=== PATIENT | female | born 1930 | race Caucasian/White ===

== ENCOUNTER → 2018-04-26 | Outpatient (CLI) | payer MEDICARE, BC ==
[2017-11-01 15:00] VITALS: BP 138/62
[~2018-04-26] MED LIST: ASPI325T8 PO; CALC-52 PO; CRESTOR5 MG PO; DOXE50CA PO; DOXE75CA PO; FURO20TA3 PO; HYDR-2765 PO; METO50TA6 PO; MULT1TAB6 PO
[2018-04-26 07:33] LABS: BASO # 0.1 x10^3/uL (0.0-0.2); BASO % 1 % (0-3); EOS # 0.3 x10^3/uL (0.0-0.7); EOS % 4 % (0-3); HEMATOCRIT 34.8 % (36.0-47.0); LYMPH # 1.3 x10^3/uL (1.0-4.8); LYMPH % 17 % (24-48); MEAN CORPUSCULAR HEMOGLOBIN 32 pg (25-35); MEAN CORPUSCULAR HGB CONC 34 g/dL (31-37); MEAN CORPUSCULAR VOLUME 93 fL (79-100); MONO % 13 % (0-9); NEUT # 4.9 x10^3uL (1.8-7.7); NEUT % 64 % (31-73); PLATELET COUNT 278 x10^3/uL (140-400); RED BLOOD COUNT 3.76 x10^6/uL (3.50-5.40); RED CELL DISTRIBUTION WIDTH 14.7 % (11.5-14.5); WHITE BLOOD COUNT 7.7 x10^3/uL (4.0-11.0)
[2018-04-26 07:53] LABS: CALCIUM 8.5 mg/dL (8.5-10.1); CREATININE 1.2 mg/dL (0.6-1.0); GFR 42.4; POTASSIUM 4.7 mmol/L (3.5-5.1)
[2018-04-26 12:15] LABS: INFLUENZA A PATIENT NEGATIVE (NEGATIVE); INFLUENZA B PATIENT NEGATIVE (NEGATIVE)
== END | disposition home or self-care (01) ==
LOC: SPEC 07:16
PROVIDERS: ATTEND Internal Medicine
DX: Z01.818 Encounter for other preprocedural examination (principal)
CPT/HCPCS: 36415; 80048; 85025; 87804

== ENCOUNTER → 2018-07-28 | Outpatient (CLI) | payer MEDICARE ==
[2017-11-01 15:00] VITALS: BP 138/62
[2018-07-28 08:23] LABS: BASO # 0.1 x10^3/uL (0.0-0.2); BASO % 2 % (0-3); EOS # 0.6 x10^3/uL (0.0-0.7); EOS % 7 % (0-3); HEMOGLOBIN 10.9 g/dL (12.0-15.5); LYMPH # 1.9 x10^3/uL (1.0-4.8); LYMPH % 23 % (24-48); MEAN CORPUSCULAR HEMOGLOBIN 31 pg (25-35); MEAN CORPUSCULAR HGB CONC 33 g/dL (31-37); MEAN CORPUSCULAR VOLUME 94 fL (79-100); MONO # 0.8 x10^3/uL (0.0-1.1); MONO % 9 % (0-9); NEUT # 4.8 x10^3uL (1.8-7.7); NEUT % 59 % (31-73); PLATELET COUNT 301 x10^3/uL (140-400); RED BLOOD COUNT 3.53 x10^6/uL (3.50-5.40); RED CELL DISTRIBUTION WIDTH 15.1 % (11.5-14.5); WHITE BLOOD COUNT 8.2 x10^3/uL (4.0-11.0)
[2018-07-28 08:29] LABS: CALCIUM 8.5 mg/dL (8.5-10.1); CREATININE 1.2 mg/dL (0.6-1.0); GFR 42.4; POTASSIUM 4.2 mmol/L (3.5-5.1)
== END | disposition home or self-care (01) ==
LOC: SPEC 07:39
PROVIDERS: ATTEND Internal Medicine
DX: R53.1 Weakness (principal)
CPT/HCPCS: 36415; 80048; 83880; 85025

== ENCOUNTER 2018-11-06 22:17 | Inpatient (IN) | payer MEDICARE, BC ==
[~2018-11-06] VITALS: Ht 160 cm; Wt 79.4 kg
[2018-11-06 22:55] LABS: BASO # 0.1 x10^3/uL (0.0-0.2); BASO % 1 % (0-3); EOS # 0.7 x10^3/uL (0.0-0.7); EOS % 7 % (0-3); HEMATOCRIT 35.2 % (36.0-47.0); HEMOGLOBIN 11.9 g/dL (12.0-15.5); LYMPH # 1.6 x10^3/uL (1.0-4.8); LYMPH % 14 % (24-48); MEAN CORPUSCULAR HEMOGLOBIN 32 pg (25-35); MEAN CORPUSCULAR HGB CONC 34 g/dL (31-37); MEAN CORPUSCULAR VOLUME 95 fL (79-100); MONO % 9 % (0-9); NEUT # 7.6 x10^3/uL (1.8-7.7); NEUT % 69 % (31-73); PLATELET COUNT 270 x10^3/uL (140-400); RED BLOOD COUNT 3.71 x10^6/uL (3.50-5.40)
[2018-11-06 23:03] LABS: CALCIUM 9.1 mg/dL (8.5-10.1); CREATININE 1.5 mg/dL (0.6-1.0); GFR 32.8
[2018-11-06 23:04] LABS: PROTHROMBIN TIME PATIENT 13.8 SEC (11.7-14.0)
--- NOTE | 2018-11-06 23:05 | PHYS DOC ---
Past Medical History Past Medical History: CAD, Cancer, Stroke, UTI Additional Past Medical Histor: cataracts, skin cancer Past Surgical History: Coronary Bypass Surgery, Hip Replacement, Knee Replacement, Other Additional Past Surgical Histo: cataracts surgery Alcohol Use: None Drug Use: None Adult General Chief Complaint Chief Complaint: SHORTNESS OF BREATH HPI HPI Patient is a 88 year old [female] who presents with [shortness of breath]. Pt states "she doesn't know why she's here." She was brought via EMS from [facility] and the nurse at [facility] said the patient was in respiratory distress and had concerning LE pedal edema b/l. SAT 90 ON RA AT [facility] WAS MORE SHORT OF BREATH THAN USUAL, REFFERED HERE BY [facility]. HAS LASIX ON MED LIST BUT HAS NOT YET STARTED IT Pt is a pleasant old lady who is a poor historian (pt states it's because of the stroke she had) and has no complaints. She denies chest pain, shortness of breath, cough, fever/chills abdominal pain, headache, nausea/vomiting, and diarrhea or constipation. Review of Systems Review of Systems Constitutional: Denies fever or chills Eyes: Denies change in visual acuity, redness, or eye pain Musculoskeletal: RIGHT SIDE LEG PAIN Neurologic: Denies headache, focal weakness or sensory changes Endocrine: Denies polyuria or polydipsia All other systems were reviewed and found to be within normal limits, except as documented in this note. Current Medications Current Medications Current Medications Medications (Trade) Dose Ordered Sig/Lilly Start Time Stop Time Status Last Admin Dose Admin Albuterol/ Ipratropium (Duoneb) 3 ml RTQID 11/07/18 08:00 11/08/18 07:59 Ceftriaxone Sodium (Rocephin) 1 gm 1X ONCE 11/06/18 23:45 11/06/18 23:46 Furosemide (Lasix) 40 mg 1X ONCE 11/06/18 23:45 11/06/18 23:46 Vancomycin HCl (Vanco Per Pharmacy) 1 each PRN DAILY PRN 11/06/18 23:45 UNV Vancomycin HCl 2 gm/Sodium Chloride 500 ml @ 250 mls/hr 1X ONCE 11/06/18 23:45 11/07/18 01:44 Allergies Allergies Allergies Coded Allergies Type Severity Reaction Last Updated Verified adhesive tape Allergy Intermediate Rash 10/25/17 No Physical Exam Physical Exam Constitutional: Well developed, well nourished, no acute distress, non-toxic appearance. HENT: Normocephalic, atraumatic, bilateral external ears normal, oropharynx moist, no oral exudates, nose normal. Eyes: [Pt unable to follow finger on examination of cardinal signs of gaze, with her eyes staying fixated where my finger started. Unable to tell if this is due to organic pathology to the EOM or the pt not understanding or wanting to perform the exam.] Neck: Normal range of motion, no tenderness, supple, no stridor. Cardiovascular:Heart rate regular rhythm, no murmur Lungs & Thorax: [Slight end-expiratory wheezes appreciated b/l on auscultation of the lungs, wheezing more prominent on the right] THERE IS MILD TACHYPNEA MILD INCREASE IN ACCESORY MUSLE USE Abdomen: Bowel sounds normal, soft, no tenderness, no masses, no pulsatile masses. Skin: Warm, dry, no erythema, no rash. [Erythematous, shiny, edematous skin in Right lower extrimity] Back: No tenderness, no CVA tenderness. Extremities: No tenderness, [B/l LE's wrapped with dressing from the ankles to the mid calf. Right Lower extremity is erythematous and edematous above the dr essing and the overly skin is shiny. Radial pulses +2/4 b/l] Neurologic: Alert and oriented X 3, normal motor function, normal sensory function, no focal deficits noted. Psychologic: Affect normal, judgement normal, mood normal. Current Patient Data Vital Signs Vital Signs Date Time Temp Pulse Resp B/P (MAP) Pulse Ox O2 Delivery O2 Flow Rate FiO2 11/06/18 22:20 97.9 80 28 145/80 (101) 100 Room Air 97.9 Lab Values Laboratory Tests Test 11/06/18 22:45 White Blood Count 11.0 x10^3/uL (4.0-11.0) Red Blood Count 3.71 x10^6/uL (3.50-5.40) Hemoglobin 11.9 g/dL (12.0-15.5) L Hematocrit 35.2 % (36.0-47.0) L Mean Corpuscular Volume 95 fL (79-100) Mean Corpuscular Hemoglobin 32 pg (25-35) Mean Corpuscular Hemoglobin Concent 34 g/dL (31-37) Red Cell Distribution Width 15.0 % (11.5-14.5) H Platelet Count 270 x10^3/uL (140-400) Neutrophils (%) (Auto) 69 % (31-73) Lymphocytes (%) (Auto) 14 % (24-48) L Monocytes (%) (Auto) 9 % (0-9) Eosinophils (%) (Auto) 7 % (0-3) H Basophils (%) (Auto) 1 % (0-3) Neutrophils # (Auto) 7.6 x10^3/uL (1.8-7.7) Lymphocytes # (Auto) 1.6 x10^3/uL (1.0-4.8) Monocytes # (Auto) 1.0 x10^3/uL (0.0-1.1) Eosinophils # (Auto) 0.7 x10^3/uL (0.0-0.7) Basophils # (Auto) 0.1 x10^3/uL (0.0-0.2) Prothrombin Time 13.8 SEC (11.7-14.0) Prothrombin Time INR 1.1 (0.8-1.1) Sodium Level 134 mmol/L (136-145) L Potassium Level 5.0 mmol/L (3.5-5.1) Chloride Level 97 mmol/L (98-107) L Carbon Dioxide Level 34 mmol/L (21-32) H Anion Gap 3 (6-14) L Blood Urea Nitrogen 55 mg/dL (7-20) H Creatinine 1.5 mg/dL (0.6-1.0) H Estimated GFR (Cockcroft-Gault) 32.8 BUN/Creatinine Ratio 37 (6-20) H Glucose Level 113 mg/dL (70-99) H Calcium Level 9.1 mg/dL (8.5-10.1) Total Bilirubin 0.2 mg/dL (0.2-1.0) Aspartate Amino Transferase (AST) 22 U/L (15-37) Alanine Aminotransferase (ALT) 27 U/L (14-59) Alkaline Phosphatase 101 U/L (46-116) Troponin I Quantitative < 0.017 ng/mL (0.000-0.055) AM-Rqv-G-Type Natriuretic Peptide 839 pg/mL (0-449) H Total Protein 8.0 g/dL (6.4-8.2) Albumin 3.1 g/dL (3.4-5.0) L Albumin/Globulin Ratio 0.6 (1.0-1.7) L Laboratory Tests 11/06/18 22:45 Laboratory Tests 11/06/18 22:45 EKG EKG []EKG shows a sinus rhythm rate 80 Q wave inferiorly no ischemia no STEMI rate of 80 interpreted by me the timing encounter Chest x-ray interpreted by me waiting for radiology read there may be some mild pulmonary vascular congestion there is a rectal critical passive the left lung base overall this is improved compared to prior chest x-ray that I have from 2018. Radiology/Procedures Radiology/Procedures [] Course & Med Decision Making Course & Med Decision Making Pertinent Labs and Imaging studies reviewed. (See chart for details) [Pt is a pleasant 88 yo female presenting with reported shortness of breath. Pt is a resident at [facility] and arrived via EMS. One of the nurses at [place] reported the pt was in respiratory distress and had LE pedal edema b/l that was worse than the pt's baseline edema. Suspect a component of congestive heart failure given the elevated BNP and the prior history as well as lower extremity edema Lasix was given creatinine is 1.5 baseline is around 1.4. In addition there may be a subtle retrocardiac opacity at the left lung base patient was given antibiotics for possible pneumonia. There is wheezing which could be cardiac wheezes or component of reactive airway disease patient was treated for both and will be admitted to the service of Dr. Gonzalez this is a DNR on the outside prison paperwork. Dragon Disclaimer Dragon Disclaimer This electronic medical record was generated, in whole or in part, using a voice recognition dictation system. Departure Departure Impression: Primary Impression: Dyspnea Disposition: ADMITTED INPATIENT Admitting Physician: AKHIL Condition: STABLE Referrals: NIRAJ COREDRO Jr, MD (PCP) PATT POSADA MD Nov 06, 2018 23:05
[2018-11-06 23:09] LABS: ALBUMIN 3.1 g/dL (3.4-5.0); ALBUMIN/GLOBULIN RATIO 0.6 (1.0-1.7); TOTAL BILIRUBIN 0.2 mg/dL (0.2-1.0)
[2018-11-06] MEDS ORDERED: FUROSEMIDE 40 MG/4 ML VIAL. IVP ONE (23:45)
[2018-11-06] MEDS ORDERED: VANCOMYCIN PER PHARMACY MC PRN (23:45)
[2018-11-06] MEDS ORDERED: cefTRIAXone IV Push 1 GM VIAL. IVP ONE (23:45)
[2018-11-06] MEDS ORDERED: VANCOMYCIN 2 GM in IV NORMAL SALINE 500ML BAG 500 ML IV ONE (23:45)
[2018-11-07] VITALS (7 sets, daily range): BP systolic 103–165; BP diastolic 46–68
--- NOTE | 2018-11-07 01:00 | NUR ---
The patient, BRIAN FLORES I, 88 y/o, F admitted by JEREMY NARVAEZ III, DO, was given written information regarding hospital policies, unit procedures and contact persons. Patient transferred to room by ED staff member via ED gurney. Valuables were checked and noted. Patient is currently laying in bed with no complaints of pain or discomfort at this time. Patient is currently on oxygen by nasal canula. Call light was placed within reach of the patient and lights were turned off per request of patient. This RN will continue to monitor the patient at this time.
--- NOTE | 2018-11-07 02:39 | RAD ---
AP portable chest radiograph 11/06/2018 Clinical History: Shortness of breath. An AP erect portable digital radiograph of the chest was obtained. Comparison study is dated 10/31/2017. The cardiac silhouette is mildly enlarged. Atherosclerotic calcification of the thoracic aorta is seen. The thoracic aorta is tortuous. Prominence of pulmonary vasculature is seen suggesting mild CHF. No pneumothorax or pleural effusion is seen. Degenerative changes are seen involving the thoracic spine and both shoulders. Impression: Findings consistent with mild CHF. Electronically signed by: Óscar Chan MD (11/07/2018 2:36 AM) [id number]
[2018-11-07] MEDS ORDERED: ACET500T33 PO (02:46)
[2018-11-07] MEDS ORDERED: MELA3TAB2 PO (02:46)
[2018-11-07] MEDS ORDERED: MULT-638 PO (02:46)
[2018-11-07] MEDS ORDERED: LOSA-73 PO (02:46)
[2018-11-07] MEDS ORDERED: LORA10TA68 PO (02:46)
[2018-11-07] MEDS ORDERED: SULF1TAB24 PO (02:46)
--- NOTE | 2018-11-07 05:22 | NUR ---
Pharmacy Vancomycin Dosing Note S:Consulted to monitor and dose vancomycin started 11/06/18. O:BRIAN FLORES I is a 88 year old F with DYSPNEA . Height: 5 feet, 0 inches Weight: 82.062040 kg [place] Body Weight: 45.50 Adjusted Body Weight: 60.30 Dosing Weight: Actual Other Antibiotics: LABS: Last BUN: 55 Last Creatinine: 1.5 Creatinine Clearance: 24.69 mL/min Last WBC: 11 Last Procalcitonin: Tmax (past 24 hours): Microbiology: I/O: Drug Levels: Last level: on at Last dose given at Vancomycin Dosing: Loading Dose: 2000 mg x1 11/06 Dosing Weight: Actual Target Trough: 15-20 A: Based on: Actual Wt and CrCl P: 1. 11/07/18 2330 Vancomycin 1250 mg IV q24h 2. Follow up Trough level on 11/08/18 at 2300 3. Pharmacy will continue to monitor, follow and adjust therapy as needed. BEN CHAVEZ RPH, 11/07/18 0523 Signed: 11/07/18 at 0524 by BEN CHAVEZ RPH PHA
--- NOTE | 2018-11-07 06:38 | EKG ---
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
[2018-11-07] MEDS: IPRATRPIUM/ALBUTEROL 0.5/2.5MG 3 ML NEBU. NEB SCH ×4 (08:01→19:30)
[2018-11-07] MEDS ORDERED: ONDANSETRON PF 4 MG/2 ML VIAL. IV PRN (09:30)
[2018-11-07] MEDS ORDERED: FUROSEMIDE 40 MG/4 ML VIAL. IVP SCH (09:30)
[2018-11-07] MEDS ORDERED: ACETAMINOPHEN 1000 MG PO PRN (09:30)
[2018-11-07] MEDS ORDERED: guaiFENesin DM 200MG/20MG 10 ML SYRUP PO PRN (09:30)
[2018-11-07] MEDS ORDERED: ACETAMINOPHEN 500 MG TABLET PO PRN (09:30)
[2018-11-07] MEDS: MULTIVITAMIN with MINERAL TABLET. PO SCH (09:47)
[2018-11-07] MEDS: LOSARTAN POTASSIUM 50 MG TABLET. PO SCH (09:47)
[2018-11-07] MEDS: ASPIRIN 325 MG TABLET PO SCH (09:47)
[2018-11-07] MEDS: CETIRIZINE HCL 10 MG TABLET. PO SCH (09:47)
[2018-11-07] MEDS: METOPROLOL TART IMMED RELEASE 50 MG TABLET. PO SCH ×2 (09:48→20:13)
[2018-11-07] MEDS ORDERED: MINERAL OIL/PETROLATUM TOPICAL CREAM 113GM JAR. TP PRN (11:30)
--- NOTE | 2018-11-07 11:34 | PDOC1 ---
History and Physical Date of Admission Date of Admission DATE: 11/07/18 TIME: 11:29 Identification/Chief Complaint Chief Complaint Confusion, low sats at [facility] Source Source: Caregiver, Chart review, Patient History of Present Illness History of Present Illness 88-year-old white female, DNR, came from [facility] with Center because of hypoxia 80% and some confusion. Patient is a poor historian Looking at old chart, was at one point on diuretic, history of CHF but with unknown EF. She complains of foot pain, her legs are red, erythematous but not swollen. Ultrasound Dopplers negative for DVT. Adhesive tape allergy Got vancomycin at ER 1.25 IV every 24. She is elderly 88-year-old. I did order some Lasix 40 IV once a day. Did get a dose of Lasix at the ER. BNP elevated, chest x-ray mild CHF with some retrocardiac space abnormality had started also on antibiotic. I initially shifted to levaquin by mouth but after seeing the legs she will need more IV antibiotics. Order ESR I held off ID for now Clindamycin for now. Watch out for any diarrhea. I have reconciled home meds. I did advise wound care to see the patient, dressings changed, I inspected the wound personally, RN at bedside DNR Past Medical History Cardiovascular: CHF, HTN, Hyperlipidemia CENTRAL NERVOUS SYSTEM: Carpal Tunnel Syndrome Psych: Bipolar Musculoskeletal: Osteoarthritis Renal/: UTI, Urinary Incontinence Endocrine: Osteoporosis Past Surgical History Past Surgical History: Cataract Removal, Total knee replacement Family History Family History: Other Social History Smoke: No ALCOHOL: none Drugs: None Current Medications Current Medications Current Medications Furosemide (Lasix) 40 mg 1X ONCE IVP Last administered on 11/06/18at 23:54; Start 11/06/18 at 23:45; Stop 11/06/18 at 23:46; Status DC Ceftriaxone Sodium (Rocephin) 1 gm 1X ONCE IVP Last administered on 11/06/18at 23:54; Start 11/06/18 at 23:45; Stop 11/06/18 at 23:46; Status DC Vancomycin HCl (Vanco Per Pharmacy) 1 each PRN DAILY PRN [facility] SEE COMMENTS Last administered on 11/07/18at 05:19; Start 11/06/18 at 23:45; Stop 11/07/18 at 09:27; Status DC Albuterol/ Ipratropium (Duoneb) 3 ml RTQID NEB Last administered on 11/07/18at 08:01; Start 11/07/18 at 08:00; Stop 11/08/18 at 07:59 Vancomycin HCl 2 gm/Sodium Chloride 500 ml @ 250 mls/hr 1X ONCE IV Last admi nistered on 11/06/18at 23:55; Start 11/06/18 at 23:45; Stop 11/07/18 at 01:44; Status DC Vancomycin HCl 1.25 gm/Sodium Chloride 250 ml @ 167 mls/hr Q24H IV ; Start 11/07/18 at 23:30; Stop 11/07/18 at 23:30; Status DC Vancomycin HCl (Vancomycin Trough Level) 1 each 1X ONCE MC ; Start 11/08/18 at 23:00; Stop 11/08/18 at 23:01; Status Cancel Guaifenesin (Robitussin Dm) 10 ml PRN Q6HRS PRN PO COUGH; Start 11/07/18 at 09:30 Acetaminophen (Tylenol) 500 mg PRN Q6HRS PRN PO MILD PAIN / TEMP; Start 11/07/18 at 09:30 Ondansetron HCl (Zofran) 4 mg PRN Q6HRS PRN IV NAUSEA/VOMITING; Start 11/07/18 at 09:30 Furosemide (Lasix) 40 mg DAILY IVP Last administered on 11/07/18at 09:49; Start 11/07/18 at 09:30 Aspirin (Santos Aspirin) 325 mg DAILY PO Last administered on 11/07/18at 09:47; Start 11/07/18 at 09:30 Losartan Potassium (Cozaar) 50 mg DAILY PO Last administered on 11/07/18at 09:47; Start 11/07/18 at 09:30 Metoprolol Tartrate (Lopressor) 50 mg BID PO Last administered on 11/07/18at 09:48; Start 11/07/18 at 09:30 Multivitamins (Thera M Plus) 1 tab DAILY PO Last administered on 11/07/18at 09:47; Start 11/07/18 at 09:30 Non-Formulary Medication (Acetaminophen (Tylenol Extra Strength)) 1,000 mg PRN Q6HRS PRN PO PAIN; Start 11/07/18 at 09:30; Status UNV Doxepin HCl (SINEquan) 75 mg QHS PO ; Start 11/07/18 at 21:00 Cetirizine HCl (ZyrTEC) 10 mg DAILY PO Last administered on 11/07/18at 09:47; S tart 11/07/18 at 09:30 Non-Formulary Medication (Melatonin ) 5 mg HS PO ; Start 11/07/18 at 21:00; Status UNV Levofloxacin (Levaquin) 250 mg DAILY06 PO Last administered on 11/07/18at 09:47; Start 11/07/18 at 10:00 Active Scripts Active Reported Thera M Plus Tablet (Multivits,Ca,Minerals/Iron/FA) 1 Each Tablet 1 Each PO DAILY Melatonin 3 Mg Tablet 5 Mg PO HS Claritin (Loratadine) 10 Mg Tablet 1 Tab PO DAILY Losartan Potassium 50 Mg Tablet 50 Mg PO DAILY Tylenol Extra Strength (Acetaminophen) 500 Mg Tablet 1,000 Mg PO PRN Q6HRS PRN Bactrim Ds Tablet (Sulfamethoxazole/Trimethoprim) 1 Each Tablet 1 Each PO BID 7 Days Doxepin Hcl 75 Mg Capsule 75 Mg PO DAILY Aspirin 325 Mg Tablet 1 Tab PO DAILY Furosemide 20 Mg Tablet 1 Tab PO DAILY Metoprolol Tartrate 50 Mg Tablet 1 Tab PO BID Allergies Allergies: Coded Allergies: adhesive tape (Unverified Allergy, Intermediate, Rash, 10/25/17) ROS Review of System Legs hurt, SOA, no chest pain, positive for weakness, no abdominal issues, the rest of ROS 14 point she denies Physical Exam General: No acute distress HEENT: Atraumatic, PERRLA Lungs: Normal air movement, Other (diminished, symmetrical chest expansion, crackles at the bases, no wheezing) Heart: S1S2, RRR, no thrills, no rubs, no gallops, no murmurs Cardiovascular: S1, S2 Breasts: Normal Abdomen: Normal bowel sounds, Soft, No tenderness, No hepatosplenomegaly, No masses Rectal Exam: not examined PELVIC: Nml ext genitalia Extremities: No clubbing, No cyanosis Skin: Other (bilateral legs right greater than the left erythematous, red, warm, but not swollen) Neuro: Normal gait, Normal speech, Strength at 5/5 X4 ext, Normal tone, Sensation intact, Cranial nerves 3-12 NL, Reflexes 2+ Psych/Mental Status: Mental status NL, Mood NL Vitals Vitals Vital Signs Date Time Temp Pulse Resp B/P (MAP) Pulse Ox O2 Delivery O2 Flow Rate FiO2 11/07/18 11:00 97.4 88 18 165/68 (100) 99 Nasal Cannula 2.0 97.4 Labs Labs Laboratory Tests Test 11/06/18 22:45 White Blood Count 11.0 x10^3/uL (4.0-11.0) Red Blood Count 3.71 x10^6/uL (3.50-5.40) Hemoglobin 11.9 g/dL (12.0-15.5) Hematocrit 35.2 % (36.0-47.0) Mean Corpuscular Volume 95 fL (79-100) Mean Corpuscular Hemoglobin 32 pg (25-35) Mean Corpuscular Hemoglobin Concent 34 g/dL (31-37) Red Cell Distribution Width 15.0 % (11.5-14.5) Platelet Count 270 x10^3/uL (140-400) Neutrophils (%) (Auto) 69 % (31-73) Lymphocytes (%) (Auto) 14 % (24-48) Monocytes (%) (Auto) 9 % (0-9) Eosinophils (%) (Auto) 7 % (0-3) Basophils (%) (Auto) 1 % (0-3) Neutrophils # (Auto) 7.6 x10^3/uL (1.8-7.7) Lymphocytes # (Auto) 1.6 x10^3/uL (1.0-4.8) Monocytes # (Auto) 1.0 x10^3/uL (0.0-1.1) Eosinophils # (Auto) 0.7 x10^3/uL (0.0-0.7) Basophils # (Auto) 0.1 x10^3/uL (0.0-0.2) Prothrombin Time 13.8 SEC (11.7-14.0) Prothromb Time International Ratio 1.1 (0.8-1.1) Sodium Level 134 mmol/L (136-145) Potassium Level 5.0 mmol/L (3.5-5.1) Chloride Level 97 mmol/L (98-107) Carbon Dioxide Level 34 mmol/L (21-32) Anion Gap 3 (6-14) Blood Urea Nitrogen 55 mg/dL (7-20) Creatinine 1.5 mg/dL (0.6-1.0) Estimated GFR (Cockcroft-Gault) 32.8 BUN/Creatinine Ratio 37 (6-20) Glucose Level 113 mg/dL (70-99) Lactic Acid Level 1.2 mmol/L (0.4-2.0) Calcium Level 9.1 mg/dL (8.5-10.1) Total Bilirubin 0.2 mg/dL (0.2-1.0) Aspartate Amino Transf (AST/SGOT) 22 U/L (15-37) Alanine Aminotransferase (ALT/SGPT) 27 U/L (14-59) Alkaline Phosphatase 101 U/L (46-116) Troponin I Quantitative < 0.017 ng/mL (0.000-0.055) AT-Tzy-U-Type Natriuretic Peptide 839 pg/mL (0-449) Total Protein 8.0 g/dL (6.4-8.2) Albumin 3.1 g/dL (3.4-5.0) Albumin/Globulin Ratio 0.6 (1.0-1.7) Laboratory Tests Test 11/06/18 22:45 White Blood Count 11.0 x10^3/uL (4.0-11.0) Red Blood Count 3.71 x10^6/uL (3.50-5.40) Hemoglobin 11.9 g/dL (12.0-15.5) Hematocrit 35.2 % (36.0-47.0) Mean Corpuscular Volume 95 fL (79-100) Mean Corpuscular Hemoglobin 32 pg (25-35) Mean Corpuscular Hemoglobin Concent 34 g/dL (31-37) Red Cell Distribution Width 15.0 % (11.5-14.5) Platelet Count 270 x10^3/uL (140-400) Neutrophils (%) (Auto) 69 % (31-73) Lymphocytes (%) (Auto) 14 % (24-48) Monocytes (%) (Auto) 9 % (0-9) Eosinophils (%) (Auto) 7 % (0-3) Basophils (%) (Auto) 1 % (0-3) Neutrophils # (Auto) 7.6 x10^3/uL (1.8-7.7) Lymphocytes # (Auto) 1.6 x10^3/uL (1.0-4.8) Monocytes # (Auto) 1.0 x10^3/uL (0.0-1.1) Eosinophils # (Auto) 0.7 x10^3/uL (0.0-0.7) Basophils # (Auto) 0.1 x10^3/uL (0.0-0.2) Prothrombin Time 13.8 SEC (11.7-14.0) Prothromb Time International Ratio 1.1 (0.8-1.1) Sodium Level 134 mmol/L (136-145) Potassium Level 5.0 mmol/L (3.5-5.1) Chloride Level 97 mmol/L (98-107) Carbon Dioxide Level 34 mmol/L (21-32) Anion Gap 3 (6-14) Blood Urea Nitrogen 55 mg/dL (7-20) Creatinine 1.5 mg/dL (0.6-1.0) Estimated GFR (Cockcroft-Gault) 32.8 BUN/Creatinine Ratio 37 (6-20) Glucose Level 113 mg/dL (70-99) Lactic Acid Level 1.2 mmol/L (0.4-2.0) Calcium Level 9.1 mg/dL (8.5-10.1) Total Bilirubin 0.2 mg/dL (0.2-1.0) Aspartate Amino Transf (AST/SGOT) 22 U/L (15-37) Alanine Aminotransferase (ALT/SGPT) 27 U/L (14-59) Alkaline Phosphatase 101 U/L (46-116) Troponin I Quantitative < 0.017 ng/mL (0.000-0.055) YG-Jty-V-Type Natriuretic Peptide 839 pg/mL (0-449) Total Protein 8.0 g/dL (6.4-8.2) Albumin 3.1 g/dL (3.4-5.0) Albumin/Globulin Ratio 0.6 (1.0-1.7) VTE Prophylaxis Ordered VTE Prophylaxis Devices: Yes VTE Pharmacological Prophylaxi: Yes Assessment/Plan Assessment/Plan Mild CHF by chest x-ray Acute hypoxic respiratory failure-80s at [facility] resident, DNR Bilateral lower extremity cellulitis negative Dopplers for DVT-right greater than left met encephalopathy/confusion in this elderly Dementia Geriatric Fall risk History hypertension GERD OA-chronic stable Adhesive tape allergy PLAN: 2 MN Lasix 40 IV daily-cardiac consult Home meds I have reconciled DVT prophylaxis, SCDs Wound care consult Clindamycin for the legs Check a sedimentation rate Clindamycin should cover also the retrocardiac opacity Watch lytes as we are actively IV diuresing-I'll might need to go down the dose in this elderly Fall risk Cardiac diet Eucerin lotion for dry skin DNR JOSE FLOREZ MD Nov 07, 2018 11:34
--- NOTE | 2018-11-07 12:24 | PDOC2 ---
MOHINDER WALLER PORTER BAGGAGE 11/07/18 1224: CARDIAC CONSULT DATE OF CONSULT Date of Consult DATE: 11/07/18 TIME: 12:15 REASON FOR CONSULT Reason for Consult: CHF REFERRING PHYSICIAN Referring Physician: Eber HISTORY OF PRESENT ILLNESS HISTORY OF PRESENT ILLNESS This is a pleasant 88 yo female admitted for complains of shortness of breath. She is a poor historian but pleasant and aware that she is in the hospital. Denies any complains of chest pain and no leg pain as well but her LE has been noted with redness. No issues with palpitations. She has had cough but nonproductive. No recent falls or injuries and she is bed and WC bound as she has had CVA with right side hemiparesis. No hx of arrhythmias. She was a smoker. No known hx of CAD but notable for PAD as noted in her arterial Doppler in 02/2018 and no known intervention performed at that time. Denies any orthopnea or PND. PAST MEDICAL HISTORY Past Medical History Cardiovascular: CHF, HTN, Hyperlipidemia, LE PAD CENTRAL NERVOUS SYSTEM: Carpal Tunnel Syndrome Psych: Bipolar Musculoskeletal: Osteoarthritis ENT: Other (cataract) Renal/: UTI, Urinary Incontinence, CKD? Endocrine: Osteoporosis PAST SURGICAL HISTORY Past Surgical History Cataract Removal, Total knee replacement (left) SOCIAL HISTORY Smoke: Quit ALCOHOL: none Drugs: None Lives: Custodial CURRENT MEDICATIONS CURRENT MEDICATIONS Current Medications Medications (Trade) Dose Ordered Sig/Lilly Route PRN Reason Start Time Stop Time Status Last Admin Dose Admin Furosemide (Lasix) 40 mg 1X ONCE IVP 11/06/18 23:45 11/06/18 23:46 DC 11/06/18 23:54 Ceftriaxone Sodium (Rocephin) 1 gm 1X ONCE IVP 11/06/18 23:45 11/06/18 23:46 DC 11/06/18 23:54 Vancomycin HCl (Vanco Per Pharmacy) 1 each PRN DAILY PRN MC SEE COMMENTS 11/06/18 23:45 11/07/18 09:27 DC 11/07/18 05:19 Albuterol/ Ipratropium (Duoneb) 3 ml RTQID NEB 11/07/18 08:00 11/08/18 07:59 11/07/18 11:31 Vancomycin HCl 2 gm/Sodium Chloride 500 ml @ 250 mls/hr 1X ONCE IV 11/06/18 23:45 11/07/18 01:44 DC 11/06/18 23:55 Furosemide (Lasix) 40 mg DAILY IVP 11/07/18 09:30 11/07/18 09:49 Aspirin (Santos Aspirin) 325 mg DAILY PO 11/07/18 09:30 11/07/18 09:47 Losartan Potassium (Cozaar) 50 mg DAILY PO 11/07/18 09:30 11/07/18 09:47 Metoprolol Tartrate (Lopressor) 50 mg BID PO 11/07/18 09:30 11/07/18 09:48 Multivitamins (Thera M Plus) 1 tab DAILY PO 11/07/18 09:30 11/07/18 09:47 Cetirizine HCl (ZyrTEC) 10 mg DAILY PO 11/07/18 09:30 11/07/18 09:47 Levofloxacin (Levaquin) 250 mg DAILY06 PO 11/07/18 10:00 11/07/18 11:29 DC 11/07/18 09:47 ALLERGIES ALLERGIES: Coded Allergies: adhesive tape (Unverified Allergy, Intermediate, Rash, 10/25/17) ROS Review of System limited, poor historian PHYSICAL EXAM General: Alert, Oriented X3, Cooperative, No acute distress HEENT: Atraumatic, Mucous membr. moist/pink Lungs: Other (diffuse crackles) Heart: Regular rate (SR), Other (3/6 systolic murmur to apical) Abdomen: Soft, No tenderness Skin: Other (scaling to bilateral LE; erythema more to right than left; scabbed pressure ulcer to right calcaneus) Neuro: Normal speech, Sensation intact Psych/Mental Status: Mental status NL, Mood NL MUSCULOSKELETAL: Osteoarthritic changes both hands VITALS/I&O VITALS/I&O: Vital Signs Date Time Temp Pulse Resp B/P (MAP) Pulse Ox O2 Delivery O2 Flow Rate FiO2 11/07/18 11:32 98 Nasal Cannula 2.0 11/07/18 11:00 97.4 88 18 165/68 (100) 97.4 I & O 11/06/18 11/06/18 11/07/18 15:00 23:00 07:00 Intake Total 500 ml Balance 500 ml LABS Lab: Laboratory Tests Test 11/06/18 22:45 White Blood Count 11.0 x10^3/uL (4.0-11.0) Red Blood Count 3.71 x10^6/uL (3.50-5.40) Hemoglobin 11.9 g/dL (12.0-15.5) L Hematocrit 35.2 % (36.0-47.0) L Mean Corpuscular Volume 95 fL (79-100) Mean Corpuscular Hemoglobin 32 pg (25-35) Mean Corpuscular Hemoglobin Concent 34 g/dL (31-37) Red Cell Distribution Width 15.0 % (11.5-14.5) H Platelet Count 270 x10^3/uL (140-400) Neutrophils (%) (Auto) 69 % (31-73) Lymphocytes (%) (Auto) 14 % (24-48) L Monocytes (%) (Auto) 9 % (0-9) Eosinophils (%) (Auto) 7 % (0-3) H Basophils (%) (Auto) 1 % (0-3) Neutrophils # (Auto) 7.6 x10^3/uL (1.8-7.7) Lymphocytes # (Auto) 1.6 x10^3/uL (1.0-4.8) Monocytes # (Auto) 1.0 x10^3/uL (0.0-1.1) Eosinophils # (Auto) 0.7 x10^3/uL (0.0-0.7) Basophils # (Auto) 0.1 x10^3/uL (0.0-0.2) Prothrombin Time 13.8 SEC (11.7-14.0) Prothrombin Time INR 1.1 (0.8-1.1) Sodium Level 134 mmol/L (136-145) L Potassium Level 5.0 mmol/L (3.5-5.1) Chloride Level 97 mmol/L (98-107) L Carbon Dioxide Level 34 mmol/L (21-32) H Anion Gap 3 (6-14) L Blood Urea Nitrogen 55 mg/dL (7-20) H Creatinine 1.5 mg/dL (0.6-1.0) H Estimated GFR (Cockcroft-Gault) 32.8 BUN/Creatinine Ratio 37 (6-20) H Glucose Level 113 mg/dL (70-99) H Lactic Acid Level 1.2 mmol/L (0.4-2.0) Calcium Level 9.1 mg/dL (8.5-10.1) Total Bilirubin 0.2 mg/dL (0.2-1.0) Aspartate Amino Transferase (AST) 22 U/L (15-37) Alanine Aminotransferase (ALT) 27 U/L (14-59) Alkaline Phosphatase 101 U/L (46-116) Troponin I Quantitative < 0.017 ng/mL (0.000-0.055) BC-Nsf-N-Type Natriuretic Peptide 839 pg/mL (0-449) H Total Protein 8.0 g/dL (6.4-8.2) Albumin 3.1 g/dL (3.4-5.0) L Albumin/Globulin Ratio 0.6 (1.0-1.7) L Laboratory Tests 11/06/18 22:45 Laboratory Tests 11/06/18 22:45 IMAGES IMAGES Bilateral LE arterial duplex FINDINGS: Right-sided: Triphasic waveform seen in the GENETICS TEACHER with velocity of 80 cm/s. [place] SFA is occluded. Femoropopliteal graft is noted which is patent with biphasic waveforms and velocity 112 cm/s in the proximal segment. Biphasic waveform in the mid segment of the graft with velocity of 62 cm/s. Biphasic waveform in the distal segment of the graft with velocity of 65 cm/s. Monophasic waveforms in the profunda femoris artery with velocity of 208 cm/s suggesting moderate narrowing. Right popliteal artery is not seen likely occluded. Biphasic waveforms seen in the posterior tibial artery with velocity of 50 cm/s. Biphasic waveforms seen in the peroneal artery with velocity of 52 cm/s. Anterior tibial artery and dorsalis pedis arteries are seen which may be secondary to occlusion or diffuse high-grade stenosis. Left side: Biphasic waveforms seen in the GENETICS TEACHER with velocity of 107 cm/s. Biphasic waveforms seen in the profunda femoris artery with velocity of 164 cm/s suggesting mild stenosis. Monophasic waveforms seen in the proximal SFA with velocity of 512 cm/s suggesting severe stenosis. Monophasic waveform is seen in the mid SFA with velocity of 36 cm/s. Monophasic waveform is seen in the distal SFA with velocity of 35 cm/s. Monophasic waveform is seen in the popliteal artery with velocity of 36 cm/s. Monophasic waveform in the posterior tibial artery with velocity of 34 cm/s. The peroneal artery, anterior tibial artery are not seen which may be secondary to severe diffuse stenosis or occlusion. Monophasic waveform is seen in the dorsalis pedis artery with velocity of 34 cm/s. IMPRESSION: Please see above for details. 02/2018 ECHOCARDIOGRAM ECHOCARDIOGRAM <Conclusion> The left ventricular systolic function is normal and the ejection fraction is within normal range. Ef 55% There is grossly normal LV segmental wall motion. Doppler and Color Flow revealed mild aortic regurgitation. Doppler and Color-flow revealed severe mitral regurgitation. Doppler and Color Flow revealed trace to mild tricuspid regurgitation. There is moderate pulmonary hypertension. The PA pressure was estimated at 50 mmHg. DATE: 10/30/17 1314 ASSESSMENT/PLAN ASSESSMENT/PLAN 1. Acute on chronic diastolic CHF: 2. HTN 3. Right heel pressure ulcer: scabbed over 4. RLE cellulitis 5. Hx of severe LE PAD: no necrotic tissues, no pain. Treat medically 6. TY on CKD: suspect stage 3 7. Debility: WC bound 8. Hx of CVA with right sided hemiparesis 9. Possible undiagnosed COPD 10. Hx of severe MR. Recommendations TTE, BMP, Mg lipids. UA Discussed with son and will continue with conservative measures Secondary prevention, ASA and statin per lipid level. Albuterol x1, solumedrol x1. May need CT chest noncontrast. Lasix therapy BETHANY DINH MD 11/07/18 1735: CARDIAC CONSULT ASSESSMENT/PLAN ASSESSMENT/PLAN Patient seen and examined. Agree with EXTRUSION DIE COORDINATOR's assessment and plan. 2-D echo showed normal LV systolic function Continue diuresis for acute on chronic diastolic heart failure Continue current treatment for cellulitis Agree with conservative management for PAD Thank you for your consultation MOHINDER WALLER APRN Nov 07, 2018 12:24 BETHANY DINH MD Nov 07, 2018 17:35
[2018-11-07] MEDS ORDERED: methylPREDNISolone SOD SUCC PF 125 MG/2 ML VIAL. IV ONE (12:45)
[2018-11-07] MEDS ORDERED: ALBUTEROL SULFATE 2.5 MG/3 ML NEBU. NEB ONE (12:45)
[2018-11-07 12:50] LABS: CALCIUM 8.6 mg/dL (8.5-10.1); CREATININE 1.5 mg/dL (0.6-1.0); GFR 32.8; POTASSIUM 4.2 mmol/L (3.5-5.1)
[2018-11-07 12:54] LABS: MAGNESIUM 2.3 mg/dL (1.8-2.4)
[2018-11-07 13:05] LABS: CHOLESTEROL/HDL RATIO 3.5
--- NOTE | 2018-11-07 15:16 | NUR ---
Wound care Pt getting ECHO upon arrival of WC team. Will re-attempt eval again tomorrow. Addendum: 11/07/18 at 1541 by FABIENNE RODRIGES RN ramírez
--- NOTE | 2018-11-07 15:36 | NUR ---
Wound Care wound care consult for R heel wound. Pt has stage II on right posterior heel and arterial ulcer to left lateral lower leg. Pt also has reddened indurated area to right posterior lower leg. Cleansed, pictured and measured wounds. Applied contact layer and foam to right heel and Medihoney alginate and foam to left leg. Recommend to change dressings every 2-3 days. Pt BLE are reddened and scaly. No other wounds noted on full skin inspection. WC will continue to follow for possible changes. Pt educated on PU prevention, left on right side.
--- NOTE | 2018-11-07 15:50 | CARD ---
MR#: [id number] Date of Study: 11/07/2018 Ordering Physician: MOHINDER WALLER, Referring Physician: JEREMY NARVAEZ Tech: Martha Reed RDCS APPROVED REPORT EXAM: Two-dimensional and M-mode echocardiogram with Doppler and color Doppler. Other Information Quality : Good INDICATION Congestive Heart Failure 2D DIMENSIONS RVDd2.2 (2.9-3.5cm)Left Atrium(2D)4.4 (1.6-4.0cm) IVSd0.9 (0.7-1.1cm)Aortic Root(2D)2.3 (2.0-3.7cm) LVDd5.0 (3.9-5.9cm)LVOT Diameter1.7 (1.8-2.4cm) PWd1.0 (0.7-1.1cm)LVDs3.7 (2.5-4.0cm) FS (%) 27.3 %SV63.6 ml LVEF(%)55.0 (>50%) Aortic Valve AoV Peak Donny.143.0cm/sAoV VTI31.4cm AO Peak GR.8.2mmHgLVOT VTI 18.93cm AO Mean GR.5mmHgAI P 1/2 Mtkl190es Mitral Valve MV E Djuwdnet660.3cm/sMV DECEL [id number] MV A Vvnmbsqy672.9cm/sE/A Ratio1.1 TDI Lateral E' P. V4.25cm/sMedial E' P. V4.05cm/s E/Lateral E'29.0E/Medial E'30.4 Tricuspid Valve TR P. Ijpqjrtd862ua/sRAP [id number] TR Peak Gr.90jvNuNSWD51zbYx Pulmonary Vein S1 Hubdylre46.9cm/sS2 Dpesqwql32.51cm/s D2 Nswatviy79.5cm/s LEFT VENTRICLE The left ventricle is normal size. There is normal left ventricular wall thickness. The left ventricu lar systolic function is normal. The Ejection Fraction is 55-60%. There is normal LV segmental wall m otion. Transmitral Doppler flow pattern is Grade I-abnormal relaxation pattern. RIGHT VENTRICLE The right ventricle is normal size. The right ventricular systolic function is normal. ATRIA The left atrium is mildly dilated. The right atrium size is normal. The interatrial septum is intact with no evidence for an atrial septal defect or patent foramen ovale as noted on 2-D or Doppler imagi ng. AORTIC VALVE The aortic valve is calcified but opens well. Doppler and Color Flow revealed mild aortic regurgitati on. There is no significant aortic valvular stenosis. MITRAL VALVE The mitral valve is calcified but opens well. Mitral annular calcification is mild. There is no evide nce of mitral valve prolapse. There is no mitral valve stenosis. Doppler and Color-flow revealed mild to moderate mitral regurgitation. TRICUSPID VALVE The tricuspid valve is normal in structure and function. Doppler and Color Flow revealed trace to mil d tricuspid regurgitation. There is mild pulmonary hypertension. The PA pressure was estimated at 32 mmHg. There is no tricuspid valve stenosis. PULMONIC VALVE The pulmonic valve is not well visualized. Doppler and Color Flow revealed trace to mild pulmonic axel vular regurgitation. There is no pulmonic valvular stenosis. GREAT VESSELS The aortic root is normal in size. The ascending aorta is normal in size. The IVC is normal in size a nd collapses >50% with inspiration. PERICARDIAL EFFUSION There is no evidence of significant pericardial effusion. Critical Notification Critical Value: No <Conclusion> The left ventricular systolic function is normal. The Ejection Fraction is 55-60%. There is normal LV segmental wall motion. Mild aortic regurgitation. Mild to moderate mitral regurgitation. Trace to mild tricuspid regurgitation. The PA pressure was estimated at 32 mmHg. There is no evidence of significant pericardial effusion. Signed by : Fernando Gil, Electronically Approved : 11/07/2018 15:50:17
[2018-11-07] MEDS: CLINDAMYCIN 600MG PREMIX 50 ML IV SCH (15:59)
--- NOTE | 2018-11-07 16:14 | NUR ---
SW following pt for dc planning. Chart reviewed and discussed with RN. Spoke with Lucrecia at [facility] and pt is LTC resident. Will continue to follow.
[2018-11-07] MEDS: DOXEPIN HCL 25 MG CAPSULE. PO SCH (20:07)
[2018-11-07] MEDS: ATORVASTATIN CALCIUM 20 MG TABLET PO SCH (20:07)
[2018-11-07] MEDS ORDERED: NON FORMULARY ITEM (Melatonin 5 MG) PO SCH (21:00)
[2018-11-07] MEDS ORDERED: VANCOMYCIN 1.25 GM in IV NORMAL SALINE 250ML 250 ML IV SCH (23:30)
[2018-11-08] MEDS: CLINDAMYCIN 600MG PREMIX 50 ML IV SCH ×2 (00:29→05:59)
[2018-11-08] MEDS ORDERED: TEMAZEPAM 7.5 MG CAPSULE PO ONE (02:21)
[2018-11-08 03:14] VITALS: BP 98/44
[2018-11-08 05:25] LABS: BASO % 0 % (0-3); EOS % 0 % (0-3); HEMOGLOBIN 10.9 g/dL (12.0-15.5); LYMPH # 0.6 x10^3/uL (1.0-4.8); LYMPH % 10 % (24-48); MEAN CORPUSCULAR HEMOGLOBIN 32 pg (25-35); MEAN CORPUSCULAR HGB CONC 34 g/dL (31-37); MEAN CORPUSCULAR VOLUME 94 fL (79-100); MONO # 0.1 x10^3/uL (0.0-1.1); MONO % 2 % (0-9); NEUT # 5.1 x10^3/uL (1.8-7.7); NEUT % 88 % (31-73); PLATELET COUNT 228 x10^3/uL (140-400); RED BLOOD COUNT 3.41 x10^6/uL (3.50-5.40); RED CELL DISTRIBUTION WIDTH 14.9 % (11.5-14.5); WHITE BLOOD COUNT 5.8 x10^3/uL (4.0-11.0)
[2018-11-08 05:50] LABS: CALCIUM 8.3 mg/dL (8.5-10.1); CREATININE 1.6 mg/dL (0.6-1.0); GFR 30.4; POTASSIUM 4.2 mmol/L (3.5-5.1)
[2018-11-08 07:00] VITALS: BP 161/69
[2018-11-08] MEDS: IPRATRPIUM/ALBUTEROL 0.5/2.5MG 3 ML NEBU. NEB SCH ×4 (08:03→23:52)
[2018-11-08] MEDS ORDERED: predniSONE 20 MG TABLET PO SCH (09:00)
[2018-11-08] MEDS: MULTIVITAMIN with MINERAL TABLET. PO SCH ×2 (09:00→09:10)
[2018-11-08] MEDS: ASPIRIN 325 MG TABLET PO SCH (09:10)
[2018-11-08] MEDS: LOSARTAN POTASSIUM 50 MG TABLET. PO SCH (09:11)
[2018-11-08] MEDS: ASCORBIC ACID 500 MG TABLET PO SCH (09:11)
[2018-11-08] MEDS: METOPROLOL TART IMMED RELEASE 50 MG TABLET. PO SCH (09:11)
[2018-11-08] MEDS: CETIRIZINE HCL 10 MG TABLET. PO SCH (09:17)
[2018-11-08] MEDS: FUROSEMIDE 20 MG/2 ML VIAL. IVP SCH (09:17)
[2018-11-08 10:22] LABS: PLT ESTIMATE ADEQUATE (ADEQUATE)
[2018-11-08 11:00] VITALS: BP 136/64
--- NOTE | 2018-11-08 11:21 | PDOC ---
PROGRESS NOTES Chief Complaint Chief Complaint Mild CHF by chest x-ray Acute hypoxic respiratory failure-80s at [facility] SNU resident, DNR Bilateral lower extremity cellulitis negative Dopplers for DVT-right greater than left met encephalopathy/confusion in this elderly Dementia Geriatric Fall risk History hypertension GERD OA-chronic stable Adhesive tape allergy WHEEZY History of Present Illness History of Present Illness very weak Very wheezy Cardiology also noticed the audible wheezing yesterday Wound care note reviewed, right heel pressure ulcer stage II, some med E Honey and offloading that site recommended alternating left and right heels Patient is DNR Patient is an SNU resident [facility] UA was ordered by ER but patient is incontinent Legs are about the same still red, negative DVT on IV abx Plan Consult ID because the leg that is not getting better Start some steroids IV for the wheezing Consult pulmonary for this wheezy/hypoxia present at [facility] 80% on admission Blood pressure on the high side-see my orders Echocardiogram reviewed, good EF, good PA pressures ESR is normal at 12 Discussed with patient and RN DNR Vitals Vitals Vital Signs Date Time Temp Pulse Resp B/P (MAP) Pulse Ox O2 Delivery O2 Flow Rate FiO2 11/08/18 09:11 93 161/69 11/08/18 08:03 98 Nasal Cannula 2.0 11/08/18 07:00 97.5 16 97.5 Physical Exam General: Alert, Oriented X3, Cooperative, No acute distress Heart: Regular rate (SR), Other (3/6 systolic murmur to apical) Lungs: Wheezing Abdomen: Soft, No tenderness Extremities: No clubbing, No cyanosis Skin: Other (scaling to bilateral LE; erythema more to right than left; scabbed pressure ulcer to right calcaneus) Labs LABS Laboratory Tests Test 11/08/18 04:20 White Blood Count 5.8 x10^3/uL (4.0-11.0) Red Blood Count 3.41 x10^6/uL (3.50-5.40) Hemoglobin 10.9 g/dL (12.0-15.5) Hematocrit 32.0 % (36.0-47.0) Mean Corpuscular Volume 94 fL (79-100) Mean Corpuscular Hemoglobin 32 pg (25-35) Mean Corpuscular Hemoglobin Concent 34 g/dL (31-37) Red Cell Distribution Width 14.9 % (11.5-14.5) Platelet Count 228 x10^3/uL (140-400) Neutrophils (%) (Auto) 88 % (31-73) Lymphocytes (%) (Auto) 10 % (24-48) Monocytes (%) (Auto) 2 % (0-9) Eosinophils (%) (Auto) 0 % (0-3) Basophils (%) (Auto) 0 % (0-3) Neutrophils # (Auto) 5.1 x10^3/uL (1.8-7.7) Lymphocytes # (Auto) 0.6 x10^3/uL (1.0-4.8) Monocytes # (Auto) 0.1 x10^3/uL (0.0-1.1) Eosinophils # (Auto) 0.0 x10^3/uL (0.0-0.7) Basophils # (Auto) 0.0 x10^3/uL (0.0-0.2) Platelet Estimate Adequate (ADEQUATE) Erythrocyte Sedimentation Rate 12 (0-25) Sodium Level 136 mmol/L (136-145) Potassium Level 4.2 mmol/L (3.5-5.1) Chloride Level 99 mmol/L (98-107) Carbon Dioxide Level 30 mmol/L (21-32) Anion Gap 7 (6-14) Blood Urea Nitrogen 44 mg/dL (7-20) Creatinine 1.6 mg/dL (0.6-1.0) Estimated GFR (Cockcroft-Gault) 30.4 Glucose Level 149 mg/dL (70-99) Calcium Level 8.3 mg/dL (8.5-10.1) Review of Systems Review of Systems Weak, wheezy, SOA, tired, fatigued, the rest of ROS 14 point negative Comment Review of Relevant I have reviewed the following items christina (where applicable) has been applied. Labs Laboratory Tests Test 11/06/18 22:45 11/07/18 01:09 11/07/18 09:27 11/08/18 04:20 White Blood Count 11.0 x10^3/uL (4.0-11.0) 5.8 x10^3/uL (4.0-11.0) Red Blood Count 3.71 x10^6/uL (3.50-5.40) 3.41 x10^6/uL (3.50-5.40) Hemoglobin 11.9 g/dL (12.0-15.5) 10.9 g/dL (12.0-15.5) Hematocrit 35.2 % (36.0-47.0) 32.0 % (36.0-47.0) Mean Corpuscular Volume 95 fL (79-100) 94 fL (79-100) Mean Corpuscular Hemoglobin 32 pg (25-35) 32 pg (25-35) Mean Corpuscular Hemoglobin Concent 34 g/dL (31-37) 34 g/dL (31-37) Red Cell Distribution Width 15.0 % (11.5-14.5) 14.9 % (11.5-14.5) Platelet Count 270 x10^3/uL (140-400) 228 x10^3/uL (140-400) Neutrophils (%) (Auto) 69 % (31-73) 88 % (31-73) Lymphocytes (%) (Auto) 14 % (24-48) 10 % (24-48) Monocytes (%) (Auto) 9 % (0-9) 2 % (0-9) Eosinophils (%) (Auto) 7 % (0-3) 0 % (0-3) Basophils (%) (Auto) 1 % (0-3) 0 % (0-3) Neutrophils # (Auto) 7.6 x10^3/uL (1.8-7.7) 5.1 x10^3/uL (1.8-7.7) Lymphocytes # (Auto) 1.6 x10^3/uL (1.0-4.8) 0.6 x10^3/uL (1.0-4.8) Monocytes # (Auto) 1.0 x10^3/uL (0.0-1.1) 0.1 x10^3/uL (0.0-1.1) Eosinophils # (Auto) 0.7 x10^3/uL (0.0-0.7) 0.0 x10^3/uL (0.0-0.7) Basophils # (Auto) 0.1 x10^3/uL (0.0-0.2) 0.0 x10^3/uL (0.0-0.2) Prothrombin Time 13.8 SEC (11.7-14.0) Prothromb Time International Ratio 1.1 (0.8-1.1) Sodium Level 134 mmol/L (136-145) 135 mmol/L (136-145) 136 mmol/L (136-145) Potassium Level 5.0 mmol/L (3.5-5.1) 4.2 mmol/L (3.5-5.1) 4.2 mmol/L (3.5-5.1) Chloride Level 97 mmol/L (98-107) 97 mmol/L (98-107) 99 mmol/L (98-107) Carbon Dioxide Level 34 mmol/L (21-32) 31 mmol/L (21-32) 30 mmol/L (21-32) Anion Gap 3 (6-14) 7 (6-14) 7 (6-14) Blood Urea Nitrogen 55 mg/dL (7-20) 48 mg/dL (7-20) 44 mg/dL (7-20) Creatinine 1.5 mg/dL (0.6-1.0) 1.5 mg/dL (0.6-1.0) 1.6 mg/dL (0.6-1.0) Estimated GFR (Cockcroft-Gault) 32.8 32.8 30.4 BUN/Creatinine Ratio 37 (6-20) Glucose Level 113 mg/dL (70-99) 118 mg/dL (70-99) 149 mg/dL (70-99) Lactic Acid Level 1.2 mmol/L (0.4-2.0) Calcium Level 9.1 mg/dL (8.5-10.1) 8.6 mg/dL (8.5-10.1) 8.3 mg/dL (8.5-10.1) Total Bilirubin 0.2 mg/dL (0.2-1.0) Aspartate Amino Transf (AST/SGOT) 22 U/L (15-37) Alanine Aminotransferase (ALT/SGPT) 27 U/L (14-59) Alkaline Phosphatase 101 U/L (46-116) Troponin I Quantitative < 0.017 ng/mL (0.000-0.055) VJ-Blu-S-Type Natriuretic Peptide 839 pg/mL (0-449) Total Protein 8.0 g/dL (6.4-8.2) Albumin 3.1 g/dL (3.4-5.0) Albumin/Globulin Ratio 0.6 (1.0-1.7) Nasal Screen MRSA (PCR) Negative (Negative) Magnesium Level 2.3 mg/dL (1.8-2.4) Triglycerides Level 82 mg/dL (0-150) Cholesterol Level 190 mg/dL (0-200) LDL Cholesterol, Calculated 120 mg/dL (0-100) VLDL Cholesterol, Calculated 16 mg/dL (0-40) Non-HDL Cholesterol Calculated 136 mg/dL (0-129) HDL Cholesterol 54 mg/dL (40-60) Cholesterol/HDL Ratio 3.5 Platelet Estimate Adequate (ADEQUATE) Erythrocyte Sedimentation Rate 12 (0-25) Laboratory Tests Test 11/08/18 04:20 White Blood Count 5.8 x10^3/uL (4.0-11.0) Red Blood Count 3.41 x10^6/uL (3.50-5.40) Hemoglobin 10.9 g/dL (12.0-15.5) Hematocrit 32.0 % (36.0-47.0) Mean Corpuscular Volume 94 fL (79-100) Mean Corpuscular Hemoglobin 32 pg (25-35) Mean Corpuscular Hemoglobin Concent 34 g/dL (31-37) Red Cell Distribution Width 14.9 % (11.5-14.5) Platelet Count 228 x10^3/uL (140-400) Neutrophils (%) (Auto) 88 % (31-73) Lymphocytes (%) (Auto) 10 % (24-48) Monocytes (%) (Auto) 2 % (0-9) Eosinophils (%) (Auto) 0 % (0-3) Basophils (%) (Auto) 0 % (0-3) Neutrophils # (Auto) 5.1 x10^3/uL (1.8-7.7) Lymphocytes # (Auto) 0.6 x10^3/uL (1.0-4.8) Monocytes # (Auto) 0.1 x10^3/uL (0.0-1.1) Eosinophils # (Auto) 0.0 x10^3/uL (0.0-0.7) Basophils # (Auto) 0.0 x10^3/uL (0.0-0.2) Platelet Estimate Adequate (ADEQUATE) Erythrocyte Sedimentation Rate 12 (0-25) Sodium Level 136 mmol/L (136-145) Potassium Level 4.2 mmol/L (3.5-5.1) Chloride Level 99 mmol/L (98-107) Carbon Dioxide Level 30 mmol/L (21-32) Anion Gap 7 (6-14) Blood Urea Nitrogen 44 mg/dL (7-20) Creatinine 1.6 mg/dL (0.6-1.0) Estimated GFR (Cockcroft-Gault) 30.4 Glucose Level 149 mg/dL (70-99) Calcium Level 8.3 mg/dL (8.5-10.1) Microbiology 11/07/18 Blood Culture - Preliminary, Resulted NO GROWTH AFTER 1 DAY Medications Current Medications Furosemide (Lasix) 40 mg 1X ONCE IVP Last administered on 11/06/18at 23:54; Start 11/06/18 at 23:45; Stop 11/06/18 at 23:46; Status DC Ceftriaxone Sodium (Rocephin) 1 gm 1X ONCE IVP Last administered on 11/06/18at 23:54; Start 11/06/18 at 23:45; Stop 11/06/18 at 23:46; Status DC Vancomycin HCl (Vanco Per Pharmacy) 1 each PRN DAILY PRN MC SEE COMMENTS Last administered on 11/07/18at 05:19; Start 11/06/18 at 23:45; Stop 11/07/18 at 09:27; Status DC Albuterol/ Ipratropium (Duoneb) 3 ml RTQID NEB Last administered on 11/08/18at 08:03; Start 11/07/18 at 08:00; Stop 11/08/18 at 07:59; Status DC Vancomycin HCl 2 gm/Sodium Chloride 500 ml @ 250 mls/hr 1X ONCE IV Last administered on 11/06/18at 23:55; Start 11/06/18 at 23:45; Stop 11/07/18 at 01:44; Status DC Vancomycin HCl 1.25 gm/Sodium Chloride 250 ml @ 167 mls/hr Q24H IV ; Start 11/07/18 at 23:30; Stop 11/07/18 at 23:30; Status DC Vancomycin HCl (Vancomycin Trough Level) 1 each 1X ONCE MC ; Start 11/08/18 at 23:00; Stop 11/08/18 at 23:01; Status Cancel Guaifenesin (Robitussin Dm) 10 ml PRN Q6HRS PRN PO COUGH; Start 11/07/18 at 09:30 Acetaminophen (Tylenol) 500 mg PRN Q6HRS PRN PO MILD PAIN / TEMP; Start 11/07/18 at 09:30 Ondansetron HCl (Zofran) 4 mg PRN Q6HRS PRN IV NAUSEA/VOMITING; Start 11/07/18 at 09:30 Furosemide (Lasix) 40 mg DAILY IVP Last administered on 11/07/18at 09:49; Start 11/07/18 at 09:30; Stop 11/07/18 at 19:05; Status DC Aspirin (Partnerbyte Aspirin) 325 mg DAILY PO Last administered on 11/08/18at 09:10; Start 11/07/18 at 09:30 Losartan Potassium (Cozaar) 50 mg DAILY PO Last administered on 11/08/18at 09:11; Start 11/07/18 at 09:30 Metoprolol Tartrate (Lopressor) 50 mg BID PO Last administered on 11/08/18at 09:11; Start 11/07/18 at 09:30 Multivitamins (Thera M Plus) 1 tab DAILY PO Last administered on 11/08/18at 09:10; Start 11/07/18 at 09:30 Non-Formulary Medication (Acetaminophen (Tylenol Extra Strength)) 1,000 mg PRN Q6HRS PRN PO PAIN; Start 11/07/18 at 09:30; Status UNV Doxepin HCl (SINEquan) 75 mg QHS PO Last administered on 11/07/18at 20:07; Start 11/07/18 at 21:00 Cetirizine HCl (ZyrTEC) 10 mg DAILY PO Last administered on 11/08/18at 09:17; Start 11/07/18 at 09:30 Non-Formulary Medication (Melatonin ) 5 mg HS PO ; Start 11/07/18 at 21:00; Status UNV Levofloxacin (Levaquin) 250 mg DAILY06 PO Last administered on 11/07/18at 09:47; Start 11/07/18 at 10:00; Stop 11/07/18 at 11:29; Status DC Clindamycin Phosphate 50 ml @ 100 mls/hr Q8HRS IV Last administered on 11/08/18at 05:59; Start 11/07/18 at 14:00 Multi-Ingred Cream/Lotion/Oil/ Oint (Hydrocerin Cream) 1 alfonso PRN Q1HR PRN TP DRY SKIN / SCALING; Start 11/07/18 at 11:30 Albuterol Sulfate (Ventolin Neb Soln) 2.5 mg 1X ONCE NEB ; Start 11/07/18 at 12:45; Stop 11/07/18 at 12:46; Status DC Methylprednisolone Sodium Succinate (SOLU-Medrol 125MG VIAL) 125 mg 1X ONCE IV Last administered on 11/07/18at 16:00; Start 11/07/18 at 12:45; Stop 11/07/18 at 12:46; Status DC Atorvastatin Calcium (Lipitor) 20 mg QHS PO Last administered on 11/07/18at 20:07; Start 11/07/18 at 21:00 Multivitamins (Thera M Plus) 1 tab DAILY PO ; Start 11/08/18 at 09:00 Ascorbic Acid (Vitamin C) 500 mg DAILY PO Last administered on 11/08/18at 09:11; Start 11/08/18 at 09:00 Furosemide (Lasix) 20 mg DAILY IVP Last administered on 11/08/18at 09:17; Start 11/08/18 at 09:00 Prednisone (Prednisone) 40 mg DAILY PO Last administered on 11/08/18at 09:11; Start 11/08/18 at 09:00; Stop 11/08/18 at 11:01; Status DC Temazepam (Restoril) 7.5 mg STK-MED ONCE PO ; Start 11/08/18 at 02:21; Stop 11/08/18 at 03:44; Status DC Temazepam (Restoril) 7.5 mg PRN QHS PRN PO INSOMNIA; Start 11/08/18 at 02:15 Methylprednisolone Sodium Succinate (SOLU-Medrol 40MG VIAL) 40 mg Q8HRS IV ; Start 11/08/18 at 14:00 Active Scripts Active Reported Thera M Plus Tablet (Multivits,Ca,Minerals/Iron/FA) 1 Each Tablet 1 Each PO DAILY Melatonin 3 Mg Tablet 5 Mg PO HS Claritin (Loratadine) 10 Mg Tablet 1 Tab PO DAILY Losartan Potassium 50 Mg Tablet 50 Mg PO DAILY Tylenol Extra Strength (Acetaminophen) 500 Mg Tablet 1,000 Mg PO PRN Q6HRS PRN Bactrim Ds Tablet (Sulfamethoxazole/Trimethoprim) 1 Each Tablet 1 Each PO BID 7 Days Doxepin Hcl 75 Mg Capsule 75 Mg PO DAILY Aspirin 325 Mg Tablet 1 Tab PO DAILY Furosemide 20 Mg Tablet 1 Tab PO DAILY Metoprolol Tartrate 50 Mg Tablet 1 Tab PO BID Vitals/I & O Vital Sign - Last 24 Hours 11/07/18 11/07/18 11/07/18 11/07/18 11:32 15:00 16:44 19:16 Temp 98.2 99.6 98.2 99.6 Pulse 98 98 Resp 18 28 B/P (MAP) 148/62 (90) 125/46 (72) Pulse Ox 98 99 98 94 O2 Delivery Nasal Cannula Nasal Cannula Nasal Cannula Room Air O2 Flow Rate 2.0 2.0 2.0 11/07/18 11/07/18 11/07/18 11/07/18 19:30 20:00 20:13 23:00 Temp 97.8 97.8 Pulse 99 92 Resp 26 B/P (MAP) 125/46 119/61 (80) Pulse Ox 98 94 O2 Delivery Nasal Cannula Nasal Cannula Nasal Cannula O2 Flow Rate 2.0 2.0 2.0 11/08/18 11/08/18 11/08/18 11/08/18 03:14 07:00 08:03 09:11 Temp 98.0 97.5 98.0 97.5 Pulse 98 93 93 Resp 20 16 B/P (MAP) 98/44 (62) 161/69 (99) 161/69 Pulse Ox 94 97 98 O2 Delivery Nasal Cannula Nasal Cannula Nasal Cannula O2 Flow Rate 2.0 2.0 2.0 11/08/18 09:11 Pulse 93 B/P (MAP) 161/69 Intake and Output 11/07/18 11/07/18 11/08/18 14:59 22:59 06:59 Intake Total 340 ml 220 ml Balance 340 ml 220 ml JOSE FLOREZ MD Nov 08, 2018 11:21
--- NOTE | 2018-11-08 11:35 | PDOC ---
CARDIO Progress Notes Date and Time Date of Service 11/08/18 Time of Evaluation 1215 Subjective Subjective: Other (wheezing ) Vitals Vitals Vital Signs Date Time Temp Pulse Resp B/P (MAP) Pulse Ox O2 Delivery O2 Flow Rate FiO2 11/08/18 09:11 93 161/69 11/08/18 08:03 98 Nasal Cannula 2.0 11/08/18 07:00 97.5 16 97.5 Weight Weight [ ] Input and Output Intake and Output Intake and Output 11/08/18 07:00 Intake Total 560 ml Balance 560 ml Intake Oral 560 ml # Voids 3 Laboratory Labs Laboratory Tests Test 11/08/18 04:20 White Blood Count 5.8 x10^3/uL (4.0-11.0) Red Blood Count 3.41 x10^6/uL (3.50-5.40) Hemoglobin 10.9 g/dL (12.0-15.5) Hematocrit 32.0 % (36.0-47.0) Mean Corpuscular Volume 94 fL (79-100) Mean Corpuscular Hemoglobin 32 pg (25-35) Mean Corpuscular Hemoglobin Concent 34 g/dL (31-37) Red Cell Distribution Width 14.9 % (11.5-14.5) Platelet Count 228 x10^3/uL (140-400) Neutrophils (%) (Auto) 88 % (31-73) Lymphocytes (%) (Auto) 10 % (24-48) Monocytes (%) (Auto) 2 % (0-9) Eosinophils (%) (Auto) 0 % (0-3) Basophils (%) (Auto) 0 % (0-3) Neutrophils # (Auto) 5.1 x10^3/uL (1.8-7.7) Lymphocytes # (Auto) 0.6 x10^3/uL (1.0-4.8) Monocytes # (Auto) 0.1 x10^3/uL (0.0-1.1) Eosinophils # (Auto) 0.0 x10^3/uL (0.0-0.7) Basophils # (Auto) 0.0 x10^3/uL (0.0-0.2) Platelet Estimate Adequate (ADEQUATE) Erythrocyte Sedimentation Rate 12 (0-25) Sodium Level 136 mmol/L (136-145) Potassium Level 4.2 mmol/L (3.5-5.1) Chloride Level 99 mmol/L (98-107) Carbon Dioxide Level 30 mmol/L (21-32) Anion Gap 7 (6-14) Blood Urea Nitrogen 44 mg/dL (7-20) Creatinine 1.6 mg/dL (0.6-1.0) Estimated GFR (Cockcroft-Gault) 30.4 Glucose Level 149 mg/dL (70-99) Calcium Level 8.3 mg/dL (8.5-10.1) Microbiology Micro Microbiology 11/07/18 Blood Culture - Preliminary, Resulted NO GROWTH AFTER 1 DAY Physical Exam HEENT: Neck Supple W Full Motion Chest: Symmetric LUNGS: Other (fine crackles, diffuse wheezes ) Heart: S1S2, RRR, murmurs (3/6 systolic murmur ) Abdomen: Soft N/T Extremities: Other (scaling to bilateral LE; erythema more to right than left; scabbed pressure ulcer to right calcaneus) Neurology: alert, follow commands Assessment Assessment 1. Acute on chronic diastolic CHF; echo showed preserved LV systolic function with an EF of 55-60%. 2. Acute respiratory failure; audible wheezing 3. HTN; labile 4. CAD s/p remote stent. Clinically stable. CP free 5. RLE cellulitis 6. Hx of severe LE PAD: no necrotic tissues, no pain. Treat medically 7. TY on CKD 8. Hx of CVA with right sided hemiparesis 9. MR, moderate . Recommendations Agree with discontinuing BB given persistent audible wheezes Start Cardizem for rate, BP control Mild diuresis with monitoring of renal function Supportive care GIANNA HENRY APRN Nov 08, 2018 11:35
[2018-11-08] MEDS ORDERED: PIP/TAZO PER PHARMACY MC PRN (12:00)
[2018-11-08] MEDS ORDERED: cloNIDine HCL 0.1 MG TABLET PO PRN (12:30)
[2018-11-08] MEDS ORDERED: FUROSEMIDE 20 MG/2 ML VIAL. IVP ONE (12:30)
[2018-11-08] MEDS: LINEZOLID 600 MG TABLET PO SCH ×2 (12:51→22:13)
[2018-11-08] MEDS: PIPERACILLIN/TAZOBACTAM 2.25 GM in IV NORMAL SALINE 50ML 50 ML IV SCH ×2 (12:52→17:51)
--- NOTE | 2018-11-08 12:52 | CONS ---
DATE OF CONSULTATION: PULMONARY CONSULTATION ATTENDING PHYSICIAN: Gloria Gonzalez DO REQUESTING PHYSICIAN: Dr. Velázquez REASON FOR CONSULTATION: Bronchospasm. HISTORY OF PRESENT ILLNESS: The patient is an 88-year-old female who is obese with a BMI of 32.6. She quit tobacco about 35-40 years ago. She was brought into the hospital because of hypoxia with saturations of 80%. The patient had some confusion as well. The patient's previous echocardiogram had shown normal ejection fraction, but [id number] MR. Her chest x-ray was reviewed and it shows mild interstitial edema. The patient has no known history of asthma. I have been asked to see her for further evaluation for bronchospasm. The patient has prior history of stroke and has some right lower extremity weakness. There is some bilateral erythema as well. Denies any cough. No fever, no chills, no chest pain, no headaches, no nausea, vomiting or diarrhea. PAST MEDICAL HISTORY: CHF, probably diastolic, history of [id number] MR, hypertension, hyperlipidemia, carpal tunnel syndrome, bipolar, osteoarthritis, UTI, urinary incontinence, osteoporosis. PAST SURGICAL HISTORY: Cataract removal and total knee replacement. FAMILY HISTORY: Noncontributory to lungs. SOCIAL HISTORY: Quit tobacco 35-40 years ago. ALLERGIES: ADHESIVE TAPE. MEDICATIONS: All reviewed including IV steroids, Zosyn, Zyvox. The patient is also on 100 mg a day of metoprolol. Not on any DuoNebs. REVIEW OF SYSTEMS: A 10-point system obtained. Pertinent positives discussed in my history of present illness, otherwise noncontributory. All systems that were negative were reviewed as well. PHYSICAL EXAMINATION: VITAL SIGNS: Reviewed. Blood pressure on the high side. Pulse ox 98% on 2 liters. NECK: Supple. LUNGS: With bilateral expiratory wheezes which were audible. CARDIOVASCULAR: Regular rate. ABDOMEN: Soft, obese. EXTREMITIES: With weakness on the right lower extremity, there is erythema and redness. LABORATORY DATA: Reviewed. White cell count 5.8, hemoglobin 10.9, platelets are 228. BUN 44 and a creatinine of 1.6. INR 1.1. IMPRESSION: 1. Acute hypoxic respiratory failure secondary to diffuse bronchospasm. 2. Diffuse bronchospasm, likely cardiac etiology. She has mild congestive heart failure on the chest x-ray and likely acute on chronic diastolic heart failure and also related to her MR. She is also on metoprolol at 100 mg daily, which may be contributing to her bronchospasm as well. She quit tobacco 35 years ago and unlikely chronic obstructive disease exacerbation. 3. Renal insufficiency. 4. Underlying obesity. 5. No significant tobacco history. RECOMMENDATIONS: 1. At this point, continue with present oxygen at 2 liters. 2. Hold metoprolol for 24 hours until bronchospasm improves. 3. Continue Lasix. 4. Add DuoNebs. 5. Add Pulmicort. 6. Hold metoprolol. 7. IV steroids. Discussed with Dr. Velázquez. Discussed with RN. We will follow along with you. Follow cardiology recommendations as well. FILEMON JAFFE MD DR: FREYA/nts JOB#: [id number] / [id number] MARTITA
[2018-11-08] MEDS ORDERED: methylPREDNISolone SOD SUCC PF 40 MG/ML VIAL. IV SCH ×2 (14:00→21:00)
[2018-11-08 15:00] VITALS: BP 134/55
[2018-11-08 19:08] VITALS: BP 113/45
[2018-11-08] MEDS: BUDESONIDE 0.5 MG/2 ML NEBU. NEB SCH (19:23)
[2018-11-08] MEDS: ATORVASTATIN CALCIUM 20 MG TABLET PO SCH (22:13)
[2018-11-08] MEDS: DOXEPIN HCL 25 MG CAPSULE. PO SCH (22:13)
[2018-11-08] MEDS: TEMAZEPAM 7.5 MG CAPSULE PO PRN (22:13)
[2018-11-08] MEDS: LACTOBACILLUS RHAMNOSUS GG 1 CAPSULE. PO SCH (22:13)
[2018-11-08 23:06] VITALS: BP 111/58
[2018-11-09] MEDS: PIPERACILLIN/TAZOBACTAM 2.25 GM in IV NORMAL SALINE 50ML 50 ML IV SCH ×2 (00:50→05:50)
[2018-11-09 03:10] VITALS: BP 142/72
[2018-11-09] MEDS: IPRATRPIUM/ALBUTEROL 0.5/2.5MG 3 ML NEBU. NEB SCH ×5 (04:00→20:04)
[2018-11-09 04:10] LABS: BASO % 0 % (0-3); EOS % 0 % (0-3); HEMATOCRIT 31.4 % (36.0-47.0); HEMOGLOBIN 10.7 g/dL (12.0-15.5); LYMPH # 0.5 x10^3/uL (1.0-4.8); LYMPH % 6 % (24-48); MEAN CORPUSCULAR HEMOGLOBIN 32 pg (25-35); MEAN CORPUSCULAR HGB CONC 34 g/dL (31-37); MEAN CORPUSCULAR VOLUME 94 fL (79-100); MONO # 0.1 x10^3/uL (0.0-1.1); MONO % 1 % (0-9); NEUT # 8.5 x10^3/uL (1.8-7.7); NEUT % 93 % (31-73); PLATELET COUNT 225 x10^3/uL (140-400); RED BLOOD COUNT 3.33 x10^6/uL (3.50-5.40); RED CELL DISTRIBUTION WIDTH 14.8 % (11.5-14.5); WHITE BLOOD COUNT 9.2 x10^3/uL (4.0-11.0)
[2018-11-09 04:26] LABS: CREATININE 1.6 mg/dL (0.6-1.0); GFR 30.4; POTASSIUM 4.1 mmol/L (3.5-5.1)
[2018-11-09 07:25] VITALS: BP 122/59
[2018-11-09] MEDS: BUDESONIDE 0.5 MG/2 ML NEBU. NEB SCH ×2 (07:51→20:04)
[2018-11-09] MEDS: MULTIVITAMIN with MINERAL TABLET. PO SCH ×2 (09:00→10:18)
--- NOTE | 2018-11-09 10:10 | PDOC ---
PULMONARY PROGRESS NOTES Subjective less soa Vitals Vital Signs Date Time Temp Pulse Resp B/P (MAP) Pulse Ox O2 Delivery O2 Flow Rate FiO2 11/09/18 07:55 Nasal Cannula 3.0 11/09/18 07:53 97 11/09/18 07:25 97.5 85 18 122/59 (80) 97.5 ROS: No Chest Pain, No Increase Cough General: Alert, No acute distress Lungs: Wheezing (faint, less noticed when she does relaxed breathing) Cardiovascular: S1, S2 Abdomen: Soft Neuro Exam: Alert Extremities: No Edema Skin: Warm Labs Laboratory Tests Test 11/08/18 04:20 11/09/18 03:25 White Blood Count 5.8 x10^3/uL (4.0-11.0) 9.2 x10^3/uL (4.0-11.0) Red Blood Count 3.41 x10^6/uL (3.50-5.40) 3.33 x10^6/uL (3.50-5.40) Hemoglobin 10.9 g/dL (12.0-15.5) 10.7 g/dL (12.0-15.5) Hematocrit 32.0 % (36.0-47.0) 31.4 % (36.0-47.0) Mean Corpuscular Volume 94 fL (79-100) 94 fL (79-100) Mean Corpuscular Hemoglobin 32 pg (25-35) 32 pg (25-35) Mean Corpuscular Hemoglobin Concent 34 g/dL (31-37) 34 g/dL (31-37) Red Cell Distribution Width 14.9 % (11.5-14.5) 14.8 % (11.5-14.5) Platelet Count 228 x10^3/uL (140-400) 225 x10^3/uL (140-400) Neutrophils (%) (Auto) 88 % (31-73) 93 % (31-73) Lymphocytes (%) (Auto) 10 % (24-48) 6 % (24-48) Monocytes (%) (Auto) 2 % (0-9) 1 % (0-9) Eosinophils (%) (Auto) 0 % (0-3) 0 % (0-3) Basophils (%) (Auto) 0 % (0-3) 0 % (0-3) Neutrophils # (Auto) 5.1 x10^3/uL (1.8-7.7) 8.5 x10^3/uL (1.8-7.7) Lymphocytes # (Auto) 0.6 x10^3/uL (1.0-4.8) 0.5 x10^3/uL (1.0-4.8) Monocytes # (Auto) 0.1 x10^3/uL (0.0-1.1) 0.1 x10^3/uL (0.0-1.1) Eosinophils # (Auto) 0.0 x10^3/uL (0.0-0.7) 0.0 x10^3/uL (0.0-0.7) Basophils # (Auto) 0.0 x10^3/uL (0.0-0.2) 0.0 x10^3/uL (0.0-0.2) Platelet Estimate Adequate (ADEQUATE) Erythrocyte Sedimentation Rate 12 (0-25) Sodium Level 136 mmol/L (136-145) 139 mmol/L (136-145) Potassium Level 4.2 mmol/L (3.5-5.1) 4.1 mmol/L (3.5-5.1) Chloride Level 99 mmol/L (98-107) 100 mmol/L (98-107) Carbon Dioxide Level 30 mmol/L (21-32) 30 mmol/L (21-32) Anion Gap 7 (6-14) 9 (6-14) Blood Urea Nitrogen 44 mg/dL (7-20) 55 mg/dL (7-20) Creatinine 1.6 mg/dL (0.6-1.0) 1.6 mg/dL (0.6-1.0) Estimated GFR (Cockcroft-Gault) 30.4 30.4 Glucose Level 149 mg/dL (70-99) 174 mg/dL (70-99) Calcium Level 8.3 mg/dL (8.5-10.1) 8.0 mg/dL (8.5-10.1) Laboratory Tests Test 11/09/18 03:25 White Blood Count 9.2 x10^3/uL (4.0-11.0) Red Blood Count 3.33 x10^6/uL (3.50-5.40) Hemoglobin 10.7 g/dL (12.0-15.5) Hematocrit 31.4 % (36.0-47.0) Mean Corpuscular Volume 94 fL (79-100) Mean Corpuscular Hemoglobin 32 pg (25-35) Mean Corpuscular Hemoglobin Concent 34 g/dL (31-37) Red Cell Distribution Width 14.8 % (11.5-14.5) Platelet Count 225 x10^3/uL (140-400) Neutrophils (%) (Auto) 93 % (31-73) Lymphocytes (%) (Auto) 6 % (24-48) Monocytes (%) (Auto) 1 % (0-9) Eosinophils (%) (Auto) 0 % (0-3) Basophils (%) (Auto) 0 % (0-3) Neutrophils # (Auto) 8.5 x10^3/uL (1.8-7.7) Lymphocytes # (Auto) 0.5 x10^3/uL (1.0-4.8) Monocytes # (Auto) 0.1 x10^3/uL (0.0-1.1) Eosinophils # (Auto) 0.0 x10^3/uL (0.0-0.7) Basophils # (Auto) 0.0 x10^3/uL (0.0-0.2) Sodium Level 139 mmol/L (136-145) Potassium Level 4.1 mmol/L (3.5-5.1) Chloride Level 100 mmol/L (98-107) Carbon Dioxide Level 30 mmol/L (21-32) Anion Gap 9 (6-14) Blood Urea Nitrogen 55 mg/dL (7-20) Creatinine 1.6 mg/dL (0.6-1.0) Estimated GFR (Cockcroft-Gault) 30.4 Glucose Level 174 mg/dL (70-99) Calcium Level 8.0 mg/dL (8.5-10.1) Medications Active Scripts Medications Dose Route/Sig Max Daily Dose Days Date Category Thera M Plus Tablet (Multivits,Ca,Minerals/Iron/FA) 1 Each Tablet 1 Each PO DAILY 11/07/18 Reported Melatonin 3 Mg Tablet 5 Mg PO HS 11/07/18 Reported Claritin (Loratadine) 10 Mg Tablet 1 Tab PO DAILY 11/07/18 Reported Losartan Potassium 50 Mg Tablet 50 Mg PO DAILY 11/07/18 Reported Tylenol Extra Strength (Acetaminophen) 500 Mg Tablet 1,000 Mg PO PRN Q6HRS PRN 11/07/18 Reported Bactrim Ds Tablet (Sulfamethoxazole/Trimethoprim) 1 Each Tablet 1 Each PO BID 7 11/07/18 Reported Doxepin Hcl 75 Mg Capsule 75 Mg PO DAILY 10/25/17 Reported Aspirin 325 Mg Tablet 1 Tab PO DAILY 01/04/14 Reported Furosemide 20 Mg Tablet 1 Tab PO DAILY 01/04/14 Reported Metoprolol Tartrate 50 Mg Tablet 1 Tab PO BID 01/04/14 Reported Impression . 1. Acute hypoxic respiratory failure secondary to diffuse bronchospasm. 2. Diffuse bronchospasm, likely cardiac etiology. She has mild congestive heart failure on the chest x-ray and likely acute on chronic diastolic heart failure and also related to her MR. She is also on metoprolol at 100 mg daily, which may be contributing to her bronchospasm as well. She quit tobacco 35 years ago and unlikely chronic obstructive disease exacerbation.? Anxiety component/? VCD 3. Renal insufficiency. 4. Underlying obesity. 5. No significant tobacco history. Plan . RECOMMENDATIONS: 1. At this point, continue with present oxygen at 2 liters. 2. Hold metoprolol until bronchospasm improves. 3. Continue prn Lasix. 4. DuoNebs. 5. Pulmicort. 6. increase solumedrol dose 7. May add xanax if wheezing does not improve Discussed with Dr. Velázquez. Discussed with RN. FILEMON JAFFE MD Nov 09, 2018 10:10
[2018-11-09] MEDS: ASPIRIN 325 MG TABLET PO SCH (10:17)
[2018-11-09] MEDS: LINEZOLID 600 MG TABLET PO SCH ×2 (10:18→20:18)
[2018-11-09] MEDS: ASCORBIC ACID 500 MG TABLET PO SCH (10:18)
[2018-11-09] MEDS: CETIRIZINE HCL 10 MG TABLET. PO SCH (10:19)
[2018-11-09] MEDS: LACTOBACILLUS RHAMNOSUS GG 1 CAPSULE. PO SCH ×2 (10:19→20:18)
[2018-11-09] MEDS: LOSARTAN POTASSIUM 50 MG TABLET. PO SCH (10:20)
[2018-11-09] MEDS: FUROSEMIDE 20 MG/2 ML VIAL. IVP SCH (10:21)
--- NOTE | 2018-11-09 10:30 | PDOC ---
Infectious Disease Note Vital Sign Vital Signs Vital Signs Date Time Temp Pulse Resp B/P (MAP) Pulse Ox O2 Delivery O2 Flow Rate FiO2 11/09/18 07:55 Nasal Cannula 3.0 11/09/18 07:53 97 11/09/18 07:25 97.5 85 18 122/59 (80) 97.5 Labs Lab Laboratory Tests Test 11/09/18 03:25 White Blood Count 9.2 x10^3/uL (4.0-11.0) Red Blood Count 3.33 x10^6/uL (3.50-5.40) Hemoglobin 10.7 g/dL (12.0-15.5) Hematocrit 31.4 % (36.0-47.0) Mean Corpuscular Volume 94 fL (79-100) Mean Corpuscular Hemoglobin 32 pg (25-35) Mean Corpuscular Hemoglobin Concent 34 g/dL (31-37) Red Cell Distribution Width 14.8 % (11.5-14.5) Platelet Count 225 x10^3/uL (140-400) Neutrophils (%) (Auto) 93 % (31-73) Lymphocytes (%) (Auto) 6 % (24-48) Monocytes (%) (Auto) 1 % (0-9) Eosinophils (%) (Auto) 0 % (0-3) Basophils (%) (Auto) 0 % (0-3) Neutrophils # (Auto) 8.5 x10^3/uL (1.8-7.7) Lymphocytes # (Auto) 0.5 x10^3/uL (1.0-4.8) Monocytes # (Auto) 0.1 x10^3/uL (0.0-1.1) Eosinophils # (Auto) 0.0 x10^3/uL (0.0-0.7) Basophils # (Auto) 0.0 x10^3/uL (0.0-0.2) Sodium Level 139 mmol/L (136-145) Potassium Level 4.1 mmol/L (3.5-5.1) Chloride Level 100 mmol/L (98-107) Carbon Dioxide Level 30 mmol/L (21-32) Anion Gap 9 (6-14) Blood Urea Nitrogen 55 mg/dL (7-20) Creatinine 1.6 mg/dL (0.6-1.0) Estimated GFR (Cockcroft-Gault) 30.4 Glucose Level 174 mg/dL (70-99) Calcium Level 8.0 mg/dL (8.5-10.1) Micro Microbiology 11/07/18 Blood Culture - Preliminary, Resulted NO GROWTH AFTER 1 DAY Objective Assessment RLE cellulitis - failed Clinda TY tinea Superficial right heel and left leg wounds Bronchospasm on steroids Plan Plan of Care D/c zosyn and begin Augmentin Cont Zyvox Add Fluconazole Local wound care Constipation relief per primary Thank you D/w nursing # [id number] TANESHA BALL MD Nov 09, 2018 10:30
--- NOTE | 2018-11-09 11:07 | PDOC ---
CARDIO Progress Notes Date and Time Date of Service 11/09/18 Time of Evaluation 1040 Subjective Subjective: Other (wheezing improved) Vitals Vitals Vital Signs Date Time Temp Pulse Resp B/P (MAP) Pulse Ox O2 Delivery O2 Flow Rate FiO2 11/09/18 10:20 85 122/59 11/09/18 07:55 Nasal Cannula 3.0 11/09/18 07:53 97 11/09/18 07:25 97.5 18 97.5 Weight Weight [ ] Input and Output Intake and Output Intake and Output 11/09/18 06:59 Intake Total 1060 ml Balance 1060 ml Intake Oral 960 ml IV Total 100 ml # Voids 7 Laboratory Labs Laboratory Tests Test 11/09/18 03:25 White Blood Count 9.2 x10^3/uL (4.0-11.0) Red Blood Count 3.33 x10^6/uL (3.50-5.40) Hemoglobin 10.7 g/dL (12.0-15.5) Hematocrit 31.4 % (36.0-47.0) Mean Corpuscular Volume 94 fL (79-100) Mean Corpuscular Hemoglobin 32 pg (25-35) Mean Corpuscular Hemoglobin Concent 34 g/dL (31-37) Red Cell Distribution Width 14.8 % (11.5-14.5) Platelet Count 225 x10^3/uL (140-400) Neutrophils (%) (Auto) 93 % (31-73) Lymphocytes (%) (Auto) 6 % (24-48) Monocytes (%) (Auto) 1 % (0-9) Eosinophils (%) (Auto) 0 % (0-3) Basophils (%) (Auto) 0 % (0-3) Neutrophils # (Auto) 8.5 x10^3/uL (1.8-7.7) Lymphocytes # (Auto) 0.5 x10^3/uL (1.0-4.8) Monocytes # (Auto) 0.1 x10^3/uL (0.0-1.1) Eosinophils # (Auto) 0.0 x10^3/uL (0.0-0.7) Basophils # (Auto) 0.0 x10^3/uL (0.0-0.2) Sodium Level 139 mmol/L (136-145) Potassium Level 4.1 mmol/L (3.5-5.1) Chloride Level 100 mmol/L (98-107) Carbon Dioxide Level 30 mmol/L (21-32) Anion Gap 9 (6-14) Blood Urea Nitrogen 55 mg/dL (7-20) Creatinine 1.6 mg/dL (0.6-1.0) Estimated GFR (Cockcroft-Gault) 30.4 Glucose Level 174 mg/dL (70-99) Calcium Level 8.0 mg/dL (8.5-10.1) Microbiology Micro Microbiology 11/07/18 Blood Culture - Preliminary, Resulted NO GROWTH AFTER 2 DAYS Physical Exam HEENT: Neck Supple W Full Motion Chest: Symmetric LUNGS: Other (diminished) Heart: S1S2, RRR, murmurs (3/6 systolic murmur ) Abdomen: Soft N/T Extremities: Other (scaling to bilateral LE; erythema more to right than left; scabbed pressure ulcer to right calcaneus) Neurology: alert, follow commands Assessment Assessment 1. Acute on chronic diastolic CHF; echo showed preserved LV systolic function with an EF of 55-60%. 2. Acute respiratory failure; wheezing improved 3. HTN; controlled 4. CAD s/p remote stent. Clinically stable. CP free 5. LE cellulitis 6. Hx of severe LE PAD: no necrotic tissues, no pain. Treat medically 7. TY on CKD 8. Hx of CVA with right sided hemiparesis 9. MR, moderate Recommendations Continue Cardizem for rate, BP control Lasix PRN Supportive care GIANNA HENRY APRN Nov 09, 2018 11:07
--- NOTE | 2018-11-09 11:12 | PDOC ---
PROGRESS NOTES Chief Complaint Chief Complaint Mild CHF by chest x-ray Acute hypoxic respiratory failure-80s at [facility] SNU resident, DNR Bilateral lower extremity cellulitis negative Dopplers for DVT-right greater than left met encephalopathy/confusion in this elderly Dementia Geriatric Fall risk History hypertension GERD OA-chronic stable Adhesive tape allergy WHEEZY History of Present Illness History of Present Illness very weak sHe feels so-so Respiratory status can be tenuous Pulmonary thoughts on cardiac wheezing - so i have dcd BB Patient came from [facility] Legs look slightly a bit better today-ID has started Zosyn and Zyvox on 11/08/2018 Wound care note reviewed, right heel pressure ulcer stage II, some med E Honey and offloading that site recommended alternating left and right heels Patient is DNR Plan cont Zyvox Zosyn per [facility] on discharge DNR SOA on just transfers-2 person assist I have stopped beta tigre - cardiac wheeze Not ready to DC yet Consult ID because the leg that is not getting better Vitals Vitals Vital Signs Date Time Temp Pulse Resp B/P (MAP) Pulse Ox O2 Delivery O2 Flow Rate FiO2 11/09/18 10:20 85 122/59 11/09/18 07:55 Nasal Cannula 3.0 11/09/18 07:53 97 11/09/18 07:25 97.5 18 97.5 Physical Exam General: Alert, Oriented X3, Cooperative, No acute distress Heart: Regular rate (SR), Other (3/6 systolic murmur to apical) Lungs: Wheezing (faint, less noticed when she does relaxed breathing) Abdomen: Soft, No tenderness Extremities: No clubbing, No cyanosis Skin: Other (scaling to bilateral LE; erythema more to right than left; scabbed pressure ulcer to right calcaneus) Labs LABS Laboratory Tests Test 11/09/18 03:25 White Blood Count 9.2 x10^3/uL (4.0-11.0) Red Blood Count 3.33 x10^6/uL (3.50-5.40) Hemoglobin 10.7 g/dL (12.0-15.5) Hematocrit 31.4 % (36.0-47.0) Mean Corpuscular Volume 94 fL (79-100) Mean Corpuscular Hemoglobin 32 pg (25-35) Mean Corpuscular Hemoglobin Concent 34 g/dL (31-37) Red Cell Distribution Width 14.8 % (11.5-14.5) Platelet Count 225 x10^3/uL (140-400) Neutrophils (%) (Auto) 93 % (31-73) Lymphocytes (%) (Auto) 6 % (24-48) Monocytes (%) (Auto) 1 % (0-9) Eosinophils (%) (Auto) 0 % (0-3) Basophils (%) (Auto) 0 % (0-3) Neutrophils # (Auto) 8.5 x10^3/uL (1.8-7.7) Lymphocytes # (Auto) 0.5 x10^3/uL (1.0-4.8) Monocytes # (Auto) 0.1 x10^3/uL (0.0-1.1) Eosinophils # (Auto) 0.0 x10^3/uL (0.0-0.7) Basophils # (Auto) 0.0 x10^3/uL (0.0-0.2) Sodium Level 139 mmol/L (136-145) Potassium Level 4.1 mmol/L (3.5-5.1) Chloride Level 100 mmol/L (98-107) Carbon Dioxide Level 30 mmol/L (21-32) Anion Gap 9 (6-14) Blood Urea Nitrogen 55 mg/dL (7-20) Creatinine 1.6 mg/dL (0.6-1.0) Estimated GFR (Cockcroft-Gault) 30.4 Glucose Level 174 mg/dL (70-99) Calcium Level 8.0 mg/dL (8.5-10.1) Review of Systems Review of Systems Weak, SOA, the rest of ROS 14 point negative Comment Review of Relevant I have reviewed the following items christina (where applicable) has been applied. Labs Laboratory Tests Test 11/08/18 04:20 11/09/18 03:25 White Blood Count 5.8 x10^3/uL (4.0-11.0) 9.2 x10^3/uL (4.0-11.0) Red Blood Count 3.41 x10^6/uL (3.50-5.40) 3.33 x10^6/uL (3.50-5.40) Hemoglobin 10.9 g/dL (12.0-15.5) 10.7 g/dL (12.0-15.5) Hematocrit 32.0 % (36.0-47.0) 31.4 % (36.0-47.0) Mean Corpuscular Volume 94 fL (79-100) 94 fL (79-100) Mean Corpuscular Hemoglobin 32 pg (25-35) 32 pg (25-35) Mean Corpuscular Hemoglobin Concent 34 g/dL (31-37) 34 g/dL (31-37) Red Cell Distribution Width 14.9 % (11.5-14.5) 14.8 % (11.5-14.5) Platelet Count 228 x10^3/uL (140-400) 225 x10^3/uL (140-400) Neutrophils (%) (Auto) 88 % (31-73) 93 % (31-73) Lymphocytes (%) (Auto) 10 % (24-48) 6 % (24-48) Monocytes (%) (Auto) 2 % (0-9) 1 % (0-9) Eosinophils (%) (Auto) 0 % (0-3) 0 % (0-3) Basophils (%) (Auto) 0 % (0-3) 0 % (0-3) Neutrophils # (Auto) 5.1 x10^3/uL (1.8-7.7) 8.5 x10^3/uL (1.8-7.7) Lymphocytes # (Auto) 0.6 x10^3/uL (1.0-4.8) 0.5 x10^3/uL (1.0-4.8) Monocytes # (Auto) 0.1 x10^3/uL (0.0-1.1) 0.1 x10^3/uL (0.0-1.1) Eosinophils # (Auto) 0.0 x10^3/uL (0.0-0.7) 0.0 x10^3/uL (0.0-0.7) Basophils # (Auto) 0.0 x10^3/uL (0.0-0.2) 0.0 x10^3/uL (0.0-0.2) Platelet Estimate Adequate (ADEQUATE) Erythrocyte Sedimentation Rate 12 (0-25) Sodium Level 136 mmol/L (136-145) 139 mmol/L (136-145) Potassium Level 4.2 mmol/L (3.5-5.1) 4.1 mmol/L (3.5-5.1) Chloride Level 99 mmol/L (98-107) 100 mmol/L (98-107) Carbon Dioxide Level 30 mmol/L (21-32) 30 mmol/L (21-32) Anion Gap 7 (6-14) 9 (6-14) Blood Urea Nitrogen 44 mg/dL (7-20) 55 mg/dL (7-20) Creatinine 1.6 mg/dL (0.6-1.0) 1.6 mg/dL (0.6-1.0) Estimated GFR (Cockcroft-Gault) 30.4 30.4 Glucose Level 149 mg/dL (70-99) 174 mg/dL (70-99) Calcium Level 8.3 mg/dL (8.5-10.1) 8.0 mg/dL (8.5-10.1) Laboratory Tests Test 11/09/18 03:25 White Blood Count 9.2 x10^3/uL (4.0-11.0) Red Blood Count 3.33 x10^6/uL (3.50-5.40) Hemoglobin 10.7 g/dL (12.0-15.5) Hematocrit 31.4 % (36.0-47.0) Mean Corpuscular Volume 94 fL (79-100) Mean Corpuscular Hemoglobin 32 pg (25-35) Mean Corpuscular Hemoglobin Concent 34 g/dL (31-37) Red Cell Distribution Width 14.8 % (11.5-14.5) Platelet Count 225 x10^3/uL (140-400) Neutrophils (%) (Auto) 93 % (31-73) Lymphocytes (%) (Auto) 6 % (24-48) Monocytes (%) (Auto) 1 % (0-9) Eosinophils (%) (Auto) 0 % (0-3) Basophils (%) (Auto) 0 % (0-3) Neutrophils # (Auto) 8.5 x10^3/uL (1.8-7.7) Lymphocytes # (Auto) 0.5 x10^3/uL (1.0-4.8) Monocytes # (Auto) 0.1 x10^3/uL (0.0-1.1) Eosinophils # (Auto) 0.0 x10^3/uL (0.0-0.7) Basophils # (Auto) 0.0 x10^3/uL (0.0-0.2) Sodium Level 139 mmol/L (136-145) Potassium Level 4.1 mmol/L (3.5-5.1) Chloride Level 100 mmol/L (98-107) Carbon Dioxide Level 30 mmol/L (21-32) Anion Gap 9 (6-14) Blood Urea Nitrogen 55 mg/dL (7-20) Creatinine 1.6 mg/dL (0.6-1.0) Estimated GFR (Cockcroft-Gault) 30.4 Glucose Level 174 mg/dL (70-99) Calcium Level 8.0 mg/dL (8.5-10.1) Microbiology 11/07/18 Blood Culture - Preliminary, Resulted NO GROWTH AFTER 2 DAYS Medications Current Medications Furosemide (Lasix) 40 mg 1X ONCE IVP Last administered on 11/06/18at 23:54; Start 11/06/18 at 23:45; Stop 11/06/18 at 23:46; Status DC Ceftriaxone Sodium (Rocephin) 1 gm 1X ONCE IVP Last administered on 11/06/18at 23:54; Start 11/06/18 at 23:45; Stop 11/06/18 at 23:46; Status DC Vancomycin HCl (Vanco Per Pharmacy) 1 each PRN DAILY PRN MC SEE COMMENTS Last administered on 11/07/18at 05:19; Start 11/06/18 at 23:45; Stop 11/07/18 at 09:27; Status DC Albuterol/ Ipratropium (Duoneb) 3 ml RTQID NEB Last administered on 11/08/18at 08:03; Start 11/07/18 at 08:00; Stop 11/08/18 at 07:59; Status DC Vancomycin HCl 2 gm/Sodium Chloride 500 ml @ 250 mls/hr 1X ONCE IV Last administered on 11/06/18at 23:55; Start 11/06/18 at 23:45; Stop 11/07/18 at 01:44; Status DC Vancomycin HCl 1.25 gm/Sodium Chloride 250 ml @ 167 mls/hr Q24H IV ; Start at 23:30; Stop 11/07/18 at 23:30; Status DC Vancomycin HCl (Vancomycin Trough Level) 1 each 1X ONCE MC ; Start 11/08/18 at 23:00; Stop 11/08/18 at 23:01; Status Cancel Guaifenesin (Robitussin Dm) 10 ml PRN Q6HRS PRN PO COUGH; Start 11/07/18 at 09 :30 Acetaminophen (Tylenol) 500 mg PRN Q6HRS PRN PO MILD PAIN / TEMP; Start 11/07/18 at 09:30 Ondansetron HCl (Zofran) 4 mg PRN Q6HRS PRN IV NAUSEA/VOMITING; Start 11/07/18 at 09:30 Furosemide (Lasix) 40 mg DAILY IVP Last administered on 11/07/18at 09:49; Start 11/07/18 at 09:30; Stop 11/07/18 at 19:05; Status DC Aspirin (Santos Aspirin) 325 mg DAILY PO Last administered on 11/09/18at 10:17; Start 11/07/18 at 09:30 Losartan Potassium (Cozaar) 50 mg DAILY PO Last administered on 11/08/18at 09:11; Start 11/07/18 at 09:30; Stop 11/08/18 at 12:17; Status DC Metoprolol Tartrate (Lopressor) 50 mg BID PO Last administered on 11/08/18at 09:11; Start 11/07/18 at 09:30; Stop 11/08/18 at 12:17; Status DC Multivitamins (Thera M Plus) 1 tab DAILY PO Last administered on 11/09/18at 10:18; Start 11/07/18 at 09:30 Non-Formulary Medication (Acetaminophen (Tylenol Extra Strength)) 1,000 mg PRN Q6HRS PRN PO PAIN; Start 11/07/18 at 09:30; Status UNV Doxepin HCl (SINEquan) 75 mg QHS PO Last administered on 11/08/18at 22:13; Start 11/07/18 at 21:00 Cetirizine HCl (ZyrTEC) 10 mg DAILY PO Last administered on 11/09/18at 10:19; Start 11/07/18 at 09:30 Non-Formulary Medication (Melatonin ) 5 mg HS PO ; Start 11/07/18 at 21:00; Status UNV Levofloxacin (Levaquin) 250 mg DAILY06 PO Last administered on 11/07/18at 09:47; Start 11/07/18 at 10:00; Stop 11/07/18 at 11:29; Status DC Clindamycin Phosphate 50 ml @ 100 mls/hr Q8HRS IV Last administered on 11/08/18at 05:59; Start 11/07/18 at 14:00; Stop 11/08/18 at 11:54; Status DC Multi-Ingred Cream/Lotion/Oil/ Oint (Hydrocerin Cream) 1 alfonso PRN Q1HR PRN TP DRY SKIN / SCALING; Start 11/07/18 at 11:30 Albuterol Sulfate (Ventolin Neb Soln) 2.5 mg 1X ONCE NEB ; Start 11/07/18 at 12:45; Stop 11/07/18 at 12:46; Status DC Methylprednisolone Sodium Succinate (SOLU-Medrol 125MG VIAL) 125 mg 1X ONCE IV Last administered on 11/07/18at 16:00; Start 11/07/18 at 12:45; Stop 11/07/18 at 12:46; Status DC Atorvastatin Calcium (Lipitor) 20 mg QHS PO Last administered on 11/08/18at 22:13; Start 11/07/18 at 21:00 Multivitamins (Thera M Plus) 1 tab DAILY PO ; Start 11/08/18 at 09:00 Ascorbic Acid (Vitamin C) 500 mg DAILY PO Last administered on 11/09/18at 10:18; Start 11/08/18 at 09:00 Furosemide (Lasix) 20 mg DAILY IVP Last administered on 11/09/18at 10:21; Start 11/08/18 at 09:00 Prednisone (Prednisone) 40 mg DAILY PO Last administered on 11/08/18at 09:11; Start 11/08/18 at 09:00; Stop 11/08/18 at 11:01; Status DC Temazepam (Restoril) 7.5 mg STK-MED ONCE PO ; Start 11/08/18 at 02:21; Stop 11/08/18 at 03:44; Status DC Temazepam (Restoril) 7.5 mg PRN QHS PRN PO INSOMNIA Last administered on 11/08/18at 22:13; Start 11/08/18 at 02:15 Methylprednisolone Sodium Succinate (SOLU-Medrol 40MG VIAL) 40 mg Q8HRS IV ; Start 11/08/18 at 14:00; Stop 11/08/18 at 14:00; Status DC Piperacillin Sod/ Tazobactam Sod (Zosyn Per Pharmacy) 1 each PRN DAILY PRN MC SEE COMMENTS; Start 11/08/18 at 12:00; Stop 11/09/18 at 10:28; Status DC Linezolid (Zyvox) 600 mg BID PO Last administered on 11/09/18at 10:18; Start 11/08/18 at 12:00 Piperacillin Sod/ Tazobactam Sod 2.25 gm/Sodium Chloride 50 ml @ 100 mls/hr Q6HRS IV Last administered on 11/09/18at 05:50; Start 11/08/18 at 12:30; Stop 11/09/18 at 10:28; Status DC Losartan Potassium (Cozaar) 100 mg DAILY PO Last administered on 11/09/18at 10:20; Start 11/09/18 at 09:00 Methylprednisolone Sodium Succinate (SOLU-Medrol 40MG VIAL) 40 mg BID IV Last administered on 11/08/18at 22:14; Start 11/08/18 at 21:00; Stop 11/09/18 at 10:12; Status DC Clonidine HCl (Catapres) 0.1 mg PRN Q1HR PRN PO HYPERTENSION; Start 11/08/18 at 12:30 Albuterol/ Ipratropium (Duoneb) 3 ml Q4HRS NEB Last administered on 11/09/18at 07:51; Start 11/08/18 at 16:00 Budesonide (Pulmicort) 0.5 mg RTBID NEB Last administered on 11/09/18at 07:51; Start 11/08/18 at 20:00 Furosemide (Lasix) 20 mg 1X ONCE IVP Last administered on 11/08/18at 12:51; Start 11/08/18 at 12:30; Stop 11/08/18 at 12:31; Status DC Lactobacillus Rhamnosus (Culturelle) 1 cap BID PO Last administered on 11/09/18at 10:19; Start 11/08/18 at 21:00 Diltiazem HCl (Cardizem 24hr Cd) 180 mg DAILY PO Last administered on 11/09/18at 10:19; Start 11/08/18 at 13:00 Methylprednisolone Sodium Succinate (SOLU-Medrol 40MG VIAL) 60 mg BID IV ; Start 11/09/18 at 21:00 Fluconazole (Diflucan) 100 mg DAILY PO ; Start 11/09/18 at 10:30 Amoxicillin/ Clavulanate Potassium (Augmentin 500/ 125mg) 1 tab BID PO ; Start 11/09/18 at 21:00 Active Scripts Active Reported Thera M Plus Tablet (Multivits,Ca,Minerals/Iron/FA) 1 Each Tablet 1 Each PO DAILY Melatonin 3 Mg Tablet 5 Mg PO HS Claritin (Loratadine) 10 Mg Tablet 1 Tab PO DAILY Losartan Potassium 50 Mg Tablet 50 Mg PO DAILY Tylenol Extra Strength (Acetaminophen) 500 Mg Tablet 1,000 Mg PO PRN Q6HRS PRN Bactrim Ds Tablet (Sulfamethoxazole/Trimethoprim) 1 Each Tablet 1 Each PO BID 7 Days Doxepin Hcl 75 Mg Capsule 75 Mg PO DAILY Aspirin 325 Mg Tablet 1 Tab PO DAILY Furosemide 20 Mg Tablet 1 Tab PO DAILY Metoprolol Tartrate 50 Mg Tablet 1 Tab PO BID Vitals/I & O Vital Sign - Last 24 Hours 11/08/18 11/08/18 11/08/18 11/08/18 13:00 15:00 15:38 19:08 Temp 97.7 98.5 97.7 98.5 Pulse 99 81 86 Resp 16 16 B/P (MAP) 136/64 134/55 (81) 113/45 (67) Pulse Ox 96 97 O2 Delivery Nasal Cannula Nasal Cannula Nasal Cannula O2 Flow Rate 2.0 2.0 2.0 11/08/18 11/08/18 11/08/18 11/08/18 19:24 20:00 23:06 23:52 Temp 98.6 98.6 Pulse 83 Resp 16 B/P (MAP) 111/58 (75) Pulse Ox 93 97 O2 Delivery Nasal Cannula Nasal Cannula Nasal Cannula Nasal Cannula O2 Flow Rate 2.0 2.0 2.0 4.0 11/09/18 11/09/18 11/09/18 11/09/18 03:10 07:25 07:53 07:55 Temp 97.7 97.5 97.7 97.5 Pulse 96 85 Resp 18 18 B/P (MAP) 142/72 (95) 122/59 (80) Pulse Ox 99 97 97 O2 Delivery Nasal Cannula Nasal Cannula Nasal Cannula Nasal Cannula O2 Flow Rate 2.0 2.0 4.0 3.0 11/09/18 11/09/18 10:19 10:20 Pulse 85 85 B/P (MAP) 122/59 122/59 Intake and Output 11/08/18 11/08/18 11/09/18 15:00 23:00 07:00 Intake Total 440 ml 270 ml 350 ml Balance 440 ml 270 ml 350 ml JOSE FLOREZ MD Nov 09, 2018 11:12
[2018-11-09 11:15] VITALS: BP 119/60
[2018-11-09] MEDS: FLUCONAZOLE 100 MG TABLET. PO SCH (12:25)
[2018-11-09 15:40] VITALS: BP 120/50
[2018-11-09 19:49] VITALS: BP 120/69
[2018-11-09] MEDS: ATORVASTATIN CALCIUM 20 MG TABLET PO SCH (20:18)
[2018-11-09] MEDS: AMOXICILLIN/K CLAV 500/125MG TABLET. PO SCH (20:18)
[2018-11-09] MEDS: TEMAZEPAM 7.5 MG CAPSULE PO PRN (20:18)
[2018-11-09] MEDS: methylPREDNISolone SOD SUCC PF 40 MG/ML VIAL. IV SCH (20:19)
[2018-11-09] MEDS: DOXEPIN HCL 25 MG CAPSULE. PO SCH (20:19)
[2018-11-09 23:20] VITALS: BP 114/57
[2018-11-10] MEDS: IPRATRPIUM/ALBUTEROL 0.5/2.5MG 3 ML NEBU. NEB SCH ×7 (00:30→23:14)
[2018-11-10 03:31] VITALS: BP 114/67
[2018-11-10 05:00] LABS: BASO % 0 % (0-3); EOS % 0 % (0-3); HEMATOCRIT 32.9 % (36.0-47.0); HEMOGLOBIN 10.8 g/dL (12.0-15.5); LYMPH # 0.6 x10^3/uL (1.0-4.8); LYMPH % 5 % (24-48); MEAN CORPUSCULAR HEMOGLOBIN 31 pg (25-35); MEAN CORPUSCULAR HGB CONC 33 g/dL (31-37); MEAN CORPUSCULAR VOLUME 95 fL (79-100); MONO # 0.2 x10^3/uL (0.0-1.1); MONO % 1 % (0-9); NEUT # 10.7 x10^3/uL (1.8-7.7); NEUT % 93 % (31-73); PLATELET COUNT 257 x10^3/uL (140-400); RED BLOOD COUNT 3.45 x10^6/uL (3.50-5.40); RED CELL DISTRIBUTION WIDTH 14.8 % (11.5-14.5); WHITE BLOOD COUNT 11.4 x10^3/uL (4.0-11.0)
[2018-11-10 05:15] LABS: CALCIUM 8.4 mg/dL (8.5-10.1); CREATININE 1.8 mg/dL (0.6-1.0); GFR 26.6; POTASSIUM 4.2 mmol/L (3.5-5.1)
[2018-11-10 07:20] VITALS: BP 143/70
[2018-11-10] MEDS: BUDESONIDE 0.5 MG/2 ML NEBU. NEB SCH ×2 (08:03→20:30)
--- NOTE | 2018-11-10 08:27 | PDOC ---
Infectious Disease Note Subjective Subjective Doing ok but is constipated No F/C/S/N/V/Rash. Leg is ok. No gross SOA ROS ROS o/w neg Vital Sign Vital Signs Vital Signs Date Time Temp Pulse Resp B/P (MAP) Pulse Ox O2 Delivery O2 Flow Rate FiO2 11/10/18 08:07 98 Nasal Cannula 2.0 11/10/18 07:20 98.3 100 18 143/70 (94) 98.3 Physical Exam PHYSICAL EXAM GEN: Alert and eating. looks comfortable HEENT: nml conj NECK: Supple. LUNGS: Decreased in bases CARDIOVASCULAR: Regular rate. ABDOMEN: Soft, obese. mild distension. with decreased BS EXTREMITIES: With weakness on the right lower extremity - no warmth today. min erythema. wrinkling. mild yeast SKIN: No rash Labs Lab Laboratory Tests Test 11/10/18 03:55 White Blood Count 11.4 x10^3/uL (4.0-11.0) Red Blood Count 3.45 x10^6/uL (3.50-5.40) Hemoglobin 10.8 g/dL (12.0-15.5) Hematocrit 32.9 % (36.0-47.0) Mean Corpuscular Volume 95 fL (79-100) Mean Corpuscular Hemoglobin 31 pg (25-35) Mean Corpuscular Hemoglobin Concent 33 g/dL (31-37) Red Cell Distribution Width 14.8 % (11.5-14.5) Platelet Count 257 x10^3/uL (140-400) Neutrophils (%) (Auto) 93 % (31-73) Lymphocytes (%) (Auto) 5 % (24-48) Monocytes (%) (Auto) 1 % (0-9) Eosinophils (%) (Auto) 0 % (0-3) Basophils (%) (Auto) 0 % (0-3) Neutrophils # (Auto) 10.7 x10^3/uL (1.8-7.7) Lymphocytes # (Auto) 0.6 x10^3/uL (1.0-4.8) Monocytes # (Auto) 0.2 x10^3/uL (0.0-1.1) Eosinophils # (Auto) 0.0 x10^3/uL (0.0-0.7) Basophils # (Auto) 0.0 x10^3/uL (0.0-0.2) Sodium Level 139 mmol/L (136-145) Potassium Level 4.2 mmol/L (3.5-5.1) Chloride Level 100 mmol/L (98-107) Carbon Dioxide Level 29 mmol/L (21-32) Anion Gap 10 (6-14) Blood Urea Nitrogen 60 mg/dL (7-20) Creatinine 1.8 mg/dL (0.6-1.0) Estimated GFR (Cockcroft-Gault) 26.6 Glucose Level 183 mg/dL (70-99) Calcium Level 8.4 mg/dL (8.5-10.1) Micro Microbiology 11/07/18 Blood Culture - Preliminary, Resulted NO GROWTH AFTER 1 DAY Objective Assessment RLE cellulitis - failed Clinda - better Leukocytosis - on solumedrol TY - worse today tinea Superficial right heel and left leg wounds Bronchospasm on steroids Constipation Plan Plan of Care D/c'd zosyn and began Augmentin 11/09 Cont Zyvox Added Fluconazole 11/09 Local wound care Constipation relief per primary F/u Cr in am D/w nursing TANESHA BALL MD Nov 10, 2018 08:27
[2018-11-10] MEDS: CETIRIZINE HCL 10 MG TABLET. PO SCH (08:54)
[2018-11-10] MEDS: LOSARTAN POTASSIUM 50 MG TABLET. PO SCH (08:54)
[2018-11-10] MEDS: ASPIRIN 325 MG TABLET PO SCH (08:54)
[2018-11-10] MEDS: MULTIVITAMIN with MINERAL TABLET. PO SCH ×2 (08:54)
[2018-11-10] MEDS: AMOXICILLIN/K CLAV 500/125MG TABLET. PO SCH ×2 (08:55→22:18)
[2018-11-10] MEDS: FLUCONAZOLE 100 MG TABLET. PO SCH (08:55)
[2018-11-10] MEDS: LINEZOLID 600 MG TABLET PO SCH ×2 (08:55→22:22)
[2018-11-10] MEDS: ASCORBIC ACID 500 MG TABLET PO SCH (08:55)
[2018-11-10] MEDS: LACTOBACILLUS RHAMNOSUS GG 1 CAPSULE. PO SCH ×2 (08:55→22:18)
[2018-11-10] MEDS: methylPREDNISolone SOD SUCC PF 40 MG/ML VIAL. IV SCH ×2 (08:56→22:17)
[2018-11-10] MEDS: FUROSEMIDE 20 MG/2 ML VIAL. IVP SCH (08:56)
[2018-11-10] MEDS ORDERED: POLYETHYLENE GLYCOL 3350 17 GM PACKET. PO PRN (09:30)
[2018-11-10] MEDS ORDERED: POLYETHYLENE GLYCOL 3350 17 GM PACKET. PO ONE (09:30)
[2018-11-10] MEDS ORDERED: MAGNESIUM HYDROXIDE 2,400 MG/30 ML ORAL.SUSP. PO ONE (09:30)
[2018-11-10] MEDS ORDERED: BISACODYL 10 MG SUPP.RECT. PR PRN (09:30)
[2018-11-10] MEDS ORDERED: MAGNESIUM HYDROXIDE 2,400 MG/30 ML ORAL.SUSP. PO PRN (09:30)
--- NOTE | 2018-11-10 09:41 | PDOC ---
PULMONARY PROGRESS NOTES Subjective less soa, wheezing improved Vitals Vital Signs Date Time Temp Pulse Resp B/P (MAP) Pulse Ox O2 Delivery O2 Flow Rate FiO2 11/10/18 08:55 100 143/70 11/10/18 08:07 98 Nasal Cannula 2.0 11/10/18 07:20 98.3 18 98.3 ROS: No Chest Pain, No Increase Cough General: Alert, No acute distress Lungs: Wheezing (improving) Cardiovascular: S1, S2 Abdomen: Soft Neuro Exam: Alert Extremities: No Edema Skin: Warm Labs Laboratory Tests Test 11/09/18 03:25 11/10/18 03:55 White Blood Count 9.2 x10^3/uL (4.0-11.0) 11.4 x10^3/uL (4.0-11.0) Red Blood Count 3.33 x10^6/uL (3.50-5.40) 3.45 x10^6/uL (3.50-5.40) Hemoglobin 10.7 g/dL (12.0-15.5) 10.8 g/dL (12.0-15.5) Hematocrit 31.4 % (36.0-47.0) 32.9 % (36.0-47.0) Mean Corpuscular Volume 94 fL (79-100) 95 fL (79-100) Mean Corpuscular Hemoglobin 32 pg (25-35) 31 pg (25-35) Mean Corpuscular Hemoglobin Concent 34 g/dL (31-37) 33 g/dL (31-37) Red Cell Distribution Width 14.8 % (11.5-14.5) 14.8 % (11.5-14.5) Platelet Count 225 x10^3/uL (140-400) 257 x10^3/uL (140-400) Neutrophils (%) (Auto) 93 % (31-73) 93 % (31-73) Lymphocytes (%) (Auto) 6 % (24-48) 5 % (24-48) Monocytes (%) (Auto) 1 % (0-9) 1 % (0-9) Eosinophils (%) (Auto) 0 % (0-3) 0 % (0-3) Basophils (%) (Auto) 0 % (0-3) 0 % (0-3) Neutrophils # (Auto) 8.5 x10^3/uL (1.8-7.7) 10.7 x10^3/uL (1.8-7.7) Lymphocytes # (Auto) 0.5 x10^3/uL (1.0-4.8) 0.6 x10^3/uL (1.0-4.8) Monocytes # (Auto) 0.1 x10^3/uL (0.0-1.1) 0.2 x10^3/uL (0.0-1.1) Eosinophils # (Auto) 0.0 x10^3/uL (0.0-0.7) 0.0 x10^3/uL (0.0-0.7) Basophils # (Auto) 0.0 x10^3/uL (0.0-0.2) 0.0 x10^3/uL (0.0-0.2) Sodium Level 139 mmol/L (136-145) 139 mmol/L (136-145) Potassium Level 4.1 mmol/L (3.5-5.1) 4.2 mmol/L (3.5-5.1) Chloride Level 100 mmol/L (98-107) 100 mmol/L (98-107) Carbon Dioxide Level 30 mmol/L (21-32) 29 mmol/L (21-32) Anion Gap 9 (6-14) 10 (6-14) Blood Urea Nitrogen 55 mg/dL (7-20) 60 mg/dL (7-20) Creatinine 1.6 mg/dL (0.6-1.0) 1.8 mg/dL (0.6-1.0) Estimated GFR (Cockcroft-Gault) 30.4 26.6 Glucose Level 174 mg/dL (70-99) 183 mg/dL (70-99) Calcium Level 8.0 mg/dL (8.5-10.1) 8.4 mg/dL (8.5-10.1) Laboratory Tests Test 11/10/18 03:55 White Blood Count 11.4 x10^3/uL (4.0-11.0) Red Blood Count 3.45 x10^6/uL (3.50-5.40) Hemoglobin 10.8 g/dL (12.0-15.5) Hematocrit 32.9 % (36.0-47.0) Mean Corpuscular Volume 95 fL (79-100) Mean Corpuscular Hemoglobin 31 pg (25-35) Mean Corpuscular Hemoglobin Concent 33 g/dL (31-37) Red Cell Distribution Width 14.8 % (11.5-14.5) Platelet Count 257 x10^3/uL (140-400) Neutrophils (%) (Auto) 93 % (31-73) Lymphocytes (%) (Auto) 5 % (24-48) Monocytes (%) (Auto) 1 % (0-9) Eosinophils (%) (Auto) 0 % (0-3) Basophils (%) (Auto) 0 % (0-3) Neutrophils # (Auto) 10.7 x10^3/uL (1.8-7.7) Lymphocytes # (Auto) 0.6 x10^3/uL (1.0-4.8) Monocytes # (Auto) 0.2 x10^3/uL (0.0-1.1) Eosinophils # (Auto) 0.0 x10^3/uL (0.0-0.7) Basophils # (Auto) 0.0 x10^3/uL (0.0-0.2) Sodium Level 139 mmol/L (136-145) Potassium Level 4.2 mmol/L (3.5-5.1) Chloride Level 100 mmol/L (98-107) Carbon Dioxide Level 29 mmol/L (21-32) Anion Gap 10 (6-14) Blood Urea Nitrogen 60 mg/dL (7-20) Creatinine 1.8 mg/dL (0.6-1.0) Estimated GFR (Cockcroft-Gault) 26.6 Glucose Level 183 mg/dL (70-99) Calcium Level 8.4 mg/dL (8.5-10.1) Medications Active Scripts Medications Dose Route/Sig Max Daily Dose Days Date Category Thera M Plus Tablet (Multivits,Ca,Minerals/Iron/FA) 1 Each Tablet 1 Each PO DAILY 11/07/18 Reported Melatonin 3 Mg Tablet 5 Mg PO HS 11/07/18 Reported Claritin (Loratadine) 10 Mg Tablet 1 Tab PO DAILY 11/07/18 Reported Losartan Potassium 50 Mg Tablet 50 Mg PO DAILY 11/07/18 Reported Tylenol Extra Strength (Acetaminophen) 500 Mg Tablet 1,000 Mg PO PRN Q6HRS PRN 11/07/18 Reported Bactrim Ds Tablet (Sulfamethoxazole/Trimethoprim) 1 Each Tablet 1 Each PO BID 7 11/07/18 Reported Doxepin Hcl 75 Mg Capsule 75 Mg PO DAILY 10/25/17 Reported Aspirin 325 Mg Tablet 1 Tab PO DAILY 01/04/14 Reported Furosemide 20 Mg Tablet 1 Tab PO DAILY 01/04/14 Reported Metoprolol Tartrate 50 Mg Tablet 1 Tab PO BID 01/04/14 Reported Impression . 1. Acute hypoxic respiratory failure secondary to diffuse bronchospasm. 2. Diffuse bronchospasm, likely cardiac asthma. She has mild congestive heart failure on the chest x-ray and likely acute on chronic diastolic heart failure and also related to her MR. She was also on metoprolol at 100 mg daily, which may have also contributed to her bronchospasm as well. She quit tobacco 35 years ago and unlikely chronic obstructive disease exacerbation.? Anxiety component/? VCD/ clinically better 3. Renal insufficiency. 4. Underlying obesity. 5. No significant tobacco history. Plan . 1. At this point, continue with present oxygen at 2 liters. 2. Holding metoprolol 3. hold further Lasix due to increase in azotemia 4. DuoNebs. 5. Pulmicort. 6. solumedrol with gradual taper 7. Discussed with RN. FILEMON JAFFE MD Nov 10, 2018 09:41
[2018-11-10] MEDS: DOCUSATE SODIUM 100 MG CAPSULE. PO SCH ×2 (09:47→22:18)
--- NOTE | 2018-11-10 11:07 | PDOC ---
PROGRESS NOTES Chief Complaint Chief Complaint Mild CHF by chest x-ray Acute hypoxic respiratory failure-80s at [facility] SNU resident, DNR Bilateral lower extremity cellulitis negative Dopplers for DVT-right greater than left met encephalopathy/confusion in this elderly Dementia Geriatric Fall risk History hypertension GERD OA-chronic stable Adhesive tape allergy WHEEZY AK I, creatinine 1.8 now-got couple doses of Lasix already History of Present Illness History of Present Illness This is the first time I'm seeing her having a good day But then again she has not transferred to chair She gets very SOA and two-person assist transferring to chair She came from [facility] I was given Lasix 20 IV for maybe 2-3 days now Was actually getting 40mgs IV and I cut back Creatinine from 1.4 to 1.6 and 1.8 today Constipated ID has shifted to Augmentin Zyvox by mouth and Diflucan Plan: Stop Lasix Creatinine tomorrow Back to [place] discharge hopefully this weekend Zyvox,Diflucan Augmentin by mouth DNR Bowel regimen as ordered Discussed with RN Vitals Vitals Vital Signs Date Time Temp Pulse Resp B/P (MAP) Pulse Ox O2 Delivery O2 Flow Rate FiO2 11/10/18 08:55 100 143/70 11/10/18 08:07 98 Nasal Cannula 2.0 11/10/18 07:20 98.3 18 98.3 Physical Exam Physical Exam GEN: Alert and eating. looks comfortable HEENT: nml conj NECK: Supple. LUNGS: Decreased in bases CARDIOVASCULAR: Regular rate. ABDOMEN: Soft, obese. mild distension. with decreased BS EXTREMITIES: With weakness on the right lower extremity - no warmth today. min erythema. wrinkling. mild yeast SKIN: No rash General: Alert, Oriented X3, Cooperative, No acute distress Heart: Regular rate (SR), Other (3/6 systolic murmur to apical) Lungs: Wheezing (improving) Abdomen: Soft, No tenderness Extremities: No clubbing, No cyanosis Skin: Other (scaling to bilateral LE; erythema more to right than left; scabbed pressure ulcer to right calcaneus) Labs LABS Laboratory Tests Test 11/10/18 03:55 White Blood Count 11.4 x10^3/uL (4.0-11.0) Red Blood Count 3.45 x10^6/uL (3.50-5.40) Hemoglobin 10.8 g/dL (12.0-15.5) Hematocrit 32.9 % (36.0-47.0) Mean Corpuscular Volume 95 fL (79-100) Mean Corpuscular Hemoglobin 31 pg (25-35) Mean Corpuscular Hemoglobin Concent 33 g/dL (31-37) Red Cell Distribution Width 14.8 % (11.5-14.5) Platelet Count 257 x10^3/uL (140-400) Neutrophils (%) (Auto) 93 % (31-73) Lymphocytes (%) (Auto) 5 % (24-48) Monocytes (%) (Auto) 1 % (0-9) Eosinophils (%) (Auto) 0 % (0-3) Basophils (%) (Auto) 0 % (0-3) Neutrophils # (Auto) 10.7 x10^3/uL (1.8-7.7) Lymphocytes # (Auto) 0.6 x10^3/uL (1.0-4.8) Monocytes # (Auto) 0.2 x10^3/uL (0.0-1.1) Eosinophils # (Auto) 0.0 x10^3/uL (0.0-0.7) Basophils # (Auto) 0.0 x10^3/uL (0.0-0.2) Sodium Level 139 mmol/L (136-145) Potassium Level 4.2 mmol/L (3.5-5.1) Chloride Level 100 mmol/L (98-107) Carbon Dioxide Level 29 mmol/L (21-32) Anion Gap 10 (6-14) Blood Urea Nitrogen 60 mg/dL (7-20) Creatinine 1.8 mg/dL (0.6-1.0) Estimated GFR (Cockcroft-Gault) 26.6 Glucose Level 183 mg/dL (70-99) Calcium Level 8.4 mg/dL (8.5-10.1) Review of Systems Review of Systems constipated, weak, SOA on exertion, rest 14 pt reviewed, neg Comment Review of Relevant I have reviewed the following items christina (where applicable) has been applied. Labs Laboratory Tests Test 11/09/18 03:25 11/10/18 03:55 White Blood Count 9.2 x10^3/uL (4.0-11.0) 11.4 x10^3/uL (4.0-11.0) Red Blood Count 3.33 x10^6/uL (3.50-5.40) 3.45 x10^6/uL (3.50-5.40) Hemoglobin 10.7 g/dL (12.0-15.5) 10.8 g/dL (12.0-15.5) Hematocrit 31.4 % (36.0-47.0) 32.9 % (36.0-47.0) Mean Corpuscular Volume 94 fL (79-100) 95 fL (79-100) Mean Corpuscular Hemoglobin 32 pg (25-35) 31 pg (25-35) Mean Corpuscular Hemoglobin Concent 34 g/dL (31-37) 33 g/dL (31-37) Red Cell Distribution Width 14.8 % (11.5-14.5) 14.8 % (11.5-14.5) Platelet Count 225 x10^3/uL (140-400) 257 x10^3/uL (140-400) Neutrophils (%) (Auto) 93 % (31-73) 93 % (31-73) Lymphocytes (%) (Auto) 6 % (24-48) 5 % (24-48) Monocytes (%) (Auto) 1 % (0-9) 1 % (0-9) Eosinophils (%) (Auto) 0 % (0-3) 0 % (0-3) Basophils (%) (Auto) 0 % (0-3) 0 % (0-3) Neutrophils # (Auto) 8.5 x10^3/uL (1.8-7.7) 10.7 x10^3/uL (1.8-7.7) Lymphocytes # (Auto) 0.5 x10^3/uL (1.0-4.8) 0.6 x10^3/uL (1.0-4.8) Monocytes # (Auto) 0.1 x10^3/uL (0.0-1.1) 0.2 x10^3/uL (0.0-1.1) Eosinophils # (Auto) 0.0 x10^3/uL (0.0-0.7) 0.0 x10^3/uL (0.0-0.7) Basophils # (Auto) 0.0 x10^3/uL (0.0-0.2) 0.0 x10^3/uL (0.0-0.2) Sodium Level 139 mmol/L (136-145) 139 mmol/L (136-145) Potassium Level 4.1 mmol/L (3.5-5.1) 4.2 mmol/L (3.5-5.1) Chloride Level 100 mmol/L (98-107) 100 mmol/L (98-107) Carbon Dioxide Level 30 mmol/L (21-32) 29 mmol/L (21-32) Anion Gap 9 (6-14) 10 (6-14) Blood Urea Nitrogen 55 mg/dL (7-20) 60 mg/dL (7-20) Creatinine 1.6 mg/dL (0.6-1.0) 1.8 mg/dL (0.6-1.0) Estimated GFR (Cockcroft-Gault) 30.4 26.6 Glucose Level 174 mg/dL (70-99) 183 mg/dL (70-99) Calcium Level 8.0 mg/dL (8.5-10.1) 8.4 mg/dL (8.5-10.1) Laboratory Tests Test 11/10/18 03:55 White Blood Count 11.4 x10^3/uL (4.0-11.0) Red Blood Count 3.45 x10^6/uL (3.50-5.40) Hemoglobin 10.8 g/dL (12.0-15.5) Hematocrit 32.9 % (36.0-47.0) Mean Corpuscular Volume 95 fL (79-100) Mean Corpuscular Hemoglobin 31 pg (25-35) Mean Corpuscular Hemoglobin Concent 33 g/dL (31-37) Red Cell Distribution Width 14.8 % (11.5-14.5) Platelet Count 257 x10^3/uL (140-400) Neutrophils (%) (Auto) 93 % (31-73) Lymphocytes (%) (Auto) 5 % (24-48) Monocytes (%) (Auto) 1 % (0-9) Eosinophils (%) (Auto) 0 % (0-3) Basophils (%) (Auto) 0 % (0-3) Neutrophils # (Auto) 10.7 x10^3/uL (1.8-7.7) Lymphocytes # (Auto) 0.6 x10^3/uL (1.0-4.8) Monocytes # (Auto) 0.2 x10^3/uL (0.0-1.1) Eosinophils # (Auto) 0.0 x10^3/uL (0.0-0.7) Basophils # (Auto) 0.0 x10^3/uL (0.0-0.2) Sodium Level 139 mmol/L (136-145) Potassium Level 4.2 mmol/L (3.5-5.1) Chloride Level 100 mmol/L (98-107) Carbon Dioxide Level 29 mmol/L (21-32) Anion Gap 10 (6-14) Blood Urea Nitrogen 60 mg/dL (7-20) Creatinine 1.8 mg/dL (0.6-1.0) Estimated GFR (Cockcroft-Gault) 26.6 Glucose Level 183 mg/dL (70-99) Calcium Level 8.4 mg/dL (8.5-10.1) Microbiology 11/07/18 Blood Culture - Preliminary, Resulted NO GROWTH AFTER 3 DAYS Medications Current Medications Furosemide (Lasix) 40 mg 1X ONCE IVP Last administered on 11/06/18at 23:54; Start 11/06/18 at 23:45; Stop 11/06/18 at 23:46; Status DC Ceftriaxone Sodium (Rocephin) 1 gm 1X ONCE IVP Last administered on 11/06/18at 23:54; Start 11/06/18 at 23:45; Stop 11/06/18 at 23:46; Status DC Vancomycin HCl (Vanco Per Pharmacy) 1 each PRN DAILY PRN MC SEE COMMENTS Last administered on 11/07/18at 05:19; Start 11/06/18 at 23:45; Stop 11/07/18 at 09:27; Status DC Albuterol/ Ipratropium (Duoneb) 3 ml RTQID NEB Last administered on 11/08/18at 08:03; Start 11/07/18 at 08:00; Stop 11/08/18 at 07:59; Status DC Vancomycin HCl 2 gm/Sodium Chloride 500 ml @ 250 mls/hr 1X ONCE IV Last administered on 11/06/18at 23:55; Start 11/06/18 at 23:45; Stop 11/07/18 at 01:44; Status DC Vancomycin HCl 1.25 gm/Sodium Chloride 250 ml @ 167 mls/hr Q24H IV ; Start 11/07/18 at 23:30; Stop 11/07/18 at 23:30; Status DC Vancomycin HCl (Vancomycin Trough Level) 1 each 1X ONCE MC ; Start 11/08/18 at 23:00; Stop 11/08/18 at 23:01; Status Cancel Guaifenesin (Robitussin Dm) 10 ml PRN Q6HRS PRN PO COUGH; Start 11/07/18 at 09:30 Acetaminophen (Tylenol) 500 mg PRN Q6HRS PRN PO MILD PAIN / TEMP; Start 11/07/18 at 09:30 Ondansetron HCl (Zofran) 4 mg PRN Q6HRS PRN IV NAUSEA/VOMITING; Start 11/07/18 at 09:30 Furosemide (Lasix) 40 mg DAILY IVP Last administered on 11/07/18at 09:49; Start 11/07/18 at 09:30; Stop 11/07/18 at 19:05; Status DC Aspirin (Santos Aspirin) 325 mg DAILY PO Last administered on 11/10/18at 08:54; Start 11/07/18 at 09:30 Losartan Potassium (Cozaar) 50 mg DAILY PO Last administered on 11/08/18at 09:11; Start 11/07/18 at 09:30; Stop 11/08/18 at 12:17; Status DC Metoprolol Tartrate (Lopressor) 50 mg BID PO Last administered on 11/08/18at 09:11; Start 11/07/18 at 09:30; Stop 11/08/18 at 12:17; Status DC Multivitamins (Thera M Plus) 1 tab DAILY PO Last administered on 11/10/18at 08:54; Start 11/07/18 at 09:30 Non-Formulary Medication (Acetaminophen (Tylenol Extra Strength)) 1,000 mg PRN Q6HRS PRN PO PAIN; Start 11/07/18 at 09:30; Status UNV Doxepin HCl (SINEquan) 75 mg QHS PO Last administered on 11/09/18at 20:19; Start 11/07/18 at 21:00 Cetirizine HCl (ZyrTEC) 10 mg DAILY PO Last administered on 11/10/18at 08:54; Start 11/07/18 at 09:30 Non-Formulary Medication (Melatonin ) 5 mg HS PO ; Start 11/07/18 at 21:00; Status UNV Levofloxacin (Levaquin) 250 mg DAILY06 PO Last administered on 11/07/18at 09:47; Start 11/07/18 at 10:00; Stop 11/07/18 at 11:29; Status DC Clindamycin Phosphate 50 ml @ 100 mls/hr Q8HRS IV Last administered on 11/08/18at 05:59; Start 11/07/18 at 14:00; Stop 11/08/18 at 11:54; Status DC Multi-Ingred Cream/Lotion/Oil/ Oint (Hydrocerin Cream) 1 alfonso PRN Q1HR PRN TP DRY SKIN / SCALING; Start 11/07/18 at 11:30 Albuterol Sulfate (Ventolin Neb Soln) 2.5 mg 1X ONCE NEB ; Start 11/07/18 at 12:45; Stop 11/07/18 at 12:46; Status DC Methylprednisolone Sodium Succinate (SOLU-Medrol 125MG VIAL) 125 mg 1X ONCE IV Last administered on 11/07/18at 16:00; Start 11/07/18 at 12:45; Stop 11/07/18 at 12:46; Status DC Atorvastatin Calcium (Lipitor) 20 mg QHS PO Last administered on 11/09/18at 20:18; Start 11/07/18 at 21:00 Multivitamins (Thera M Plus) 1 tab DAILY PO ; Start 11/08/18 at 09:00 Ascorbic Acid (Vitamin C) 500 mg DAILY PO Last administered on 11/10/18at 08:55; Start 11/08/18 at 09:00 Furosemide (Lasix) 20 mg DAILY IVP Last administered on 11/10/18at 08:56; Start 11/08/18 at 09:00; Stop 11/10/18 at 09:14; Status DC Prednisone (Prednisone) 40 mg DAILY PO Last administered on 11/08/18at 09:11; Start 11/08/18 at 09:00; Stop 11/08/18 at 11:01; Status DC Temazepam (Restoril) 7.5 mg STK-MED ONCE PO ; Start 11/08/18 at 02:21; Stop 11/08/18 at 03:44; Status DC Temazepam (Restoril) 7.5 mg PRN QHS PRN PO INSOMNIA Last administered on 11/09/18at 20:18; Start 11/08/18 at 02:15 Methylprednisolone Sodium Succinate (SOLU-Medrol 40MG VIAL) 40 mg Q8HRS IV ; Start 11/08/18 at 14:00; Stop 11/08/18 at 14:00; Status DC Piperacillin Sod/ Tazobactam Sod (Zosyn Per Pharmacy) 1 each PRN DAILY PRN MC SEE COMMENTS; Start 11/08/18 at 12:00; Stop 11/09/18 at 10:28; Status DC Linezolid (Zyvox) 600 mg BID PO Last administered on 11/10/18at 08:55; Start 11/08/18 at 12:00 Piperacillin Sod/ Tazobactam Sod 2.25 gm/Sodium Chloride 50 ml @ 100 mls/hr Q6HRS IV Last administered on 11/09/18at 05:50; Start 11/08/18 at 12:30; Stop 11/09/18 at 10:28; Status DC Losartan Potassium (Cozaar) 100 mg DAILY PO Last administered on 11/10/18at 08:54; Start 11/09/18 at 09:00 Methylprednisolone Sodium Succinate (SOLU-Medrol 40MG VIAL) 40 mg BID IV Last administered on 11/08/18at 22:14; Start 11/08/18 at 21:00; Stop 11/09/18 at 10:12; Status DC Clonidine HCl (Catapres) 0.1 mg PRN Q1HR PRN PO HYPERTENSION; Start 11/08/18 at 12:30 Albuterol/ Ipratropium (Duoneb) 3 ml Q4HRS NEB Last administered on 11/10/18at 08:03; Start 11/08/18 at 16:00 Budesonide (Pulmicort) 0.5 mg RTBID NEB Last administered on 11/10/18at 08:03; Start 11/08/18 at 20:00 Furosemide (Lasix) 20 mg 1X ONCE IVP Last administered on 11/08/18at 12:51; Start 11/08/18 at 12:30; Stop 11/08/18 at 12:31; Status DC Lactobacillus Rhamnosus (Culturelle) 1 cap BID PO Last administered on 11/10/18 08:55; Start 11/08/18 at 21:00 Diltiazem HCl (Cardizem 24hr Cd) 180 mg DAILY PO Last administered on 11/10/18 08:55; Start 11/08/18 at 13:00 Methylprednisolone Sodium Succinate (SOLU-Medrol 40MG VIAL) 60 mg BID IV Last administered on 11/10/18 08:56; Start 11/09/18 at 21:00 Fluconazole (Diflucan) 100 mg DAILY PO Last administered on 11/10/18 08:55; Start 11/09/18 at 10:30 Amoxicillin/ Clavulanate Potassium (Augmentin 500/ 125mg) 1 tab BID PO Last administered on 11/10/18 08:55; Start 11/09/18 at 21:00 Docusate Sodium (Colace) 100 mg BID PO Last administered on 11/10/18 09:47; Start 11/10/18 at 09:30 Polyethylene Glycol (miraLAX PACKET) 17 gm 1X ONCE PO Last administered on 11/10/18 09:47; Start 11/10/18 at 09:30; Stop 11/10/18 at 09:31; Status DC Polyethylene Glycol (miraLAX PACKET) 17 gm PRN DAILY PRN PO CONSTIPATION; Start 11/10/18 at 09:30 Magnesium Hydroxide (Milk Of Magnesia) 2,400 mg 1X ONCE PO Last administered on 11/10/18at 09:47; Start 11/10/18 at 09:30; Stop 11/10/18 at 09:31; Status DC Magnesium Hydroxide (Milk Of Magnesia) 2,400 mg PRN DAILY PRN PO CONSTIPATION; Start 11/10/18 at 09:30 Bisacodyl (Dulcolax Supp) 10 mg PRN DAILY PRN DE CONSTIPATION; Start 11/10/18 at 09:30 Active Scripts Active Reported Thera M Plus Tablet (Multivits,Ca,Minerals/Iron/FA) 1 Each Tablet 1 Each PO DAILY Melatonin 3 Mg Tablet 5 Mg PO HS Claritin (Loratadine) 10 Mg Tablet 1 Tab PO DAILY Losartan Potassium 50 Mg Tablet 50 Mg PO DAILY Tylenol Extra Strength (Acetaminophen) 500 Mg Tablet 1,000 Mg PO PRN Q6HRS PRN Bactrim Ds Tablet (Sulfamethoxazole/Trimethoprim) 1 Each Tablet 1 Each PO BID 7 Days Doxepin Hcl 75 Mg Capsule 75 Mg PO DAILY Aspirin 325 Mg Tablet 1 Tab PO DAILY Furosemide 20 Mg Tablet 1 Tab PO DAILY Metoprolol Tartrate 50 Mg Tablet 1 Tab PO BID Vitals/I & O Vital Sign - Last 24 Hours 11/09/18 11/09/18 11/09/18 11/09/18 11:15 11:49 15:40 16:00 Temp 97.6 98.3 97.6 98.3 Pulse 93 88 Resp 18 18 B/P (MAP) 119/60 (79) 120/50 (73) Pulse Ox 95 97 O2 Delivery Nasal Cannula Nasal Cannula Nasal Cannula Nasal Cannula O2 Flow Rate 2.0 4.0 2.0 3.0 11/09/18 11/09/18 11/09/18 11/09/18 19:49 20:00 20:04 20:07 Temp 98.6 98.6 Pulse 69 Resp 18 B/P (MAP) 120/69 (86) Pulse Ox 97 98 98 O2 Delivery Nasal Cannula Nasal Cannula Nasal Cannula Nasal Cannula O2 Flow Rate 2.0 2.0 3.0 3.0 11/09/18 11/10/18 11/10/18 11/10/18 23:20 00:32 03:31 04:34 Temp 98.2 98.1 98.2 98.1 Pulse 98 101 Resp 18 18 B/P (MAP) 114/57 (76) 114/67 (83) Pulse Ox 96 97 97 97 O2 Delivery Nasal Cannula Nasal Cannula Nasal Cannula Nasal Cannula O2 Flow Rate 2.0 3.0 2.0 2.0 11/10/18 11/10/18 11/10/18 11/10/18 07:20 08:06 08:07 08:54 Temp 98.3 98.3 Pulse 100 100 Resp 18 B/P (MAP) 143/70 (94) 143/70 Pulse Ox 94 98 98 O2 Delivery Nasal Cannula Nasal Cannula Nasal Cannula O2 Flow Rate 2.0 2.0 2.0 11/10/18 08:55 Pulse 100 B/P (MAP) 143/70 Intake and Output 11/09/18 11/09/18 11/10/18 15:00 23:00 07:00 Intake Total 500 ml 600 ml 60 ml Output Total 0 ml Balance 500 ml 600 ml 60 ml JOSE FLOREZ MD Nov 10, 2018 11:07
[2018-11-10 11:20] VITALS: BP 134/65
[2018-11-10 15:05] VITALS: BP 111/48
[2018-11-10 19:47] VITALS: BP 120/63
[2018-11-10] MEDS: DOXEPIN HCL 25 MG CAPSULE. PO SCH (22:18)
[2018-11-10] MEDS: ATORVASTATIN CALCIUM 20 MG TABLET PO SCH (22:18)
[2018-11-10] MEDS: TEMAZEPAM 7.5 MG CAPSULE PO PRN (22:31)
[2018-11-10 23:53] VITALS: BP 133/59
[2018-11-11] MEDS: IPRATRPIUM/ALBUTEROL 0.5/2.5MG 3 ML NEBU. NEB SCH ×5 (02:43→19:25)
[2018-11-11 03:25] VITALS: BP 139/63
[2018-11-11 05:28] LABS: CREATININE 1.5 mg/dL (0.6-1.0); GFR 32.8
[2018-11-11 07:25] VITALS: BP 127/67
[2018-11-11] MEDS: BUDESONIDE 0.5 MG/2 ML NEBU. NEB SCH ×2 (07:35→19:25)
[2018-11-11] MEDS ORDERED: ASCO500T2 PO (08:26)
[2018-11-11] MEDS ORDERED: IPRA3AMP29 NEB (08:26)
[2018-11-11] MEDS ORDERED: ATOR20TA58 PO (08:26)
[2018-11-11] MEDS ORDERED: AMOX1TAB10 PO (08:26)
[2018-11-11] MEDS ORDERED: LOSA-73 PO (08:26)
[2018-11-11] MEDS ORDERED: LINE600T PO (08:26)
[2018-11-11] MEDS ORDERED: BUDE0.5A NEB (08:26)
[2018-11-11] MEDS ORDERED: Fluconazole PO (08:26)
[2018-11-11] MEDS ORDERED: GUAI5SYR PO (08:26)
--- NOTE | 2018-11-11 08:29 | SNU/HH DC ---
DISCHARGE ORDERS DISCHARGE INFORMATION: DISCHARGE DATE: Nov 11, 2018 CONDITION ON DISCHARGE: Stable CODE STATUS: Code Status: DNR/DNI FPC: SNF STAY <30 DAYS: Yes HOSPICE: HOSPICE: No HOSPICE EVAL & TREAT: No LTAC: ADMIT TO LTAC: No POST DISCHARGE ORDERS: ACTIVITY ORDERS: Activity as tolerated WEIGHT BEARING STATUS: Full weight bearing, As tolerated DIET AFTER DISCHARGE: Cardiac WOUND/INCISION CARE: Keep wound elevated, Change dressing, Reinforce dressing PRN CHECKS AFTER DISCHARGE: CHECKS AFTER DISCHARGE: Check blood press - daily FOLLOW-UP: PHYSICIAN FOLLOW-UP: cards or pcp re chf on snu dc TREATMENT/EQUIPMENT ORDERS: ADAPTIVE EQUIPMENT NEEDED: Front wheeled walker Physical Therapy For: Evalulation/Treatment Occupational Therapy For: Evaluation/Treatment Speech Language Pathology For: Evaluation/Treatment DISCHARGE MEDICATIONS: Home Meds Active Scripts Ascorbic Acid (VITAMIN C) 500 Mg Tablet, 500 MG PO DAILY for mvi, #30 TAB Prov:JOSE FLOREZ MD 11/11/18 Budesonide (BUDESONIDE) 0.5 Mg/2 Ml Ampul.neb, 0.5 MG NEB RTBID for soa, #60 EACH Prov:JOSE FLOREZ MD 11/11/18 Guaifenesin/Dextromethorphan (GUAIFENESIN DM SYRUP) 5 Ml Syrup, 10 ML PO PRN Q6HRS PRN for COUGH for 7 Days, MISC Prov:JOSE FLOREZ MD 11/11/18 Ipratropium/Albuterol Sulfate (DUONEB 0.5-3(2.5) MG/3 ML) 3 Ml Ampul.neb, 3 ML NEB Q4HRS for soa, #90 EACH Prov:JOSE FLOREZ MD 11/11/18 Losartan Potassium (COZAAR ) 50 Mg Tablet, 100 MG PO DAILY for htn, #60 TAB Prov:JOSE FLOREZ MD 11/11/18 Atorvastatin Calcium (ATORVASTATIN CALCIUM) 20 Mg Tablet, 20 MG PO QHS for lipids, #60 TAB Prov:JOSE FLOREZ MD 11/11/18 [Fluconazole] 100 MG TABLET No Conflict Check, 100 MG PO DAILY for onn abx for 7 Days, #7 TAB Prov:JOSE FLOREZ MD 11/11/18 Linezolid (ZYVOX) 600 Mg Tablet, 600 MG PO BID for infection for 7 Days, #14 TAB Prov:JOSE FLOREZ MD 11/11/18 Amoxicillin/Potassium Clav (AMOX TR-K CLV 500-125 MG TAB) 1 Each Tablet, 1 TAB PO BID for infection for 7 Days, #14 TAB Prov:JOSE FLOREZ MD 11/11/18 Reported Medications Multivits,Ca,Minerals/Iron/FA (Thera M Plus Tablet) 1 Each Tablet, 1 EACH PO DAILY for supplement, TAB 11/07/18 Melatonin (MELATONIN) 3 Mg Tablet, 5 MG PO HS for insomnia, TAB 11/07/18 Loratadine (CLARITIN) 10 Mg Tablet, 1 TAB PO DAILY for allergies, #30 TAB 3 Refills 11/07/18 Acetaminophen (TYLENOL EXTRA STRENGTH) 500 Mg Tablet, 1000 MG PO PRN Q6HRS PRN for PAIN, TAB 11/07/18 Doxepin Hcl (DOXEPIN HCL) 75 Mg Capsule, 75 MG PO DAILY, CAP 10/25/17 Aspirin (ASPIRIN) 325 Mg Tablet, 1 TAB PO DAILY, #30 TAB 5 Refills 01/04/14 Furosemide (FUROSEMIDE) 20 Mg Tablet, 1 TAB PO DAILY, #90 TAB 1 Refill 01/04/14 Metoprolol Tartrate (METOPROLOL TARTRATE) 50 Mg Tablet, 1 TAB PO BID, #60 TAB 5 Refills 01/04/14 Discontinued Reported Medications Losartan Potassium (LOSARTAN POTASSIUM) 50 Mg Tablet, 50 MG PO DAILY for HYPERTENSION, TAB 11/07/18 Sulfamethoxazole/Trimethoprim (BACTRIM DS TABLET) 1 Each Tablet, 1 EACH PO BID for cellulitis for 7 Days, #14 TAB 11/07/18 JOSE FLOREZ MD Nov 11, 2018 08:29
[2018-11-11] MEDS: CETIRIZINE HCL 10 MG TABLET. PO SCH (08:50)
[2018-11-11] MEDS: DOCUSATE SODIUM 100 MG CAPSULE. PO SCH ×2 (08:51→20:42)
[2018-11-11] MEDS: LINEZOLID 600 MG TABLET PO SCH ×2 (08:51→20:41)
[2018-11-11] MEDS: LACTOBACILLUS RHAMNOSUS GG 1 CAPSULE. PO SCH ×2 (08:51→20:41)
[2018-11-11] MEDS: MULTIVITAMIN with MINERAL TABLET. PO SCH ×2 (08:51→08:56)
[2018-11-11] MEDS: AMOXICILLIN/K CLAV 500/125MG TABLET. PO SCH ×2 (08:51→20:41)
[2018-11-11] MEDS: LOSARTAN POTASSIUM 50 MG TABLET. PO SCH (08:51)
[2018-11-11] MEDS: FLUCONAZOLE 100 MG TABLET. PO SCH (08:51)
[2018-11-11] MEDS: ASPIRIN 325 MG TABLET PO SCH (08:51)
[2018-11-11] MEDS: ASCORBIC ACID 500 MG TABLET PO SCH (08:51)
[2018-11-11] MEDS: methylPREDNISolone SOD SUCC PF 40 MG/ML VIAL. IV SCH ×2 (08:55→20:41)
[2018-11-11] MEDS ORDERED: METOPROLOL TARTRATE 5 MG/5 ML VIAL. IVP ONE (09:15)
--- NOTE | 2018-11-11 10:25 | PDOC3 ---
Discharge Summary Visit Information Date of Admission: Nov 06, 2018 Date of Discharge: Nov 11, 2018 Admitting Diagnosis Comment: Mild CHF by chest x-ray Acute hypoxic respiratory failure-80s at [facility] SNU resident, DNR Bilateral lower extremity cellulitis negative Dopplers for DVT-right greater than left met encephalopathy/confusion in this elderly Dementia Geriatric Fall risk History hypertension GERD OA-chronic stable Adhesive tape allergy WHEEZY AK I, creatinine 1.8 now-got couple doses of Lasix already Brief Hospital Course Allergies Allergies Coded Allergies Type Severity Reaction Last Updated Verified adhesive tape Allergy Intermediate Rash 10/25/17 No Vital Signs Vital Signs Date Time Temp Pulse Resp B/P (MAP) Pulse Ox O2 Delivery O2 Flow Rate FiO2 11/11/18 09:22 140 127/67 11/11/18 07:40 98 Nasal Cannula 2.0 11/11/18 07:25 98.3 18 98.3 Lab Results Laboratory Tests Test 11/10/18 03:55 11/11/18 04:20 White Blood Count 11.4 x10^3/uL (4.0-11.0) Red Blood Count 3.45 x10^6/uL (3.50-5.40) Hemoglobin 10.8 g/dL (12.0-15.5) Hematocrit 32.9 % (36.0-47.0) Mean Corpuscular Volume 95 fL (79-100) Mean Corpuscular Hemoglobin 31 pg (25-35) Mean Corpuscular Hemoglobin Concent 33 g/dL (31-37) Red Cell Distribution Width 14.8 % (11.5-14.5) Platelet Count 257 x10^3/uL (140-400) Neutrophils (%) (Auto) 93 % (31-73) Lymphocytes (%) (Auto) 5 % (24-48) Monocytes (%) (Auto) 1 % (0-9) Eosinophils (%) (Auto) 0 % (0-3) Basophils (%) (Auto) 0 % (0-3) Neutrophils # (Auto) 10.7 x10^3/uL (1.8-7.7) Lymphocytes # (Auto) 0.6 x10^3/uL (1.0-4.8) Monocytes # (Auto) 0.2 x10^3/uL (0.0-1.1) Eosinophils # (Auto) 0.0 x10^3/uL (0.0-0.7) Basophils # (Auto) 0.0 x10^3/uL (0.0-0.2) Sodium Level 139 mmol/L (136-145) Potassium Level 4.2 mmol/L (3.5-5.1) Chloride Level 100 mmol/L (98-107) Carbon Dioxide Level 29 mmol/L (21-32) Anion Gap 10 (6-14) Blood Urea Nitrogen 60 mg/dL (7-20) Creatinine 1.8 mg/dL (0.6-1.0) 1.5 mg/dL (0.6-1.0) Estimated GFR (Cockcroft-Gault) 26.6 32.8 Glucose Level 183 mg/dL (70-99) Calcium Level 8.4 mg/dL (8.5-10.1) Laboratory Tests Test 11/11/18 04:20 Creatinine 1.5 mg/dL (0.6-1.0) Estimated GFR (Cockcroft-Gault) 32.8 Brief Hospital Course Ms. Ford is a 88 old white female, DNR, came from [facility] because of mild CHF exacerbation manifested by cardiac wheezing SOA on exertion and at rest and at transfers. She also had leg edema. I diurese gently initially 40mgs then down to 20mgs IV with resolution of symptoms. But still gets easily SOA upon transfers. Comanage with pulmonary and cardiology. Pulmonary thinks it's more of cardiac wheeze, treated with steroids. Better for the last 2 days (as best as can be). Appropriately DNR. Again can get easily winded on transfers. Echo,.good ef bu abN relaxation pattern, We'll transfer back to [facility] today All meds on chart Consults performed pulmonary/cardiology Will need Lasix at place Discharge Information Condition at Discharge: Improved, Stable Disposition/Orders: Other (snu) Scheduled Amoxicillin/Potassium Clav (Amox Tr-K Clv 500-125 Mg Tab) 1 Each Tablet, 1 TAB PO BID for infection for 7 Days, #14 Prescribed by: JOSE FLOREZ on 11/11/18 0826 Ascorbic Acid (Vitamin C) 500 Mg Tablet, 500 MG PO DAILY for mvi, #30 Prescribed by: JOSE FLOREZ on 11/11/18825 Aspirin (Aspirin) 325 Mg Tablet, 1 TAB PO DAILY, #30 Ref 5 (Reported) Entered as Reported by: ANGELICA AMAYA on 01/04/142144 Last Action: Continued on 11/07/18919 by JOSE FLOREZ Atorvastatin Calcium (Atorvastatin Calcium) 20 Mg Tablet, 20 MG PO QHS for lipids, #60 Prescribed by: JOSE FLOREZ on 11/11/18825 Budesonide (Budesonide) 0.5 Mg/2 Ml Ampul.neb, 0.5 MG NEB RTBID for soa, #60 Prescribed by: JOSE FLOREZ on 11/11/18825 Doxepin Hcl (Doxepin Hcl) 75 Mg Capsule, 75 MG PO DAILY, (Reported) Entered as Reported by: NANCY RODRIGUEZ on 10/25/1740 Last Action: Converted on 11/07/18919 by JOSE FLOREZ Furosemide (Furosemide) 20 Mg Tablet, 1 TAB PO DAILY, #90 Ref 1 (Reported) Entered as Reported by: ANGELICA AMAYA on 01/04/142144 Last Action: HELD on 11/07/18919 by JOSE FLOREZ Ipratropium/Albuterol Sulfate (Duoneb 0.5-3(2.5) Mg/3 Ml) 3 Ml Ampul.neb, 3 ML NEB Q4HRS for soa, #90 Prescribed by: JOSE FLOREZ on 11/11/18825 Linezolid (Zyvox) 600 Mg Tablet, 600 MG PO BID for infection for 7 Days, #14 Prescribed by: JOSE FLOREZ on 11/11/18825 Loratadine (Claritin) 10 Mg Tablet, 1 TAB PO DAILY for allergies, #30 Ref 3 (Reported) Entered as Reported by: NANCY RODRIGUEZ on 11/07/18245 Last Action: Converted on 11/07/18919 by JOSE FLOREZ Losartan Potassium (Cozaar ) 50 Mg Tablet, 100 MG PO DAILY for htn, #60 Prescribed by: JOSE FLOREZ on 11/11/18825 Melatonin (Melatonin) 3 Mg Tablet, 5 MG PO HS for insomnia, (Reported) Entered as Reported by: NANCY RODRIGUEZ on 11/07/18245 Last Action: Converted on 11/07/18919 by JOSE FLOREZ Metoprolol Tartrate (Metoprolol Tartrate) 50 Mg Tablet, 1 TAB PO BID, #60 Ref 5 (Reported) Entered as Reported by: ANGELICA AMAYA on 01/04/145 Last Action: Continued on 11/07/18919 by JOSE FLOREZ Multivits,Ca,Minerals/Iron/FA (Thera M Plus Tablet) 1 Each Tablet, 1 EACH PO DAILY for supplement, (Reported) Entered as Reported by: NANCY RODRIGUEZ on 11/07/18245 Last Action: Continued on 11/07/18919 by JOSE FLOREZ [Fluconazole] 100 MG TABLET, 100 MG PO DAILY for onn abx for 7 Days, #7 Prescribed by: JOSE FLOREZ on 11/11/18825 Scheduled PRN Acetaminophen (Tylenol Extra Strength) 500 Mg Tablet, 1,000 MG PO PRN Q6HRS PRN for PAIN, (Reported) Entered as Reported by: NANCY RODRIGUEZ on 11/07/18245 Last Action: Converted on 11/07/18919 by JOSE FLOREZ Guaifenesin/Dextromethorphan (Guaifenesin Dm Syrup) 5 Ml Syrup, 10 ML PO PRN Q6HRS PRN for COUGH for 7 Days Prescribed by: JOSE FLOREZ on 11/11/18825 Discontinued Medications Losartan Potassium (Losartan Potassium) 50 Mg Tablet, 50 MG PO DAILY for HYPERTENSION, (Reported) Entered as Reported by: NANCY RODRIGUEZ on 11/07/18245 Last Action: Continued on 11/07/18919 by JOES FLOREZ Sulfamethoxazole/Trimethoprim (Bactrim Ds Tablet) 1 Each Tablet, 1 EACH PO BID for cellulitis for 7 Days, #14 (Reported) Entered as Reported by: NANCY RODRIGUEZ on 11/07/18245 Last Action: HELD on 11/07/18919 by JOSE PEREZ MD Nov 11, 2018 10:25
--- NOTE | 2018-11-11 11:03 | PDOC ---
PULMONARY PROGRESS NOTES Subjective less soa, wheezing improved. Planned discharge from hospital today Vitals Vital Signs Date Time Temp Pulse Resp B/P (MAP) Pulse Ox O2 Delivery O2 Flow Rate FiO2 11/11/18 09:22 140 127/67 11/11/18 07:40 98 Nasal Cannula 2.0 11/11/18 07:25 98.3 18 98.3 ROS: No Chest Pain, No Increase Cough General: Alert, No acute distress Lungs: Other (no wheezing today. chest clear) Cardiovascular: S1, S2 Abdomen: Soft Neuro Exam: Alert Extremities: No Edema Skin: Warm Labs Laboratory Tests Test 11/10/18 03:55 11/11/18 04:20 White Blood Count 11.4 x10^3/uL (4.0-11.0) Red Blood Count 3.45 x10^6/uL (3.50-5.40) Hemoglobin 10.8 g/dL (12.0-15.5) Hematocrit 32.9 % (36.0-47.0) Mean Corpuscular Volume 95 fL (79-100) Mean Corpuscular Hemoglobin 31 pg (25-35) Mean Corpuscular Hemoglobin Concent 33 g/dL (31-37) Red Cell Distribution Width 14.8 % (11.5-14.5) Platelet Count 257 x10^3/uL (140-400) Neutrophils (%) (Auto) 93 % (31-73) Lymphocytes (%) (Auto) 5 % (24-48) Monocytes (%) (Auto) 1 % (0-9) Eosinophils (%) (Auto) 0 % (0-3) Basophils (%) (Auto) 0 % (0-3) Neutrophils # (Auto) 10.7 x10^3/uL (1.8-7.7) Lymphocytes # (Auto) 0.6 x10^3/uL (1.0-4.8) Monocytes # (Auto) 0.2 x10^3/uL (0.0-1.1) Eosinophils # (Auto) 0.0 x10^3/uL (0.0-0.7) Basophils # (Auto) 0.0 x10^3/uL (0.0-0.2) Sodium Level 139 mmol/L (136-145) Potassium Level 4.2 mmol/L (3.5-5.1) Chloride Level 100 mmol/L (98-107) Carbon Dioxide Level 29 mmol/L (21-32) Anion Gap 10 (6-14) Blood Urea Nitrogen 60 mg/dL (7-20) Creatinine 1.8 mg/dL (0.6-1.0) 1.5 mg/dL (0.6-1.0) Estimated GFR (Cockcroft-Gault) 26.6 32.8 Glucose Level 183 mg/dL (70-99) Calcium Level 8.4 mg/dL (8.5-10.1) Laboratory Tests Test 11/11/18 04:20 Creatinine 1.5 mg/dL (0.6-1.0) Estimated GFR (Cockcroft-Gault) 32.8 Medications Active Scripts Medications Dose Route/Sig Max Daily Dose Days Date Category Thera M Plus Tablet (Multivits,Ca,Minerals/Iron/FA) 1 Each Tablet 1 Each PO DAILY 11/07/18 Reported Melatonin 3 Mg Tablet 5 Mg PO HS 11/07/18 Reported Claritin (Loratadine) 10 Mg Tablet 1 Tab PO DAILY 11/07/18 Reported Losartan Potassium 50 Mg Tablet 50 Mg PO DAILY 11/07/18 Reported Tylenol Extra Strength (Acetaminophen) 500 Mg Tablet 1,000 Mg PO PRN Q6HRS PRN 11/07/18 Reported Bactrim Ds Tablet (Sulfamethoxazole/Trimethoprim) 1 Each Tablet 1 Each PO BID 7 11/07/18 Reported Doxepin Hcl 75 Mg Capsule 75 Mg PO DAILY 10/25/17 Reported Aspirin 325 Mg Tablet 1 Tab PO DAILY 01/04/14 Reported Furosemide 20 Mg Tablet 1 Tab PO DAILY 01/04/14 Reported Metoprolol Tartrate 50 Mg Tablet 1 Tab PO BID 01/04/14 Reported Impression . 1. Acute hypoxic respiratory failure secondary to diffuse bronchospasm, resolved 2. Diffuse bronchospasm, likely cardiac asthma. She has mild congestive heart failure on the chest x-ray and likely acute on chronic diastolic heart failure and also related to her MR. She was also on metoprolol at 100 mg daily, which may have also contributed to her bronchospasm as well. She quit tobacco 35 years ago and unlikely chronic obstructive disease exacerbation.? Anxiety component/? VCD/ clinically better 3. Renal insufficiency. 4. Underlying obesity. 5. distant past tobacco history. Plan . 1. Agree with discharge to care facility 2. Holding metoprolol 3. hold further Lasix due to increase in azotemia 4. DuoNebs. 5. Pulmicort. 6. solumedrol with gradual taper 7. taper O2 watching oxygen saturation. BEN GARG MD Nov 11, 2018 11:03
[2018-11-11 11:15] VITALS: BP 121/61
--- NOTE | 2018-11-11 11:47 | NUR ---
SPOKE TO LAURIE AT [facility]. STATED THEY COULD NOT TAKE HER UNTIL 11/13
--- NOTE | 2018-11-11 13:43 | PDOC ---
Infectious Disease Note Subjective Subjective Comfortable, denies pain/F/C Adolfo N/V/D ROS ROS per HPI Vital Sign Vital Signs Vital Signs Date Time Temp Pulse Resp B/P (MAP) Pulse Ox O2 Delivery O2 Flow Rate FiO2 11/11/18 11:15 98.4 132 18 121/61 (81) 97 Nasal Cannula 2.0 98.4 Physical Exam PHYSICAL EXAM GEN: Propped up in bed, alert, smiling HEENT: Oral cavity pink, moist. No thrush NECK: Supple. LUNGS: Clear CARDIOVASCULAR: Regular rate. ABDOMEN: Soft, obese with decreased BS EXTREMITIES: BLE min erythema, + wrinkling, mild yeast. LLE wound SKIN: No rash PIV Labs Lab Laboratory Tests Test 11/11/18 04:20 Creatinine 1.5 mg/dL (0.6-1.0) Estimated GFR (Cockcroft-Gault) 32.8 Micro Microbiology 11/07/18 Blood Culture - Preliminary, Resulted NO GROWTH AFTER 4 DAYS Objective Assessment RLE cellulitis - failed Clinda - better Leukocytosis - on solu-medrol TY Tinea Superficial right heel and left leg wounds Bronchospasm on steroids Constipation Plan Plan of Care Zyvox, Augmentin and fluconazole Local wound care Attending Co-Sign The patient was seen and interviewed as well as examined at the bedside. The chart was reviewed. The case was discussed. Agree with the plan of care. MAGGIE REID APRN Nov 11, 2018 13:43 BRE GUSTAFSON MD Nov 11, 2018 13:43
[2018-11-11 15:00] VITALS: BP 128/55
--- NOTE | 2018-11-11 18:46 | EKG ---
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
[2018-11-11 19:48] VITALS: BP 131/69
[2018-11-11] MEDS: METOPROLOL TARTRATE 5 MG/5 ML VIAL. IVP PRN (19:58)
[2018-11-11] MEDS ORDERED: IV NORMAL SALINE 500ML BAG 500 ML IV ONE (20:00)
[2018-11-11] MEDS: DOXEPIN HCL 25 MG CAPSULE. PO SCH (20:41)
[2018-11-11] MEDS: ATORVASTATIN CALCIUM 20 MG TABLET PO SCH (20:41)
[2018-11-11 23:46] VITALS: BP 136/70
[2018-11-12] VITALS (17 sets, daily range): BP systolic 100–151; BP diastolic 47–86
[2018-11-12] MEDS: IPRATRPIUM/ALBUTEROL 0.5/2.5MG 3 ML NEBU. NEB SCH ×6 (00:12→19:45)
[2018-11-12] MEDS: METOPROLOL TARTRATE 5 MG/5 ML VIAL. IVP PRN ×2 (00:53→09:21)
[2018-11-12] MEDS: ASPIRIN 325 MG TABLET PO SCH (09:00)
[2018-11-12] MEDS: BUDESONIDE 0.5 MG/2 ML NEBU. NEB SCH ×2 (09:08→19:45)
[2018-11-12] MEDS: LACTOBACILLUS RHAMNOSUS GG 1 CAPSULE. PO SCH ×2 (09:22→21:08)
[2018-11-12] MEDS: AMOXICILLIN/K CLAV 500/125MG TABLET. PO SCH ×2 (09:23→21:08)
[2018-11-12] MEDS: ASCORBIC ACID 500 MG TABLET PO SCH (09:23)
[2018-11-12] MEDS: LINEZOLID 600 MG TABLET PO SCH ×2 (09:23→21:08)
[2018-11-12] MEDS: MULTIVITAMIN with MINERAL TABLET. PO SCH (09:24)
[2018-11-12] MEDS: CETIRIZINE HCL 10 MG TABLET. PO SCH (09:24)
[2018-11-12] MEDS: LOSARTAN POTASSIUM 50 MG TABLET. PO SCH (09:24)
[2018-11-12] MEDS: DOCUSATE SODIUM 100 MG CAPSULE. PO SCH ×2 (09:24→21:08)
[2018-11-12] MEDS: FLUCONAZOLE 100 MG TABLET. PO SCH (09:25)
[2018-11-12] MEDS: methylPREDNISolone SOD SUCC PF 40 MG/ML VIAL. IV SCH ×2 (09:25→21:09)
--- NOTE | 2018-11-12 13:08 | PDOC ---
PROGRESS NOTES Chief Complaint Chief Complaint NEw Onset A. fib/A flutter-RVR 140s to 150s Mild CHF by chest x-ray Acute hypoxic respiratory failure-80s at [facility] SNU resident, DNR Bilateral lower extremity cellulitis negative Dopplers for DVT-right greater than left met encephalopathy/confusion in this elderly Dementia Geriatric Fall risk History hypertension GERD OA-chronic stable Adhesive tape allergy WHEEZY AK I, creatinine 1.8 now-got couple doses of Lasix already History of Present Illness History of Present Illness "Not feeling well" per her account Very tenuous respiratory status Now A. fib flutter 140s 150s since the morning Cardiology aware Patient denies chest pain Patient is DNR, very frail and is a resident of [facility] Legs are looking better Plan: start Cardizem drip-, systolic 150s Cards consult Recheck electrolytes DNR Transfer to [facility] Vitals Vitals Vital Signs Date Time Temp Pulse Resp B/P (MAP) Pulse Ox O2 Delivery O2 Flow Rate FiO2 11/12/18 12:08 Nasal Cannula 2.0 11/12/18 11:10 98.6 109 20 136/69 (91) 98 98.6 Physical Exam Physical Exam GEN: Propped up in bed, alert, smiling HEENT: Oral cavity pink, moist. No thrush NECK: Supple. LUNGS: Clear CARDIOVASCULAR: Regular rate. ABDOMEN: Soft, obese with decreased BS EXTREMITIES: BLE min erythema, + wrinkling, mild yeast. LLE wound SKIN: No rash PIV General: Alert, Oriented X3, Cooperative, No acute distress Heart: Regular rate (SR), Other (3/6 systolic murmur to apical) Lungs: Other (no wheezing today. chest clear) Abdomen: Soft, No tenderness Extremities: No clubbing, No cyanosis Skin: Other (scaling to bilateral LE; erythema more to right than left; scabbed pressure ulcer to right calcaneus) Review of Systems Review of Systems not Feeding well, SOA, with transfers, heart racing, rest of 14 pt she denies Comment Review of Relevant I have reviewed the following items christina (where applicable) has been applied. Labs Laboratory Tests Test 11/11/18 04:20 Creatinine 1.5 mg/dL (0.6-1.0) Estimated GFR (Cockcroft-Gault) 32.8 Microbiology 7/16/19 Blood Culture - Final, Complete NO GROWTH AFTER 5 DAYS Medications Current Medications Furosemide (Lasix) 40 mg 1X ONCE IVP Last administered on 11/06/18at 23:54; Start 11/06/18 at 23:45; Stop 11/06/18 at 23:46; Status DC Ceftriaxone Sodium (Rocephin) 1 gm 1X ONCE IVP Last administered on 11/06/18at 23:54; Start 11/06/18 at 23:45; Stop 11/06/18 at 23:46; Status DC Vancomycin HCl (Vanco Per Pharmacy) 1 each PRN DAILY PRN MC SEE COMMENTS Last administered on 11/07/18at 05:19; Start 11/06/18 at 23:45; Stop 11/07/18 at 09:27; Status DC Albuterol/ Ipratropium (Duoneb) 3 ml RTQID NEB Last administered on 11/08/18at 08:03; Start 11/07/18 at 08:00; Stop 11/08/18 at 07:59; Status DC Vancomycin HCl 2 gm/Sodium Chloride 500 ml @ 250 mls/hr 1X ONCE IV Last administered on 11/06/18at 23:55; Start 11/06/18 at 23:45; Stop 11/07/18 at 01:44; Status DC Vancomycin HCl 1.25 gm/Sodium Chloride 250 ml @ 167 mls/hr Q24H IV ; Start 11/07/18 at 23:30; Stop 11/07/18 at 23:30; Status DC Vancomycin HCl (Vancomycin Trough Level) 1 each 1X ONCE MC ; Start 11/08/18 at 23:00; Stop 11/08/18 at 23:01; Status Cancel Guaifenesin (Robitussin Dm) 10 ml PRN Q6HRS PRN PO COUGH; Start 11/07/18 at 09:30 Acetaminophen (Tylenol) 500 mg PRN Q6HRS PRN PO MILD PAIN / TEMP; Start 11/07/18 at 09:30 Ondansetron HCl (Zofran) 4 mg PRN Q6HRS PRN IV NAUSEA/VOMITING; Start 11/07/18 at 09:30 Furosemide (Lasix) 40 mg DAILY IVP Last administered on 11/07/18at 09:49; Start 11/07/18 at 09:30; Stop 11/07/18 at 19:05; Status DC Aspirin (Santos Aspirin) 325 mg DAILY PO Last administered on 11/11/18at 08:51; Start 11/07/18 at 09:30 Losartan Potassium (Cozaar) 50 mg DAILY PO Last administered on 11/08/18at 09:11; Start 11/07/18 at 09:30; Stop 11/08/18 at 12:17; Status DC Metoprolol Tartrate (Lopressor) 50 mg BID PO Last administered on 11/08/18at 09 :11; Start 11/07/18 at 09:30; Stop 11/08/18 at 12:17; Status DC Multivitamins (Thera M Plus) 1 tab DAILY PO Last administered on 11/12/18at 09:24; Start 11/07/18 at 09:30 Non-Formulary Medication (Acetaminophen (Tylenol Extra Strength)) 1,000 mg PRN Q6HRS PRN PO PAIN; Start 11/07/18 at 09:30; Status UNV Doxepin HCl (SINEquan) 75 mg QHS PO Last administered on 11/11/18at 20:41; Start 11/07/18 at 21:00 Cetirizine HCl (ZyrTEC) 10 mg DAILY PO Last administered on 11/12/18at 09:24; Start 11/07/18 at 09:30 Non-Formulary Medication (Melatonin ) 5 mg HS PO ; Start 11/07/18 at 21:00; Status UNV Levofloxacin (Levaquin) 250 mg DAILY06 PO Last administered on 11/07/18at 09:47; Start 11/07/18 at 10:00; Stop 11/07/18 at 11:29; Status DC Clindamycin Phosphate 50 ml @ 100 mls/hr Q8HRS IV Last administered on 11/08/18at 05:59; Start 11/07/18 at 14:00; Stop 11/08/18 at 11:54; Status DC Multi-Ingred Cream/Lotion/Oil/ Oint (Hydrocerin Cream) 1 alfonso PRN Q1HR PRN TP DRY SKIN / SCALING; Start 11/07/18 at 11:30 Albuterol Sulfate (Ventolin Neb Soln) 2.5 mg 1X ONCE NEB ; Start 11/07/18 at 12:45; Stop 11/07/18 at 12:46; Status DC Methylprednisolone Sodium Succinate (SOLU-Medrol 125MG VIAL) 125 mg 1X ONCE IV Last administered on 11/07/18at 16:00; Start 11/07/18 at 12:45; Stop 11/07/18 at 12:46; Status DC Atorvastatin Calcium (Lipitor) 20 mg QHS PO Last administered on 11/11/18at 20:41; Start 11/07/18 at 21:00 Multivitamins (Thera M Plus) 1 tab DAILY PO ; Start 11/08/18 at 09:00; Stop 11/11/18 at 13:44; Status DC Ascorbic Acid (Vitamin C) 500 mg DAILY PO Last administered on 11/12/18at 09:23; Start 11/08/18 at 09:00 Furosemide (Lasix) 20 mg DAILY IVP Last administered on 11/10/18at 08:56; Start 11/08/18 at 09:00; Stop 11/10/18 at 09:14; Status DC Prednisone (Prednisone) 40 mg DAILY PO Last administered on 11/08/18at 09:11; Start 11/08/18 at 09:00; Stop 11/08/18 at 11:01; Status DC Temazepam (Restoril) 7.5 mg STK-MED ONCE PO ; Start 11/08/18 at 02:21; Stop 11/08/18 at 03:44; Status DC Temazepam (Restoril) 7.5 mg PRN QHS PRN PO INSOMNIA Last administered on 11/10/18at 22:31; Start 11/08/18 at 02:15 Methylprednisolone Sodium Succinate (SOLU-Medrol 40MG VIAL) 40 mg Q8HRS IV ; Start 11/08/18 at 14:00; Stop 11/08/18 at 14:00; Status DC Piperacillin Sod/ Tazobactam Sod (Zosyn Per Pharmacy) 1 each PRN DAILY PRN MC SEE COMMENTS; Start 11/08/18 at 12:00; Stop 11/09/18 at 10:28; Status DC Linezolid (Zyvox) 600 mg BID PO Last administered on 11/12/18at 09:23; Start 11/08/18 at 12:00 Piperacillin Sod/ Tazobactam Sod 2.25 gm/Sodium Chloride 50 ml @ 100 mls/hr Q6HRS IV Last administered on 11/09/18 05:50; Start 11/08/18 at 12:30; Stop 11/09/18 at 10:28; Status DC Losartan Potassium (Cozaar) 100 mg DAILY PO Last administered on 11/12/18 09:24; Start 11/09/18 at 09:00 Methylprednisolone Sodium Succinate (SOLU-Medrol 40MG VIAL) 40 mg BID IV Last administered on 11/08/18 22:14; Start 11/08/18 at 21:00; Stop 11/09/18 at 10:12; Status DC Clonidine HCl (Catapres) 0.1 mg PRN Q1HR PRN PO HYPERTENSION; Start 11/08/18 at 12:30 Albuterol/ Ipratropium (Duoneb) 3 ml Q4HRS NEB Last administered on 11/12/18 12:04; Start 11/08/18 at 16:00 Budesonide (Pulmicort) 0.5 mg RTBID NEB Last administered on 11/12/18 09:08; Start 11/08/18 at 20:00 Furosemide (Lasix) 20 mg 1X ONCE IVP Last administered on 11/08/18 12:51; Start 11/08/18 at 12:30; Stop 11/08/18 at 12:31; Status DC Lactobacillus Rhamnosus (Culturelle) 1 cap BID PO Last administered on 11/12/18 09:22; Start 11/08/18 at 21:00 Diltiazem HCl (Cardizem 24hr Cd) 180 mg DAILY PO Last administered on 11/12/18 09:23; Start 11/08/18 at 13:00 Methylprednisolone Sodium Succinate (SOLU-Medrol 40MG VIAL) 60 mg BID IV Last administered on 11/12/18 09:25; Start 11/09/18 at 21:00 Fluconazole (Diflucan) 100 mg DAILY PO Last administered on 11/12/18 09:25; Start 11/09/18 at 10:30 Amoxicillin/ Clavulanate Potassium (Augmentin 500/ 125mg) 1 tab BID PO Last administered on 11/12/18 09:23; Start 11/09/18 at 21:00 Docusate Sodium (Colace) 100 mg BID PO Last administered on 11/12/18 09:24; Start 11/10/18 at 09:30 Polyethylene Glycol (miraLAX PACKET) 17 gm 1X ONCE PO Last administered on 11/10/18at 09:47; Start 11/10/18 at 09:30; Stop 11/10/18 at 09:31; Status DC Polyethylene Glycol (miraLAX PACKET) 17 gm PRN DAILY PRN PO CONSTIPATION; Start 11/10/18 at 09:30 Magnesium Hydroxide (Milk Of Magnesia) 2,400 mg 1X ONCE PO Last administered on 11/10/18at 09:47; Start 11/10/18 at 09:30; Stop 11/10/18 at 09:31; Status DC Magnesium Hydroxide (Milk Of Magnesia) 2,400 mg PRN DAILY PRN PO CONSTIPATION; Start 11/10/18 at 09:30 Bisacodyl (Dulcolax Supp) 10 mg PRN DAILY PRN ME CONSTIPATION Last administered on 11/10/18at 22:22; Start 11/10/18 at 09:30 Metoprolol Tartrate (Lopressor Vial) 10 mg 1X ONCE IVP Last administered on 11/11/18at 09:22; Start 11/11/18 at 09:15; Stop 11/11/18 at 09:16; Status DC Sodium Chloride 500 ml @ 500 mls/hr 1X ONCE IV Last administered on 11/11/18at 19:57; Start 11/11/18 at 20:00; Stop 11/11/18 at 20:59; Status DC Metoprolol Tartrate (Lopressor Vial) 2.5 mg PRN Q4HRS PRN IVP TACHYCARDIA > 130 Last administered on 11/12/18at 09:21; Start 11/11/18 at 19:45 Diltiazem HCl 125 mg/Dextrose 125 ml @ 5 mls/hr CONT PRN IV SEE I/O RECORD; Start 11/12/18 at 13:00 Active Scripts Active Vitamin C (Ascorbic Acid) 500 Mg Tablet 500 Mg PO DAILY Budesonide 0.5 Mg/2 Ml Ampul.neb 0.5 Mg NEB RTBID Guaifenesin Dm Syrup (Guaifenesin/Dextromethorphan) 5 Ml Syrup 10 Ml PO PRN Q6HRS PRN 7 Days Duoneb 0.5-3(2.5) Mg/3 Ml (Albuterol/Ipratropium) 3 Ml Ampul.neb 3 Ml NEB Q4HRS Cozaar (Losartan Potassium) 50 Mg Tablet 100 Mg PO DAILY Atorvastatin Calcium 20 Mg Tablet 20 Mg PO QHS [Fluconazole] 100 MG Tablet 100 Mg PO DAILY 7 Days Zyvox (Linezolid) 600 Mg Tablet 600 Mg PO BID 7 Days Amox Tr-K Clv 500-125 Mg Tab (Amoxicillin/Potassium Clav) 1 Each Tablet 1 Tab PO BID 7 Days Reported Thera M Plus Tablet (Multivits,Ca,Minerals/Iron/FA) 1 Each Tablet 1 Each PO DAILY Melatonin 3 Mg Tablet 5 Mg PO HS Claritin (Loratadine) 10 Mg Tablet 1 Tab PO DAILY Tylenol Extra Strength (Acetaminophen) 500 Mg Tablet 1,000 Mg PO PRN Q6HRS PRN Doxepin Hcl 75 Mg Capsule 75 Mg PO DAILY Aspirin 325 Mg Tablet 1 Tab PO DAILY Furosemide 20 Mg Tablet 1 Tab PO DAILY Metoprolol Tartrate 50 Mg Tablet 1 Tab PO BID Vitals/I & O Vital Sign - Last 24 Hours 11/11/18 11/11/18 11/11/18 11/11/18 15:00 16:34 19:25 19:30 Temp 98.5 98.5 Pulse 131 Resp 20 B/P (MAP) 128/55 (79) Pulse Ox 96 O2 Delivery Nasal Cannula Nasal Cannula Nasal Cannula Nasal Cannula O2 Flow Rate 2.0 2.0 2.0 2.0 11/11/18 11/11/18 11/11/18 11/12/18 19:48 19:58 23:46 00:13 Temp 99.7 98.3 99.7 98.3 Pulse 149 149 138 Resp 20 B/P (MAP) 131/69 (89) 131/69 136/70 (92) Pulse Ox 96 95 97 O2 Delivery Nasal Cannula Nasal Cannula Nasal Cannula O2 Flow Rate 2.0 2.0 2.0 11/12/18 11/12/18 11/12/18 11/12/18 00:53 03:22 03:23 07:20 Temp 97.7 98.9 97.7 98.9 Pulse 138 136 105 Resp B/P (MAP) 136/70 133/74 (93) 151/86 (107) Pulse Ox 98 98 98 O2 Delivery Nasal Cannula Nasal Cannula Nasal Cannula O2 Flow Rate 2.0 2.0 2.0 11/12/18 11/12/18 11/12/18 11/12/18 08:00 09:10 09:15 09:21 Pulse 105 B/P (MAP) 151/86 O2 Delivery Nasal Cannula Nasal Cannula Nasal Cannula O2 Flow Rate 2.0 2.0 2.0 11/12/18 11/12/18 11/12/18 11/12/18 09:23 09:24 11:10 12:08 Temp 98.6 98.6 Pulse 105 105 109 Resp 20 B/P (MAP) 151/86 151/86 136/69 (91) Pulse Ox 98 O2 Delivery Nasal Cannula Nasal Cannula O2 Flow Rate 2.0 2.0 Intake and Output 11/11/18 11/11/18 11/12/18 14:59 22:59 06:59 Intake Total 480 ml 340 ml 101 ml Balance 480 ml 340 ml 101 ml JOSE FLOREZ MD Nov 12, 2018 13:08
[2018-11-12] MEDS: dilTIAZem INJ 125 MG in IV DEXTROSE 5% 100ML 100 ML IV PRN (13:50)
--- NOTE | 2018-11-12 13:55 | NUR ---
11/[address] FLOREZ ABOUT HR OF 145-150. ORDERED 10MG LOPRESSOR IV X1. 11/[address] SINHA OF HR GOING BACK TO 150. ORDERED EKG. [employer] RECEIVED ORDERS FOR LOPRESSOR 2.5MG Q4. 11/[address] SIEGEL ABOUT RUN OF [employer] AND HR OF 160. RECEIVED ORDERS FROM [facility] TO MOVE TO [facility].
--- NOTE | 2018-11-12 14:40 | PDOC ---
Infectious Disease Note Subjective Subjective New-onset A -flutter Transferred to [address] [place] [id number] Denies pain/SOA/palpitations/F/C Vital Sign Vital Signs Vital Signs Date Time Temp Pulse Resp B/P (MAP) Pulse Ox O2 Delivery O2 Flow Rate FiO2 11/12/18 13:30 98.5 155 16 139/81 (100) 95 Nasal Cannula 2.0 98.5 Physical Exam PHYSICAL EXAM GEN: Propped up in bed, alert, smiling HEENT: Oral cavity pink, moist. No thrush NECK: Supple. LUNGS: Clear CARDIOVASCULAR: Regular rate. ABDOMEN: Soft, obese with decreased BS EXTREMITIES: BLE min erythema, + wrinkling, mild yeast. LLE wound SKIN: No rash PIV Labs Micro Microbiology 11/07/18 Blood Culture - Preliminary, Resulted NO GROWTH AFTER 4 DAYS Objective Assessment New-onset A-flutter RLE cellulitis - failed Clinda - better Leukocytosis - on solu-medrol TY Tinea Superficial right heel and left leg wounds Bronchospasm on steroids Constipation Plan Plan of Care Continue Zyvox and Augmentin Change fluconazole to micafungin ,latter for a couple of days Local wound care D/w nursing Pt seen and examined case discussed agree with above a /p MAGGIE REID APRN Nov 12, 2018 14:40 JESS GUSTAFSON MD Nov 12, 2018 14:45
[2018-11-12 14:46] LABS: BASO % 0 % (0-3); EOS % 0 % (0-3); HEMATOCRIT 36.9 % (36.0-47.0); HEMOGLOBIN 12.5 g/dL (12.0-15.5); LYMPH % 7 % (24-48); MEAN CORPUSCULAR HEMOGLOBIN 32 pg (25-35); MEAN CORPUSCULAR HGB CONC 34 g/dL (31-37); MEAN CORPUSCULAR VOLUME 94 fL (79-100); MONO # 1.6 x10^3/uL (0.0-1.1); MONO % 11 % (0-9); NEUT # 12.6 x10^3/uL (1.8-7.7); NEUT % 83 % (31-73); PLATELET COUNT 298 x10^3/uL (140-400); RED BLOOD COUNT 3.93 x10^6/uL (3.50-5.40); WHITE BLOOD COUNT 15.2 x10^3/uL (4.0-11.0)
--- NOTE | 2018-11-12 14:56 | PDOC ---
PULMONARY PROGRESS NOTES Subjective Patient had been doing well with anticipated hospital discharge but developed atrial fibrillation with rapid ventricular rate. now on diltiazem. She noted more shortenss of breath, although mild. Vitals Vital Signs Date Time Temp Pulse Resp B/P (MAP) Pulse Ox O2 Delivery O2 Flow Rate FiO2 11/12/18 14:29 Nasal Cannula 2.0 11/12/18 13:30 98.5 155 16 139/81 (100) 95 98.5 ROS: No Chest Pain, No Increase Cough General: Alert, No acute distress Lungs: Other (she does have a few scattered wheezes today (clear yesterday).) Cardiovascular: S1, S2, Other (irregular) Abdomen: Soft Neuro Exam: Alert Extremities: No Edema Skin: Warm Labs Laboratory Tests Test 11/11/18 04:20 Creatinine 1.5 mg/dL (0.6-1.0) Estimated GFR (Cockcroft-Gault) 32.8 Medications Active Scripts Medications Dose Route/Sig Max Daily Dose Days Date Category Thera M Plus Tablet (Multivits,Ca,Minerals/Iron/FA) 1 Each Tablet 1 Each PO DAILY 11/07/18 Reported Melatonin 3 Mg Tablet 5 Mg PO HS 11/07/18 Reported Claritin (Loratadine) 10 Mg Tablet 1 Tab PO DAILY 11/07/18 Reported Losartan Potassium 50 Mg Tablet 50 Mg PO DAILY 11/07/18 Reported Tylenol Extra Strength (Acetaminophen) 500 Mg Tablet 1,000 Mg PO PRN Q6HRS PRN 11/07/18 Reported Bactrim Ds Tablet (Sulfamethoxazole/Trimethoprim) 1 Each Tablet 1 Each PO BID 7 11/07/18 Reported Doxepin Hcl 75 Mg Capsule 75 Mg PO DAILY 10/25/17 Reported Aspirin 325 Mg Tablet 1 Tab PO DAILY 01/04/14 Reported Furosemide 20 Mg Tablet 1 Tab PO DAILY 01/04/14 Reported Metoprolol Tartrate 50 Mg Tablet 1 Tab PO BID 01/04/14 Reported Impression . 1. Acute hypoxic respiratory failure secondary to diffuse bronchospasm, resolved 2. Diffuse bronchospasm, likely cardiac asthma. She has mild congestive heart failure on the chest x-ray and likely acute on chronic diastolic heart failure and also related to her MR. She was also on metoprolol at 100 mg daily, which may have also contributed to her bronchospasm as well. She quit tobacco 35 years ago and unlikely chronic obstructive disease exacerbation. 3. acute onset atrial fibrillation. rate controlled with diltiazem. of note the fact that she started wheezing again with afib supports a dx of "cardiac" as thma (which does not necessarily correlate with the severity of heart failure). 4. Renal insufficiency. 5. Underlying obesity. 6. distant past tobacco history. Plan . 1. Control of Afib per cardiology. I agree with using calcium channel blockers would be preferred agent of control. 2. Holding metoprolol 3. hold further Lasix due to increase in azotemia 4. DuoNebs. 5. Pulmicort. 6. solumedrol with gradual taper 7. taper O2 watching oxygen saturation. BEN GARG MD Nov 12, 2018 14:56
[2018-11-12 14:58] LABS: CALCIUM 8.5 mg/dL (8.5-10.1); CREATININE 1.3 mg/dL (0.6-1.0); GFR 38.7; MAGNESIUM 2.9 mg/dL (1.8-2.4); POTASSIUM 5.1 mmol/L (3.5-5.1)
[2018-11-12 15:10] LABS: % LYMPHS 10 % (24-48); % MONOS 9 % (0-10); % SEGS 81 % (35-66); PLT ESTIMATE ADEQUATE (ADEQUATE)
[2018-11-12] MEDS: MICAFUNGIN 100 MG in IV DEXTROSE 5% 100ML 100 ML IV SCH (17:07)
[2018-11-12] MEDS: DOXEPIN HCL 25 MG CAPSULE. PO SCH (21:08)
[2018-11-12] MEDS: ATORVASTATIN CALCIUM 20 MG TABLET PO SCH (21:09)
[2018-11-13] MEDS: IPRATRPIUM/ALBUTEROL 0.5/2.5MG 3 ML NEBU. NEB SCH ×7 (00:10→22:55)
[2018-11-13 03:00] VITALS: BP 118/57
[2018-11-13 06:45] VITALS: BP 120/53
[2018-11-13] MEDS: BUDESONIDE 0.5 MG/2 ML NEBU. NEB SCH ×2 (07:54→19:47)
[2018-11-13] MEDS: LACTOBACILLUS RHAMNOSUS GG 1 CAPSULE. PO SCH ×2 (08:44→22:29)
[2018-11-13] MEDS: DOCUSATE SODIUM 100 MG CAPSULE. PO SCH ×2 (08:44→22:28)
[2018-11-13] MEDS: LINEZOLID 600 MG TABLET PO SCH ×2 (08:44→22:29)
[2018-11-13] MEDS: ASCORBIC ACID 500 MG TABLET PO SCH (08:44)
[2018-11-13] MEDS: ASPIRIN 325 MG TABLET PO SCH (08:44)
[2018-11-13] MEDS: MULTIVITAMIN with MINERAL TABLET. PO SCH (08:44)
[2018-11-13] MEDS: AMOXICILLIN/K CLAV 500/125MG TABLET. PO SCH ×2 (08:44→22:28)
[2018-11-13] MEDS: CETIRIZINE HCL 10 MG TABLET. PO SCH (08:44)
[2018-11-13] MEDS: methylPREDNISolone SOD SUCC PF 40 MG/ML VIAL. IV SCH ×2 (08:45→22:28)
[2018-11-13] MEDS: LOSARTAN POTASSIUM 50 MG TABLET. PO SCH (08:46)
--- NOTE | 2018-11-13 09:19 | PDOC ---
Infectious Disease Note Subjective: Subjective pt says feels slightly better rt foot is improving some sob Denies pain /palpitations/F/C ROS: ROS Negative except for above. Vital Signs: Vital Signs Vital Signs Date Time Temp Pulse Resp B/P (MAP) Pulse Ox O2 Delivery O2 Flow Rate FiO2 11/13/18 08:46 109 120/53 11/13/18 07:50 99 Nasal Cannula 3.0 11/13/18 06:45 98.7 16 98.7 Physical Exam: PHYSICAL EXAM GEN: Propped up in bed, alert, smiling HEENT: Oral cavity pink, moist. No thrush NECK: Supple. LUNGS: Clear CARDIOVASCULAR: Regular rate. ABDOMEN: Soft, obese with decreased BS EXTREMITIES: BLE min erythema, + wrinkling, mild yeast. LLE wound SKIN: No rash PIV Medications: Inpatient Meds: Current Medications Medications (Trade) Dose Ordered Sig/Lilly Start Time Stop Time Status Last Admin Dose Admin Acetaminophen (Tylenol) 500 mg PRN Q6HRS PRN 11/07/18 09:30 Albuterol Sulfate (Ventolin Neb Soln) 2.5 mg 1X ONCE 11/07/18 12:45 11/07/18 12:46 DC Albuterol/ Ipratropium (Duoneb) 3 ml Q4HRS 11/08/18 16:00 11/13/18 07:54 3 ML Amoxicillin/ Clavulanate Potassium (Augmentin 500/ 125mg) 1 tab BID 11/09/18 21:00 11/13/18 08:44 1 TAB Ascorbic Acid (Vitamin C) 500 mg DAILY 11/08/18 09:00 11/13/18 08:44 500 MG Aspirin (Santos Aspirin) 325 mg DAILY 11/07/18 09:30 11/13/18 08:44 325 MG Atorvastatin Calcium (Lipitor) 20 mg QHS 11/07/18 21:00 11/12/18 21:09 20 MG Bisacodyl (Dulcolax Supp) 10 mg PRN DAILY PRN 11/10/18 09:30 11/10/18 22:22 10 MG Budesonide (Pulmicort) 0.5 mg RTBID 11/08/18 20:00 11/13/18 07:54 0.5 MG Ceftriaxone Sodium (Rocephin) 1 gm 1X ONCE 11/06/18 23:45 11/06/18 23:46 DC 11/06/18 23:54 1 GM Cetirizine HCl (ZyrTEC) 10 mg DAILY 11/07/18 09:30 11/13/18 08:44 10 MG Clindamycin Phosphate 50 ml @ 100 mls/hr Q8HRS 11/07/18 14:00 11/08/18 11:54 DC 11/08/18 05:59 100 MLS/HR Clonidine HCl (Catapres) 0.1 mg PRN Q1HR PRN 11/08/18 12:30 Diltiazem HCl (Cardizem 24hr Cd) 180 mg DAILY 11/08/18 13:00 11/13/18 08:45 180 MG Diltiazem HCl 125 mg/Dextrose 125 ml @ 5 mls/hr CONT PRN 11/12/18 13:00 11/12/18 13:50 5 MLS/HR Docusate Sodium (Colace) 100 mg BID 11/10/18 09:30 11/13/18 08:44 100 MG Doxepin HCl (SINEquan) 75 mg QHS 11/07/18 21:00 11/12/18 21:08 75 MG Fluconazole (Diflucan) 100 mg DAILY 11/09/18 10:30 11/12/18 14:39 DC 11/12/18 09:25 100 MG Furosemide (Lasix) 20 mg 1X ONCE 11/08/18 12:30 11/08/18 12:31 DC 11/08/18 12:51 20 MG Guaifenesin (Robitussin Dm) 10 ml PRN Q6HRS PRN 11/07/18 09:30 Lactobacillus Rhamnosus (Culturelle) 1 cap BID 11/08/18 21:00 11/13/18 08:44 1 CAP Levofloxacin (Levaquin) 250 mg DAILY06 11/07/18 10:00 11/07/18 11:29 DC 11/07/18 09:47 250 MG Linezolid (Zyvox) 600 mg BID 11/08/18 12:00 11/13/18 08:44 600 MG Losartan Potassium (Cozaar) 100 mg DAILY 11/09/18 09:00 11/13/18 08:46 100 MG Magnesium Hydroxide (Milk Of Magnesia) 2,400 mg PRN DAILY PRN 11/10/18 09:30 Methylprednisolone Sodium Succinate (SOLU-Medrol 40MG VIAL) 60 mg BID 11/09/18 21:00 11/13/18 08:45 60 MG Methylprednisolone Sodium Succinate (SOLU-Medrol 125MG VIAL) 125 mg 1X ONCE 11/07/18 12:45 11/07/18 12:46 DC 11/07/18 16:00 125 MG Metoprolol Tartrate (Lopressor Vial) 2.5 mg PRN Q4HRS PRN 11/11/18 19:45 11/12/18 09:21 2.5 MG Metoprolol Tartrate (Lopressor) 50 mg BID 11/07/18 09:30 11/08/18 12:17 DC 11/08/18 09:11 50 MG Micafungin Sodium 100 mg/Dextrose 100 ml @ 100 mls/hr Q24H 11/12/18 15:00 11/12/18 17:07 100 MLS/HR Multi-Ingred Cream/Lotion/Oil/ Oint (Hydrocerin Cream) 1 alfonso PRN Q1HR PRN 11/07/18 11:30 Multivitamins (Thera M Plus) 1 tab DAILY 11/08/18 09:00 11/11/18 13:44 DC Non-Formulary Medication (Acetaminophen (Tylenol Extra Strength)) 1,000 mg PRN Q6HRS PRN 11/07/18 09:30 UNV Non-Formulary Medication (Melatonin ) 5 mg HS 11/07/18 21:00 UNV Ondansetron HCl (Zofran) 4 mg PRN Q6HRS PRN 11/07/18 09:30 Piperacillin Sod/ Tazobactam Sod (Zosyn Per Pharmacy) 1 each PRN DAILY PRN 11/08/18 12:00 11/09/18 10:28 DC Piperacillin Sod/ Tazobactam Sod 2.25 gm/Sodium Chloride 50 ml @ 100 mls/hr Q6HRS 11/08/18 12:30 11/09/18 10:28 DC 11/09/18 05:50 100 MLS/HR Polyethylene Glycol (miraLAX PACKET) 17 gm PRN DAILY PRN 11/10/18 09:30 Prednisone (Prednisone) 40 mg DAILY 11/08/18 09:00 11/08/18 11:01 DC 11/08/18 09:11 40 MG Sodium Chloride 500 ml @ 500 mls/hr 1X ONCE 11/11/18 20:00 11/11/18 20:59 DC 11/11/18 19:57 500 MLS/HR Temazepam (Restoril) 7.5 mg PRN QHS PRN 11/08/18 02:15 11/10/18 22:31 7.5 MG Vancomycin HCl (Vanco Per Pharmacy) 1 each PRN DAILY PRN 11/06/18 23:45 11/07/18 09:27 DC 11/07/18 05:19 1 EACH Vancomycin HCl (Vancomycin Trough Level) 1 each 1X ONCE 11/08/18 23:00 11/08/18 23:01 Cancel Vancomycin HCl 1.25 gm/Sodium Chloride 250 ml @ 167 mls/hr Q24H 11/07/18 23:30 11/07/18 23:30 DC Vancomycin HCl 2 gm/Sodium Chloride 500 ml @ 250 mls/hr 1X ONCE 11/06/18 23:45 11/07/18 01:44 DC 11/06/18 23:55 250 MLS/HR Labs: Lab Laboratory Tests Test 11/12/18 14:40 White Blood Count 15.2 x10^3/uL (4.0-11.0) Red Blood Count 3.93 x10^6/uL (3.50-5.40) Hemoglobin 12.5 g/dL (12.0-15.5) Hematocrit 36.9 % (36.0-47.0) Mean Corpuscular Volume 94 fL (79-100) Mean Corpuscular Hemoglobin 32 pg (25-35) Mean Corpuscular Hemoglobin Concent 34 g/dL (31-37) Red Cell Distribution Width 15.0 % (11.5-14.5) Platelet Count 298 x10^3/uL (140-400) Neutrophils (%) (Auto) 83 % (31-73) Lymphocytes (%) (Auto) 7 % (24-48) Monocytes (%) (Auto) 11 % (0-9) Eosinophils (%) (Auto) 0 % (0-3) Basophils (%) (Auto) 0 % (0-3) Neutrophils # (Auto) 12.6 x10^3/uL (1.8-7.7) Lymphocytes # (Auto) 1.0 x10^3/uL (1.0-4.8) Monocytes # (Auto) 1.6 x10^3/uL (0.0-1.1) Eosinophils # (Auto) 0.0 x10^3/uL (0.0-0.7) Basophils # (Auto) 0.0 x10^3/uL (0.0-0.2) Segmented Neutrophils % 81 % (35-66) Lymphocytes % 10 % (24-48) Monocytes % 9 % (0-10) Platelet Estimate Adequate (ADEQUATE) Sodium Level 135 mmol/L (136-145) Potassium Level 5.1 mmol/L (3.5-5.1) Chloride Level 97 mmol/L (98-107) Carbon Dioxide Level 31 mmol/L (21-32) Anion Gap 7 (6-14) Blood Urea Nitrogen 59 mg/dL (7-20) Creatinine 1.3 mg/dL (0.6-1.0) Estimated GFR (Cockcroft-Gault) 38.7 Glucose Level 138 mg/dL (70-99) Calcium Level 8.5 mg/dL (8.5-10.1) Magnesium Level 2.9 mg/dL (1.8-2.4) Troponin I Quantitative 0.056 ng/mL (0.000-0.055) Thyroid Stimulating Hormone (TSH) 0.927 uIU/mL (0.358-3.74) Objective: Assessment: New-onset A-flutter RLE cellulitis - failed Clinda - better Leukocytosis - on solu-medrol TY Tinea Superficial right heel and left leg wounds Bronchospasm on steroids Constipation Plan: Plan of Care Continue Zyvox and Augmentin cont micafungin ,latter for a couple of days Local wound care off load JESS GUSTAFSON MD Nov 13, 2018 09:19
[2018-11-13 10:30] VITALS: BP_SYST 126; BP_SYST 140; BP_DIAS 57; BP_DIAS 84
--- NOTE | 2018-11-13 10:44 | PDOC ---
PULMONARY PROGRESS NOTES Subjective Patient had been doing well with anticipated hospital discharge but developed atrial fibrillation with rapid ventricular rate. ON TELE FLOOR NO SOA Vitals Vital Signs Date Time Temp Pulse Resp B/P (MAP) Pulse Ox O2 Delivery O2 Flow Rate FiO2 11/13/18 08:46 109 120/53 11/13/18 07:50 99 Nasal Cannula 3.0 11/13/18 06:45 98.7 16 98.7 ROS: No Chest Pain, No Increase Cough General: Alert, No acute distress Lungs: Other (she does have a few scattered wheezes today (clear yesterday).) Cardiovascular: S1, S2, Other (irregular) Abdomen: Soft Neuro Exam: Alert Extremities: No Edema Skin: Warm Labs Laboratory Tests Test 11/12/18 14:40 White Blood Count 15.2 x10^3/uL (4.0-11.0) Red Blood Count 3.93 x10^6/uL (3.50-5.40) Hemoglobin 12.5 g/dL (12.0-15.5) Hematocrit 36.9 % (36.0-47.0) Mean Corpuscular Volume 94 fL (79-100) Mean Corpuscular Hemoglobin 32 pg (25-35) Mean Corpuscular Hemoglobin Concent 34 g/dL (31-37) Red Cell Distribution Width 15.0 % (11.5-14.5) Platelet Count 298 x10^3/uL (140-400) Neutrophils (%) (Auto) 83 % (31-73) Lymphocytes (%) (Auto) 7 % (24-48) Monocytes (%) (Auto) 11 % (0-9) Eosinophils (%) (Auto) 0 % (0-3) Basophils (%) (Auto) 0 % (0-3) Neutrophils # (Auto) 12.6 x10^3/uL (1.8-7.7) Lymphocytes # (Auto) 1.0 x10^3/uL (1.0-4.8) Monocytes # (Auto) 1.6 x10^3/uL (0.0-1.1) Eosinophils # (Auto) 0.0 x10^3/uL (0.0-0.7) Basophils # (Auto) 0.0 x10^3/uL (0.0-0.2) Segmented Neutrophils % 81 % (35-66) Lymphocytes % 10 % (24-48) Monocytes % 9 % (0-10) Platelet Estimate Adequate (ADEQUATE) Sodium Level 135 mmol/L (136-145) Potassium Level 5.1 mmol/L (3.5-5.1) Chloride Level 97 mmol/L (98-107) Carbon Dioxide Level 31 mmol/L (21-32) Anion Gap 7 (6-14) Blood Urea Nitrogen 59 mg/dL (7-20) Creatinine 1.3 mg/dL (0.6-1.0) Estimated GFR (Cockcroft-Gault) 38.7 Glucose Level 138 mg/dL (70-99) Calcium Level 8.5 mg/dL (8.5-10.1) Magnesium Level 2.9 mg/dL (1.8-2.4) Troponin I Quantitative 0.056 ng/mL (0.000-0.055) Thyroid Stimulating Hormone (TSH) 0.927 uIU/mL (0.358-3.74) Laboratory Tests Test 11/12/18 14:40 White Blood Count 15.2 x10^3/uL (4.0-11.0) Red Blood Count 3.93 x10^6/uL (3.50-5.40) Hemoglobin 12.5 g/dL (12.0-15.5) Hematocrit 36.9 % (36.0-47.0) Mean Corpuscular Volume 94 fL (79-100) Mean Corpuscular Hemoglobin 32 pg (25-35) Mean Corpuscular Hemoglobin Concent 34 g/dL (31-37) Red Cell Distribution Width 15.0 % (11.5-14.5) Platelet Count 298 x10^3/uL (140-400) Neutrophils (%) (Auto) 83 % (31-73) Lymphocytes (%) (Auto) 7 % (24-48) Monocytes (%) (Auto) 11 % (0-9) Eosinophils (%) (Auto) 0 % (0-3) Basophils (%) (Auto) 0 % (0-3) Neutrophils # (Auto) 12.6 x10^3/uL (1.8-7.7) Lymphocytes # (Auto) 1.0 x10^3/uL (1.0-4.8) Monocytes # (Auto) 1.6 x10^3/uL (0.0-1.1) Eosinophils # (Auto) 0.0 x10^3/uL (0.0-0.7) Basophils # (Auto) 0.0 x10^3/uL (0.0-0.2) Segmented Neutrophils % 81 % (35-66) Lymphocytes % 10 % (24-48) Monocytes % 9 % (0-10) Platelet Estimate Adequate (ADEQUATE) Sodium Level 135 mmol/L (136-145) Potassium Level 5.1 mmol/L (3.5-5.1) Chloride Level 97 mmol/L (98-107) Carbon Dioxide Level 31 mmol/L (21-32) Anion Gap 7 (6-14) Blood Urea Nitrogen 59 mg/dL (7-20) Creatinine 1.3 mg/dL (0.6-1.0) Estimated GFR (Cockcroft-Gault) 38.7 Glucose Level 138 mg/dL (70-99) Calcium Level 8.5 mg/dL (8.5-10.1) Magnesium Level 2.9 mg/dL (1.8-2.4) Troponin I Quantitative 0.056 ng/mL (0.000-0.055) Thyroid Stimulating Hormone (TSH) 0.927 uIU/mL (0.358-3.74) Medications Active Scripts Medications Dose Route/Sig Max Daily Dose Days Date Category Thera M Plus Tablet (Multivits,Ca,Minerals/Iron/FA) 1 Each Tablet 1 Each PO DAILY 11/07/18 Reported Melatonin 3 Mg Tablet 5 Mg PO HS 11/07/18 Reported Claritin (Loratadine) 10 Mg Tablet 1 Tab PO DAILY 11/07/18 Reported Losartan Potassium 50 Mg Tablet 50 Mg PO DAILY 11/07/18 Reported Tylenol Extra Strength (Acetaminophen) 500 Mg Tablet 1,000 Mg PO PRN Q6HRS PRN 11/07/18 Reported Bactrim Ds Tablet (Sulfamethoxazole/Trimethoprim) 1 Each Tablet 1 Each PO BID 7 11/07/18 Reported Doxepin Hcl 75 Mg Capsule 75 Mg PO DAILY 10/25/17 Reported Aspirin 325 Mg Tablet 1 Tab PO DAILY 01/04/14 Reported Furosemide 20 Mg Tablet 1 Tab PO DAILY 01/04/14 Reported Metoprolol Tartrate 50 Mg Tablet 1 Tab PO BID 01/04/14 Reported Impression . 1. Acute hypoxic respiratory failure secondary to diffuse bronchospasm, mild wheezing today 2. Diffuse bronchospasm, likely cardiac asthma. She has mild congestive heart failure on the chest x-ray and likely acute on chronic diastolic heart failure and also related to her MR. She was also on metoprolol PO at 100 mg daily, which may have also contributed to her bronchospasm as well. She quit tobacco 35 years ago and unlikely chronic obstructive disease exacerbation. 3. acute onset atrial fibrillation. rate controlled with diltiazem. of note the fact that she started wheezing again with afib supports a dx of "cardiac" asthma (which does not necessarily correlate with the severity of heart fa ilure). 4. Renal insufficiency. 5. Underlying obesity. 6. distant past tobacco history. Plan . 1. Control of Afib per cardiology. I agree with using calcium channel blockers would be preferred agent of control. 2. Holding metoprolol 3. hold further Lasix due to increase in azotemia 4. DuoNebs. 5. Pulmicort. 6. solumedrol with gradual taper 7. taper O2 watching oxygen saturation. FILEMON JAFFE MD Nov 13, 2018 10:44
--- NOTE | 2018-11-13 13:29 | NUR ---
SS following up with discharge planning. SS phoned and faxed clinical updates to [facility], ; fax [phone]. Pt is LTC resident from [facility]. SS will continue to follow for discharge planning.
[2018-11-13 14:35] VITALS: BP 149/55
[2018-11-13] MEDS: MICAFUNGIN 100 MG in IV DEXTROSE 5% 100ML 100 ML IV SCH (14:46)
--- NOTE | 2018-11-13 15:14 | PDOC ---
PROGRESS NOTES Chief Complaint Chief Complaint NEw Onset A. fib/A flutter - now rate controlled on gtt Mild CHF by chest x-ray Acute hypoxic respiratory failure [facility] resident, DNR Bilateral lower extremity cellulitis negative Dopplers for DVT-right greater than left met encephalopathy/confusion in this elderly Dementia Geriatric Fall risk History hypertension GERD OA-chronic stable History of Present Illness History of Present Illness short of breath, worse at times will start PT and OT still in flutter, on cardizem gtt, rate about 80-85, Cardiology aware Patient denies chest pain Patient is DNR, very frail and is a resident of [facility] Legs are looking better Recheck electrolytes Vitals Vitals Vital Signs Date Time Temp Pulse Resp B/P (MAP) Pulse Ox O2 Delivery O2 Flow Rate FiO2 11/13/18 11:26 99 Nasal Cannula 3.0 11/13/18 10:30 98.6 112 24 140/57 (84) 98.6 Physical Exam Physical Exam GEN: Propped up in bed, alert, smiling HEENT: Oral cavity pink, moist. No thrush NECK: Supple. LUNGS: Clear CARDIOVASCULAR: Regular rate. ABDOMEN: Soft, obese with decreased BS EXTREMITIES: BLE min erythema, + wrinkling, mild yeast. LLE wound SKIN: No rash PIV General: Alert, Oriented X3, Cooperative, No acute distress Heart: Regular rate (SR), Other (3/6 systolic murmur to apical) Lungs: Other (she does have a few scattered wheezes today (clear yesterday).) Abdomen: Soft, No tenderness Extremities: No clubbing, No cyanosis Skin: Other (scaling to bilateral LE; erythema more to right than left; scabbed pressure ulcer to right calcaneus) Comment Review of Relevant I have reviewed the following items christina (where applicable) has been applied. Labs Laboratory Tests Test 11/12/18 14:40 White Blood Count 15.2 x10^3/uL (4.0-11.0) Red Blood Count 3.93 x10^6/uL (3.50-5.40) Hemoglobin 12.5 g/dL (12.0-15.5) Hematocrit 36.9 % (36.0-47.0) Mean Corpuscular Volume 94 fL (79-100) Mean Corpuscular Hemoglobin 32 pg (25-35) Mean Corpuscular Hemoglobin Concent 34 g/dL (31-37) Red Cell Distribution Width 15.0 % (11.5-14.5) Platelet Count 298 x10^3/uL (140-400) Neutrophils (%) (Auto) 83 % (31-73) Lymphocytes (%) (Auto) 7 % (24-48) Monocytes (%) (Auto) 11 % (0-9) Eosinophils (%) (Auto) 0 % (0-3) Basophils (%) (Auto) 0 % (0-3) Neutrophils # (Auto) 12.6 x10^3/uL (1.8-7.7) Lymphocytes # (Auto) 1.0 x10^3/uL (1.0-4.8) Monocytes # (Auto) 1.6 x10^3/uL (0.0-1.1) Eosinophils # (Auto) 0.0 x10^3/uL (0.0-0.7) Basophils # (Auto) 0.0 x10^3/uL (0.0-0.2) Segmented Neutrophils % 81 % (35-66) Lymphocytes % 10 % (24-48) Monocytes % 9 % (0-10) Platelet Estimate Adequate (ADEQUATE) Sodium Level 135 mmol/L (136-145) Potassium Level 5.1 mmol/L (3.5-5.1) Chloride Level 97 mmol/L (98-107) Carbon Dioxide Level 31 mmol/L (21-32) Anion Gap 7 (6-14) Blood Urea Nitrogen 59 mg/dL (7-20) Creatinine 1.3 mg/dL (0.6-1.0) Estimated GFR (Cockcroft-Gault) 38.7 Glucose Level 138 mg/dL (70-99) Calcium Level 8.5 mg/dL (8.5-10.1) Magnesium Level 2.9 mg/dL (1.8-2.4) Troponin I Quantitative 0.056 ng/mL (0.000-0.055) Thyroid Stimulating Hormone (TSH) 0.927 uIU/mL (0.358-3.74) Microbiology 11/07/18 Blood Culture - Final, Complete NO GROWTH AFTER 5 DAYS Medications Current Medications Furosemide (Lasix) 40 mg 1X ONCE IVP Last administered on 11/06/18at 23:54; Start 11/06/18 at 23:45; Stop 11/06/18 at 23:46; Status DC Ceftriaxone Sodium (Rocephin) 1 gm 1X ONCE IVP Last administered on 11/06/18at 23:54; Start 11/06/18 at 23:45; Stop 11/06/18 at 23:46; Status DC Vancomycin HCl (Vanco Per Pharmacy) 1 each PRN DAILY PRN MC SEE COMMENTS Last administered on 11/07/18at 05:19; Start 11/06/18 at 23:45; Stop 11/07/18 at 09:27; Status DC Albuterol/ Ipratropium (Duoneb) 3 ml RTQID NEB Last administered on 11/08/18at 08:03; Start 11/07/18 at 08:00; Stop 11/08/18 at 07:59; Status DC Vancomycin HCl 2 gm/Sodium Chloride 500 ml @ 250 mls/hr 1X ONCE IV Last administered on 11/06/18at 23:55; Start 11/06/18 at 23:45; Stop 11/07/18 at 01:44; Status DC Vancomycin HCl 1.25 gm/Sodium Chloride 250 ml @ 167 mls/hr Q24H IV ; Start 11/07/18 at 23:30; Stop 11/07/18 at 23:30; Status DC Vancomycin HCl (Vancomycin Trough Level) 1 each 1X ONCE MC ; Start 11/08/18 at 23:00; Stop 11/08/18 at 23:01; Status Cancel Guaifenesin (Robitussin Dm) 10 ml PRN Q6HRS PRN PO COUGH; Start 11/07/18 at 09:30 Acetaminophen (Tylenol) 500 mg PRN Q6HRS PRN PO MILD PAIN / TEMP; Start 11/07/18 at 09:30 Ondansetron HCl (Zofran) 4 mg PRN Q6HRS PRN IV NAUSEA/VOMITING; Start 11/07/18 at 09:30 Furosemide (Lasix) 40 mg DAILY IVP Last administered on 11/07/18at 09:49; Start 11/07/18 at 09:30; Stop 11/07/18 at 19:05; Status DC Aspirin (Santos Aspirin) 325 mg DAILY PO Last administered on 11/13/18at 08:44; Start 11/07/18 at 09:30 Losartan Potassium (Cozaar) 50 mg DAILY PO Last administered on 11/08/18at 09:11; Start 11/07/18 at 09:30; Stop 11/08/18 at 12:17; Status DC Metoprolol Tartrate (Lopressor) 50 mg BID PO Last administered on 11/08/18at 09:11; Start 11/07/18 at 09:30; Stop 11/08/18 at 12:17; Status DC Multivitamins (Thera M Plus) 1 tab DAILY PO Last administered on 11/13/18at 08:44; Start 11/07/18 at 09:30 Non-Formulary Medication (Acetaminophen (Tylenol Extra Strength)) 1,000 mg PRN Q6HRS PRN PO PAIN; Start 11/07/18 at 09:30; Status UNV Doxepin HCl (SINEquan) 75 mg QHS PO Last administered on 11/12/18at 21:08; Start 11/07/18 at 21:00 Cetirizine HCl (ZyrTEC) 10 mg DAILY PO Last administered on 11/13/18at 08:44; Start 11/07/18 at 09:30 Non-Formulary Medication (Melatonin ) 5 mg HS PO ; Start 11/07/18 at 21:00; Status UNV Levofloxacin (Levaquin) 250 mg DAILY06 PO Last administered on 11/07/18at 09:47; Start 11/07/18 at 10:00; Stop 11/07/18 at 11:29; Status DC Clindamycin Phosphate 50 ml @ 100 mls/hr Q8HRS IV Last administered on 11/08/18at 05:59; Start 11/07/18 at 14:00; Stop 11/08/18 at 11:54; Status DC Multi-Ingred Cream/Lotion/Oil/ Oint (Hydrocerin Cream) 1 alfonso PRN Q1HR PRN TP DRY SKIN / SCALING; Start 11/07/18 at 11:30 Albuterol Sulfate (Ventolin Neb Soln) 2.5 mg 1X ONCE NEB ; Start 11/07/18 at 12:45; Stop 11/07/18 at 12:46; Status DC Methylprednisolone Sodium Succinate (SOLU-Medrol 125MG VIAL) 125 mg 1X ONCE IV Last administered on 11/07/18at 16:00; Start 11/07/18 at 12:45; Stop 11/07/18 at 12:46; Status DC Atorvastatin Calcium (Lipitor) 20 mg QHS PO Last administered on 11/12/18at 21:09; Start 11/07/18 at 21:00 Multivitamins (Thera M Plus) 1 tab DAILY PO ; Start 11/08/18 at 09:00; Stop 11/11/18 at 13:44; Status DC Ascorbic Acid (Vitamin C) 500 mg DAILY PO Last administered on 11/13/18at 08:44; Start 11/08/18 at 09:00 Furosemide (Lasix) 20 mg DAILY IVP Last administered on 11/10/18at 08:56; Start 11/08/18 at 09:00; Stop 11/10/18 at 09:14; Status DC Prednisone (Prednisone) 40 mg DAILY PO Last administered on 11/08/18at 09:11; Start 11/08/18 at 09:00; Stop 11/08/18 at 11:01; Status DC Temazepam (Restoril) 7.5 mg STK-MED ONCE PO ; Start 11/08/18 at 02:21; Stop 11/08/18 at 03:44; Status DC Temazepam (Restoril) 7.5 mg PRN QHS PRN PO INSOMNIA Last administered on 11/10/18at 22:31; Start 11/08/18 at 02:15 Methylprednisolone Sodium Succinate (SOLU-Medrol 40MG VIAL) 40 mg Q8HRS IV ; Start 11/08/18 at 14:00; Stop 11/08/18 at 14:00; Status DC Piperacillin Sod/ Tazobactam Sod (Zosyn Per Pharmacy) 1 each PRN DAILY PRN MC SEE COMMENTS; Start 11/08/18 at 12:00; Stop 11/09/18 at 10:28; Status DC Linezolid (Zyvox) 600 mg BID PO Last administered on 11/13/18at 08:44; Start 11/08/18 at 12:00 Piperacillin Sod/ Tazobactam Sod 2.25 gm/Sodium Chloride 50 ml @ 100 mls/hr Q6HRS IV Last administered on 11/09/18at 05:50; Start 11/08/18 at 12:30; Stop 11/09/18 at 10:28; Status DC Losartan Potassium (Cozaar) 100 mg DAILY PO Last administered on 11/13/18 08:46; Start 11/09/18 at 09:00 Methylprednisolone Sodium Succinate (SOLU-Medrol 40MG VIAL) 40 mg BID IV Last administered on 11/08/18 22:14; Start 11/08/18 at 21:00; Stop 11/09/18 at 10:12; Status DC Clonidine HCl (Catapres) 0.1 mg PRN Q1HR PRN PO HYPERTENSION; Start 11/08/18 at 12:30 Albuterol/ Ipratropium (Duoneb) 3 ml Q4HRS NEB Last administered on 11/13/18 11:26; Start 11/08/18 at 16:00 Budesonide (Pulmicort) 0.5 mg RTBID NEB Last administered on 11/13/18 07:54; Start 11/08/18 at 20:00 Furosemide (Lasix) 20 mg 1X ONCE IVP Last administered on 11/08/18 12:51; Start 11/08/18 at 12:30; Stop 11/08/18 at 12:31; Status DC Lactobacillus Rhamnosus (Culturelle) 1 cap BID PO Last administered on 11/13/18 08:44; Start 11/08/18 at 21:00 Diltiazem HCl (Cardizem 24hr Cd) 180 mg DAILY PO Last administered on 11/13/18 08:45; Start 11/08/18 at 13:00 Methylprednisolone Sodium Succinate (SOLU-Medrol 40MG VIAL) 60 mg BID IV Last administered on 11/13/18 08:45; Start 11/09/18 at 21:00 Fluconazole (Diflucan) 100 mg DAILY PO Last administered on 11/12/18at 09:25; Start 11/09/18 at 10:30; Stop 11/12/18 at 14:39; Status DC Amoxicillin/ Clavulanate Potassium (Augmentin 500/ 125mg) 1 tab BID PO Last administered on 11/13/18 08:44; Start 11/09/18 at 21:00 Docusate Sodium (Colace) 100 mg BID PO Last administered on 11/13/18 08:44; Start 11/10/18 at 09:30 Polyethylene Glycol (miraLAX PACKET) 17 gm 1X ONCE PO Last administered on 11/10/18 09:47; Start 11/10/18 at 09:30; Stop 11/10/18 at 09:31; Status DC Polyethylene Glycol (miraLAX PACKET) 17 gm PRN DAILY PRN PO CONSTIPATION 1ST CHOICE; Start 11/10/18 at 09:30 Magnesium Hydroxide (Milk Of Magnesia) 2,400 mg 1X ONCE PO Last administered on 11/10/18 09:47; Start 11/10/18 at 09:30; Stop 11/10/18 at 09:31; Status DC Magnesium Hydroxide (Milk Of Magnesia) 2,400 mg PRN DAILY PRN PO CONSTIPATION 2ND CHOICE; Start 11/10/18 at 09:30 Bisacodyl (Dulcolax Supp) 10 mg PRN DAILY PRN WI CONSTIPATION Last administered on 11/10/18 22:22; Start 11/10/18 at 09:30 Metoprolol Tartrate (Lopressor Vial) 10 mg 1X ONCE IVP Last administered on 11/11/18 09:22; Start 11/11/18 at 09:15; Stop 11/11/18 at 09:16; Status DC Sodium Chloride 500 ml @ 500 mls/hr 1X ONCE IV Last administered on 11/11/18 19:57; Start 11/11/18 at 20:00; Stop 11/11/18 at 20:59; Status DC Metoprolol Tartrate (Lopressor Vial) 2.5 mg PRN Q4HRS PRN IVP TACHYCARDIA > 130 Last administered on 11/12/18at 09:21; Start 11/11/18 at 19:45 Diltiazem HCl 125 mg/Dextrose 125 ml @ 5 mls/hr CONT PRN IV SEE I/O RECORD Last administered on 11/12/18at 13:50; Start 11/12/18 at 13:00 Micafungin Sodium 100 mg/Dextrose 100 ml @ 100 mls/hr Q24H IV Last administered on 11/13/18at 14:46; Start 11/12/18 at 15:00 Active Scripts Active Vitamin C (Ascorbic Acid) 500 Mg Tablet 500 Mg PO DAILY Budesonide 0.5 Mg/2 Ml Ampul.neb 0.5 Mg NEB RTBID Guaifenesin Dm Syrup (Guaifenesin/Dextromethorphan) 5 Ml Syrup 10 Ml PO PRN Q6HRS PRN 7 Days Duoneb 0.5-3(2.5) Mg/3 Ml (Albuterol/Ipratropium) 3 Ml Ampul.neb 3 Ml NEB Q4HRS Cozaar (Losartan Potassium) 50 Mg Tablet 100 Mg PO DAILY Atorvastatin Calcium 20 Mg Tablet 20 Mg PO QHS [Fluconazole] 100 MG Tablet 100 Mg PO DAILY 7 Days Zyvox (Linezolid) 600 Mg Tablet 600 Mg PO BID 7 Days Amox Tr-K Clv 500-125 Mg Tab (Amoxicillin/Potassium Clav) 1 Each Tablet 1 Tab PO BID 7 Days Reported Thera M Plus Tablet (Multivits,Ca,Minerals/Iron/FA) 1 Each Tablet 1 Each PO DAILY Melatonin 3 Mg Tablet 5 Mg PO HS Claritin (Loratadine) 10 Mg Tablet 1 Tab PO DAILY Tylenol Extra Strength (Acetaminophen) 500 Mg Tablet 1,000 Mg PO PRN Q6HRS PRN Doxepin Hcl 75 Mg Capsule 75 Mg PO DAILY Aspirin 325 Mg Tablet 1 Tab PO DAILY Furosemide 20 Mg Tablet 1 Tab PO DAILY Metoprolol Tartrate 50 Mg Tablet 1 Tab PO BID Vitals/I & O Vital Sign - Last 24 Hours 11/12/18 11/12/18 11/12/18 11/12/18 15:24 15:54 16:10 16:24 Pulse 104 104 104 B/P (MAP) 135/60 (85) 135/67 (89) 128/64 (85) O2 Delivery Nasal Cannula O2 Flow Rate 2.0 11/12/18 11/12/18 11/12/18 11/12/18 17:14 17:24 17:54 19:00 Temp 98.4 98.4 Pulse 114 108 124 103 Resp 18 B/P (MAP) 135/75 (95) 140/54 (82) 117/47 (70) 100/59 (73) Pulse Ox 97 O2 Delivery Nasal Cannula O2 Flow Rate 2.0 11/12/18 11/12/18 11/12/18 11/13/18 19:45 20:00 22:25 00:10 Temp 97.9 97.9 Pulse 108 Resp 17 B/P (MAP) 120/60 (80) Pulse Ox 97 O2 Delivery Nasal Cannula Nasal Cannula Nasal Cannula Nasal Cannula O2 Flow Rate 2.0 2.0 2.0 2.0 711/13/18 11/13/18 11/13/18 03:00 06:45 07:36 07:50 Temp 98.1 98.7 98.1 98.7 Pulse 114 109 Resp 22 16 B/P (MAP) 118/57 (77) 120/53 (75) Pulse Ox 99 95 99 O2 Delivery Nasal Cannula Nasal Cannula Nasal Cannula Nasal Cannula O2 Flow Rate 2.0 2.0 2.0 3.0 11/13/18 11/13/18 11/13/18 11/13/18 08:45 08:46 10:30 11:26 Temp 98.6 98.6 Pulse 109 109 112 Resp 24 B/P (MAP) 120/53 120/53 140/57 (84) Pulse Ox 96 99 O2 Delivery Nasal Cannula Nasal Cannula O2 Flow Rate 2.0 3.0 Intake and Output 11/12/18 11/12/18 11/13/18 14:59 22:59 06:59 Intake Total 600 ml 357 ml Balance 600 ml 357 ml DARCIE CAMARGO MD Nov 13, 2018 15:14
[2018-11-13] MEDS: dilTIAZem INJ 125 MG in IV DEXTROSE 5% 100ML 100 ML IV PRN (16:00)
[2018-11-13 16:52] LABS: FECAL OB PT POSITIVE (NEG)
[2018-11-13 19:25] VITALS: BP 151/75
[2018-11-13] MEDS: ATORVASTATIN CALCIUM 20 MG TABLET PO SCH (22:29)
[2018-11-13] MEDS: DOXEPIN HCL 25 MG CAPSULE. PO SCH (22:29)
[2018-11-13 22:55] VITALS: BP 152/67
[2018-11-14 03:30] VITALS: BP 141/61
[2018-11-14] MEDS: IPRATRPIUM/ALBUTEROL 0.5/2.5MG 3 ML NEBU. NEB SCH ×6 (03:33→23:39)
[2018-11-14 07:00] VITALS: BP 145/59
[2018-11-14] MEDS: BUDESONIDE 0.5 MG/2 ML NEBU. NEB SCH ×2 (07:39→19:47)
[2018-11-14] MEDS: DOCUSATE SODIUM 100 MG CAPSULE. PO SCH ×2 (09:09→20:19)
[2018-11-14] MEDS: AMOXICILLIN/K CLAV 500/125MG TABLET. PO SCH ×2 (09:09→20:19)
[2018-11-14] MEDS: LINEZOLID 600 MG TABLET PO SCH ×2 (09:09→20:20)
[2018-11-14] MEDS: ASPIRIN 325 MG TABLET PO SCH (09:09)
[2018-11-14] MEDS: CETIRIZINE HCL 10 MG TABLET. PO SCH (09:09)
[2018-11-14] MEDS: LOSARTAN POTASSIUM 50 MG TABLET. PO SCH (09:10)
[2018-11-14] MEDS: MULTIVITAMIN with MINERAL TABLET. PO SCH (09:10)
[2018-11-14] MEDS: LACTOBACILLUS RHAMNOSUS GG 1 CAPSULE. PO SCH ×2 (09:10→20:19)
[2018-11-14] MEDS: ASCORBIC ACID 500 MG TABLET PO SCH (09:10)
[2018-11-14] MEDS: methylPREDNISolone SOD SUCC PF 40 MG/ML VIAL. IV SCH ×2 (09:25→20:20)
--- NOTE | 2018-11-14 09:43 | PDOC ---
Infectious Disease Note Subjective Subjective pt says feels slightly better rt foot is improving some sob Denies pain /palpitations/F/C Vital Sign Vital Signs Vital Signs Date Time Temp Pulse Resp B/P (MAP) Pulse Ox O2 Delivery O2 Flow Rate FiO2 11/14/18 09:10 108 166/64 11/14/18 07:39 96 Nasal Cannula 2.0 11/14/18 07:00 98.4 16 98.4 Physical Exam PHYSICAL EXAM GEN: Propped up in bed, alert, smiling HEENT: Oral cavity pink, moist. No thrush NECK: Supple. LUNGS: Clear CARDIOVASCULAR: Regular rate. ABDOMEN: Soft, obese with decreased BS EXTREMITIES: BLE min erythema, + wrinkling, mild yeast. LLE wound SKIN: No rash PIV Labs Lab Laboratory Tests Test 11/13/18 16:20 Stool Occult Blood Positive (NEG) Micro Microbiology 11/07/18 Blood Culture - Final, Complete NO GROWTH AFTER 5 DAYS Objective Assessment New-onset A-flutter RLE cellulitis - failed Clinda - better Leukocytosis - on solu-medrol TY Tinea Superficial right heel and left leg wounds Bronchospasm on steroids h/o Plan Plan of Care Continue Zyvox and Augmentin d/c micafungin , Local wound care off load BRE GUSTAFSON MD Nov 14, 2018 09:43
--- NOTE | 2018-11-14 09:49 | CONS ---
DATE OF CONSULTATION: 11/09/2018 LOCATION: The patient's room is 669. REQUESTING PHYSICIAN: Dr. Velázquez. REASON FOR CONSULTATION: Cellulitis. HISTORY OF PRESENT ILLNESS: The patient is an 88-year-old female who is a resident at [facility], who states she suffered a stroke more than 40+ years ago. She states she is essentially now bedbound. While at [facility] she developed some hypoxia and had an O2 sat of 80%. She developed some confusion and was transferred to [facility]. It was noted that she has some right lower extremity swelling, redness and warmth. She was given a dose of vancomycin and put on some clindamycin. She failed to respond to clindamycin and hence I was consulted. The patient is currently sitting upright in bed. She denies any fever, chills or sweats. She has no headaches, no sore throat. Her shortness of air previously has improved. She denies any cough or sputum production. She states that she does minimal standing, nor if any walking, but again she is somewhat of a poor historian as well. PAST MEDICAL HISTORY: Positive for previous CVA, history of congestive heart failure, probable diastolic [id number] mitral regurgitation, hypertension, hyperlipidemia, carpal tunnel, bipolar, osteoarthritis, UTIs with incontinence, and osteoporosis. PAST SURGICAL HISTORY: Positive for cataract removal, total knee and hip replacement. REVIEW OF SYSTEMS: Otherwise negative except she has been constipated. ALLERGIES: LISTED TO ADHESIVE TAPE. SOCIAL HISTORY: Quit tobacco 35-40 years ago. FAMILY HISTORY: Noncontributory. CURRENT MEDICATIONS: Include Zyvox and Zosyn, which I instituted yesterday. Discontinued her clindamycin, also ascorbic acid, aspirin, Lipitor, Pulmicort, Zyrtec, diltiazem, doxepin, Lasix, lactobacillus, Cozaar, Solu-Medrol, and multivitamin. Other meds are available and reviewed in the chart. PHYSICAL EXAMINATION: VITAL SIGNS: She is afebrile, temperature is 97.5, pulse 85, satting 97% on 3 liters, blood pressure 122/59. CONSTITUTIONAL: She is a pleasant lady. She is cooperative. She is in no acute distress. She is sitting upright in bed. She is on some oxygen. HEENT: Pupils are status post cataract surgery. She has normal conjunctivae. Oral cavity, pharynx is clear. NECK: Supple, no JVD. LUNGS: Had some mild crackles. HEART: S1, S2 with a 2/6 murmur. ABDOMEN: Obese, soft, nontender, no guarding. EXTREMITIES: Without clubbing, cyanosis. They look a little deformed, right lower extremity has some warmth and also some erythema from her toes to just below her knee. There is some wrinkling of the skin. She has some Tinea. She has a superficial lateral left leg wound. NEUROLOGIC: She is nonfocal, answers questions, but she is a poor historian. Affect is appropriate. LABORATORY/DIAGNOSTIC DATA: White count 9.2, hemoglobin 10.7, platelets of 225, neutrophils 93%, creatinine of 1.6, glucose 174. Urinalysis is not consistent with urinary tract infection. MRSA screening is negative. Blood cultures are negative. Chest x-ray from the congestive heart failure, lower extremity Dopplers is negative for DVT. IMPRESSION: 1. Right lower extremity cellulitis, failed clindamycin. 2. Acute kidney injury. 3. Tinea, I did see she has some yeast on her feet. 4. Superficial right heel and left leg wounds. 5. Bronchospasm, currently on steroids. RECOMMENDATIONS: Again, I did institute Zyvox as well as Zosyn yesterday. Zyvox was to help with toxin shutdown and since she is a prison resident, it will improve her MRSA coverage, although her screen is negative. At this point will discontinue Zosyn and change to oral Augmentin. Continue oral Zyvox, add some fluconazole for Tinea. Continue local wound care. Constipation relief per primary. TANESHA BALL MD DR: JEFFERSON/julius JOB#: [id number] / [id number]
--- NOTE | 2018-11-14 10:00 | NUR ---
Wound Care patient seen per f/u of wound care consult. see wound assessment. Pt has a closed stage II on right posterior heel. patient has arterial ulcer to left lateral lower leg. Cleansed wounds. foam to right heel and Medihoney alginate and foam to left leg. Recommend to change dressings every 2-3 days. Pt BLE are reddened and scaly. No other wounds noted on full skin inspection. WC will continue to follow for possible changes. Pt educated on PU prevention, left on right side. patient turned to the right side at this time.
--- NOTE | 2018-11-14 10:05 | PDOC ---
PULMONARY PROGRESS NOTES Subjective remains in atrial fibrillation NO SOA Vitals Vital Signs Date Time Temp Pulse Resp B/P (MAP) Pulse Ox O2 Delivery O2 Flow Rate FiO2 11/14/18 09:10 108 166/64 11/14/18 07:39 96 Nasal Cannula 2.0 11/14/18 07:00 98.4 16 98.4 ROS: No Chest Pain, No Increase Cough General: Alert, No acute distress Lungs: Wheezing (improved) Cardiovascular: S1, S2, Other (irregular) Abdomen: Soft Neuro Exam: Alert Extremities: No Edema Skin: Warm Labs Laboratory Tests Test 11/12/18 14:40 11/13/18 16:20 White Blood Count 15.2 x10^3/uL (4.0-11.0) Red Blood Count 3.93 x10^6/uL (3.50-5.40) Hemoglobin 12.5 g/dL (12.0-15.5) Hematocrit 36.9 % (36.0-47.0) Mean Corpuscular Volume 94 fL (79-100) Mean Corpuscular Hemoglobin 32 pg (25-35) Mean Corpuscular Hemoglobin Concent 34 g/dL (31-37) Red Cell Distribution Width 15.0 % (11.5-14.5) Platelet Count 298 x10^3/uL (140-400) Neutrophils (%) (Auto) 83 % (31-73) Lymphocytes (%) (Auto) 7 % (24-48) Monocytes (%) (Auto) 11 % (0-9) Eosinophils (%) (Auto) 0 % (0-3) Basophils (%) (Auto) 0 % (0-3) Neutrophils # (Auto) 12.6 x10^3/uL (1.8-7.7) Lymphocytes # (Auto) 1.0 x10^3/uL (1.0-4.8) Monocytes # (Auto) 1.6 x10^3/uL (0.0-1.1) Eosinophils # (Auto) 0.0 x10^3/uL (0.0-0.7) Basophils # (Auto) 0.0 x10^3/uL (0.0-0.2) Segmented Neutrophils % 81 % (35-66) Lymphocytes % 10 % (24-48) Monocytes % 9 % (0-10) Platelet Estimate Adequate (ADEQUATE) Sodium Level 135 mmol/L (136-145) Potassium Level 5.1 mmol/L (3.5-5.1) Chloride Level 97 mmol/L (98-107) Carbon Dioxide Level 31 mmol/L (21-32) Anion Gap 7 (6-14) Blood Urea Nitrogen 59 mg/dL (7-20) Creatinine 1.3 mg/dL (0.6-1.0) Estimated GFR (Cockcroft-Gault) 38.7 Glucose Level 138 mg/dL (70-99) Calcium Level 8.5 mg/dL (8.5-10.1) Magnesium Level 2.9 mg/dL (1.8-2.4) Troponin I Quantitative 0.056 ng/mL (0.000-0.055) Thyroid Stimulating Hormone (TSH) 0.927 uIU/mL (0.358-3.74) Stool Occult Blood Positive (NEG) Laboratory Tests Test 11/13/18 16:20 Stool Occult Blood Positive (NEG) Medications Active Scripts Medications Dose Route/Sig Max Daily Dose Days Date Category Thera M Plus Tablet (Multivits,Ca,Minerals/Iron/FA) 1 Each Tablet 1 Each PO DAILY 11/07/18 Reported Melatonin 3 Mg Tablet 5 Mg PO HS 11/07/18 Reported Claritin (Loratadine) 10 Mg Tablet 1 Tab PO DAILY 11/07/18 Reported Losartan Potassium 50 Mg Tablet 50 Mg PO DAILY 11/07/18 Reported Tylenol Extra Strength (Acetaminophen) 500 Mg Tablet 1,000 Mg PO PRN Q6HRS PRN 11/07/18 Reported Bactrim Ds Tablet (Sulfamethoxazole/Trimethoprim) 1 Each Tablet 1 Each PO BID 7 11/07/18 Reported Doxepin Hcl 75 Mg Capsule 75 Mg PO DAILY 10/25/17 Reported Aspirin 325 Mg Tablet 1 Tab PO DAILY 01/04/14 Reported Furosemide 20 Mg Tablet 1 Tab PO DAILY 01/04/14 Reported Metoprolol Tartrate 50 Mg Tablet 1 Tab PO BID 01/04/14 Reported Impression . 1. Acute hypoxic respiratory failure secondary to diffuse bronchospasm, 2. Diffuse bronchospasm, likely cardiac asthma. She has mild congestive heart failure on the chest x-ray and likely acute on chronic diastolic heart failure and also related to her MR. She was also on metoprolol PO at 100 mg POA, which may have also contributed to her bronchospasm as well. She quit tobacco 35 years ago and unlikely chronic obstructive disease exacerbation. 3. acute onset atrial fibrillation. rate controlled with diltiazem. of note the fact that she started wheezing again with afib supports a dx of "cardiac" asthma (which does not necessarily correlate with the severity of heart failure). 4. Renal insufficiency. 5. Underlying obesity. 6. distant past tobacco history. Plan . 1. Control of Afib per cardiology. I agree with using calcium channel blockers would be preferred agent of control. 2. Holding metoprolol 3. hold further Lasix due to increase in azotemia 4. DuoNebs. 5. Pulmicort. 6. solumedrol with gradual taper 7. taper O2 watching oxygen saturation. 8. CXR f/u today FILEMON JAFFE MD Nov 14, 2018 10:05
[2018-11-14 10:35] VITALS: BP 130/52
--- NOTE | 2018-11-14 14:09 | PDOC ---
PROGRESS NOTES Chief Complaint Chief Complaint NEw Onset A. 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 No thrush NECK: Supple. LUNGS: Clear CARDIOVASCULAR: Regular rate. ABDOMEN: Soft, obese with decreased BS EXTREMITIES: BLE min erythema, + wrinkling, mild yeast. LLE wound SKIN: No rash PIV General: Alert, Oriented X3, Cooperative, No acute distress Heart: Regular rate (SR), Other (3/6 systolic murmur to apical) Lungs: Wheezing (improved) Abdomen: Soft, No tenderness Extremities: No clubbing, No cyanosis Skin: Other (scaling to bilateral LE; erythema more to right than left; scabbed pressure ulcer to right calcaneus) Labs LABS Laboratory Tests Test 11/13/18 16:20 11/14/18 12:05 Stool Occult Blood Positive (NEG) Glucose (Fingerstick) 201 mg/dL (70-99) Comment Review of Relevant I have reviewed the following items christina (where applicable) has been applied. Labs Laboratory Tests Test 11/12/18 14:40 11/13/18 16:20 11/14/18 12:05 White Blood Count 15.2 x10^3/uL (4.0-11.0) Red Blood Count 3.93 x10^6/uL (3.50-5.40) Hemoglobin 12.5 g/dL (12.0-15.5) Hematocrit 36.9 % (36.0-47.0) Mean Corpuscular Volume 94 fL (79-100) Mean Corpuscular Hemoglobin 32 pg (25-35) Mean Corpuscular Hemoglobin Concent 34 g/dL (31-37) Red Cell Distribution Width 15.0 % (11.5-14.5) Platelet Count 298 x10^3/uL (140-400) Neutrophils (%) (Auto) 83 % (31-73) Lymphocytes (%) (Auto) 7 % (24-48) Monocytes (%) (Auto) 11 % (0-9) Eosinophils (%) (Auto) 0 % (0-3) Basophils (%) (Auto) 0 % (0-3) Neutrophils # (Auto) 12.6 x10^3/uL (1.8-7.7) Lymphocytes # (Auto) 1.0 x10^3/uL (1.0-4.8) Monocytes # (Auto) 1.6 x10^3/uL (0.0-1.1) Eosinophils # (Auto) 0.0 x10^3/uL (0.0-0.7) Basophils # (Auto) 0.0 x10^3/uL (0.0-0.2) Segmented Neutrophils % 81 % (35-66) Lymphocytes % 10 % (24-48) Monocytes % 9 % (0-10) Platelet Estimate Adequate (ADEQUATE) Sodium Level 135 mmol/L (136-145) Potassium Level 5.1 mmol/L (3.5-5.1) Chloride Level 97 mmol/L (98-107) Carbon Dioxide Level 31 mmol/L (21-32) Anion Gap 7 (6-14) Blood Urea Nitrogen 59 mg/dL (7-20) Creatinine 1.3 mg/dL (0.6-1.0) Estimated GFR (Cockcroft-Gault) 38.7 Glucose Level 138 mg/dL (70-99) Calcium Level 8.5 mg/dL (8.5-10.1) Magnesium Level 2.9 mg/dL (1.8-2.4) Troponin I Quantitative 0.056 ng/mL (0.000-0.055) Thyroid Stimulating Hormone (TSH) 0.927 uIU/mL (0.358-3.74) Stool Occult Blood Positive (NEG) Glucose (Fingerstick) 201 mg/dL (70-99) Laboratory Tests Test 11/13/18 16:20 11/14/18 12:05 Stool Occult Blood Positive (NEG) Glucose (Fingerstick) 201 mg/dL (70-99) Microbiology 11/07/18 Blood Culture - Final, Complete NO GROWTH AFTER 5 DAYS Medications Current Medications Furosemide (Lasix) 40 mg 1X ONCE IVP Last administered on 11/06/18at 23:54; Start 11/06/18 at 23:45; Stop 11/06/18 at 23:46; Status DC Ceftriaxone Sodium (Rocephin) 1 gm 1X ONCE IVP Last administered on 11/06/18at 23:54; Start 11/06/18 at 23:45; Stop 11/06/18 at 23:46; Status DC Vancomycin HCl (Vanco Per Pharmacy) 1 each PRN DAILY PRN MC SEE COMMENTS Last administered on 11/07/18at 05:19; Start 11/06/18 at 23:45; Stop 11/07/18 at 09:27; Status DC Albuterol/ Ipratropium (Duoneb) 3 ml RTQID NEB Last administered on 11/08/18at 08:03; Start 11/07/18 at 08:00; Stop 11/08/18 at 07:59; Status DC Vancomycin HCl 2 gm/Sodium Chloride 500 ml @ 250 mls/hr 1X ONCE IV Last administered on 11/06/18at 23:55; Start 11/06/18 at 23:45; Stop 11/07/18 at 01:44; Status DC Vancomycin HCl 1.25 gm/Sodium Chloride 250 ml @ 167 mls/hr Q24H IV ; Start 11/07/18 at 23:30; Stop 11/07/18 at 23:30; Status DC Vancomycin HCl (Vancomycin Trough Level) 1 each 1X ONCE MC ; Start 11/08/18 at 23:00; Stop 11/08/18 at 23:01; Status Cancel Guaifenesin (Robitussin Dm) 10 ml PRN Q6HRS PRN PO COUGH; Start 11/07/18 at 09:30 Acetaminophen (Tylenol) 500 mg PRN Q6HRS PRN PO MILD PAIN / TEMP; Start 11/07/18 at 09:30 Ondansetron HCl (Zofran) 4 mg PRN Q6HRS PRN IV NAUSEA/VOMITING; Start 11/07/18 at 09:30 Furosemide (Lasix) 40 mg DAILY IVP Last administered on 11/07/18 09:49; Start 11/07/18 at 09:30; Stop 11/07/18 at 19:05; Status DC Aspirin (Santos Aspirin) 325 mg DAILY PO Last administered on 11/14/18 09:09; Start 11/07/18 at 09:30 Losartan Potassium (Cozaar) 50 mg DAILY PO Last administered on 11/08/18 09:11; Start 11/07/18 at 09:30; Stop 11/08/18 at 12:17; Status DC Metoprolol Tartrate (Lopressor) 50 mg BID PO Last administered on 11/08/18 09:11; Start 11/07/18 at 09:30; Stop 11/08/18 at 12:17; Status DC Multivitamins (Thera M Plus) 1 tab DAILY PO Last administered on 11/14/18 09:10; Start 11/07/18 at 09:30 Non-Formulary Medication (Acetaminophen (Tylenol Extra Strength)) 1,000 mg PRN Q6HRS PRN PO PAIN; Start 11/07/18 at 09:30; Status UNV Doxepin HCl (SINEquan) 75 mg QHS PO Last administered on 11/13/18 22:29; Start 11/07/18 at 21:00 Cetirizine HCl (ZyrTEC) 10 mg DAILY PO Last administered on 11/14/18 09:09; Start 11/07/18 at 09:30 Non-Formulary Medication (Melatonin ) 5 mg HS PO ; Start 11/07/18 at 21:00; Status UNV Levofloxacin (Levaquin) 250 mg DAILY06 PO Last administered on 11/07/18 09:47; Start 11/07/18 at 10:00; Stop 11/07/18 at 11:29; Status DC Clindamycin Phosphate 50 ml @ 100 mls/hr Q8HRS IV Last administered on 11/08/18 05:59; Start 11/07/18 at 14:00; Stop 11/08/18 at 11:54; Status DC Multi-Ingred Cream/Lotion/Oil/ Oint (Hydrocerin Cream) 1 alfonso PRN Q1HR PRN TP DRY SKIN / SCALING; Start 11/07/18 at 11:30 Albuterol Sulfate (Ventolin Neb Soln) 2.5 mg 1X ONCE NEB ; Start 11/07/18 at 12:45; Stop 11/07/18 at 12:46; Status DC Methylprednisolone Sodium Succinate (SOLU-Medrol 125MG VIAL) 125 mg 1X ONCE IV Last administered on 11/07/18at 16:00; Start 11/07/18 at 12:45; Stop 11/07/18 at 12:46; Status DC Atorvastatin Calcium (Lipitor) 20 mg QHS PO Last administered on 11/13/18at 22:29; Start 11/07/18 at 21:00 Multivitamins (Thera M Plus) 1 tab DAILY PO ; Start 11/08/18 at 09:00; Stop 11/11/18 at 13:44; Status DC Ascorbic Acid (Vitamin C) 500 mg DAILY PO Last administered on 11/14/18at 09:10; Start 11/08/18 at 09:00 Furosemide (Lasix) 20 mg DAILY IVP Last administered on 11/10/18at 08:56; Start 11/08/18 at 09:00; Stop 11/10/18 at 09:14; Status DC Prednisone (Prednisone) 40 mg DAILY PO Last administered on 11/08/18at 09:11; Start 11/08/18 at 09:00; Stop 11/08/18 at 11:01; Status DC Temazepam (Restoril) 7.5 mg STK-MED ONCE PO ; Start 11/08/18 at 02:21; Stop 11/08/18 at 03:44; Status DC Temazepam (Restoril) 7.5 mg PRN QHS PRN PO INSOMNIA Last administered on 11/10/18at 22:31; Start 11/08/18 at 02:15 Methylprednisolone Sodium Succinate (SOLU-Medrol 40MG VIAL) 40 mg Q8HRS IV ; Start 11/08/18 at 14:00; Stop 11/08/18 at 14:00; Status DC Piperacillin Sod/ Tazobactam Sod (Zosyn Per Pharmacy) 1 each PRN DAILY PRN MC SEE COMMENTS; Start 11/08/18 at 12:00; Stop 11/09/18 at 10:28; Status DC Linezolid (Zyvox) 600 mg BID PO Last administered on 11/14/18 09:09; Start 11/08/18 at 12:00 Piperacillin Sod/ Tazobactam Sod 2.25 gm/Sodium Chloride 50 ml @ 100 mls/hr Q6HRS IV Last administered on 11/09/18at 05:50; Start 11/08/18 at 12:30; Stop 11/09/18 at 10:28; Status DC Losartan Potassium (Cozaar) 100 mg DAILY PO Last administered on 11/14/18 09:10; Start 11/09/18 at 09:00 Methylprednisolone Sodium Succinate (SOLU-Medrol 40MG VIAL) 40 mg BID IV Last administered on 11/08/18at 22:14; Start 11/08/18 at 21:00; Stop 11/09/18 at 10:12; Status DC Clonidine HCl (Catapres) 0.1 mg PRN Q1HR PRN PO HYPERTENSION; Start 11/08/18 at 12:30 Albuterol/ Ipratropium (Duoneb) 3 ml Q4HRS NEB Last administered on 11/14/18 11:42; Start 11/08/18 at 16:00 Budesonide (Pulmicort) 0.5 mg RTBID NEB Last administered on 11/14/18 07:39; Start 11/08/18 at 20:00 Furosemide (Lasix) 20 mg 1X ONCE IVP Last administered on 11/08/18at 12:51; Start 11/08/18 at 12:30; Stop 11/08/18 at 12:31; Status DC Lactobacillus Rhamnosus (Culturelle) 1 cap BID PO Last administered on 11/14/18 09:10; Start 11/08/18 at 21:00 Diltiazem HCl (Cardizem 24hr Cd) 180 mg DAILY PO Last administered on 11/14/18 09:10; Start 11/08/18 at 13:00 Methylprednisolone Sodium Succinate (SOLU-Medrol 40MG VIAL) 60 mg BID IV Last administered on 11/14/18 09:25; Start 11/09/18 at 21:00 Fluconazole (Diflucan) 100 mg DAILY PO Last administered on 11/12/18 09:25; Start 11/09/18 at 10:30; Stop 11/12/18 at 14:39; Status DC Amoxicillin/ Clavulanate Potassium (Augmentin 500/ 125mg) 1 tab BID PO Last administered on 11/14/18 09:09; Start 11/09/18 at 21:00 Docusate Sodium (Colace) 100 mg BID PO Last administered on 11/14/18 09:09; Start 11/10/18 at 09:30 Polyethylene Glycol (miraLAX PACKET) 17 gm 1X ONCE PO Last administered on 11/10/18 09:47; Start 11/10/18 at 09:30; Stop 11/10/18 at 09:31; Status DC Polyethylene Glycol (miraLAX PACKET) 17 gm PRN DAILY PRN PO CONSTIPATION 1ST CHOICE; Start 11/10/18 at 09:30 Magnesium Hydroxide (Milk Of Magnesia) 2,400 mg 1X ONCE PO Last administered on 11/10/18 09:47; Start 11/10/18 at 09:30; Stop 11/10/18 at 09:31; Status DC Magnesium Hydroxide (Milk Of Magnesia) 2,400 mg PRN DAILY PRN PO CONSTIPATION 2ND CHOICE; Start 11/10/18 at 09:30 Bisacodyl (Dulcolax Supp) 10 mg PRN DAILY PRN [place] CONSTIPATION Last administered on 11/10/18 22:22; Start 11/10/18 at 09:30 Metoprolol Tartrate (Lopressor Vial) 10 mg 1X ONCE IVP Last administered on 11/11/18 09:22; Start 11/11/18 at 09:15; Stop 11/11/18 at 09:16; Status DC Sodium Chloride 500 ml @ 500 mls/hr 1X ONCE IV Last administered on 11/11/18at 19:57; Start 11/11/18 at 20:00; Stop 11/11/18 at 20:59; Status DC Metoprolol Tartrate (Lopressor Vial) 2.5 mg PRN Q4HRS PRN IVP TACHYCARDIA > 130 Last administered on 11/12/18 09:21; Start 11/11/18 at 19:45 Diltiazem HCl 125 mg/Dextrose 125 ml @ 5 mls/hr CONT PRN IV SEE I/O RECORD Last administered on 11/13/18at 16:00; Start 11/12/18 at 13:00 Micafungin Sodium 100 mg/Dextrose 100 ml @ 100 mls/hr Q24H IV Last administered on 11/13/18at 14:46; Start 11/12/18 at 15:00 Active Scripts Active Vitamin C (Ascorbic Acid) 500 Mg Tablet 500 Mg PO DAILY Budesonide 0.5 Mg/2 Ml Ampul.neb 0.5 Mg NEB RTBID Guaifenesin Dm Syrup (Guaifenesin/Dextromethorphan) 5 Ml Syrup 10 Ml PO PRN Q6HRS PRN 7 Days Duoneb 0.5-3(2.5) Mg/3 Ml (Albuterol/Ipratropium) 3 Ml Ampul.neb 3 Ml NEB Q4HRS Cozaar (Losartan Potassium) 50 Mg Tablet 100 Mg PO DAILY Atorvastatin Calcium 20 Mg Tablet 20 Mg PO QHS [Fluconazole] 100 MG Tablet 100 Mg PO DAILY 7 Days Zyvox (Linezolid) 600 Mg Tablet 600 Mg PO BID 7 Days Amox Tr-K Clv 500-125 Mg Tab (Amoxicillin/Potassium Clav) 1 Each Tablet 1 Tab PO BID 7 Days Reported Thera M Plus Tablet (Multivits,Ca,Minerals/Iron/FA) 1 Each Tablet 1 Each PO DAILY Melatonin 3 Mg Tablet 5 Mg PO HS Claritin (Loratadine) 10 Mg Tablet 1 Tab PO DAILY Tylenol Extra Strength (Acetaminophen) 500 Mg Tablet 1,000 Mg PO PRN Q6HRS PRN Doxepin Hcl 75 Mg Capsule 75 Mg PO DAILY Aspirin 325 Mg Tablet 1 Tab PO DAILY Furosemide 20 Mg Tablet 1 Tab PO DAILY Metoprolol Tartrate 50 Mg Tablet 1 Tab PO BID Vitals/I & O Vital Sign - Last 24 Hours 11/13/18 11/13/18 11/13/18 11/13/18 14:35 15:28 19:25 19:48 Temp 98.8 98.6 98.8 98.6 Pulse 100 105 Resp 18 22 B/P (MAP) 149/55 (86) 151/75 (100) Pulse Ox 97 96 96 O2 Delivery Nasal Cannula Nasal Cannula Nasal Cannula Nasal Cannula O2 Flow Rate 2.0 3.0 2.0 2.0 11/13/18 11/13/18 11/13/18 11/14/18 20:00 22:55 22:55 03:30 Temp 98.9 97.7 98.9 97.7 Pulse 107 101 Resp 22 22 B/P (MAP) 152/67 (95) 141/61 (87) Pulse Ox 95 96 O2 Delivery Nasal Cannula Nasal Cannula Nasal Cannula Nasal Cannula O2 Flow Rate 2.0 2.0 2.0 2.0 11/14/18 11/14/18 11/14/18 11/14/18 07:00 07:39 08:00 09:10 Temp 98.4 98.4 Pulse 108 110 Resp 16 B/P (MAP) 145/59 (87) 166/64 Pulse Ox 98 96 O2 Delivery Nasal Cannula Nasal Cannula Nasal Cannula O2 Flow Rate 2.0 2.0 2.0 11/14/18 11/14/18 11/14/18 09:10 10:35 11:43 Temp 98.2 98.2 Pulse 108 101 Resp 30 B/P (MAP) 166/64 130/52 (78) Pulse Ox 100 97 O2 Delivery Nasal Cannula Nasal Cannula O2 Flow Rate 2.0 2.0 Intake and Output 11/13/18 11/13/18 11/14/18 15:00 23:00 07:00 Intake Total 500 ml 205.82 ml 400 ml Balance 500 ml 205.82 ml 400 ml DARCIE CAMARGO MD Nov 14, 2018 14:09
[2018-11-14 15:00] VITALS: BP 168/70
[2018-11-14] MEDS: MICAFUNGIN 100 MG in IV DEXTROSE 5% 100ML 100 ML IV SCH (16:39)
--- NOTE | 2018-11-14 17:18 | RAD ---
EXAM: AP View of the chest DATE: 11/14/2018 10:40 AM INDICATION: Pulmonary edema dyspnea COMPARISON: 11/06/2018 FINDINGS: Moderate cardiomegaly. Atherosclerotic calcifications of the tortuous aorta are seen. Left pleural effusion with lung base opacities, mildly progressed. Patchy opacities right lung base. Central pulmonary vascular engorgement. No definite pneumothorax. IMPRESSION: Left lung base airspace opacities and small left pleural effusion have progressed compared to 11/06/2018. Right lung base opacities are grossly stable. Consolation of findings may be seen with multifocal consolidative process such as pneumonia or pulmonary edema. Electronically signed by: Arron Storm MD (11/14/2018 5:15 PM) [facility]
[2018-11-14 19:45] VITALS: BP 119/59
[2018-11-14] MEDS: ATORVASTATIN CALCIUM 20 MG TABLET PO SCH (20:19)
[2018-11-14] MEDS: DOXEPIN HCL 25 MG CAPSULE. PO SCH (20:20)
[2018-11-14 23:25] VITALS: BP 131/59
[2018-11-15 03:11] VITALS: BP 122/65
[2018-11-15] MEDS: IPRATRPIUM/ALBUTEROL 0.5/2.5MG 3 ML NEBU. NEB SCH ×3 (03:56→11:50)
[2018-11-15 04:36] LABS: BASO % 0 % (0-3); EOS % 0 % (0-3); HEMATOCRIT 35.7 % (36.0-47.0); HEMOGLOBIN 11.9 g/dL (12.0-15.5); LYMPH # 0.9 x10^3/uL (1.0-4.8); LYMPH % 5 % (24-48); MEAN CORPUSCULAR HEMOGLOBIN 31 pg (25-35); MEAN CORPUSCULAR HGB CONC 33 g/dL (31-37); MEAN CORPUSCULAR VOLUME 94 fL (79-100); MONO # 0.4 x10^3/uL (0.0-1.1); MONO % 2 % (0-9); NEUT # 15.8 x10^3/uL (1.8-7.7); NEUT % 93 % (31-73); PLATELET COUNT 290 x10^3/uL (140-400); WHITE BLOOD COUNT 17.1 x10^3/uL (4.0-11.0)
[2018-11-15 05:15] LABS: ALBUMIN 2.8 g/dL (3.4-5.0); ALBUMIN/GLOBULIN RATIO 0.7 (1.0-1.7); CALCIUM 8.4 mg/dL (8.5-10.1); CREATININE 1.2 mg/dL (0.6-1.0); GFR 42.4; TOTAL BILIRUBIN 0.4 mg/dL (0.2-1.0); TOTAL PROTEIN 6.6 g/dL (6.4-8.2)
[2018-11-15 05:26] LABS: POTASSIUM 5.2 mmol/L (3.5-5.1)
[2018-11-15 07:00] VITALS: BP 147/60
[2018-11-15] MEDS: BUDESONIDE 0.5 MG/2 ML NEBU. NEB SCH ×2 (07:30→20:17)
--- NOTE | 2018-11-15 08:50 | PDOC ---
Infectious Disease Note Subjective Subjective pt is feeling ok ROS ROS no n/v/d/sob Vital Sign Vital Signs Vital Signs Date Time Temp Pulse Resp B/P (MAP) Pulse Ox O2 Delivery O2 Flow Rate FiO2 11/15/18 07:32 97 Nasal Cannula 2.0 11/15/18 07:00 98.0 107 16 147/60 (89) 98.0 Physical Exam PHYSICAL EXAM GEN: Propped up in bed, alert, smiling HEENT: Oral cavity pink, moist. No thrush NECK: Supple. LUNGS: Clear CARDIOVASCULAR: Regular rate. ABDOMEN: Soft, obese with decreased BS EXTREMITIES: BLE min erythema, + wrinkling, mild yeast. LLE wound SKIN: No rash PIV Labs Lab Laboratory Tests Test 11/14/18 12:05 11/14/18 20:25 11/15/18 04:25 Glucose (Fingerstick) 201 mg/dL (70-99) 214 mg/dL (70-99) White Blood Count 17.1 x10^3/uL (4.0-11.0) Red Blood Count 3.80 x10^6/uL (3.50-5.40) Hemoglobin 11.9 g/dL (12.0-15.5) Hematocrit 35.7 % (36.0-47.0) Mean Corpuscular Volume 94 fL (79-100) Mean Corpuscular Hemoglobin 31 pg (25-35) Mean Corpuscular Hemoglobin Concent 33 g/dL (31-37) Red Cell Distribution Width 15.0 % (11.5-14.5) Platelet Count 290 x10^3/uL (140-400) Neutrophils (%) (Auto) 93 % (31-73) Lymphocytes (%) (Auto) 5 % (24-48) Monocytes (%) (Auto) 2 % (0-9) Eosinophils (%) (Auto) 0 % (0-3) Basophils (%) (Auto) 0 % (0-3) Neutrophils # (Auto) 15.8 x10^3/uL (1.8-7.7) Lymphocytes # (Auto) 0.9 x10^3/uL (1.0-4.8) Monocytes # (Auto) 0.4 x10^3/uL (0.0-1.1) Eosinophils # (Auto) 0.0 x10^3/uL (0.0-0.7) Basophils # (Auto) 0.0 x10^3/uL (0.0-0.2) Sodium Level 135 mmol/L (136-145) Potassium Level 5.2 mmol/L (3.5-5.1) Chloride Level 99 mmol/L (98-107) Carbon Dioxide Level 31 mmol/L (21-32) Anion Gap 5 (6-14) Blood Urea Nitrogen 59 mg/dL (7-20) Creatinine 1.2 mg/dL (0.6-1.0) Estimated GFR (Cockcroft-Gault) 42.4 BUN/Creatinine Ratio 49 (6-20) Glucose Level 192 mg/dL (70-99) Calcium Level 8.4 mg/dL (8.5-10.1) Total Bilirubin 0.4 mg/dL (0.2-1.0) Aspartate Amino Transf (AST/SGOT) 31 U/L (15-37) Alanine Aminotransferase (ALT/SGPT) 57 U/L (14-59) Alkaline Phosphatase 58 U/L (46-116) Total Protein 6.6 g/dL (6.4-8.2) Albumin 2.8 g/dL (3.4-5.0) Albumin/Globulin Ratio 0.7 (1.0-1.7) Prealbumin 44.1 mg/dL (16.0-42.0) Micro Microbiology 11/07/18 Blood Culture - Final, Complete NO GROWTH AFTER 5 DAYS Objective Assessment New-onset A-flutter RLE cellulitis - failed Clinda - better Leukocytosis - on solu-medrol TY Tinea Superficial right heel and left leg wounds Bronchospasm on steroids h/o Plan Plan of Care Continue Augmentin,,, d/c zyvox Local wound care off load BRE GUSTAFSON MD Nov 15, 2018 08:50
[2018-11-15] MEDS: LOSARTAN POTASSIUM 50 MG TABLET. PO SCH (09:03)
[2018-11-15] MEDS: AMOXICILLIN/K CLAV 500/125MG TABLET. PO SCH ×2 (09:04→19:46)
[2018-11-15] MEDS: ASPIRIN 325 MG TABLET PO SCH (09:04)
[2018-11-15] MEDS: ASCORBIC ACID 500 MG TABLET PO SCH (09:05)
[2018-11-15] MEDS: DOCUSATE SODIUM 100 MG CAPSULE. PO SCH ×2 (09:05→19:47)
--- NOTE | 2018-11-15 09:06 | NUR ---
SS following up with discharge planning. SS phoned and faxed clinical updates to [facility], ; fax [phone]. Pt is LTC resident from [facility] and is able to return when medically stable.
[2018-11-15] MEDS: LACTOBACILLUS RHAMNOSUS GG 1 CAPSULE. PO SCH ×2 (09:07→19:47)
[2018-11-15] MEDS: CETIRIZINE HCL 10 MG TABLET. PO SCH (09:08)
[2018-11-15] MEDS: MULTIVITAMIN with MINERAL TABLET. PO SCH (09:08)
[2018-11-15] MEDS: methylPREDNISolone SOD SUCC PF 40 MG/ML VIAL. IV SCH ×2 (09:09→19:47)
[2018-11-15 11:00] VITALS: BP 109/64
--- NOTE | 2018-11-15 12:00 | PDOC ---
PULMONARY PROGRESS NOTES Subjective remains in atrial fibrillation NO SOA Vitals Vital Signs Date Time Temp Pulse Resp B/P (MAP) Pulse Ox O2 Delivery O2 Flow Rate FiO2 11/15/18 11:50 98 Nasal Cannula 2.0 11/15/18 09:03 132 147/60 11/15/18 07:00 98.0 16 98.0 ROS: No Chest Pain, No Increase Cough General: Alert, No acute distress Lungs: Wheezing (faint) Cardiovascular: S1, S2, Other (irregular) Abdomen: Soft Neuro Exam: Alert Extremities: No Edema Skin: Warm Labs Laboratory Tests Test 11/13/18 16:20 11/14/18 12:05 11/14/18 20:25 11/15/18 04:25 Stool Occult Blood Positive (NEG) Clostridium difficile Toxin B Gene Negative (Negative) Glucose (Fingerstick) 201 mg/dL (70-99) 214 mg/dL (70-99) White Blood Count 17.1 x10^3/uL (4.0-11.0) Red Blood Count 3.80 x10^6/uL (3.50-5.40) Hemoglobin 11.9 g/dL (12.0-15.5) Hematocrit 35.7 % (36.0-47.0) Mean Corpuscular Volume 94 fL (79-100) Mean Corpuscular Hemoglobin 31 pg (25-35) Mean Corpuscular Hemoglobin Concent 33 g/dL (31-37) Red Cell Distribution Width 15.0 % (11.5-14.5) Platelet Count 290 x10^3/uL (140-400) Neutrophils (%) (Auto) 93 % (31-73) Lymphocytes (%) (Auto) 5 % (24-48) Monocytes (%) (Auto) 2 % (0-9) Eosinophils (%) (Auto) 0 % (0-3) Basophils (%) (Auto) 0 % (0-3) Neutrophils # (Auto) 15.8 x10^3/uL (1.8-7.7) Lymphocytes # (Auto) 0.9 x10^3/uL (1.0-4.8) Monocytes # (Auto) 0.4 x10^3/uL (0.0-1.1) Eosinophils # (Auto) 0.0 x10^3/uL (0.0-0.7) Basophils # (Auto) 0.0 x10^3/uL (0.0-0.2) Sodium Level 135 mmol/L (136-145) Potassium Level 5.2 mmol/L (3.5-5.1) Chloride Level 99 mmol/L (98-107) Carbon Dioxide Level 31 mmol/L (21-32) Anion Gap 5 (6-14) Blood Urea Nitrogen 59 mg/dL (7-20) Creatinine 1.2 mg/dL (0.6-1.0) Estimated GFR (Cockcroft-Gault) 42.4 BUN/Creatinine Ratio 49 (6-20) Glucose Level 192 mg/dL (70-99) Calcium Level 8.4 mg/dL (8.5-10.1) Total Bilirubin 0.4 mg/dL (0.2-1.0) Aspartate Amino Transf (AST/SGOT) 31 U/L (15-37) Alanine Aminotransferase (ALT/SGPT) 57 U/L (14-59) Alkaline Phosphatase 58 U/L (46-116) Total Protein 6.6 g/dL (6.4-8.2) Albumin 2.8 g/dL (3.4-5.0) Albumin/Globulin Ratio 0.7 (1.0-1.7) Prealbumin 44.1 mg/dL (16.0-42.0) Laboratory Tests Test 11/14/18 12:05 11/14/18 20:25 11/15/18 04:25 Glucose (Fingerstick) 201 mg/dL (70-99) 214 mg/dL (70-99) White Blood Count 17.1 x10^3/uL (4.0-11.0) Red Blood Count 3.80 x10^6/uL (3.50-5.40) Hemoglobin 11.9 g/dL (12.0-15.5) Hematocrit 35.7 % (36.0-47.0) Mean Corpuscular Volume 94 fL (79-100) Mean Corpuscular Hemoglobin 31 pg (25-35) Mean Corpuscular Hemoglobin Concent 33 g/dL (31-37) Red Cell Distribution Width 15.0 % (11.5-14.5) Platelet Count 290 x10^3/uL (140-400) Neutrophils (%) (Auto) 93 % (31-73) Lymphocytes (%) (Auto) 5 % (24-48) Monocytes (%) (Auto) 2 % (0-9) Eosinophils (%) (Auto) 0 % (0-3) Basophils (%) (Auto) 0 % (0-3) Neutrophils # (Auto) 15.8 x10^3/uL (1.8-7.7) Lymphocytes # (Auto) 0.9 x10^3/uL (1.0-4.8) Monocytes # (Auto) 0.4 x10^3/uL (0.0-1.1) Eosinophils # (Auto) 0.0 x10^3/uL (0.0-0.7) Basophils # (Auto) 0.0 x10^3/uL (0.0-0.2) Sodium Level 135 mmol/L (136-145) Potassium Level 5.2 mmol/L (3.5-5.1) Chloride Level 99 mmol/L (98-107) Carbon Dioxide Level 31 mmol/L (21-32) Anion Gap 5 (6-14) Blood Urea Nitrogen 59 mg/dL (7-20) Creatinine 1.2 mg/dL (0.6-1.0) Estimated GFR (Cockcroft-Gault) 42.4 BUN/Creatinine Ratio 49 (6-20) Glucose Level 192 mg/dL (70-99) Calcium Level 8.4 mg/dL (8.5-10.1) Total Bilirubin 0.4 mg/dL (0.2-1.0) Aspartate Amino Transf (AST/SGOT) 31 U/L (15-37) Alanine Aminotransferase (ALT/SGPT) 57 U/L (14-59) Alkaline Phosphatase 58 U/L (46-116) Total Protein 6.6 g/dL (6.4-8.2) Albumin 2.8 g/dL (3.4-5.0) Albumin/Globulin Ratio 0.7 (1.0-1.7) Prealbumin 44.1 mg/dL (16.0-42.0) Medications Active Scripts Medications Dose Route/Sig Max Daily Dose Days Date Category Thera M Plus Tablet (Multivits,Ca,Minerals/Iron/FA) 1 Each Tablet 1 Each PO DAILY 11/07/18 Reported Melatonin 3 Mg Tablet 5 Mg PO HS 11/07/18 Reported Claritin (Loratadine) 10 Mg Tablet 1 Tab PO DAILY 11/07/18 Reported Losartan Potassium 50 Mg Tablet 50 Mg PO DAILY 11/07/18 Reported Tylenol Extra Strength (Acetaminophen) 500 Mg Tablet 1,000 Mg PO PRN Q6HRS PRN 11/07/18 Reported Bactrim Ds Tablet (Sulfamethoxazole/Trimethoprim) 1 Each Tablet 1 Each PO BID 7 11/07/18 Reported Doxepin Hcl 75 Mg Capsule 75 Mg PO DAILY 10/25/17 Reported Aspirin 325 Mg Tablet 1 Tab PO DAILY 01/04/14 Reported Furosemide 20 Mg Tablet 1 Tab PO DAILY 01/04/14 Reported Metoprolol Tartrate 50 Mg Tablet 1 Tab PO BID 01/04/14 Reported Impression . 1. Acute hypoxic respiratory failure secondary to diffuse bronchospasm, 2. Diffuse bronchospasm, likely cardiac asthma. She has mild congestive heart failure on the chest x-ray and likely acute on chronic diastolic heart failure and also related to her MR. off metoprolol PO She quit tobacco 35 years ago and unlikely chronic obstructive disease exacerbation. 3. acute onset atrial fibrillation. rate controlled with diltiazem. of note the fact that she started wheezing again with afib supports a dx of "cardiac" asthma (which does not necessarily correlate with the severity of heart failure). 4. Renal insufficiency. 5. Underlying obesity. 6. distant past tobacco history. Plan . 1. Control of Afib per cardiology. I agree with using calcium channel blockers would be preferred agent of control. 2. Holding metoprolol 3. hold further Lasix due to increase in azotemia 4. DuoNebs. 5. Pulmicort. 6. solumedrol with gradual taper 7. taper O2 watching oxygen saturation. 8. CXR f/u 11/14 with mild CHF, left base effusion, try low dose lasix FILEMON JAFFE MD Nov 15, 2018 12:00
[2018-11-15] MEDS ORDERED: ALBUTEROL SULFATE 2.5 MG/3 ML NEBU. NEB PRN (12:15)
[2018-11-15] MEDS ORDERED: FUROSEMIDE 20 MG/2 ML VIAL. IVP ONE (12:15)
--- NOTE | 2018-11-15 12:20 | PDOC ---
CARDIO Progress Notes Date and Time Date of Service 11/15/18 Time of Evaluation 1220 Subjective Subjective: No Chest Pain, No shortness of breath, Other (wheezing improved) Vitals Vitals Vital Signs Date Time Temp Pulse Resp B/P (MAP) Pulse Ox O2 Delivery O2 Flow Rate FiO2 11/15/18 11:50 98 Nasal Cannula 2.0 11/15/18 09:03 132 147/60 11/15/18 07:00 98.0 16 98.0 Weight Weight [ ] Input and Output Intake and Output Intake and Output 11/15/18 06:59 Intake Total 1340 ml Balance 1340 ml Intake Oral 1340 ml # Voids 5 # Bowel Movements 2 Laboratory Labs Laboratory Tests Test 11/14/18 20:25 11/15/18 04:25 Glucose (Fingerstick) 214 mg/dL (70-99) White Blood Count 17.1 x10^3/uL (4.0-11.0) Red Blood Count 3.80 x10^6/uL (3.50-5.40) Hemoglobin 11.9 g/dL (12.0-15.5) Hematocrit 35.7 % (36.0-47.0) Mean Corpuscular Volume 94 fL (79-100) Mean Corpuscular Hemoglobin 31 pg (25-35) Mean Corpuscular Hemoglobin Concent 33 g/dL (31-37) Red Cell Distribution Width 15.0 % (11.5-14.5) Platelet Count 290 x10^3/uL (140-400) Neutrophils (%) (Auto) 93 % (31-73) Lymphocytes (%) (Auto) 5 % (24-48) Monocytes (%) (Auto) 2 % (0-9) Eosinophils (%) (Auto) 0 % (0-3) Basophils (%) (Auto) 0 % (0-3) Neutrophils # (Auto) 15.8 x10^3/uL (1.8-7.7) Lymphocytes # (Auto) 0.9 x10^3/uL (1.0-4.8) Monocytes # (Auto) 0.4 x10^3/uL (0.0-1.1) Eosinophils # (Auto) 0.0 x10^3/uL (0.0-0.7) Basophils # (Auto) 0.0 x10^3/uL (0.0-0.2) Sodium Level 135 mmol/L (136-145) Potassium Level 5.2 mmol/L (3.5-5.1) Chloride Level 99 mmol/L (98-107) Carbon Dioxide Level 31 mmol/L (21-32) Anion Gap 5 (6-14) Blood Urea Nitrogen 59 mg/dL (7-20) Creatinine 1.2 mg/dL (0.6-1.0) Estimated GFR (Cockcroft-Gault) 42.4 BUN/Creatinine Ratio 49 (6-20) Glucose Level 192 mg/dL (70-99) Calcium Level 8.4 mg/dL (8.5-10.1) Total Bilirubin 0.4 mg/dL (0.2-1.0) Aspartate Amino Transf (AST/SGOT) 31 U/L (15-37) Alanine Aminotransferase (ALT/SGPT) 57 U/L (14-59) Alkaline Phosphatase 58 U/L (46-116) Total Protein 6.6 g/dL (6.4-8.2) Albumin 2.8 g/dL (3.4-5.0) Albumin/Globulin Ratio 0.7 (1.0-1.7) Prealbumin 44.1 mg/dL (16.0-42.0) Microbiology Micro Microbiology 11/07/18 Blood Culture - Final, Complete NO GROWTH AFTER 5 DAYS Physical Exam HEENT: Neck Supple W Full Motion Chest: Symmetric LUNGS: Other (diminished) Heart: S1S2, RRR, murmurs (3/6 systolic murmur ) Abdomen: Soft N/T Extremities: Other (scaling to bilateral LE) Neurology: alert, follow commands Assessment Assessment 1. Acute on chronic diastolic CHF; echo showed preserved LV systolic function with an EF of 55-60%. 2. Acute respiratory failure; wheezing improved 3. HTN; controlled 4. CAD s/p remote stent. Clinically stable. CP free 5. LE cellulitis 6. Hx of severe LE PAD: no necrotic tissues, no pain. Treat medically 7. TY on CKD; better 8. Hyperkalemia 9. Hx of CVA with right sided hemiparesis 10. MR, moderate 11. AFIB/flutter with RVR; rate near 115. Went into Aflutter with RVR Tuesday. Was started on Cardizem gtt, which was titrated off this am Recommendations Increase Cardizem for rate control Dig PRN Lasix PRN [id number] correlating with a 11.2 % risk for stroke. Will start Eliquis for stroke prevention Supportive care GIANNA HENRY APRN Nov 15, 2018 12:20
[2018-11-15] MEDS ORDERED: dilTIAZem HCL 30 MG TABLET PO ONE (12:30)
--- NOTE | 2018-11-15 13:59 | PDOC ---
[facility] PROGRESS NOTE Chief Complaint Chief Complaint New Onset A. fib/A flutter - with RVR, acute diastolic CHF Mild CHF by chest x-ray Acute hypoxic respiratory failure SNU resident DNR Bilateral lower extremity cellulitis negative Dopplers for DVT-right greater than left met encephalopathy/confusion Dementia Geriatric Fall risk hypertension GERD OA-chronic stable History of Present Illness History of Present Illness 11/15/18 Pt seen and examined Still in A-Flutter on monitor On p.o. tiago MILIAN RN Pt now complains of dysphagia. Reviewed pt's chart Vitals/I&O Vitals/I&O: Vital Signs Date Time Temp Pulse Resp B/P (MAP) Pulse Ox O2 Delivery O2 Flow Rate FiO2 11/15/18 12:42 118 140/61 11/15/18 11:50 98 Nasal Cannula 2.0 11/15/18 11:00 98.8 16 98.8 I & O 11/14/18 11/14/18 11/15/18 14:59 22:59 06:59 Intake Total 1140 ml 200 ml Balance 1140 ml 200 ml Physical Exam Physical Exam: GEN: Propped up in bed, alert, smiling HEENT: Oral cavity pink, moist. No thrush NECK: Supple. LUNGS: Clear CARDIOVASCULAR: atrial flutter ABDOMEN: Soft, obese with decreased BS EXTREMITIES: BLE min erythema, + wrinkling, mild yeast. LLE wound SKIN: No rash PIV General: Alert, Oriented X3, Cooperative, No acute distress Heart: Regular rate (SR), Other Lungs: Wheezing (faint) Abdomen: Soft, No tenderness Extremities: No clubbing, No cyanosis Skin: Other (scaling to bilateral LE; erythema more to right than left; scabbed pressure ulcer to right calcaneus) Labs Labs: Laboratory Tests Test 11/14/18 20:25 11/15/18 04:25 Glucose (Fingerstick) 214 mg/dL (70-99) White Blood Count 17.1 x10^3/uL (4.0-11.0) Red Blood Count 3.80 x10^6/uL (3.50-5.40) Hemoglobin 11.9 g/dL (12.0-15.5) Hematocrit 35.7 % (36.0-47.0) Mean Corpuscular Volume 94 fL (79-100) Mean Corpuscular Hemoglobin 31 pg (25-35) Mean Corpuscular Hemoglobin Concent 33 g/dL (31-37) Red Cell Distribution Width 15.0 % (11.5-14.5) Platelet Count 290 x10^3/uL (140-400) Neutrophils (%) (Auto) 93 % (31-73) Lymphocytes (%) (Auto) 5 % (24-48) Monocytes (%) (Auto) 2 % (0-9) Eosinophils (%) (Auto) 0 % (0-3) Basophils (%) (Auto) 0 % (0-3) Neutrophils # (Auto) 15.8 x10^3/uL (1.8-7.7) Lymphocytes # (Auto) 0.9 x10^3/uL (1.0-4.8) Monocytes # (Auto) 0.4 x10^3/uL (0.0-1.1) Eosinophils # (Auto) 0.0 x10^3/uL (0.0-0.7) Basophils # (Auto) 0.0 x10^3/uL (0.0-0.2) Sodium Level 135 mmol/L (136-145) Potassium Level 5.2 mmol/L (3.5-5.1) Chloride Level 99 mmol/L (98-107) Carbon Dioxide Level 31 mmol/L (21-32) Anion Gap 5 (6-14) Blood Urea Nitrogen 59 mg/dL (7-20) Creatinine 1.2 mg/dL (0.6-1.0) Estimated GFR (Cockcroft-Gault) 42.4 BUN/Creatinine Ratio 49 (6-20) Glucose Level 192 mg/dL (70-99) Calcium Level 8.4 mg/dL (8.5-10.1) Total Bilirubin 0.4 mg/dL (0.2-1.0) Aspartate Amino Transf (AST/SGOT) 31 U/L (15-37) Alanine Aminotransferase (ALT/SGPT) 57 U/L (14-59) Alkaline Phosphatase 58 U/L (46-116) Total Protein 6.6 g/dL (6.4-8.2) Albumin 2.8 g/dL (3.4-5.0) Albumin/Globulin Ratio 0.7 (1.0-1.7) Prealbumin 44.1 mg/dL (16.0-42.0) Review of Systems Review of Systems: Pt c/o dysphagia Pt c/o of SOB Assessment and Plan Assessmemt and Plan Problems Medical Problems: (1) A-fib Status: Acute (2) Acute kidney injury superimposed on CKD Status: Acute (3) Acute on chronic diastolic congestive heart failure Status: Acute (4) Acute respiratory failure Status: Acute (5) Cellulitis of right lower extremity Status: Acute Plan: Re-Consult cardio about new onset aflutter Continue cardizem shelter monitor PTOT Labs Home meds Pt has poor po intake, consult speech, nutrition, check nutrition labs in AM Patient is DNR, very frail Comment Review of Relevant I have reviewed the following items christina (where applicable) has been applied. Medications: Current Medications Medications (Trade) Dose Ordered Sig/Lilly Route PRN Reason Start Time Stop Time Status Last Admin Dose Admin Furosemide (Lasix) 20 mg 1X ONCE IVP 11/15/18 12:15 11/15/18 12:16 DC 11/15/18 12:43 Diltiazem HCl (Cardizem) 60 mg 1X ONCE PO 11/15/18 12:30 11/15/18 12:31 DC 11/15/18 12:42 JEREMY NARVAEZ III DO Nov 15, 2018 13:59
[2018-11-15 14:56] VITALS: BP 95/48
[2018-11-15] MEDS: MICAFUNGIN 100 MG in IV DEXTROSE 5% 100ML 100 ML IV SCH (15:49)
[2018-11-15] MEDS ORDERED: CALCIUM CARBONATE 500 MG TAB.CHEW PO PRN (17:45)
[2018-11-15 19:00] VITALS: BP 136/60
[2018-11-15] MEDS: DOXEPIN HCL 25 MG CAPSULE. PO SCH (19:46)
[2018-11-15] MEDS: ATORVASTATIN CALCIUM 20 MG TABLET PO SCH (19:47)
[2018-11-15] MEDS: TEMAZEPAM 7.5 MG CAPSULE PO PRN (19:48)
[2018-11-15] MEDS: METOPROLOL TARTRATE 5 MG/5 ML VIAL. IVP PRN ×2 (22:12→22:15)
[2018-11-15 23:09] VITALS: BP 144/56
[2018-11-16 03:02] VITALS: BP 121/67
[2018-11-16 07:00] VITALS: BP 153/84
[2018-11-16] MEDS: BUDESONIDE 0.5 MG/2 ML NEBU. NEB SCH ×2 (07:09→20:26)
[2018-11-16] MEDS: METOPROLOL TARTRATE 5 MG/5 ML VIAL. IVP PRN ×2 (08:11→18:34)
[2018-11-16] MEDS: DOCUSATE SODIUM 100 MG CAPSULE. PO SCH ×2 (09:00→22:07)
[2018-11-16] MEDS: AMOXICILLIN/K CLAV 500/125MG TABLET. PO SCH ×2 (09:12→22:07)
[2018-11-16] MEDS: methylPREDNISolone SOD SUCC PF 40 MG/ML VIAL. IV SCH ×2 (09:12→22:06)
[2018-11-16] MEDS: ASCORBIC ACID 500 MG TABLET PO SCH (09:12)
[2018-11-16] MEDS: MULTIVITAMIN with MINERAL TABLET. PO SCH (09:12)
[2018-11-16] MEDS: ASPIRIN 325 MG TABLET PO SCH (09:13)
[2018-11-16] MEDS: LOSARTAN POTASSIUM 50 MG TABLET. PO SCH (09:13)
[2018-11-16] MEDS: LACTOBACILLUS RHAMNOSUS GG 1 CAPSULE. PO SCH ×2 (09:13→22:07)
[2018-11-16] MEDS: CETIRIZINE HCL 10 MG TABLET. PO SCH (09:13)
--- NOTE | 2018-11-16 10:13 | PDOC ---
Infectious Disease Note Subjective Subjective pt is feeling ok ROS ROS no n/v/d/ Vital Sign Vital Signs Vital Signs Date Time Temp Pulse Resp B/P (MAP) Pulse Ox O2 Delivery O2 Flow Rate FiO2 11/16/18 09:13 126 153/84 11/16/18 07:43 Nasal Cannula 2.0 11/16/18 07:10 99 11/16/18 07:00 97.4 14 97.4 Physical Exam PHYSICAL EXAM GEN: Propped up in bed, alert, smiling HEENT: Oral cavity pink, moist. No thrush NECK: Supple. LUNGS: Clear CARDIOVASCULAR: atrial flutter ABDOMEN: Soft, obese with decreased BS EXTREMITIES: BLE min erythema, + wrinkling, mild yeast. LLE wound SKIN: No rash PIV Labs Micro Microbiology 11/07/18 Blood Culture - Final, Complete NO GROWTH AFTER 5 DAYS Objective Assessment New-onset A-flutter RLE cellulitis - failed Clinda - better Leukocytosis - on solu-medrol TY Tinea Superficial right heel and left leg wounds Bronchospasm on steroids h/o Plan Plan of Care Continue Augmentin,,, Local wound care off load BRE GUSTAFSON MD Nov 16, 2018 10:13
[2018-11-16 10:48] VITALS: BP 140/80
[2018-11-16] MEDS ORDERED: BARIUM SULFATE 40% (APPLE) 148 GM PWD. PO ONE (11:45)
--- NOTE | 2018-11-16 12:06 | PDOC ---
[facility] PROGRESS NOTE Chief Complaint Chief Complaint New Onset A. fib/A flutter - with RVR, acute diastolic CHF Mild CHF by chest x-ray Acute hypoxic respiratory failure SNU resident DNR Bilateral lower extremity cellulitis negative Dopplers for DVT-right greater than left met encephalopathy/confusion Dementia Geriatric Fall risk hypertension GERD OA-chronic stable History of Present Illness History of Present Illness 11/16/18 Pt seen and examined On p.o. tiago Varela of Infectious Disease (changed pt to PO Abx yesterday) Reviewed pt's chart Vitals/I&O Vitals/I&O: Vital Signs Date Time Temp Pulse Resp B/P (MAP) Pulse Ox O2 Delivery O2 Flow Rate FiO2 11/16/18 10:48 98.0 109 16 140/80 (100) 97 Room Air 98.0 11/16/18 07:43 2.0 I & O 11/15/18 11/15/18 11/16/18 15:00 23:00 07:00 Intake Total 940 ml 360 ml Output Total 4 ml 2 ml Balance 936 ml 358 ml Physical Exam Physical Exam: GEN: Alert, smiling HEENT: Oral cavity pink, moist. No thrush NECK: Supple. LUNGS: Clear CARDIOVASCULAR: atrial flutter ABDOMEN: Soft, obese with decreased BS EXTREMITIES: BLE min erythema, + wrinkling, mild yeast. LLE wound SKIN: No rash PIV General: Alert, Oriented X3, Cooperative, No acute distress Heart: Regular rate (SR), Other Lungs: Wheezing (faint) Abdomen: Soft, No tenderness Extremities: No clubbing, No cyanosis Skin: Other (scaling to bilateral LE; erythema more to right than left; scabbed pressure ulcer to right calcaneus) Review of Systems Review of Systems: No c/o N/V/D No c/o headache Assessment and Plan Assessmemt and Plan Problems Medical Problems: (1) A-fib Status: Acute (2) Acute kidney injury superimposed on CKD Status: Acute (3) Acute on chronic diastolic congestive heart failure Status: Acute (4) Acute respiratory failure Status: Acute (5) Cellulitis of right lower extremity Status: Acute Plan Hope to d/c to care home care facility if okay w/cardiology For now continue on ekg monitor Home meds PT/OT Labs Comment Review of Relevant I have reviewed the following items christina (where applicable) has been applied. Medications: Current Medications Medications (Trade) Dose Ordered Sig/Lilly Route PRN Reason Start Time Stop Time Status Last Admin Dose Admin Furosemide (Lasix) 20 mg 1X ONCE IVP 11/15/18 12:15 11/15/18 12:16 DC 11/15/18 12:43 Albuterol Sulfate (Ventolin Neb Soln) 2.5 mg PRN Q4HRS PRN NEB SHORTNESS OF BREATH 11/15/18 12:15 11/16/18 07:10 Diltiazem HCl (Cardizem 24hr Cd) 240 mg DAILY PO 11/16/18 09:00 11/16/18 09:13 Diltiazem HCl (Cardizem) 60 mg 1X ONCE PO 11/15/18 12:30 11/15/18 12:31 DC 11/15/18 12:42 Calcium Carbonate/ Glycine (Tums) 500 mg PRN AFTMEALHC PRN PO INDIGESTION 11/15/18 17:45 11/15/18 18:04 JEREMY NARVAEZ III DO Nov 16, 2018 12:06
--- NOTE | 2018-11-16 12:11 | PDOC ---
PULMONARY PROGRESS NOTES Subjective remains in atrial fibrillation NO SOA Vitals Vital Signs Date Time Temp Pulse Resp B/P (MAP) Pulse Ox O2 Delivery O2 Flow Rate FiO2 11/16/18 10:48 98.0 109 16 140/80 (100) 97 Room Air 98.0 11/16/18 07:43 2.0 ROS: No Chest Pain, No Increase Cough General: Alert, No acute distress Lungs: Wheezing (resolved) Cardiovascular: S1, S2, Other (irregular) Abdomen: Soft Neuro Exam: Alert Extremities: No Edema Skin: Warm Labs Laboratory Tests Test 11/14/18 20:25 11/15/18 04:25 Glucose (Fingerstick) 214 mg/dL (70-99) White Blood Count 17.1 x10^3/uL (4.0-11.0) Red Blood Count 3.80 x10^6/uL (3.50-5.40) Hemoglobin 11.9 g/dL (12.0-15.5) Hematocrit 35.7 % (36.0-47.0) Mean Corpuscular Volume 94 fL (79-100) Mean Corpuscular Hemoglobin 31 pg (25-35) Mean Corpuscular Hemoglobin Concent 33 g/dL (31-37) Red Cell Distribution Width 15.0 % (11.5-14.5) Platelet Count 290 x10^3/uL (140-400) Neutrophils (%) (Auto) 93 % (31-73) Lymphocytes (%) (Auto) 5 % (24-48) Monocytes (%) (Auto) 2 % (0-9) Eosinophils (%) (Auto) 0 % (0-3) Basophils (%) (Auto) 0 % (0-3) Neutrophils # (Auto) 15.8 x10^3/uL (1.8-7.7) Lymphocytes # (Auto) 0.9 x10^3/uL (1.0-4.8) Monocytes # (Auto) 0.4 x10^3/uL (0.0-1.1) Eosinophils # (Auto) 0.0 x10^3/uL (0.0-0.7) Basophils # (Auto) 0.0 x10^3/uL (0.0-0.2) Sodium Level 135 mmol/L (136-145) Potassium Level 5.2 mmol/L (3.5-5.1) Chloride Level 99 mmol/L (98-107) Carbon Dioxide Level 31 mmol/L (21-32) Anion Gap 5 (6-14) Blood Urea Nitrogen 59 mg/dL (7-20) Creatinine 1.2 mg/dL (0.6-1.0) Estimated GFR (Cockcroft-Gault) 42.4 BUN/Creatinine Ratio 49 (6-20) Glucose Level 192 mg/dL (70-99) Calcium Level 8.4 mg/dL (8.5-10.1) Total Bilirubin 0.4 mg/dL (0.2-1.0) Aspartate Amino Transf (AST/SGOT) 31 U/L (15-37) Alanine Aminotransferase (ALT/SGPT) 57 U/L (14-59) Alkaline Phosphatase 58 U/L (46-116) Total Protein 6.6 g/dL (6.4-8.2) Albumin 2.8 g/dL (3.4-5.0) Albumin/Globulin Ratio 0.7 (1.0-1.7) Prealbumin 44.1 mg/dL (16.0-42.0) Medications Active Scripts Medications Dose Route/Sig Max Daily Dose Days Date Category Thera M Plus Tablet (Multivits,Ca,Minerals/Iron/FA) 1 Each Tablet 1 Each PO DAILY 11/07/18 Reported Melatonin 3 Mg Tablet 5 Mg PO HS 11/07/18 Reported Claritin (Loratadine) 10 Mg Tablet 1 Tab PO DAILY 11/07/18 Reported Losartan Potassium 50 Mg Tablet 50 Mg PO DAILY 11/07/18 Reported Tylenol Extra Strength (Acetaminophen) 500 Mg Tablet 1,000 Mg PO PRN Q6HRS PRN 11/07/18 Reported Bactrim Ds Tablet (Sulfamethoxazole/Trimethoprim) 1 Each Tablet 1 Each PO BID 7 11/07/18 Reported Doxepin Hcl 75 Mg Capsule 75 Mg PO DAILY 10/25/17 Reported Aspirin 325 Mg Tablet 1 Tab PO DAILY 01/04/14 Reported Furosemide 20 Mg Tablet 1 Tab PO DAILY 01/04/14 Reported Metoprolol Tartrate 50 Mg Tablet 1 Tab PO BID 01/04/14 Reported Impression . 1. Acute hypoxic respiratory failure secondary to diffuse bronchospasm, resolved 2. Diffuse bronchospasm, likely cardiac asthma. She has mild congestive heart failure on the chest x-ray and likely acute on chronic diastolic heart failure and also related to her MR. off metoprolol PO , wheezing improved post diuresis She quit tobacco 35 years ago and unlikely chronic obstructive disease exacerbat ion. 3. acute onset atrial fibrillation. rate controlled with diltiazem. of note the fact that she started wheezing again with afib supports a dx of "cardiac" asthma (which does not necessarily correlate with the severity of heart failure). 4. Renal insufficiency. 5. Underlying obesity. 6. distant past tobacco history. Plan . 1. Control of Afib per cardiology. 2. Holding metoprolol 3. prn Lasix due to azotemia 4. DuoNebs. 5. Pulmicort. 6. solumedrol with gradual taper 7. taper O2 watching oxygen saturation. 8. CXR f/u 11/14 with mild CHF, left base effusion, FILEMON JAFFE MD Nov 16, 2018 12:11
[2018-11-16 15:00] VITALS: BP 120/56
--- NOTE | 2018-11-16 15:09 | RAD ---
Exam: Video Swallowing Study Date: 11/16/2018 History: Clinical suspicion for aspiration Comparison: None Procedure: Video fluoroscopy of the neck was performed from the lateral projection following ingestion of various consistency barium which was administered by the speech pathologist. Fluoroscopy time: 2.3 minutes Number of images saved: 1 Findings/ Impression: No aspiration was seen. Contrast was refluxed from the esophagus and into the piriforms with associated deep penetration which cleared with swallowing. Please see speech pathology's report for further details of examination. Electronically signed by: Arron Storm MD (11/16/2018 3:06 PM) [facility]
--- NOTE | 2018-11-16 15:48 | NUR ---
SS following up with discharge planning. Discharge order put in by Dr. Gonzalez. Discharge instructions not completed at this time. Pt's RN contacted Dr. Gonzalez and Dr. Gonzalez reported being unable to complete discharge instructions. Pt's RN contacted Dr. Major to complete orders. After reviewing, Dr. Major concerned about possible GI Bleed. Discharge cancelled until GI consult could be completed.
--- NOTE | 2018-11-16 16:09 | DS ---
DATE OF DISCHARGE: 11/16/2018 ADMISSION DIAGNOSES: Congestive heart failure, arrhythmias, hypoxia, bilateral lower extremity cellulitis, metabolic encephalopathy, underlying dementia, hypertension, old stroke. DISCHARGE DIAGNOSIS: Resolving congestive heart failure. HOSPITAL COURSE: The patient is a pleasant middle-aged elderly female who is a skilled nursing resident, basically presented with heart failure and cellulitis and respiratory failure. She was admitted. We consulted Infectious Disease, Pulmonary and Cardiology. We gave her Lasix and IV antibiotics. We have now changed the antibiotics to p.o. She also received DuoNeb and oxygen and underwent physical therapy and occupational therapy. Over the past 10 days, she has returned to her baseline. PHYSICAL EXAMINATION: GENERAL: I saw her and examined this morning, she is doing well. HEART: Her heart tones are normal. LUNGS: Clear. ABDOMEN: Soft. EXTREMITIES: Trace edema. We plan to discharge back to her skilled nursing. DISPOSITION: Long-term care. ACTIVITY: As tolerated. DIET: Low sodium. MEDICATIONS: Please see the MRAD. TOTAL TIME: 34 minutes. JEREMY NARVAEZ DO DR: ALEXA/julius JOB#: [id number] / [id number]
--- NOTE | 2018-11-16 16:49 | PDOC2 ---
GI CONSULT Reason For Consult: Concern for GI bleed HPI: HPI: 88 y/o female. Brought to ER from on 11/06 for SOA. Has CHF, A Fib, suspected cardiac asthma, and abnormal CXR. No meaningful history from pt - she says she might be having trouble eating but doesn't know, denies abd pain, and thinks she's stooling normally. Discharge held today for GI consult this evening. Nurse notes wincing with swallowing pills, says she doesn't eat a lot. Had a large stool last night without blood. Videoswallow/[employer] eval notes esophageal backflow. Also d/w hospitalist who notes disproportionate BUN/Cr ratio w/ positive hemoccult. PMH: PMH: per chart: A Fib, CHF, CAD w/ stent, mitral regurg, HTN, HLD, PAD, CVA, CKD, UTI, osteoporosis, bipolar, dementia, skin cancer cataract removal, left knee surgery, right ankle surgery FH: Family History: No pertinent hx Social History: Smoke: Quit ALCOHOL: none Drugs: None ROS: Per HPI. Vitals: Vitals: Vital Signs Date Time Temp Pulse Resp B/P (MAP) Pulse Ox O2 Delivery O2 Flow Rate FiO2 11/16/18 15:00 98.2 113 18 120/56 (77) 2 Nasal Cannula 97.0 98.2 Allergies: Coded Allergies: adhesive tape (Verified Allergy, Intermediate, Rash, 11/16/18) Medications: Current Medications Medications (Trade) Dose Ordered Sig/Lilly Route PRN Reason Start Time Stop Time Status Last Admin Dose Admin Diltiazem HCl (Cardizem 24hr Cd) 240 mg DAILY PO 11/16/18 09:00 11/16/18 09:13 Calcium Carbonate/ Glycine (Tums) 500 mg PRN AFTMEALHC PRN PO INDIGESTION 11/15/18 17:45 11/15/18 18:04 Barium Sulfate (Varibar Thin Liquid Apple) 148 gm 1X ONCE PO 11/16/18 11:45 11/16/18 11:46 DC 11/16/18 11:45 Imaging: Imaging: Videoswallow Impression: No aspiration was seen. Contrast was refluxed from the esophagus and into the piriforms with associated deep penetration which cleared with swallowing. Initial Videoswallow Study Report Equipment malfunction-series images not sent to PACS. Pt seated at 90* for po intake during eval. IMPRESSIONS: Esophageal backflow noted to pyriform sinuses, nikkie w/liquids but to a lesser extent w/other consistencies. No spillover from pyriforms observed d uring this brief study but is certainly a risk. ? if this could be contributing factor to lung consolidation noted in PCXR of 11/14? Suspect backflow also may contribute to observations of pt attempting to swallow effortfully during po intake. May benefit from GI referral. Oropharyngeal swallow functional. RECOMMENDATIONS: Con't current diet w/thin liquids. Consider referral to GI re: esophageal backflow noted during videoswallow. Con't precautions as posted at this time. CXR 11/14 IMPRESSION: Left lung base airspace opacities and small left pleural effusion have progressed compared to 11/06/2018. Right lung base opacities are grossly stable. Consolation of findings may be seen with multifocal consolidative process such as pneumonia or pulmonary edema. Echo 11/07 <Conclusion> The left ventricular systolic function is normal. The Ejection Fraction is 55-60%. There is normal LV segmental wall motion. Mild aortic regurgitation. Mild to moderate mitral regurgitation. Trace to mild tricuspid regurgitation. The PA pressure was estimated at 32 mmHg. There is no evidence of significant pericardial effusion. CXR 11/06 Impression: Findings consistent with mild CHF. PE: GEN: NAD - was asleep HEENT: Atraumatic, PERRL LUNGS: NC 2L, poor effort HEART: irregularly irregular ABD: NABS, S/ND/NT EXTREMITY: No edema SKIN: No rashes, no jaundice NEURO/PSYCH: knows she's in the hospital in [place], doesn't know year or birthday A/P: A/P: CHF, A Fib, resp failure ?odynophagia/dysphagia, abnormal videoswallow w/ esophageal backflow Normocytic anemia - noted on most labs since 2013, Hgb stable this admission (between 10.7 and 12.5 - 11.9 today) CKD, hyperkalemia - as above, d/w Dr. Joy - BUN/Cr ratio 49 Leukocytosis and hyperglycemia on IV steroids -- After reviewing w/ Dr. Louie, I spoke w/ Escobar, pt's son/DPOA - offered EGD for tomorrow - he wants to think about it and will talk w/ pt tonight. Called to RN - will put orders for possible EGD in a.m. pending Escobar's decision. Start PPI. Check iron profile. ALEX ROSALES Nov 16, 2018 16:49
[2018-11-16] MEDS: PANTOPRAZOLE 40 MG TABLET.DR. PO SCH (17:27)
[2018-11-16 19:32] VITALS: BP 155/69
[2018-11-16] MEDS: ATORVASTATIN CALCIUM 20 MG TABLET PO SCH (22:07)
[2018-11-16] MEDS: DOXEPIN HCL 25 MG CAPSULE. PO SCH (22:07)
[2018-11-16] MEDS: TEMAZEPAM 7.5 MG CAPSULE PO PRN (22:08)
[2018-11-16 22:42] VITALS: BP 125/59
[2018-11-17] VITALS (13 sets, daily range): BP systolic 110–173; BP diastolic 55–85
[2018-11-17] MEDS: METOPROLOL TARTRATE 5 MG/5 ML VIAL. IVP PRN ×2 (03:52→21:47)
[2018-11-17 05:18] LABS: BASO % 0 % (0-3); EOS % 0 % (0-3); HEMATOCRIT 31.6 % (36.0-47.0); HEMOGLOBIN 10.5 g/dL (12.0-15.5); LYMPH # 1.1 x10^3/uL (1.0-4.8); LYMPH % 7 % (24-48); MEAN CORPUSCULAR HEMOGLOBIN 32 pg (25-35); MEAN CORPUSCULAR HGB CONC 33 g/dL (31-37); MEAN CORPUSCULAR VOLUME 95 fL (79-100); MONO # 0.6 x10^3/uL (0.0-1.1); MONO % 4 % (0-9); NEUT % 89 % (31-73); PLATELET COUNT 215 x10^3/uL (140-400); RED BLOOD COUNT 3.33 x10^6/uL (3.50-5.40); RED CELL DISTRIBUTION WIDTH 14.4 % (11.5-14.5); WHITE BLOOD COUNT 16.8 x10^3/uL (4.0-11.0)
[2018-11-17 05:33] LABS: CALCIUM 7.9 mg/dL (8.5-10.1); CREATININE 1.1 mg/dL (0.6-1.0); GFR 46.9; POTASSIUM 5.3 mmol/L (3.5-5.1)
[2018-11-17] MEDS: BUDESONIDE 0.5 MG/2 ML NEBU. NEB SCH ×2 (07:45→20:04)
[2018-11-17] MEDS: DOCUSATE SODIUM 100 MG CAPSULE. PO SCH ×2 (09:00→21:40)
--- NOTE | 2018-11-17 09:50 | PDOC ---
PULMONARY PROGRESS NOTES Subjective remains in atrial fibrillation NO SOA Vitals Vital Signs Date Time Temp Pulse Resp B/P (MAP) Pulse Ox O2 Delivery O2 Flow Rate FiO2 11/17/18 09:26 113 145/61 11/17/18 07:48 97 Nasal Cannula 2.0 11/17/18 07:00 98.2 20 98.2 ROS: No Chest Pain, No Increase Cough General: Alert, No acute distress Lungs: Wheezing (resolved) Cardiovascular: S1, S2, Other (irregular) Abdomen: Soft Neuro Exam: Alert Extremities: No Edema Skin: Warm Labs Laboratory Tests Test 11/17/18 04:30 White Blood Count 16.8 x10^3/uL (4.0-11.0) Red Blood Count 3.33 x10^6/uL (3.50-5.40) Hemoglobin 10.5 g/dL (12.0-15.5) Hematocrit 31.6 % (36.0-47.0) Mean Corpuscular Volume 95 fL (79-100) Mean Corpuscular Hemoglobin 32 pg (25-35) Mean Corpuscular Hemoglobin Concent 33 g/dL (31-37) Red Cell Distribution Width 14.4 % (11.5-14.5) Platelet Count 215 x10^3/uL (140-400) Neutrophils (%) (Auto) 89 % (31-73) Lymphocytes (%) (Auto) 7 % (24-48) Monocytes (%) (Auto) 4 % (0-9) Eosinophils (%) (Auto) 0 % (0-3) Basophils (%) (Auto) 0 % (0-3) Neutrophils # (Auto) 15.0 x10^3/uL (1.8-7.7) Lymphocytes # (Auto) 1.1 x10^3/uL (1.0-4.8) Monocytes # (Auto) 0.6 x10^3/uL (0.0-1.1) Eosinophils # (Auto) 0.0 x10^3/uL (0.0-0.7) Basophils # (Auto) 0.0 x10^3/uL (0.0-0.2) Sodium Level 133 mmol/L (136-145) Potassium Level 5.3 mmol/L (3.5-5.1) Chloride Level 99 mmol/L (98-107) Carbon Dioxide Level 29 mmol/L (21-32) Anion Gap 5 (6-14) Blood Urea Nitrogen 57 mg/dL (7-20) Creatinine 1.1 mg/dL (0.6-1.0) Estimated GFR (Cockcroft-Gault) 46.9 Glucose Level 185 mg/dL (70-99) Calcium Level 7.9 mg/dL (8.5-10.1) Iron Level 130 ug/dL (50-170) Total Iron Binding Capacity 284 ug/dL (250-450) Iron Saturation 46 % (15-34) Laboratory Tests Test 11/17/18 04:30 White Blood Count 16.8 x10^3/uL (4.0-11.0) Red Blood Count 3.33 x10^6/uL (3.50-5.40) Hemoglobin 10.5 g/dL (12.0-15.5) Hematocrit 31.6 % (36.0-47.0) Mean Corpuscular Volume 95 fL (79-100) Mean Corpuscular Hemoglobin 32 pg (25-35) Mean Corpuscular Hemoglobin Concent 33 g/dL (31-37) Red Cell Distribution Width 14.4 % (11.5-14.5) Platelet Count 215 x10^3/uL (140-400) Neutrophils (%) (Auto) 89 % (31-73) Lymphocytes (%) (Auto) 7 % (24-48) Monocytes (%) (Auto) 4 % (0-9) Eosinophils (%) (Auto) 0 % (0-3) Basophils (%) (Auto) 0 % (0-3) Neutrophils # (Auto) 15.0 x10^3/uL (1.8-7.7) Lymphocytes # (Auto) 1.1 x10^3/uL (1.0-4.8) Monocytes # (Auto) 0.6 x10^3/uL (0.0-1.1) Eosinophils # (Auto) 0.0 x10^3/uL (0.0-0.7) Basophils # (Auto) 0.0 x10^3/uL (0.0-0.2) Sodium Level 133 mmol/L (136-145) Potassium Level 5.3 mmol/L (3.5-5.1) Chloride Level 99 mmol/L (98-107) Carbon Dioxide Level 29 mmol/L (21-32) Anion Gap 5 (6-14) Blood Urea Nitrogen 57 mg/dL (7-20) Creatinine 1.1 mg/dL (0.6-1.0) Estimated GFR (Cockcroft-Gault) 46.9 Glucose Level 185 mg/dL (70-99) Calcium Level 7.9 mg/dL (8.5-10.1) Iron Level 130 ug/dL (50-170) Total Iron Binding Capacity 284 ug/dL (250-450) Iron Saturation 46 % (15-34) Medications Active Scripts Medications Dose Route/Sig Max Daily Dose Days Date Category Thera M Plus Tablet (Multivits,Ca,Minerals/Iron/FA) 1 Each Tablet 1 Each PO DAILY 11/07/18 Reported Melatonin 3 Mg Tablet 5 Mg PO HS 11/07/18 Reported Claritin (Loratadine) 10 Mg Tablet 1 Tab PO DAILY 11/07/18 Reported Losartan Potassium 50 Mg Tablet 50 Mg PO DAILY 11/07/18 Reported Tylenol Extra Strength (Acetaminophen) 500 Mg Tablet 1,000 Mg PO PRN Q6HRS PRN 11/07/18 Reported Bactrim Ds Tablet (Sulfamethoxazole/Trimethoprim) 1 Each Tablet 1 Each PO BID 7 11/07/18 Reported Doxepin Hcl 75 Mg Capsule 75 Mg PO DAILY 10/25/17 Reported Aspirin 325 Mg Tablet 1 Tab PO DAILY 01/04/14 Reported Furosemide 20 Mg Tablet 1 Tab PO DAILY 01/04/14 Reported Metoprolol Tartrate 50 Mg Tablet 1 Tab PO BID 01/04/14 Reported Impression . 1. Acute hypoxic respiratory failure secondary to diffuse bronchospasm, resolved 2. Diffuse bronchospasm, likely cardiac asthma. She has mild congestive heart failure on the chest x-ray and likely acute on chronic diastolic heart failure and also related to her MR. off metoprolol PO , wheezing improved post diuresis She quit tobacco 35 years ago and unlikely chronic obstructive disease exacerbation. 3. acute onset atrial fibrillation. rate controlled with diltiazem. of note the fact that she started wheezing again with afib supports a dx of "cardiac" asthma (which does not necessarily correlate with the severity of heart failure). 4. Renal insufficiency. 5. Underlying obesity. 6. distant past tobacco history. Plan . 1. Control of Afib per cardiology. 2. Holding metoprolol 3. prn Lasix due to azotemia/ EGD to r/o GI bleed 4. DuoNebs. 5. Pulmicort. 6. solumedrol with gradual taper 7. taper O2 watching oxygen saturation. 8. CXR f/u 11/14 with mild CHF, left base effusion, FILEMON JAFFE MD Nov 17, 2018 09:50
[2018-11-17] MEDS ORDERED: IV RINGERS,LACTATED 1000ML 1,000 ML IV SCH ×2 (10:18→10:29)
[2018-11-17] MEDS ORDERED: MIDAZOLAM HCL/PF 2 MG/2 ML VIAL. IV PRN ×2 (10:30)
[2018-11-17] MEDS ORDERED: LIDOCAINE 1% PF 2 ML VIAL. ID PRN ×2 (10:30)
[2018-11-17] MEDS ORDERED: fentaNYL PF VIAL 100 MCG/2 ML VIAL IV PRN ×4 (10:30)
[2018-11-17] MEDS ORDERED: PROPOFOL 20 ML IV ONE (11:06)
[2018-11-17] MEDS ORDERED: LIDOCAINE 2% PF 5 ML VIAL. ONE (11:06)
--- NOTE | 2018-11-17 11:22 | PDOC ---
[employer] PROGRESS NOTE Chief Complaint Chief Complaint New Onset A. fib/A flutter - with RVR, acute diastolic CHF Mild CHF by chest x-ray Acute hypoxic respiratory failure [facility] resident DNR Bilateral lower extremity cellulitis Negative Dopplers for DVT-right greater than left Met encephalopathy/confusion Dementia Geriatric Fall risk Hypertension GERD OA-chronic stable History of Present Illness History of Present Illness 11/17/18 Pt seen and examined D/c held yesterday due to anemia Pt will be getting an EGD and hope to d/c after On p.o. tiago Discussed pt's care w/nurse Reviewed pt's chart Vitals/I&O Vitals/I&O: Vital Signs Date Time Temp Pulse Resp B/P (MAP) Pulse Ox O2 Delivery O2 Flow Rate FiO2 11/17/18 10:26 98.7 81 18 92 98.7 11/17/18 10:22 Nasal Cannula 2.0 11/17/18 09:26 145/61 I & O 11/16/18 11/16/18 11/17/18 14:59 22:59 06:59 Intake Total 120 ml 0 ml Balance 120 ml 0 ml Physical Exam General: Alert, Oriented X3, Cooperative, No acute distress Heart: Regular rate (SR), Other Lungs: Wheezing (resolved) Abdomen: Soft, No tenderness Extremities: No clubbing, No cyanosis Skin: Other (scaling to bilateral LE; erythema more to right than left; scabbed pressure ulcer to right calcaneus) Labs Labs: Laboratory Tests Test 11/17/18 04:30 White Blood Count 16.8 x10^3/uL (4.0-11.0) Red Blood Count 3.33 x10^6/uL (3.50-5.40) Hemoglobin 10.5 g/dL (12.0-15.5) Hematocrit 31.6 % (36.0-47.0) Mean Corpuscular Volume 95 fL (79-100) Mean Corpuscular Hemoglobin 32 pg (25-35) Mean Corpuscular Hemoglobin Concent 33 g/dL (31-37) Red Cell Distribution Width 14.4 % (11.5-14.5) Platelet Count 215 x10^3/uL (140-400) Neutrophils (%) (Auto) 89 % (31-73) Lymphocytes (%) (Auto) 7 % (24-48) Monocytes (%) (Auto) 4 % (0-9) Eosinophils (%) (Auto) 0 % (0-3) Basophils (%) (Auto) 0 % (0-3) Neutrophils # (Auto) 15.0 x10^3/uL (1.8-7.7) Lymphocytes # (Auto) 1.1 x10^3/uL (1.0-4.8) Monocytes # (Auto) 0.6 x10^3/uL (0.0-1.1) Eosinophils # (Auto) 0.0 x10^3/uL (0.0-0.7) Basophils # (Auto) 0.0 x10^3/uL (0.0-0.2) Sodium Level 133 mmol/L (136-145) Potassium Level 5.3 mmol/L (3.5-5.1) Chloride Level 99 mmol/L (98-107) Carbon Dioxide Level 29 mmol/L (21-32) Anion Gap 5 (6-14) Blood Urea Nitrogen 57 mg/dL (7-20) Creatinine 1.1 mg/dL (0.6-1.0) Estimated GFR (Cockcroft-Gault) 46.9 Glucose Level 185 mg/dL (70-99) Calcium Level 7.9 mg/dL (8.5-10.1) Iron Level 130 ug/dL (50-170) Total Iron Binding Capacity 284 ug/dL (250-450) Iron Saturation 46 % (15-34) Review of Systems Review of Systems: No c/o headache No c/o N/V/D Assessment and Plan Assessmemt and Plan Problems Medical Problems: (1) A-fib Status: Acute (2) Acute kidney injury superimposed on CKD Status: Acute (3) Acute on chronic diastolic congestive heart failure Status: Acute (4) Acute respiratory failure Status: Acute (5) Cellulitis of right lower extremity Status: Acute Assessment New Onset A. fib/A flutter - with RVR, acute diastolic CHF Mild CHF by chest x-ray Acute hypoxic respiratory failure SNU resident DNR Bilateral lower extremity cellulitis Negative Dopplers for DVT-right greater than left Met encephalopathy/confusion Dementia Geriatric Fall risk Hypertension GERD OA-chronic stable Plan Awaiting EGD Labs DVT Prophylaxis Home Meds PT/OT DNR D/c disposition pending Comment Review of Relevant I have reviewed the following items christina (where applicable) has been applied. Medications: Current Medications Medications (Trade) Dose Ordered Sig/Lilly Route PRN Reason Start Time Stop Time Status Last Admin Dose Admin Barium Sulfate (Varibar Thin Liquid Apple) 148 gm 1X ONCE PO 11/16/18 11:45 11/16/18 11:46 DC 11/16/18 11:45 Methylprednisolone Sodium Succinate (SOLU-Medrol 40MG VIAL) 30 mg BID IV 11/16/18 21:00 11/16/18 22:06 Pantoprazole Sodium (Protonix) 40 mg DAILYAC PO 11/16/18 17:00 11/16/18 17:27 Ringer's Solution 1,000 ml @ 125 mls/hr Q8H IV 11/17/18 10:18 11/17/18 22:17 11/17/18 10:18 JEREMY NARVAEZ III DO Nov 17, 2018 11:22
--- NOTE | 2018-11-17 11:28 | PDOC4 ---
Operative Note Operative Note EGD with biopsies Meds propofol per anesthesia Pre-op dx melena/acute blood loss anemia post-op dx non-erosive gastritis s/p bx duodenal ulcer cratered ist portion with clean base Plan medical therapy as o/p with Protonix 40 mg for 2 months pending biopsy results MARY ROWELL MD Nov 17, 2018 11:28
[2018-11-17] MEDS: CETIRIZINE HCL 10 MG TABLET. PO SCH (14:19)
[2018-11-17] MEDS: MULTIVITAMIN with MINERAL TABLET. PO SCH (14:20)
[2018-11-17] MEDS: ASCORBIC ACID 500 MG TABLET PO SCH (14:20)
[2018-11-17] MEDS: LACTOBACILLUS RHAMNOSUS GG 1 CAPSULE. PO SCH ×2 (14:20→21:34)
[2018-11-17] MEDS: LOSARTAN POTASSIUM 50 MG TABLET. PO SCH (14:20)
[2018-11-17] MEDS: PANTOPRAZOLE 40 MG TABLET.DR. PO SCH (14:20)
[2018-11-17] MEDS: ASPIRIN 325 MG TABLET PO SCH (14:20)
[2018-11-17] MEDS: methylPREDNISolone SOD SUCC PF 40 MG/ML VIAL. IV SCH ×2 (14:21→21:34)
[2018-11-17] MEDS: AMOXICILLIN/K CLAV 500/125MG TABLET. PO SCH ×2 (14:21→21:34)
[2018-11-17] MEDS: ATORVASTATIN CALCIUM 20 MG TABLET PO SCH (21:34)
[2018-11-17] MEDS: TEMAZEPAM 7.5 MG CAPSULE PO PRN (21:34)
[2018-11-17] MEDS: DOXEPIN HCL 25 MG CAPSULE. PO SCH (21:35)
[2018-11-18 03:07] VITALS: BP 97/56
[2018-11-18 04:54] LABS: BASO % 0 % (0-3); EOS % 0 % (0-3); HEMATOCRIT 33.5 % (36.0-47.0); HEMOGLOBIN 11.2 g/dL (12.0-15.5); LYMPH # 1.4 x10^3/uL (1.0-4.8); LYMPH % 8 % (24-48); MEAN CORPUSCULAR HEMOGLOBIN 32 pg (25-35); MEAN CORPUSCULAR HGB CONC 33 g/dL (31-37); MEAN CORPUSCULAR VOLUME 96 fL (79-100); MONO # 0.6 x10^3/uL (0.0-1.1); MONO % 3 % (0-9); NEUT # 15.4 x10^3/uL (1.8-7.7); NEUT % 88 % (31-73); PLATELET COUNT 217 x10^3/uL (140-400); RED BLOOD COUNT 3.51 x10^6/uL (3.50-5.40); RED CELL DISTRIBUTION WIDTH 14.5 % (11.5-14.5); WHITE BLOOD COUNT 17.4 x10^3/uL (4.0-11.0)
[2018-11-18 05:42] LABS: CALCIUM 8.3 mg/dL (8.5-10.1); GFR 52.3
[2018-11-18 05:43] LABS: POTASSIUM 5.7 mmol/L (3.5-5.1)
[2018-11-18 07:00] VITALS: BP 136/83
[2018-11-18] MEDS: BUDESONIDE 0.5 MG/2 ML NEBU. NEB SCH ×2 (08:09→22:03)
[2018-11-18] MEDS: METOPROLOL TARTRATE 5 MG/5 ML VIAL. IVP PRN (08:58)
[2018-11-18] MEDS: CETIRIZINE HCL 10 MG TABLET. PO SCH (09:02)
[2018-11-18] MEDS: PANTOPRAZOLE 40 MG TABLET.DR. PO SCH (09:02)
[2018-11-18] MEDS: methylPREDNISolone SOD SUCC PF 40 MG/ML VIAL. IV SCH (09:02)
[2018-11-18] MEDS: DOCUSATE SODIUM 100 MG CAPSULE. PO SCH ×2 (09:03→21:00)
[2018-11-18] MEDS: LOSARTAN POTASSIUM 50 MG TABLET. PO SCH (09:03)
[2018-11-18] MEDS: ASPIRIN 325 MG TABLET PO SCH (09:03)
[2018-11-18] MEDS: LACTOBACILLUS RHAMNOSUS GG 1 CAPSULE. PO SCH ×2 (09:03→21:17)
[2018-11-18] MEDS: MULTIVITAMIN with MINERAL TABLET. PO SCH (09:03)
[2018-11-18] MEDS: ASCORBIC ACID 500 MG TABLET PO SCH (09:03)
[2018-11-18] MEDS: AMOXICILLIN/K CLAV 500/125MG TABLET. PO SCH ×2 (09:03→21:17)
--- NOTE | 2018-11-18 09:34 | PDOC ---
PULMONARY PROGRESS NOTES Subjective remains in atrial fibrillation NO SOA Vitals Vital Signs Date Time Temp Pulse Resp B/P (MAP) Pulse Ox O2 Delivery O2 Flow Rate FiO2 11/18/18 09:03 165 136/83 11/18/18 08:09 96 Nasal Cannula 2.0 11/18/18 07:00 97.6 16 97.6 ROS: No Chest Pain, No Increase Cough General: Alert, No acute distress Lungs: Wheezing (resolved) Cardiovascular: S1, S2, Other (irregular) Abdomen: Soft Neuro Exam: Alert Extremities: No Edema Skin: Warm Labs Laboratory Tests Test 11/17/18 04:30 11/18/18 04:25 White Blood Count 16.8 x10^3/uL (4.0-11.0) 17.4 x10^3/uL (4.0-11.0) Red Blood Count 3.33 x10^6/uL (3.50-5.40) 3.51 x10^6/uL (3.50-5.40) Hemoglobin 10.5 g/dL (12.0-15.5) 11.2 g/dL (12.0-15.5) Hematocrit 31.6 % (36.0-47.0) 33.5 % (36.0-47.0) Mean Corpuscular Volume 95 fL (79-100) 96 fL (79-100) Mean Corpuscular Hemoglobin 32 pg (25-35) 32 pg (25-35) Mean Corpuscular Hemoglobin Concent 33 g/dL (31-37) 33 g/dL (31-37) Red Cell Distribution Width 14.4 % (11.5-14.5) 14.5 % (11.5-14.5) Platelet Count 215 x10^3/uL (140-400) 217 x10^3/uL (140-400) Neutrophils (%) (Auto) 89 % (31-73) 88 % (31-73) Lymphocytes (%) (Auto) 7 % (24-48) 8 % (24-48) Monocytes (%) (Auto) 4 % (0-9) 3 % (0-9) Eosinophils (%) (Auto) 0 % (0-3) 0 % (0-3) Basophils (%) (Auto) 0 % (0-3) 0 % (0-3) Neutrophils # (Auto) 15.0 x10^3/uL (1.8-7.7) 15.4 x10^3/uL (1.8-7.7) Lymphocytes # (Auto) 1.1 x10^3/uL (1.0-4.8) 1.4 x10^3/uL (1.0-4.8) Monocytes # (Auto) 0.6 x10^3/uL (0.0-1.1) 0.6 x10^3/uL (0.0-1.1) Eosinophils # (Auto) 0.0 x10^3/uL (0.0-0.7) 0.0 x10^3/uL (0.0-0.7) Basophils # (Auto) 0.0 x10^3/uL (0.0-0.2) 0.0 x10^3/uL (0.0-0.2) Sodium Level 133 mmol/L (136-145) 138 mmol/L (136-145) Potassium Level 5.3 mmol/L (3.5-5.1) 5.7 mmol/L (3.5-5.1) Chloride Level 99 mmol/L (98-107) 102 mmol/L (98-107) Carbon Dioxide Level 29 mmol/L (21-32) 30 mmol/L (21-32) Anion Gap 5 (6-14) 6 (6-14) Blood Urea Nitrogen 57 mg/dL (7-20) 55 mg/dL (7-20) Creatinine 1.1 mg/dL (0.6-1.0) 1.0 mg/dL (0.6-1.0) Estimated GFR (Cockcroft-Gault) 46.9 52.3 Glucose Level 185 mg/dL (70-99) 170 mg/dL (70-99) Calcium Level 7.9 mg/dL (8.5-10.1) 8.3 mg/dL (8.5-10.1) Iron Level 130 ug/dL (50-170) Total Iron Binding Capacity 284 ug/dL (250-450) Iron Saturation 46 % (15-34) Laboratory Tests Test 11/18/18 04:25 White Blood Count 17.4 x10^3/uL (4.0-11.0) Red Blood Count 3.51 x10^6/uL (3.50-5.40) Hemoglobin 11.2 g/dL (12.0-15.5) Hematocrit 33.5 % (36.0-47.0) Mean Corpuscular Volume 96 fL (79-100) Mean Corpuscular Hemoglobin 32 pg (25-35) Mean Corpuscular Hemoglobin Concent 33 g/dL (31-37) Red Cell Distribution Width 14.5 % (11.5-14.5) Platelet Count 217 x10^3/uL (140-400) Neutrophils (%) (Auto) 88 % (31-73) Lymphocytes (%) (Auto) 8 % (24-48) Monocytes (%) (Auto) 3 % (0-9) Eosinophils (%) (Auto) 0 % (0-3) Basophils (%) (Auto) 0 % (0-3) Neutrophils # (Auto) 15.4 x10^3/uL (1.8-7.7) Lymphocytes # (Auto) 1.4 x10^3/uL (1.0-4.8) Monocytes # (Auto) 0.6 x10^3/uL (0.0-1.1) Eosinophils # (Auto) 0.0 x10^3/uL (0.0-0.7) Basophils # (Auto) 0.0 x10^3/uL (0.0-0.2) Sodium Level 138 mmol/L (136-145) Potassium Level 5.7 mmol/L (3.5-5.1) Chloride Level 102 mmol/L (98-107) Carbon Dioxide Level 30 mmol/L (21-32) Anion Gap 6 (6-14) Blood Urea Nitrogen 55 mg/dL (7-20) Creatinine 1.0 mg/dL (0.6-1.0) Estimated GFR (Cockcroft-Gault) 52.3 Glucose Level 170 mg/dL (70-99) Calcium Level 8.3 mg/dL (8.5-10.1) Medications Active Scripts Medications Dose Route/Sig Max Daily Dose Days Date Category Thera M Plus Tablet (Multivits,Ca,Minerals/Iron/FA) 1 Each Tablet 1 Each PO DAILY 11/07/18 Reported Melatonin 3 Mg Tablet 5 Mg PO HS 11/07/18 Reported Claritin (Loratadine) 10 Mg Tablet 1 Tab PO DAILY 11/07/18 Reported Losartan Potassium 50 Mg Tablet 50 Mg PO DAILY 11/07/18 Reported Tylenol Extra Strength (Acetaminophen) 500 Mg Tablet 1,000 Mg PO PRN Q6HRS PRN 11/07/18 Reported Bactrim Ds Tablet (Sulfamethoxazole/Trimethoprim) 1 Each Tablet 1 Each PO BID 7 11/07/18 Reported Doxepin Hcl 75 Mg Capsule 75 Mg PO DAILY 10/25/17 Reported Aspirin 325 Mg Tablet 1 Tab PO DAILY 01/04/14 Reported Furosemide 20 Mg Tablet 1 Tab PO DAILY 01/04/14 Reported Metoprolol Tartrate 50 Mg Tablet 1 Tab PO BID 01/04/14 Reported Impression . 1. Acute hypoxic respiratory failure secondary to diffuse bronchospasm, resolved 2. Diffuse bronchospasm, likely cardiac asthma. She has mild congestive heart failure on the chest x-ray and likely acute on chronic diastolic heart failure and also related to her MR. off metoprolol PO , wheezing improved post diuresis She quit tobacco 35 years ago and unlikely chronic obstructive disease exacerbation. 3. acute onset atrial fibrillation. rate controlled with diltiazem. of note the fact that she started wheezing again with afib supports a dx of "cardiac" asthma (which does not necessarily correlate with the severity of heart failure). 4. Renal insufficiency. 5. Underlying obesity. 6. distant past tobacco history. Plan . 1. Control of Afib per cardiology. 2. Holding metoprolol 3. prn Lasix due to azotemia/ EGD 4. DuoNebs. 5. Pulmicort. 6. dc solumedrol 7. taper O2 watching oxygen saturation. 8. CXR f/u 11/14 with mild CHF, left base effusion, FILEMON JAFFE MD Nov 18, 2018 09:34
[2018-11-18 11:00] VITALS: BP 113/54
--- NOTE | 2018-11-18 11:34 | PDOC ---
Infectious Disease Note Subjective: Subjective pt is feeling ok denies any f/c/n/v/d remains in a flutter ROS: ROS Negative except for above. Vital Signs: Vital Signs Vital Signs Date Time Temp Pulse Resp B/P (MAP) Pulse Ox O2 Delivery O2 Flow Rate FiO2 11/18/18 11:00 98.1 107 16 113/54 (73) 98 Nasal Cannula 2.0 98.1 Medications: Inpatient Meds: Current Medications Medications (Trade) Dose Ordered Sig/Lilly Start Time Stop Time Status Last Admin Dose Admin Acetaminophen (Tylenol) 500 mg PRN Q6HRS PRN 11/07/18 09:30 Albuterol Sulfate (Ventolin Neb Soln) 2.5 mg PRN Q4HRS PRN 11/15/18 12:15 11/16/18 07:10 2.5 MG Albuterol/ Ipratropium (Duoneb) 3 ml Q4HRS 11/08/18 16:00 11/15/18 12:02 DC 11/15/18 11:50 3 ML Amoxicillin/ Clavulanate Potassium (Augmentin 500/ 125mg) 1 tab BID 11/09/18 21:00 11/18/18 09:03 1 TAB Ascorbic Acid (Vitamin C) 500 mg DAILY 11/08/18 09:00 11/18/18 09:03 500 MG Aspirin (Santos Aspirin) 325 mg DAILY 11/07/18 09:30 11/18/18 09:03 325 MG Atorvastatin Calcium (Lipitor) 20 mg QHS 11/07/18 21:00 11/17/18 21:34 20 MG Barium Sulfate (Varibar Thin Liquid Apple) 148 gm 1X ONCE 11/16/18 11:45 11/16/18 11:46 DC 11/16/18 11:45 148 GM Bisacodyl (Dulcolax Supp) 10 mg PRN DAILY PRN 11/10/18 09:30 11/10/18 22:22 10 MG Budesonide (Pulmicort) 0.5 mg RTBID 11/08/18 20:00 11/18/18 08:09 0.5 MG Calcium Carbonate/ Glycine (Tums) 500 mg PRN AFTMEALHC PRN 11/15/18 17:45 11/15/18 18:04 500 MG Ceftriaxone Sodium (Rocephin) 1 gm 1X ONCE 11/06/18 23:45 11/06/18 23:46 DC 11/06/18 23:54 1 GM Cetirizine HCl (ZyrTEC) 10 mg DAILY 11/07/18 09:30 11/18/18 09:02 10 MG Clindamycin Phosphate 50 ml @ 100 mls/hr Q8HRS 11/07/18 14:00 11/08/18 11:54 DC 11/08/18 05:59 100 MLS/HR Clonidine HCl (Catapres) 0.1 mg PRN Q1HR PRN 11/08/18 12:30 Diltiazem HCl (Cardizem 24hr Cd) 240 mg DAILY 11/16/18 09:00 11/18/18 09:02 240 MG Diltiazem HCl (Cardizem) 60 mg 1X ONCE 11/15/18 12:30 11/15/18 12:31 DC 11/15/18 12:42 60 MG Diltiazem HCl 125 mg/Dextrose 125 ml @ 5 mls/hr CONT PRN 11/12/18 13:00 11/16/18 11:25 DC 11/13/18 16:00 10 MLS/HR Docusate Sodium (Colace) 100 mg BID 11/10/18 09:30 11/18/18 09:03 100 MG Doxepin HCl (SINEquan) 75 mg QHS 11/07/18 21:00 11/17/18 21:35 75 MG Fentanyl Citrate (Fentanyl 2ml Vial) 50 mcg PRN Q5MIN PRN 11/17/18 10:30 11/18/18 10:29 DC Fluconazole (Diflucan) 100 mg DAILY 11/09/18 10:30 11/12/18 14:39 DC 11/12/18 09:25 100 MG Furosemide (Lasix) 20 mg 1X ONCE 11/15/18 12:15 11/15/18 12:16 DC 11/15/18 12:43 20 MG Guaifenesin (Robitussin Dm) 10 ml PRN Q6HRS PRN 11/07/18 09:30 Lactobacillus Rhamnosus (Culturelle) 1 cap BID 11/08/18 21:00 11/18/18 09:03 1 CAP Levofloxacin (Levaquin) 250 mg DAILY06 11/07/18 10:00 11/07/18 11:29 DC 11/07/18 09:47 250 MG Lidocaine HCl (Lidocaine Pf 2% Vial) 5 ml STK-MED ONCE 11/17/18 11:06 11/17/18 11:07 DC Lidocaine HCl (Xylocaine-Mpf 1% 2ml Vial) 2 ml 1X PRN PRN 11/17/18 10:30 11/18/18 10:29 DC Linezolid (Zyvox) 600 mg BID 11/08/18 12:00 11/15/18 08:51 DC 11/14/18 20:20 600 MG Losartan Potassium (Cozaar) 100 mg DAILY 11/09/18 09:00 11/18/18 09:03 100 MG Magnesium Hydroxide (Milk Of Magnesia) 2,400 mg PRN DAILY PRN 11/10/18 09:30 Methylprednisolone Sodium Succinate (SOLU-Medrol 40MG VIAL) 30 mg BID 11/16/18 21:00 11/18/18 09:35 DC 11/18/18 09:02 30 MG Methylprednisolone Sodium Succinate (SOLU-Medrol 125MG VIAL) 125 mg 1X ONCE 11/07/18 12:45 11/07/18 12:46 DC 11/07/18 16:00 125 MG Metoprolol Tartrate (Lopressor Vial) 2.5 mg PRN Q4HRS PRN 11/11/18 19:45 11/18/18 08:58 2.5 MG Metoprolol Tartrate (Lopressor) 50 mg BID 11/07/18 09:30 11/08/18 12:17 DC 11/08/18 09:11 50 MG Micafungin Sodium 100 mg/Dextrose 100 ml @ 100 mls/hr Q24H 11/12/18 15:00 11/16/18 11:26 DC 11/15/18 15:49 100 MLS/HR Midazolam HCl (Versed) 2 mg PRN 1X PRN 11/17/18 10:30 11/18/18 10:29 DC Multi-Ingred Cream/Lotion/Oil/ Oint (Hydrocerin Cream) 1 alfonso PRN Q1HR PRN 11/07/18 11:30 Multivitamins (Thera M Plus) 1 tab DAILY 11/08/18 09:00 11/11/18 13:44 DC Non-Formulary Medication (Acetaminophen (Tylenol Extra Strength)) 1,000 mg PRN Q6HRS PRN 11/07/18 09:30 UNV Non-Formulary Medication (Melatonin ) 5 mg HS 11/07/18 21:00 UNV Ondansetron HCl (Zofran) 4 mg PRN Q6HRS PRN 11/07/18 09:30 Pantoprazole Sodium (Protonix) 40 mg DAILYAC 11/16/18 17:00 11/18/18 09:02 40 MG Piperacillin Sod/ Tazobactam Sod (Zosyn Per Pharmacy) 1 each PRN DAILY PRN 11/08/18 12:00 11/09/18 10:28 DC Piperacillin Sod/ Tazobactam Sod 2.25 gm/Sodium Chloride 50 ml @ 100 mls/hr Q6HRS 11/08/18 12:30 11/09/18 10:28 DC 11/09/18 05:50 100 MLS/HR Polyethylene Glycol (miraLAX PACKET) 17 gm PRN DAILY PRN 11/10/18 09:30 Prednisone (Prednisone) 40 mg DAILY 11/08/18 09:00 11/08/18 11:01 DC 11/08/18 09:11 40 MG Propofol 20 ml @ As Directed STK-MED ONCE 11/17/18 11:06 11/17/18 11:07 DC Ringer's Solution 1,000 ml @ 125 mls/hr Q8H 11/17/18 10:29 11/17/18 14:35 DC Sodium Chloride 500 ml @ 500 mls/hr 1X ONCE 11/11/18 20:00 11/11/18 20:59 DC 11/11/18 19:57 500 MLS/HR Temazepam (Restoril) 7.5 mg PRN QHS PRN 11/08/18 02:15 11/17/18 21:34 7.5 MG Vancomycin HCl (Vanco Per Pharmacy) 1 each PRN DAILY PRN 11/06/18 23:45 11/07/18 09:27 DC 11/07/18 05:19 1 EACH Vancomycin HCl (Vancomycin Trough Level) 1 each 1X ONCE 11/08/18 23:00 11/08/18 23:01 Cancel Vancomycin HCl 1.25 gm/Sodium Chloride 250 ml @ 167 mls/hr Q24H 11/07/18 23:30 11/07/18 23:30 DC Vancomycin HCl 2 gm/Sodium Chloride 500 ml @ 250 mls/hr 1X ONCE 11/06/18 23:45 11/07/18 01:44 DC 11/06/18 23:55 250 MLS/HR Labs: Lab Laboratory Tests Test 11/18/18 04:25 White Blood Count 17.4 x10^3/uL (4.0-11.0) Red Blood Count 3.51 x10^6/uL (3.50-5.40) Hemoglobin 11.2 g/dL (12.0-15.5) Hematocrit 33.5 % (36.0-47.0) Mean Corpuscular Volume 96 fL (79-100) Mean Corpuscular Hemoglobin 32 pg (25-35) Mean Corpuscular Hemoglobin Concent 33 g/dL (31-37) Red Cell Distribution Width 14.5 % (11.5-14.5) Platelet Count 217 x10^3/uL (140-400) Neutrophils (%) (Auto) 88 % (31-73) Lymphocytes (%) (Auto) 8 % (24-48) Monocytes (%) (Auto) 3 % (0-9) Eosinophils (%) (Auto) 0 % (0-3) Basophils (%) (Auto) 0 % (0-3) Neutrophils # (Auto) 15.4 x10^3/uL (1.8-7.7) Lymphocytes # (Auto) 1.4 x10^3/uL (1.0-4.8) Monocytes # (Auto) 0.6 x10^3/uL (0.0-1.1) Eosinophils # (Auto) 0.0 x10^3/uL (0.0-0.7) Basophils # (Auto) 0.0 x10^3/uL (0.0-0.2) Sodium Level 138 mmol/L (136-145) Potassium Level 5.7 mmol/L (3.5-5.1) Chloride Level 102 mmol/L (98-107) Carbon Dioxide Level 30 mmol/L (21-32) Anion Gap 6 (6-14) Blood Urea Nitrogen 55 mg/dL (7-20) Creatinine 1.0 mg/dL (0.6-1.0) Estimated GFR (Cockcroft-Gault) 52.3 Glucose Level 170 mg/dL (70-99) Calcium Level 8.3 mg/dL (8.5-10.1) Objective: Assessment: New-onset A-flutter RLE cellulitis - failed Clinda - better Leukocytosis - on solu-medrol TY Tinea Superficial right heel and left leg wounds Bronchospasm on steroids Constipation Plan: Plan of Care Continue Augmentin,,, Local wound care off load JESS GUSTAFSON MD Nov 18, 2018 11:34
--- NOTE | 2018-11-18 12:27 | PDOC ---
[employer] PROGRESS NOTE Chief Complaint Chief Complaint New Onset A. fib/A flutter - with RVR, acute diastolic CHF Mild CHF by chest x-ray Acute hypoxic respiratory failure SNU resident DNR Bilateral lower extremity cellulitis Negative Dopplers for DVT-right greater than left Met encephalopathy/confusion Dementia Geriatric Fall risk Hypertension GERD OA-chronic stable History of Present Illness History of Present Illness 11/18/18 Pt seen and examined DW RN regarding the pt's care Possibly need to utilize calcium channel/beta blockers for rate control EGD showed a non-bleeding ulcer On p.o. tiago Reviewed pt's chart Vitals/I&O Vitals/I&O: Vital Signs Date Time Temp Pulse Resp B/P (MAP) Pulse Ox O2 Delivery O2 Flow Rate FiO2 11/18/18 11:00 98.1 107 16 113/54 (73) 98 Nasal Cannula 2.0 98.1 I & O 11/17/18 11/17/18 11/18/18 15:00 23:00 07:00 Intake Total 200 ml 180 ml Balance 200 ml 180 ml Physical Exam General: Alert, Oriented X3, Cooperative, No acute distress Heart: No murmurs, Other (aflutter) Lungs: Wheezing (resolved) Abdomen: Soft, No tenderness Extremities: No clubbing, No cyanosis Skin: Other (scaling to bilateral LE; erythema more to right than left; scabbed pressure ulcer to right calcaneus) Labs Labs: Laboratory Tests Test 11/18/18 04:25 White Blood Count 17.4 x10^3/uL (4.0-11.0) Red Blood Count 3.51 x10^6/uL (3.50-5.40) Hemoglobin 11.2 g/dL (12.0-15.5) Hematocrit 33.5 % (36.0-47.0) Mean Corpuscular Volume 96 fL (79-100) Mean Corpuscular Hemoglobin 32 pg (25-35) Mean Corpuscular Hemoglobin Concent 33 g/dL (31-37) Red Cell Distribution Width 14.5 % (11.5-14.5) Platelet Count 217 x10^3/uL (140-400) Neutrophils (%) (Auto) 88 % (31-73) Lymphocytes (%) (Auto) 8 % (24-48) Monocytes (%) (Auto) 3 % (0-9) Eosinophils (%) (Auto) 0 % (0-3) Basophils (%) (Auto) 0 % (0-3) Neutrophils # (Auto) 15.4 x10^3/uL (1.8-7.7) Lymphocytes # (Auto) 1.4 x10^3/uL (1.0-4.8) Monocytes # (Auto) 0.6 x10^3/uL (0.0-1.1) Eosinophils # (Auto) 0.0 x10^3/uL (0.0-0.7) Basophils # (Auto) 0.0 x10^3/uL (0.0-0.2) Sodium Level 138 mmol/L (136-145) Potassium Level 5.7 mmol/L (3.5-5.1) Chloride Level 102 mmol/L (98-107) Carbon Dioxide Level 30 mmol/L (21-32) Anion Gap 6 (6-14) Blood Urea Nitrogen 55 mg/dL (7-20) Creatinine 1.0 mg/dL (0.6-1.0) Estimated GFR (Cockcroft-Gault) 52.3 Glucose Level 170 mg/dL (70-99) Calcium Level 8.3 mg/dL (8.5-10.1) Assessment and Plan Assessmemt and Plan Problems Medical Problems: (1) A-fib Status: Acute (2) Acute kidney injury superimposed on CKD Status: Acute (3) Acute on chronic diastolic congestive heart failure Status: Acute (4) Acute respiratory failure Status: Acute (5) Cellulitis of right lower extremity Status: Acute Assessment New Onset A. fib/A flutter - with RVR, acute diastolic CHF Mild CHF by chest x-ray Acute hypoxic respiratory failure SNU resident DNR Bilateral lower extremity cellulitis Negative Dopplers for DVT-right greater than left Met encephalopathy/confusion Dementia Geriatric Fall risk Hypertension GERD OA-chronic stable Plan Cardiac Monitoring Trend Hgb Aflutter await cardio input PT/OT Labs Comment Review of Relevant I have reviewed the following items christina (where applicable) has been applied. JEREMY NARVAEZ III DO Nov 18, 2018 12:27
--- NOTE | 2018-11-18 13:59 | PDOC ---
Subjective: Subjective: Tolerating PO. Hgb up to 11.2 Objective: Vital Signs: Vital Signs Date Time Temp Pulse Resp B/P (MAP) Pulse Ox O2 Delivery O2 Flow Rate FiO2 11/18/18 11:00 98.1 107 16 113/54 (73) 98 Nasal Cannula 2.0 98.1 Labs: Laboratory Tests Test 11/18/18 04:25 White Blood Count 17.4 x10^3/uL (4.0-11.0) Red Blood Count 3.51 x10^6/uL (3.50-5.40) Hemoglobin 11.2 g/dL (12.0-15.5) Hematocrit 33.5 % (36.0-47.0) Mean Corpuscular Volume 96 fL (79-100) Mean Corpuscular Hemoglobin 32 pg (25-35) Mean Corpuscular Hemoglobin Concent 33 g/dL (31-37) Red Cell Distribution Width 14.5 % (11.5-14.5) Platelet Count 217 x10^3/uL (140-400) Neutrophils (%) (Auto) 88 % (31-73) Lymphocytes (%) (Auto) 8 % (24-48) Monocytes (%) (Auto) 3 % (0-9) Eosinophils (%) (Auto) 0 % (0-3) Basophils (%) (Auto) 0 % (0-3) Neutrophils # (Auto) 15.4 x10^3/uL (1.8-7.7) Lymphocytes # (Auto) 1.4 x10^3/uL (1.0-4.8) Monocytes # (Auto) 0.6 x10^3/uL (0.0-1.1) Eosinophils # (Auto) 0.0 x10^3/uL (0.0-0.7) Basophils # (Auto) 0.0 x10^3/uL (0.0-0.2) Sodium Level 138 mmol/L (136-145) Potassium Level 5.7 mmol/L (3.5-5.1) Chloride Level 102 mmol/L (98-107) Carbon Dioxide Level 30 mmol/L (21-32) Anion Gap 6 (6-14) Blood Urea Nitrogen 55 mg/dL (7-20) Creatinine 1.0 mg/dL (0.6-1.0) Estimated GFR (Cockcroft-Gault) 52.3 Glucose Level 170 mg/dL (70-99) Calcium Level 8.3 mg/dL (8.5-10.1) Physical Exam: Physical Exam: PE: GEN: NAD - was asleep HEENT: Atraumatic, PERRL LUNGS: NC 2L, poor effort HEART: irregularly irregular ABD: NABS, S/ND/NT EXTREMITY: No edema SKIN: No rashes, no jaundice NEURO/PSYCH: knows she's in the hospital in [place], doesn't know year or birthday Assessment & Plan: Assessment : A DU Gastritis CHF, A Fib, resp failure ?odynophagia/dysphagia, abnormal videoswallow w/ esophageal backflow Normocytic anemia - noted on most labs since 2013, Hgb stable this admission (between 10.7 and 12.5 - 11.9 today) CKD, hyperkalemia - as above, d/w Dr. Joy - BUN/Cr ratio 49 Leukocytosis and hyperglycemia on IV steroids Plan: Plan medical therapy as o/p with Protonix 40 mg for 2 months pending biopsy results SHANKAR ACOSTA MD Nov 18, 2018 13:59
[2018-11-18 15:00] VITALS: BP 119/45
[2018-11-18] MEDS: METOPROLOL TART IMMED RELEASE 25 MG TABLET. PO SCH (18:25)
[2018-11-18 19:00] VITALS: BP 129/60
[2018-11-18] MEDS ORDERED: SODIUM POLYSTYRENE SULFON/SORB 15 GM/60 ML ORAL.SUSP PO ONE (19:30)
[2018-11-18] MEDS: ATORVASTATIN CALCIUM 20 MG TABLET PO SCH (21:17)
[2018-11-18] MEDS: DOXEPIN HCL 25 MG CAPSULE. PO SCH (21:18)
[2018-11-18 22:43] VITALS: BP 149/57
[2018-11-19] MEDS: METOPROLOL TART IMMED RELEASE 25 MG TABLET. PO SCH ×5 (01:15→23:55)
[2018-11-19 03:05] VITALS: BP 140/68
[2018-11-19 05:20] LABS: BASO % 0 % (0-3); EOS % 0 % (0-3); HEMATOCRIT 33.4 % (36.0-47.0); LYMPH % 13 % (24-48); MEAN CORPUSCULAR HEMOGLOBIN 31 pg (25-35); MEAN CORPUSCULAR HGB CONC 33 g/dL (31-37); MEAN CORPUSCULAR VOLUME 95 fL (79-100); MONO # 2.4 x10^3/uL (0.0-1.1); MONO % 10 % (0-9); NEUT # 18.7 x10^3/uL (1.8-7.7); NEUT % 77 % (31-73); PLATELET COUNT 237 x10^3/uL (140-400); RED BLOOD COUNT 3.53 x10^6/uL (3.50-5.40); RED CELL DISTRIBUTION WIDTH 14.8 % (11.5-14.5); WHITE BLOOD COUNT 24.2 x10^3/uL (4.0-11.0)
[2018-11-19 05:43] LABS: CALCIUM 8.2 mg/dL (8.5-10.1); GFR 52.3
[2018-11-19 05:47] LABS: POTASSIUM 4.8 mmol/L (3.5-5.1)
[2018-11-19 07:00] VITALS: BP 133/66
[2018-11-19 07:55] LABS: % BANDS 2 % (0-9); % LYMPHS 12 % (24-48); % METAS 1 % (0-0); % MONOS 6 % (0-10); % MYELOS 2 % (0-0); % SEGS 77 % (35-66); PLT ESTIMATE ADEQUATE (ADEQUATE)
[2018-11-19 07:56] LABS: ANISOCYTOSIS SLIGHT; POLYCHROMASIA SLIGHT
[2018-11-19] MEDS: DOCUSATE SODIUM 100 MG CAPSULE. PO SCH ×2 (09:00→21:00)
[2018-11-19] MEDS: BUDESONIDE 0.5 MG/2 ML NEBU. NEB SCH ×2 (09:06→20:26)
[2018-11-19] MEDS: LOSARTAN POTASSIUM 50 MG TABLET. PO SCH (09:24)
[2018-11-19] MEDS: ASCORBIC ACID 500 MG TABLET PO SCH (09:24)
[2018-11-19] MEDS: MULTIVITAMIN with MINERAL TABLET. PO SCH (09:24)
[2018-11-19] MEDS: AMOXICILLIN/K CLAV 500/125MG TABLET. PO SCH ×2 (09:24→22:05)
[2018-11-19] MEDS: CETIRIZINE HCL 10 MG TABLET. PO SCH (09:24)
[2018-11-19] MEDS: PANTOPRAZOLE 40 MG TABLET.DR. PO SCH (09:24)
[2018-11-19] MEDS: ASPIRIN 325 MG TABLET PO SCH (09:24)
[2018-11-19] MEDS: LACTOBACILLUS RHAMNOSUS GG 1 CAPSULE. PO SCH ×2 (09:25→22:05)
[2018-11-19 11:00] VITALS: BP 104/55
--- NOTE | 2018-11-19 13:31 | PDOC ---
Infectious Disease Note Subjective Subjective pt is feeling ok denies any f/c/n/v/d ROS ROS no n/v/d/ Vital Sign Vital Signs Vital Signs Date Time Temp Pulse Resp B/P (MAP) Pulse Ox O2 Delivery O2 Flow Rate FiO2 11/19/18 11:00 98.2 106 14 104/55 (71) 98 Nasal Cannula 2.0 98.2 Physical Exam PHYSICAL EXAM GEN: Propped up in bed, alert, smiling HEENT: Oral cavity pink, moist. No thrush NECK: Supple. LUNGS: Clear CARDIOVASCULAR: atrial flutter ABDOMEN: Soft, obese with decreased BS EXTREMITIES: BLE min erythema, + wrinkling, mild yeast. LLE wound SKIN: No rash PIV Labs Lab Laboratory Tests Test 11/18/18 21:00 11/19/18 04:15 Potassium Level 5.9 mmol/L (3.5-5.1) 4.8 mmol/L (3.5-5.1) White Blood Count 24.2 x10^3/uL (4.0-11.0) Red Blood Count 3.53 x10^6/uL (3.50-5.40) Hemoglobin 11.0 g/dL (12.0-15.5) Hematocrit 33.4 % (36.0-47.0) Mean Corpuscular Volume 95 fL (79-100) Mean Corpuscular Hemoglobin 31 pg (25-35) Mean Corpuscular Hemoglobin Concent 33 g/dL (31-37) Red Cell Distribution Width 14.8 % (11.5-14.5) Platelet Count 237 x10^3/uL (140-400) Neutrophils (%) (Auto) 77 % (31-73) Lymphocytes (%) (Auto) 13 % (24-48) Monocytes (%) (Auto) 10 % (0-9) Eosinophils (%) (Auto) 0 % (0-3) Basophils (%) (Auto) 0 % (0-3) Neutrophils # (Auto) 18.7 x10^3/uL (1.8-7.7) Lymphocytes # (Auto) 3.0 x10^3/uL (1.0-4.8) Monocytes # (Auto) 2.4 x10^3/uL (0.0-1.1) Eosinophils # (Auto) 0.0 x10^3/uL (0.0-0.7) Basophils # (Auto) 0.0 x10^3/uL (0.0-0.2) Segmented Neutrophils % 77 % (35-66) Band Neutrophils % 2 % (0-9) Lymphocytes % 12 % (24-48) Monocytes % 6 % (0-10) Metamyelocytes % 1 % (0-0) Myelocytes % 2 % (0-0) Platelet Estimate Adequate (ADEQUATE) Polychromasia Slight Anisocytosis Slight Sodium Level 137 mmol/L (136-145) Chloride Level 101 mmol/L (98-107) Carbon Dioxide Level 31 mmol/L (21-32) Anion Gap 5 (6-14) Blood Urea Nitrogen 51 mg/dL (7-20) Creatinine 1.0 mg/dL (0.6-1.0) Estimated GFR (Cockcroft-Gault) 52.3 Glucose Level 118 mg/dL (70-99) Calcium Level 8.2 mg/dL (8.5-10.1) Micro Microbiology 11/07/18 Blood Culture - Final, Complete NO GROWTH AFTER 5 DAYS Objective Assessment New-onset A-flutter RLE cellulitis - failed Clinda - better Leukocytosis - on solu-medrol TY Tinea Superficial right heel and left leg wounds Bronchospasm on steroids h/o Plan Plan of Care Continue Augmentin,,, Local wound care off load BRE GUSTAFSON MD Nov 19, 2018 13:31
--- NOTE | 2018-11-19 13:59 | PDOC ---
PULMONARY PROGRESS NOTES Subjective remains in atrial fibrillation NO SOA Vitals Vital Signs Date Time Temp Pulse Resp B/P (MAP) Pulse Ox O2 Delivery O2 Flow Rate FiO2 11/19/18 11:00 98.2 106 14 104/55 (71) 98 Nasal Cannula 2.0 98.2 ROS: No Chest Pain, No Increase Cough General: Alert, No acute distress Lungs: Wheezing (resolved) Cardiovascular: S1, S2, Other (irregular) Abdomen: Soft Neuro Exam: Alert Extremities: No Edema Skin: Warm Labs Laboratory Tests Test 11/18/18 04:25 11/18/18 21:00 11/19/18 04:15 White Blood Count 17.4 x10^3/uL (4.0-11.0) 24.2 x10^3/uL (4.0-11.0) Red Blood Count 3.51 x10^6/uL (3.50-5.40) 3.53 x10^6/uL (3.50-5.40) Hemoglobin 11.2 g/dL (12.0-15.5) 11.0 g/dL (12.0-15.5) Hematocrit 33.5 % (36.0-47.0) 33.4 % (36.0-47.0) Mean Corpuscular Volume 96 fL (79-100) 95 fL (79-100) Mean Corpuscular Hemoglobin 32 pg (25-35) 31 pg (25-35) Mean Corpuscular Hemoglobin Concent 33 g/dL (31-37) 33 g/dL (31-37) Red Cell Distribution Width 14.5 % (11.5-14.5) 14.8 % (11.5-14.5) Platelet Count 217 x10^3/uL (140-400) 237 x10^3/uL (140-400) Neutrophils (%) (Auto) 88 % (31-73) 77 % (31-73) Lymphocytes (%) (Auto) 8 % (24-48) 13 % (24-48) Monocytes (%) (Auto) 3 % (0-9) 10 % (0-9) Eosinophils (%) (Auto) 0 % (0-3) 0 % (0-3) Basophils (%) (Auto) 0 % (0-3) 0 % (0-3) Neutrophils # (Auto) 15.4 x10^3/uL (1.8-7.7) 18.7 x10^3/uL (1.8-7.7) Lymphocytes # (Auto) 1.4 x10^3/uL (1.0-4.8) 3.0 x10^3/uL (1.0-4.8) Monocytes # (Auto) 0.6 x10^3/uL (0.0-1.1) 2.4 x10^3/uL (0.0-1.1) Eosinophils # (Auto) 0.0 x10^3/uL (0.0-0.7) 0.0 x10^3/uL (0.0-0.7) Basophils # (Auto) 0.0 x10^3/uL (0.0-0.2) 0.0 x10^3/uL (0.0-0.2) Sodium Level 138 mmol/L (136-145) 137 mmol/L (136-145) Potassium Level 5.7 mmol/L (3.5-5.1) 5.9 mmol/L (3.5-5.1) 4.8 mmol/L (3.5-5.1) Chloride Level 102 mmol/L (98-107) 101 mmol/L (98-107) Carbon Dioxide Level 30 mmol/L (21-32) 31 mmol/L (21-32) Anion Gap 6 (6-14) 5 (6-14) Blood Urea Nitrogen 55 mg/dL (7-20) 51 mg/dL (7-20) Creatinine 1.0 mg/dL (0.6-1.0) 1.0 mg/dL (0.6-1.0) Estimated GFR (Cockcroft-Gault) 52.3 52.3 Glucose Level 170 mg/dL (70-99) 118 mg/dL (70-99) Calcium Level 8.3 mg/dL (8.5-10.1) 8.2 mg/dL (8.5-10.1) Segmented Neutrophils % 77 % (35-66) Band Neutrophils % 2 % (0-9) Lymphocytes % 12 % (24-48) Monocytes % 6 % (0-10) Metamyelocytes % 1 % (0-0) Myelocytes % 2 % (0-0) Platelet Estimate Adequate (ADEQUATE) Polychromasia Slight Anisocytosis Slight Laboratory Tests Test 11/18/18 21:00 11/19/18 04:15 Potassium Level 5.9 mmol/L (3.5-5.1) 4.8 mmol/L (3.5-5.1) White Blood Count 24.2 x10^3/uL (4.0-11.0) Red Blood Count 3.53 x10^6/uL (3.50-5.40) Hemoglobin 11.0 g/dL (12.0-15.5) Hematocrit 33.4 % (36.0-47.0) Mean Corpuscular Volume 95 fL (79-100) Mean Corpuscular Hemoglobin 31 pg (25-35) Mean Corpuscular Hemoglobin Concent 33 g/dL (31-37) Red Cell Distribution Width 14.8 % (11.5-14.5) Platelet Count 237 x10^3/uL (140-400) Neutrophils (%) (Auto) 77 % (31-73) Lymphocytes (%) (Auto) 13 % (24-48) Monocytes (%) (Auto) 10 % (0-9) Eosinophils (%) (Auto) 0 % (0-3) Basophils (%) (Auto) 0 % (0-3) Neutrophils # (Auto) 18.7 x10^3/uL (1.8-7.7) Lymphocytes # (Auto) 3.0 x10^3/uL (1.0-4.8) Monocytes # (Auto) 2.4 x10^3/uL (0.0-1.1) Eosinophils # (Auto) 0.0 x10^3/uL (0.0-0.7) Basophils # (Auto) 0.0 x10^3/uL (0.0-0.2) Segmented Neutrophils % 77 % (35-66) Band Neutrophils % 2 % (0-9) Lymphocytes % 12 % (24-48) Monocytes % 6 % (0-10) Metamyelocytes % 1 % (0-0) Myelocytes % 2 % (0-0) Platelet Estimate Adequate (ADEQUATE) Polychromasia Slight Anisocytosis Slight Sodium Level 137 mmol/L (136-145) Chloride Level 101 mmol/L (98-107) Carbon Dioxide Level 31 mmol/L (21-32) Anion Gap 5 (6-14) Blood Urea Nitrogen 51 mg/dL (7-20) Creatinine 1.0 mg/dL (0.6-1.0) Estimated GFR (Cockcroft-Gault) 52.3 Glucose Level 118 mg/dL (70-99) Calcium Level 8.2 mg/dL (8.5-10.1) Medications Active Scripts Medications Dose Route/Sig Max Daily Dose Days Date Category Thera M Plus Tablet (Multivits,Ca,Minerals/Iron/FA) 1 Each Tablet 1 Each PO DAILY 11/07/18 Reported Melatonin 3 Mg Tablet 5 Mg PO HS 11/07/18 Reported Claritin (Loratadine) 10 Mg Tablet 1 Tab PO DAILY 11/07/18 Reported Losartan Potassium 50 Mg Tablet 50 Mg PO DAILY 11/07/18 Reported Tylenol Extra Strength (Acetaminophen) 500 Mg Tablet 1,000 Mg PO PRN Q6HRS PRN 11/07/18 Reported Bactrim Ds Tablet (Sulfamethoxazole/Trimethoprim) 1 Each Tablet 1 Each PO BID 7 11/07/18 Reported Doxepin Hcl 75 Mg Capsule 75 Mg PO DAILY 10/25/17 Reported Aspirin 325 Mg Tablet 1 Tab PO DAILY 01/04/14 Reported Furosemide 20 Mg Tablet 1 Tab PO DAILY 01/04/14 Reported Metoprolol Tartrate 50 Mg Tablet 1 Tab PO BID 01/04/14 Reported Impression . 1. Acute hypoxic respiratory failure secondary to diffuse bronchospasm, re solved 2. Diffuse bronchospasm, likely cardiac asthma. She has mild congestive heart failure on the chest x-ray and likely acute on chronic diastolic heart failure and also related to her MR. off metoprolol PO , wheezing improved post diuresis She quit tobacco 35 years ago and unlikely chronic obstructive disease exacerbation. 3. acute onset atrial fibrillation. rate controlled with diltiazem. of note the fact that she started wheezing again with afib supports a dx of "cardiac" asthma (which does not necessarily correlate with the severity of heart failure). 4. Renal insufficiency. 5. Underlying obesity. 6. distant past tobacco history. Plan . 1. Control of Afib per cardiology. 2. Holding metoprolol 3. prn Lasix due to azotemia 4. DuoNebs. 5. Pulmicort. 6. off solumedrol 7. taper O2 watching oxygen saturation. 8. CXR f/u 11/14 with mild CHF, left base effusion, stable pulmonary kang FILEMON JAFFE MD Nov 19, 2018 13:59
--- NOTE | 2018-11-19 14:01 | PDOC ---
Subjective: Subjective: Hgb 11 Objective: Vital Signs: Vital Signs Date Time Temp Pulse Resp B/P (MAP) Pulse Ox O2 Delivery O2 Flow Rate FiO2 11/19/18 11:00 98.2 106 14 104/55 (71) 98 Nasal Cannula 2.0 98.2 Labs: Laboratory Tests Test 11/18/18 21:00 11/19/18 04:15 Potassium Level 5.9 mmol/L (3.5-5.1) 4.8 mmol/L (3.5-5.1) White Blood Count 24.2 x10^3/uL (4.0-11.0) Red Blood Count 3.53 x10^6/uL (3.50-5.40) Hemoglobin 11.0 g/dL (12.0-15.5) Hematocrit 33.4 % (36.0-47.0) Mean Corpuscular Volume 95 fL (79-100) Mean Corpuscular Hemoglobin 31 pg (25-35) Mean Corpuscular Hemoglobin Concent 33 g/dL (31-37) Red Cell Distribution Width 14.8 % (11.5-14.5) Platelet Count 237 x10^3/uL (140-400) Neutrophils (%) (Auto) 77 % (31-73) Lymphocytes (%) (Auto) 13 % (24-48) Monocytes (%) (Auto) 10 % (0-9) Eosinophils (%) (Auto) 0 % (0-3) Basophils (%) (Auto) 0 % (0-3) Neutrophils # (Auto) 18.7 x10^3/uL (1.8-7.7) Lymphocytes # (Auto) 3.0 x10^3/uL (1.0-4.8) Monocytes # (Auto) 2.4 x10^3/uL (0.0-1.1) Eosinophils # (Auto) 0.0 x10^3/uL (0.0-0.7) Basophils # (Auto) 0.0 x10^3/uL (0.0-0.2) Segmented Neutrophils % 77 % (35-66) Band Neutrophils % 2 % (0-9) Lymphocytes % 12 % (24-48) Monocytes % 6 % (0-10) Metamyelocytes % 1 % (0-0) Myelocytes % 2 % (0-0) Platelet Estimate Adequate (ADEQUATE) Polychromasia Slight Anisocytosis Slight Sodium Level 137 mmol/L (136-145) Chloride Level 101 mmol/L (98-107) Carbon Dioxide Level 31 mmol/L (21-32) Anion Gap 5 (6-14) Blood Urea Nitrogen 51 mg/dL (7-20) Creatinine 1.0 mg/dL (0.6-1.0) Estimated GFR (Cockcroft-Gault) 52.3 Glucose Level 118 mg/dL (70-99) Calcium Level 8.2 mg/dL (8.5-10.1) Physical Exam: Physical Exam: EN: NAD - was asleep HEENT: Atraumatic, PERRL LUNGS: NC 2L, poor effort HEART: irregularly irregular ABD: NABS, S/ND/NT EXTREMITY: No edema SKIN: No rashes, no jaundice NEURO/PSYCH: knows she's in the hospital in [place], doesn't know year or birthday Assessment & Plan: Assessment : A DU Gastritis CHF, A Fib, resp failure ?odynophagia/dysphagia, abnormal videoswallow w/ esophageal backflow Normocytic anemia - noted on most labs since 2013, Hgb stable this admission (between 10.7 and 12.5 - 11.0 today) CKD, hyperkalemia - as above, d/w Dr. Joy - BUN/Cr ratio 49 Leukocytosis and hyperglycemia on IV steroids Plan: Plan medical therapy as o/p with Protonix 40 mg for 2 months pending biopsy results SHANKAR ACOSTA MD Nov 19, 2018 14:01
--- NOTE | 2018-11-19 14:57 | PDOC ---
[facility] [facility] PROGRESS NOTE Chief Complaint Chief Complaint New Onset A. fib/A flutter - with RVR, acute diastolic CHF Mild CHF by chest x-ray Acute hypoxic respiratory failure SNU resident DNR Bilateral lower extremity cellulitis Negative Dopplers for DVT-right greater than left Met encephalopathy/confusion Dementia Geriatric Fall risk Hypertension GERD OA-chronic stable History of Present Illness History of Present Illness 11/19/18 Pt seen and examined RUKHSANA RN regarding the pt's care RUKHSANA pt about possible discharge in morning On p.o. tiago Reviewed pt's chart Vitals/I&O Vitals/I&O: Vital Signs Date Time Temp Pulse Resp B/P (MAP) Pulse Ox O2 Delivery O2 Flow Rate FiO2 11/19/18 13:58 103 104/55 11/19/18 11:00 98.2 14 98 Nasal Cannula 2.0 98.2 I & O 11/18/18 11/18/18 11/19/18 14:59 22:59 06:59 Intake Total 787 ml Output Total 1 ml 0 ml Balance 786 ml 0 ml Physical Exam Physical Exam: GEN: Propped up in bed, alert, smiling HEENT: Oral cavity pink, moist. No thrush NECK: Supple. LUNGS: Clear CARDIOVASCULAR: atrial flutter ABDOMEN: Soft, obese with decreased BS EXTREMITIES: BLE min erythema, + wrinkling, mild yeast. LLE wound SKIN: No rash PIV General: Alert, Oriented X3, Cooperative, No acute distress Heart: No murmurs, Other (aflutter) Lungs: Wheezing (resolved) Abdomen: Soft, No tenderness Extremities: No clubbing, No cyanosis Skin: Other (scaling to bilateral LE; erythema more to right than left; scabbed pressure ulcer to right calcaneus) Labs Labs: Laboratory Tests Test 11/18/18 21:00 11/19/18 04:15 Potassium Level 5.9 mmol/L (3.5-5.1) 4.8 mmol/L (3.5-5.1) White Blood Count 24.2 x10^3/uL (4.0-11.0) Red Blood Count 3.53 x10^6/uL (3.50-5.40) Hemoglobin 11.0 g/dL (12.0-15.5) Hematocrit 33.4 % (36.0-47.0) Mean Corpuscular Volume 95 fL (79-100) Mean Corpuscular Hemoglobin 31 pg (25-35) Mean Corpuscular Hemoglobin Concent 33 g/dL (31-37) Red Cell Distribution Width 14.8 % (11.5-14.5) Platelet Count 237 x10^3/uL (140-400) Neutrophils (%) (Auto) 77 % (31-73) Lymphocytes (%) (Auto) 13 % (24-48) Monocytes (%) (Auto) 10 % (0-9) Eosinophils (%) (Auto) 0 % (0-3) Basophils (%) (Auto) 0 % (0-3) Neutrophils # (Auto) 18.7 x10^3/uL (1.8-7.7) Lymphocytes # (Auto) 3.0 x10^3/uL (1.0-4.8) Monocytes # (Auto) 2.4 x10^3/uL (0.0-1.1) Eosinophils # (Auto) 0.0 x10^3/uL (0.0-0.7) Basophils # (Auto) 0.0 x10^3/uL (0.0-0.2) Segmented Neutrophils % 77 % (35-66) Band Neutrophils % 2 % (0-9) Lymphocytes % 12 % (24-48) Monocytes % 6 % (0-10) Metamyelocytes % 1 % (0-0) Myelocytes % 2 % (0-0) Platelet Estimate Adequate (ADEQUATE) Polychromasia Slight Anisocytosis Slight Sodium Level 137 mmol/L (136-145) Chloride Level 101 mmol/L (98-107) Carbon Dioxide Level 31 mmol/L (21-32) Anion Gap 5 (6-14) Blood Urea Nitrogen 51 mg/dL (7-20) Creatinine 1.0 mg/dL (0.6-1.0) Estimated GFR (Cockcroft-Gault) 52.3 Glucose Level 118 mg/dL (70-99) Calcium Level 8.2 mg/dL (8.5-10.1) Review of Systems Review of Systems: No c/o headache No c/o N/V/D Assessment and Plan Assessmemt and Plan Problems Medical Problems: (1) A-fib Status: Acute (2) Acute kidney injury superimposed on CKD Status: Acute (3) Acute on chronic diastolic congestive heart failure Status: Acute (4) Acute respiratory failure Status: Acute (5) Cellulitis of right lower extremity Status: Acute Assessment New Onset A. fib/A flutter - with RVR, acute diastolic CHF Mild CHF by chest x-ray Acute hypoxic respiratory failure SNU resident DNR Bilateral lower extremity cellulitis Negative Dopplers for DVT-right greater than left Met encephalopathy/confusion Dementia Geriatric Fall risk Hypertension GERD OA-chronic stable Plan Cardiac Monitoring Trend Hgb PT/OT Labs Awaiting transfer to [facility] in morning Comment Review of Relevant I have reviewed the following items christina (where applicable) has been applied. Medications: Current Medications Medications (Trade) Dose Ordered Sig/Lilly Route PRN Reason Start Time Stop Time Status Last Admin Dose Admin Metoprolol Tartrate (Lopressor) 25 mg Q6HRS PO 11/18/18 18:00 11/19/18 13:58 Sodium Polystyrene Sulfonate (Kayexalate) 30 gm 1X ONCE PO 11/18/18 19:30 11/18/18 19:31 DC 11/18/18 21:45 JEREMY NARVAEZ III DO Nov 19, 2018 14:57
[2018-11-19 15:00] VITALS: BP_SYST 139; BP_SYST 98; BP_DIAS 45; BP_DIAS 71
[2018-11-19 19:35] VITALS: BP 84/37
[2018-11-19] MEDS: DOXEPIN HCL 25 MG CAPSULE. PO SCH (22:05)
[2018-11-19] MEDS: ATORVASTATIN CALCIUM 20 MG TABLET PO SCH (22:05)
[2018-11-19 23:00] VITALS: BP 87/44
[2018-11-20 03:25] VITALS: BP 114/74
[2018-11-20] MEDS: METOPROLOL TART IMMED RELEASE 25 MG TABLET. PO SCH (06:46)
[2018-11-20 07:30] VITALS: BP 106/63
[2018-11-20 07:36] LABS: BASO % 0 % (0-3); EOS # 0.5 x10^3/uL (0.0-0.7); EOS % 2 % (0-3); HEMATOCRIT 34.4 % (36.0-47.0); HEMOGLOBIN 11.2 g/dL (12.0-15.5); LYMPH % 16 % (24-48); MEAN CORPUSCULAR HEMOGLOBIN 31 pg (25-35); MEAN CORPUSCULAR HGB CONC 33 g/dL (31-37); MEAN CORPUSCULAR VOLUME 96 fL (79-100); MONO # 2.4 x10^3/uL (0.0-1.1); MONO % 10 % (0-9); NEUT % 72 % (31-73); PLATELET COUNT 214 x10^3/uL (140-400); RED BLOOD COUNT 3.58 x10^6/uL (3.50-5.40); RED CELL DISTRIBUTION WIDTH 14.6 % (11.5-14.5); WHITE BLOOD COUNT 24.9 x10^3/uL (4.0-11.0)
[2018-11-20 07:52] LABS: CALCIUM 8.1 mg/dL (8.5-10.1); CREATININE 0.9 mg/dL (0.6-1.0); GFR 59.1; POTASSIUM 4.8 mmol/L (3.5-5.1)
[2018-11-20] MEDS: LACTOBACILLUS RHAMNOSUS GG 1 CAPSULE. PO SCH (08:43)
[2018-11-20] MEDS: CETIRIZINE HCL 10 MG TABLET. PO SCH (08:43)
[2018-11-20] MEDS: AMOXICILLIN/K CLAV 500/125MG TABLET. PO SCH (08:43)
[2018-11-20] MEDS: PANTOPRAZOLE 40 MG TABLET.DR. PO SCH (08:43)
[2018-11-20] MEDS: MULTIVITAMIN with MINERAL TABLET. PO SCH (08:44)
[2018-11-20] MEDS: ASCORBIC ACID 500 MG TABLET PO SCH (08:44)
[2018-11-20] MEDS: DOCUSATE SODIUM 100 MG CAPSULE. PO SCH (08:49)
[2018-11-20] MEDS: LOSARTAN POTASSIUM 50 MG TABLET. PO SCH (08:50)
[2018-11-20] MEDS: BUDESONIDE 0.5 MG/2 ML NEBU. NEB SCH (08:55)
[2018-11-20] MEDS ORDERED: METOPROLOL TART IMMED RELEASE 50 MG TABLET. PO SCH (09:00)
--- NOTE | 2018-11-20 10:33 | NUR ---
SS following up with discharge planning. SS phoned and faxed clinical updates to [facility], ; fax [phone]. SS awaiting discharge orders at this time for return to [facility] and will proceed accordingly with discharge planning.
--- NOTE | 2018-11-20 10:43 | PDOC ---
Infectious Disease Note Subjective: Subjective pt is feeling ok denies any f/c/n/v/d ROS: ROS Negative except for above. Vital Signs: Vital Signs Vital Signs Date Time Temp Pulse Resp B/P (MAP) Pulse Ox O2 Delivery O2 Flow Rate FiO2 11/20/18 08:57 93 Nasal Cannula 2.0 11/20/18 08:43 87 106/63 11/20/18 07:30 97.7 14 97.7 Physical Exam: PHYSICAL EXAM GEN: Propped up in bed, alert, smiling HEENT: Oral cavity pink, moist. No thrush NECK: Supple. LUNGS: Clear CARDIOVASCULAR: atrial flutter ABDOMEN: Soft, obese with decreased BS EXTREMITIES: BLE min erythema, + wrinkling, mild yeast. LLE wound SKIN: No rash PIV Medications: Inpatient Meds: Current Medications Medications (Trade) Dose Ordered Sig/Lilly Start Time Stop Time Status Last Admin Dose Admin Acetaminophen (Tylenol) 500 mg PRN Q6HRS PRN 11/07/18 09:30 Albuterol Sulfate (Ventolin Neb Soln) 2.5 mg PRN Q4HRS PRN 11/15/18 12:15 11/16/18 07:10 2.5 MG Albuterol/ Ipratropium (Duoneb) 3 ml Q4HRS 11/08/18 16:00 11/15/18 12:02 DC 11/15/18 11:50 3 ML Amoxicillin/ Clavulanate Potassium (Augmentin 500/ 125mg) 1 tab BID 11/09/18 21:00 11/20/18 08:43 1 TAB Ascorbic Acid (Vitamin C) 500 mg DAILY 11/08/18 09:00 11/20/18 08:44 500 MG Aspirin (Santos Aspirin) 325 mg DAILY 11/07/18 09:30 11/19/18 09:24 325 MG Atorvastatin Calcium (Lipitor) 20 mg QHS 11/07/18 21:00 11/19/18 22:05 20 MG Barium Sulfate (Varibar Thin Liquid Apple) 148 gm 1X ONCE 11/16/18 11:45 11/16/18 11:46 DC 11/16/18 11:45 148 GM Bisacodyl (Dulcolax Supp) 10 mg PRN DAILY PRN 11/10/18 09:30 11/10/18 22:22 10 MG Budesonide (Pulmicort) 0.5 mg RTBID 11/08/18 20:00 11/20/18 08:55 0.5 MG Calcium Carbonate/ Glycine (Tums) 500 mg PRN AFTMEALHC PRN 11/15/18 17:45 11/15/18 18:04 500 MG Ceftriaxone Sodium (Rocephin) 1 gm 1X ONCE 11/06/18 23:45 11/06/18 23:46 DC 11/06/18 23:54 1 GM Cetirizine HCl (ZyrTEC) 10 mg DAILY 11/07/18 09:30 11/20/18 08:43 10 MG Clindamycin Phosphate 50 ml @ 100 mls/hr Q8HRS 11/07/18 14:00 11/08/18 11:54 DC 11/08/18 05:59 100 MLS/HR Clonidine HCl (Catapres) 0.1 mg PRN Q1HR PRN 11/08/18 12:30 Diltiazem HCl (Cardizem 24hr Cd) 240 mg DAILY 11/16/18 09:00 11/20/18 08:43 240 MG Diltiazem HCl (Cardizem) 60 mg 1X ONCE 11/15/18 12:30 11/15/18 12:31 DC 11/15/18 12:42 60 MG Diltiazem HCl 125 mg/Dextrose 125 ml @ 5 mls/hr CONT PRN 11/12/18 13:00 11/16/18 11:25 DC 11/13/18 16:00 10 MLS/HR Docusate Sodium (Colace) 100 mg BID 11/10/18 09:30 11/18/18 09:03 100 MG Doxepin HCl (SINEquan) 75 mg QHS 11/07/18 21:00 11/19/18 22:05 75 MG Fentanyl Citrate (Fentanyl 2ml Vial) 50 mcg PRN Q5MIN PRN 11/17/18 10:30 11/18/18 10:29 DC Fluconazole (Diflucan) 100 mg DAILY 11/09/18 10:30 11/12/18 14:39 DC 11/12/18 09:25 100 MG Furosemide (Lasix) 20 mg 1X ONCE 11/15/18 12:15 11/15/18 12:16 DC 11/15/18 12:43 20 MG Guaifenesin (Robitussin Dm) 10 ml PRN Q6HRS PRN 11/07/18 09:30 Lactobacillus Rhamnosus (Culturelle) 1 cap BID 11/08/18 21:00 11/20/18 08:43 1 CAP Levofloxacin (Levaquin) 250 mg DAILY06 11/07/18 10:00 11/07/18 11:29 DC 11/07/18 09:47 250 MG Lidocaine HCl (Lidocaine Pf 2% Vial) 5 ml STK-MED ONCE 11/17/18 11:06 11/17/18 11:07 DC Lidocaine HCl (Xylocaine-Mpf 1% 2ml Vial) 2 ml 1X PRN PRN 11/17/18 10:30 11/18/18 10:29 DC Linezolid (Zyvox) 600 mg BID 11/08/18 12:00 11/15/18 08:51 DC 11/14/18 20:20 600 MG Losartan Potassium (Cozaar) 100 mg DAILY 11/09/18 09:00 11/19/18 09:24 100 MG Magnesium Hydroxide (Milk Of Magnesia) 2,400 mg PRN DAILY PRN 11/10/18 09:30 Methylprednisolone Sodium Succinate (SOLU-Medrol 40MG VIAL) 30 mg BID 11/16/18 21:00 11/18/18 09:35 DC 11/18/18 09:02 30 MG Methylprednisolone Sodium Succinate (SOLU-Medrol 125MG VIAL) 125 mg 1X ONCE 11/07/18 12:45 11/07/18 12:46 DC 11/07/18 16:00 125 MG Metoprolol Tartrate (Lopressor Vial) 2.5 mg PRN Q4HRS PRN 11/11/18 19:45 11/18/18 08:58 2.5 MG Metoprolol Tartrate (Lopressor) 50 mg BID 11/20/18 09:00 Micafungin Sodium 100 mg/Dextrose 100 ml @ 100 mls/hr Q24H 11/12/18 15:00 11/16/18 11:26 DC 11/15/18 15:49 100 MLS/HR Midazolam HCl (Versed) 2 mg PRN 1X PRN 11/17/18 10:30 11/18/18 10:29 DC Multi-Ingred Cream/Lotion/Oil/ Oint (Hydrocerin Cream) 1 alfonso PRN Q1HR PRN 11/07/18 11:30 Multivitamins (Thera M Plus) 1 tab DAILY 11/08/18 09:00 11/11/18 13:44 DC Non-Formulary Medication (Acetaminophen (Tylenol Extra Strength)) 1,000 mg PRN Q6HRS PRN 11/07/18 09:30 UNV Non-Formulary Medication (Melatonin ) 5 mg HS 11/07/18 21:00 UNV Ondansetron HCl (Zofran) 4 mg PRN Q6HRS PRN 11/07/18 09:30 Pantoprazole Sodium (Protonix) 40 mg DAILYAC 11/16/18 17:00 11/20/18 08:43 40 MG Piperacillin Sod/ Tazobactam Sod (Zosyn Per Pharmacy) 1 each PRN DAILY PRN 11/08/18 12:00 11/09/18 10:28 DC Piperacillin Sod/ Tazobactam Sod 2.25 gm/Sodium Chloride 50 ml @ 100 mls/hr Q6HRS 11/08/18 12:30 11/09/18 10:28 DC 11/09/18 05:50 100 MLS/HR Polyethylene Glycol (miraLAX PACKET) 17 gm PRN DAILY PRN 11/10/18 09:30 Prednisone (Prednisone) 40 mg DAILY 11/08/18 09:00 11/08/18 11:01 DC 11/08/18 09:11 40 MG Propofol 20 ml @ As Directed STK-MED ONCE 11/17/18 11:06 11/17/18 11:07 DC Ringer's Solution 1,000 ml @ 125 mls/hr Q8H 11/17/18 10:29 11/17/18 14:35 DC Sodium Polystyrene Sulfonate (Kayexalate) 30 gm 1X ONCE 11/18/18 19:30 11/18/18 19:31 DC 11/18/18 21:45 30 GM Sodium Chloride 500 ml @ 500 mls/hr 1X ONCE 11/11/18 20:00 11/11/18 20:59 DC 11/11/18 19:57 500 MLS/HR Temazepam (Restoril) 7.5 mg PRN QHS PRN 11/08/18 02:15 11/17/18 21:34 7.5 MG Vancomycin HCl (Vanco Per Pharmacy) 1 each PRN DAILY PRN 11/06/18 23:45 11/07/18 09:27 DC 11/07/18 05:19 1 EACH Vancomycin HCl (Vancomycin Trough Level) 1 each 1X ONCE 11/08/18 23:00 11/08/18 23:01 Cancel Vancomycin HCl 1.25 gm/Sodium Chloride 250 ml @ 167 mls/hr Q24H 11/07/18 23:30 11/07/18 23:30 DC Vancomycin HCl 2 gm/Sodium Chloride 500 ml @ 250 mls/hr 1X ONCE 11/06/18 23:45 11/07/18 01:44 DC 11/06/18 23:55 250 MLS/HR Labs: Lab Laboratory Tests Test 11/20/18 05:53 White Blood Count 24.9 x10^3/uL (4.0-11.0) Red Blood Count 3.58 x10^6/uL (3.50-5.40) Hemoglobin 11.2 g/dL (12.0-15.5) Hematocrit 34.4 % (36.0-47.0) Mean Corpuscular Volume 96 fL (79-100) Mean Corpuscular Hemoglobin 31 pg (25-35) Mean Corpuscular Hemoglobin Concent 33 g/dL (31-37) Red Cell Distribution Width 14.6 % (11.5-14.5) Platelet Count 214 x10^3/uL (140-400) Neutrophils (%) (Auto) 72 % (31-73) Lymphocytes (%) (Auto) 16 % (24-48) Monocytes (%) (Auto) 10 % (0-9) Eosinophils (%) (Auto) 2 % (0-3) Basophils (%) (Auto) 0 % (0-3) Neutrophils # (Auto) 18.0 x10^3/uL (1.8-7.7) Lymphocytes # (Auto) 4.0 x10^3/uL (1.0-4.8) Monocytes # (Auto) 2.4 x10^3/uL (0.0-1.1) Eosinophils # (Auto) 0.5 x10^3/uL (0.0-0.7) Basophils # (Auto) 0.0 x10^3/uL (0.0-0.2) Sodium Level 140 mmol/L (136-145) Potassium Level 4.8 mmol/L (3.5-5.1) Chloride Level 103 mmol/L (98-107) Carbon Dioxide Level 29 mmol/L (21-32) Anion Gap 8 (6-14) Blood Urea Nitrogen 49 mg/dL (7-20) Creatinine 0.9 mg/dL (0.6-1.0) Estimated GFR (Cockcroft-Gault) 59.1 Glucose Level 99 mg/dL (70-99) Calcium Level 8.1 mg/dL (8.5-10.1) Objective: Assessment: A-flutter RLE cellulitis - failed Clinda - better Leukocytosis - on solu-medrol TY Tinea Superficial right heel and left leg wounds Bronchospasm on steroids Constipation Plan: Plan of Care Continue Augmentin for 2 more days pt is been dc today per team Local wound care off load JESS GUSTAFSON MD Nov 20, 2018 10:43
[2018-11-20 11:00] VITALS: BP 82/45
--- NOTE | 2018-11-20 11:15 | PDOC ---
PULMONARY PROGRESS NOTES Subjective remains in atrial fibrillation NO SOA Vitals Vital Signs Date Time Temp Pulse Resp B/P (MAP) Pulse Ox O2 Delivery O2 Flow Rate FiO2 11/20/18 08:57 93 Nasal Cannula 2.0 11/20/18 08:43 87 106/63 11/20/18 07:30 97.7 14 97.7 ROS: No Chest Pain, No Increase Cough General: Alert, No acute distress Lungs: Wheezing (resolved) Cardiovascular: S1, S2, Other (irregular) Abdomen: Soft Neuro Exam: Alert Extremities: No Edema Skin: Warm Labs Laboratory Tests Test 11/18/18 21:00 11/19/18 04:15 11/20/18 05:53 Potassium Level 5.9 mmol/L (3.5-5.1) 4.8 mmol/L (3.5-5.1) 4.8 mmol/L (3.5-5.1) White Blood Count 24.2 x10^3/uL (4.0-11.0) 24.9 x10^3/uL (4.0-11.0) Red Blood Count 3.53 x10^6/uL (3.50-5.40) 3.58 x10^6/uL (3.50-5.40) Hemoglobin 11.0 g/dL (12.0-15.5) 11.2 g/dL (12.0-15.5) Hematocrit 33.4 % (36.0-47.0) 34.4 % (36.0-47.0) Mean Corpuscular Volume 95 fL (79-100) 96 fL (79-100) Mean Corpuscular Hemoglobin 31 pg (25-35) 31 pg (25-35) Mean Corpuscular Hemoglobin Concent 33 g/dL (31-37) 33 g/dL (31-37) Red Cell Distribution Width 14.8 % (11.5-14.5) 14.6 % (11.5-14.5) Platelet Count 237 x10^3/uL (140-400) 214 x10^3/uL (140-400) Neutrophils (%) (Auto) 77 % (31-73) 72 % (31-73) Lymphocytes (%) (Auto) 13 % (24-48) 16 % (24-48) Monocytes (%) (Auto) 10 % (0-9) 10 % (0-9) Eosinophils (%) (Auto) 0 % (0-3) 2 % (0-3) Basophils (%) (Auto) 0 % (0-3) 0 % (0-3) Neutrophils # (Auto) 18.7 x10^3/uL (1.8-7.7) 18.0 x10^3/uL (1.8-7.7) Lymphocytes # (Auto) 3.0 x10^3/uL (1.0-4.8) 4.0 x10^3/uL (1.0-4.8) Monocytes # (Auto) 2.4 x10^3/uL (0.0-1.1) 2.4 x10^3/uL (0.0-1.1) Eosinophils # (Auto) 0.0 x10^3/uL (0.0-0.7) 0.5 x10^3/uL (0.0-0.7) Basophils # (Auto) 0.0 x10^3/uL (0.0-0.2) 0.0 x10^3/uL (0.0-0.2) Segmented Neutrophils % 77 % (35-66) Band Neutrophils % 2 % (0-9) Lymphocytes % 12 % (24-48) Monocytes % 6 % (0-10) Metamyelocytes % 1 % (0-0) Myelocytes % 2 % (0-0) Platelet Estimate Adequate (ADEQUATE) Polychromasia Slight Anisocytosis Slight Sodium Level 137 mmol/L (136-145) 140 mmol/L (136-145) Chloride Level 101 mmol/L (98-107) 103 mmol/L (98-107) Carbon Dioxide Level 31 mmol/L (21-32) 29 mmol/L (21-32) Anion Gap 5 (6-14) 8 (6-14) Blood Urea Nitrogen 51 mg/dL (7-20) 49 mg/dL (7-20) Creatinine 1.0 mg/dL (0.6-1.0) 0.9 mg/dL (0.6-1.0) Estimated GFR (Cockcroft-Gault) 52.3 59.1 Glucose Level 118 mg/dL (70-99) 99 mg/dL (70-99) Calcium Level 8.2 mg/dL (8.5-10.1) 8.1 mg/dL (8.5-10.1) Laboratory Tests Test 11/20/18 05:53 White Blood Count 24.9 x10^3/uL (4.0-11.0) Red Blood Count 3.58 x10^6/uL (3.50-5.40) Hemoglobin 11.2 g/dL (12.0-15.5) Hematocrit 34.4 % (36.0-47.0) Mean Corpuscular Volume 96 fL (79-100) Mean Corpuscular Hemoglobin 31 pg (25-35) Mean Corpuscular Hemoglobin Concent 33 g/dL (31-37) Red Cell Distribution Width 14.6 % (11.5-14.5) Platelet Count 214 x10^3/uL (140-400) Neutrophils (%) (Auto) 72 % (31-73) Lymphocytes (%) (Auto) 16 % (24-48) Monocytes (%) (Auto) 10 % (0-9) Eosinophils (%) (Auto) 2 % (0-3) Basophils (%) (Auto) 0 % (0-3) Neutrophils # (Auto) 18.0 x10^3/uL (1.8-7.7) Lymphocytes # (Auto) 4.0 x10^3/uL (1.0-4.8) Monocytes # (Auto) 2.4 x10^3/uL (0.0-1.1) Eosinophils # (Auto) 0.5 x10^3/uL (0.0-0.7) Basophils # (Auto) 0.0 x10^3/uL (0.0-0.2) Sodium Level 140 mmol/L (136-145) Potassium Level 4.8 mmol/L (3.5-5.1) Chloride Level 103 mmol/L (98-107) Carbon Dioxide Level 29 mmol/L (21-32) Anion Gap 8 (6-14) Blood Urea Nitrogen 49 mg/dL (7-20) Creatinine 0.9 mg/dL (0.6-1.0) Estimated GFR (Cockcroft-Gault) 59.1 Glucose Level 99 mg/dL (70-99) Calcium Level 8.1 mg/dL (8.5-10.1) Medications Active Scripts Medications Dose Route/Sig Max Daily Dose Days Date Category Thera M Plus Tablet (Multivits,Ca,Minerals/Iron/FA) 1 Each Tablet 1 Each PO DAILY 11/07/18 Reported Melatonin 3 Mg Tablet 5 Mg PO HS 11/07/18 Reported Claritin (Loratadine) 10 Mg Tablet 1 Tab PO DAILY 11/07/18 Reported Losartan Potassium 50 Mg Tablet 50 Mg PO DAILY 11/07/18 Reported Tylenol Extra Strength (Acetaminophen) 500 Mg Tablet 1,000 Mg PO PRN Q6HRS PRN 11/07/18 Reported Bactrim Ds Tablet (Sulfamethoxazole/Trimethoprim) 1 Each Tablet 1 Each PO BID 7 11/07/18 Reported Doxepin Hcl 75 Mg Capsule 75 Mg PO DAILY 10/25/17 Reported Aspirin 325 Mg Tablet 1 Tab PO DAILY 01/04/14 Reported Furosemide 20 Mg Tablet 1 Tab PO DAILY 01/04/14 Reported Metoprolol Tartrate 50 Mg Tablet 1 Tab PO BID 01/04/14 Reported Impression . 1. Acute hypoxic respiratory failure secondary to diffuse bronchospasm, resolved 2. Diffuse bronchospasm, likely cardiac asthma. She has mild congestive heart failure on the chest x-ray and likely acute on chronic diastolic heart failure and also related to her MR. off metoprolol PO , wheezing improved post diuresis She quit tobacco 35 years ago and unlikely chronic obstructive disease exacerbation. 3. acute onset atrial fibrillation. rate controlled with diltiazem. of note the fact that she started wheezing again with afib supports a dx of "cardiac" asthma (which does not necessarily correlate with the severity of heart failure). 4. Renal insufficiency. 5. Underlying obesity. 6. distant past tobacco history. Plan . 1. Control of Afib per cardiology. 2. Holding metoprolol 3. prn Lasix due to azotemia 4. DuoNebs. 5. Pulmicort. 6. off solumedrol 7. taper O2 watching oxygen saturation. 8. CXR f/u 11/14 with mild CHF, left base effusion, stable pulmonary kang will see prn FILEMON JAFFE MD Nov 20, 2018 11:15
--- NOTE | 2018-11-20 12:03 | PDOC ---
[employer] PROGRESS NOTE Chief Complaint Chief Complaint New Onset A. fib/A flutter - with RVR, acute diastolic CHF Mild CHF by chest x-ray Acute hypoxic respiratory failure SNU resident DNR Bilateral lower extremity cellulitis Negative Dopplers for DVT-right greater than left Met encephalopathy/confusion Dementia Geriatric Fall risk Hypertension GERD OA-chronic stable History of Present Illness History of Present Illness 11/20/18 Pt seen and examined DW RN regarding the pt's care and discontinuing ARB due to hypotension and hyperkalemia DW pt about pending d/c to LTC On p.o. tiago Reviewed pt's chart Vitals/I&O Vitals/I&O: Vital Signs Date Time Temp Pulse Resp B/P (MAP) Pulse Ox O2 Delivery O2 Flow Rate FiO2 11/20/18 11:00 98.2 101 16 82/45 (57) 95 Nasal Cannula 2.0 98.2 I & O 11/19/18 11/19/18 11/20/18 14:59 22:59 06:59 Intake Total 300 ml Output Total 2 ml 2 ml Balance -2 ml -2 ml 300 ml Physical Exam Physical Exam: GEN: Propped up in bed, alert, smiling HEENT: Oral cavity pink, moist. No thrush NECK: Supple. LUNGS: Clear CARDIOVASCULAR: atrial flutter ABDOMEN: Soft, obese with decreased BS EXTREMITIES: BLE min erythema, + wrinkling, mild yeast. LLE wound SKIN: No rash PIV General: Alert, Oriented X3, Cooperative, No acute distress Heart: No murmurs, Other (aflutter) Lungs: Wheezing (resolved) Abdomen: Soft, No tenderness Extremities: No clubbing, No cyanosis Skin: Other (scaling to bilateral LE; erythema more to right than left; scabbed pressure ulcer to right calcaneus) Labs Labs: Laboratory Tests Test 11/20/18 05:53 White Blood Count 24.9 x10^3/uL (4.0-11.0) Red Blood Count 3.58 x10^6/uL (3.50-5.40) Hemoglobin 11.2 g/dL (12.0-15.5) Hematocrit 34.4 % (36.0-47.0) Mean Corpuscular Volume 96 fL (79-100) Mean Corpuscular Hemoglobin 31 pg (25-35) Mean Corpuscular Hemoglobin Concent 33 g/dL (31-37) Red Cell Distribution Width 14.6 % (11.5-14.5) Platelet Count 214 x10^3/uL (140-400) Neutrophils (%) (Auto) 72 % (31-73) Lymphocytes (%) (Auto) 16 % (24-48) Monocytes (%) (Auto) 10 % (0-9) Eosinophils (%) (Auto) 2 % (0-3) Basophils (%) (Auto) 0 % (0-3) Neutrophils # (Auto) 18.0 x10^3/uL (1.8-7.7) Lymphocytes # (Auto) 4.0 x10^3/uL (1.0-4.8) Monocytes # (Auto) 2.4 x10^3/uL (0.0-1.1) Eosinophils # (Auto) 0.5 x10^3/uL (0.0-0.7) Basophils # (Auto) 0.0 x10^3/uL (0.0-0.2) Sodium Level 140 mmol/L (136-145) Potassium Level 4.8 mmol/L (3.5-5.1) Chloride Level 103 mmol/L (98-107) Carbon Dioxide Level 29 mmol/L (21-32) Anion Gap 8 (6-14) Blood Urea Nitrogen 49 mg/dL (7-20) Creatinine 0.9 mg/dL (0.6-1.0) Estimated GFR (Cockcroft-Gault) 59.1 Glucose Level 99 mg/dL (70-99) Calcium Level 8.1 mg/dL (8.5-10.1) Review of Systems Review of Systems: No c/o headache No c/o N/V/D Assessment and Plan Assessmemt and Plan Problems Medical Problems: (1) A-fib Status: Acute (2) Acute diastolic CHF (congestive heart failure) Status: Acute (3) Acute kidney injury superimposed on CKD Status: Acute (4) Acute on chronic diastolic congestive heart failure Status: Acute (5) Acute respiratory failure Status: Acute (6) Cellulitis of right lower extremity Status: Acute Assessment New Onset A. fib/A flutter - with RVR, acute diastolic CHF Mild CHF by chest x-ray Acute hypoxic respiratory failure SNU resident DNR Bilateral lower extremity cellulitis Negative Dopplers for DVT-right greater than left Met encephalopathy/confusion Dementia Geriatric Fall risk Hypertension GERD OA-chronic stable Plan Cardiac Monitoring Trend Hgb PT/OT Labs Awaiting transfer to LTC at [facility] Comment Review of Relevant I have reviewed the following items christina (where applicable) has been applied. JEREMY NARVAEZ III DO Nov 20, 2018 12:03
--- NOTE | 2018-11-20 12:09 | SNU/HH DC ---
DISCHARGE ORDERS DISCHARGE INFORMATION: DISCHARGE DATE: Nov 11, 2018 FINAL DIAGNOSIS Problems Medical Problems: (1) A-fib Status: Acute (2) Acute diastolic CHF (congestive heart failure) Status: Acute (3) Acute kidney injury superimposed on CKD Status: Acute (4) Acute on chronic diastolic congestive heart failure Status: Acute (5) Acute respiratory failure Status: Acute (6) Cellulitis of right lower extremity Status: Acute CONDITION ON DISCHARGE: Stable CODE STATUS: Code Status: Full [facility]: SNF STAY <30 DAYS: No HOSPICE: HOSPICE: No HOSPICE EVAL & TREAT: No LTAC: ADMIT TO LTAC: No POST DISCHARGE ORDERS: ACTIVITY ORDERS: Activity as tolerated WEIGHT BEARING STATUS: Full weight bearing, As tolerated DIET AFTER DISCHARGE: Cardiac WOUND/INCISION CARE: Keep wound elevated, Change dressing, Reinforce dressing PRN CHECKS AFTER DISCHARGE: CHECKS AFTER DISCHARGE: Check blood press - daily FOLLOW-UP: PHYSICIAN FOLLOW-UP: cards or pcp re chf on snu dc TREATMENT/EQUIPMENT ORDERS: ADAPTIVE EQUIPMENT NEEDED: Front wheeled walker DISCHARGE MEDICATIONS: Home Meds Active Scripts Ascorbic Acid (VITAMIN C) 500 Mg Tablet, 500 MG PO DAILY for mvi, #30 TAB Prov:JOSE FLOREZ MD 11/11/18 Budesonide (BUDESONIDE) 0.5 Mg/2 Ml Ampul.neb, 0.5 MG NEB RTBID for soa, #60 EACH Prov:JOSE FLOREZ MD 11/11/18 Guaifenesin/Dextromethorphan (GUAIFENESIN DM SYRUP) 5 Ml Syrup, 10 ML PO PRN Q6HRS PRN for COUGH for 7 Days, MISC Prov:JOSE FLOREZ MD 11/11/18 Ipratropium/Albuterol Sulfate (DUONEB 0.5-3(2.5) MG/3 ML) 3 Ml Ampul.neb, 3 ML NEB Q4HRS for soa, #90 EACH Prov:JOSE FLOREZ MD 11/11/18 Atorvastatin Calcium (ATORVASTATIN CALCIUM) 20 Mg Tablet, 20 MG PO QHS for lipids, #60 TAB Prov:JOSE FLOREZ MD 11/11/18 [Fluconazole] 100 MG TABLET No Conflict Check, 100 MG PO DAILY for onn abx for 7 Days, #7 TAB Prov:JOSE FLOREZ MD 11/11/18 Amoxicillin/Potassium Clav (AMOX TR-K CLV 500-125 MG TAB) 1 Each Tablet, 1 TAB PO BID for infection for 7 Days, #14 TAB Prov:JOSE FLOREZ MD 11/11/18 Reported Medications Multivits,Ca,Minerals/Iron/FA (Thera M Plus Tablet) 1 Each Tablet, 1 EACH PO DAILY for supplement, TAB 11/07/18 Melatonin (MELATONIN) 3 Mg Tablet, 5 MG PO HS for insomnia, TAB 11/07/18 Loratadine (CLARITIN) 10 Mg Tablet, 1 TAB PO DAILY for allergies, #30 TAB 3 Refills 11/07/18 Acetaminophen (TYLENOL EXTRA STRENGTH) 500 Mg Tablet, 1000 MG PO PRN Q6HRS PRN for PAIN, TAB 11/07/18 Doxepin Hcl (DOXEPIN HCL) 75 Mg Capsule, 75 MG PO DAILY, CAP 10/25/17 Aspirin (ASPIRIN) 325 Mg Tablet, 1 TAB PO DAILY, #30 TAB 5 Refills 01/04/14 Furosemide (FUROSEMIDE) 20 Mg Tablet, 1 TAB PO DAILY, #90 TAB 1 Refill 01/04/14 Metoprolol Tartrate (METOPROLOL TARTRATE) 50 Mg Tablet, 1 TAB PO BID, #60 TAB 5 Refills 01/04/14 JEREMY NARVAEZ III DO Nov 20, 2018 12:09
--- NOTE | 2018-11-20 12:49 | PDOC ---
G I PROGRESS NOTE Reason for Follow-up Anemia/DU Subjective Tolerating PO Physical Exam Lungs decreased BS CV S1 S2 ABD +BS, soft, nontender Review of Relevant I have reviewed the following items christina (where applicable) has been applied. Labs Laboratory Tests Test 11/18/18 21:00 11/19/18 04:15 11/20/18 05:53 Potassium Level 5.9 mmol/L (3.5-5.1) 4.8 mmol/L (3.5-5.1) 4.8 mmol/L (3.5-5.1) White Blood Count 24.2 x10^3/uL (4.0-11.0) 24.9 x10^3/uL (4.0-11.0) Red Blood Count 3.53 x10^6/uL (3.50-5.40) 3.58 x10^6/uL (3.50-5.40) Hemoglobin 11.0 g/dL (12.0-15.5) 11.2 g/dL (12.0-15.5) Hematocrit 33.4 % (36.0-47.0) 34.4 % (36.0-47.0) Mean Corpuscular Volume 95 fL (79-100) 96 fL (79-100) Mean Corpuscular Hemoglobin 31 pg (25-35) 31 pg (25-35) Mean Corpuscular Hemoglobin Concent 33 g/dL (31-37) 33 g/dL (31-37) Red Cell Distribution Width 14.8 % (11.5-14.5) 14.6 % (11.5-14.5) Platelet Count 237 x10^3/uL (140-400) 214 x10^3/uL (140-400) Neutrophils (%) (Auto) 77 % (31-73) 72 % (31-73) Lymphocytes (%) (Auto) 13 % (24-48) 16 % (24-48) Monocytes (%) (Auto) 10 % (0-9) 10 % (0-9) Eosinophils (%) (Auto) 0 % (0-3) 2 % (0-3) Basophils (%) (Auto) 0 % (0-3) 0 % (0-3) Neutrophils # (Auto) 18.7 x10^3/uL (1.8-7.7) 18.0 x10^3/uL (1.8-7.7) Lymphocytes # (Auto) 3.0 x10^3/uL (1.0-4.8) 4.0 x10^3/uL (1.0-4.8) Monocytes # (Auto) 2.4 x10^3/uL (0.0-1.1) 2.4 x10^3/uL (0.0-1.1) Eosinophils # (Auto) 0.0 x10^3/uL (0.0-0.7) 0.5 x10^3/uL (0.0-0.7) Basophils # (Auto) 0.0 x10^3/uL (0.0-0.2) 0.0 x10^3/uL (0.0-0.2) Segmented Neutrophils % 77 % (35-66) Band Neutrophils % 2 % (0-9) Lymphocytes % 12 % (24-48) Monocytes % 6 % (0-10) Metamyelocytes % 1 % (0-0) Myelocytes % 2 % (0-0) Platelet Estimate Adequate (ADEQUATE) Polychromasia Slight Anisocytosis Slight Sodium Level 137 mmol/L (136-145) 140 mmol/L (136-145) Chloride Level 101 mmol/L (98-107) 103 mmol/L (98-107) Carbon Dioxide Level 31 mmol/L (21-32) 29 mmol/L (21-32) Anion Gap 5 (6-14) 8 (6-14) Blood Urea Nitrogen 51 mg/dL (7-20) 49 mg/dL (7-20) Creatinine 1.0 mg/dL (0.6-1.0) 0.9 mg/dL (0.6-1.0) Estimated GFR (Cockcroft-Gault) 52.3 59.1 Glucose Level 118 mg/dL (70-99) 99 mg/dL (70-99) Calcium Level 8.2 mg/dL (8.5-10.1) 8.1 mg/dL (8.5-10.1) Laboratory Tests Test 11/20/18 05:53 White Blood Count 24.9 x10^3/uL (4.0-11.0) Red Blood Count 3.58 x10^6/uL (3.50-5.40) Hemoglobin 11.2 g/dL (12.0-15.5) Hematocrit 34.4 % (36.0-47.0) Mean Corpuscular Volume 96 fL (79-100) Mean Corpuscular Hemoglobin 31 pg (25-35) Mean Corpuscular Hemoglobin Concent 33 g/dL (31-37) Red Cell Distribution Width 14.6 % (11.5-14.5) Platelet Count 214 x10^3/uL (140-400) Neutrophils (%) (Auto) 72 % (31-73) Lymphocytes (%) (Auto) 16 % (24-48) Monocytes (%) (Auto) 10 % (0-9) Eosinophils (%) (Auto) 2 % (0-3) Basophils (%) (Auto) 0 % (0-3) Neutrophils # (Auto) 18.0 x10^3/uL (1.8-7.7) Lymphocytes # (Auto) 4.0 x10^3/uL (1.0-4.8) Monocytes # (Auto) 2.4 x10^3/uL (0.0-1.1) Eosinophils # (Auto) 0.5 x10^3/uL (0.0-0.7) Basophils # (Auto) 0.0 x10^3/uL (0.0-0.2) Sodium Level 140 mmol/L (136-145) Potassium Level 4.8 mmol/L (3.5-5.1) Chloride Level 103 mmol/L (98-107) Carbon Dioxide Level 29 mmol/L (21-32) Anion Gap 8 (6-14) Blood Urea Nitrogen 49 mg/dL (7-20) Creatinine 0.9 mg/dL (0.6-1.0) Estimated GFR (Cockcroft-Gault) 59.1 Glucose Level 99 mg/dL (70-99) Calcium Level 8.1 mg/dL (8.5-10.1) Microbiology 11/07/18 Blood Culture - Final, Complete NO GROWTH AFTER 5 DAYS Medications Current Medications Furosemide (Lasix) 40 mg 1X ONCE IVP Last administered on 11/06/18at 23:54; Start 11/06/18 at 23:45; Stop 11/06/18 at 23:46; Status DC Ceftriaxone Sodium (Rocephin) 1 gm 1X ONCE IVP Last administered on 11/06/18at 23:54; Start 11/06/18 at 23:45; Stop 11/06/18 at 23:46; Status DC Vancomycin HCl (Vanco Per Pharmacy) 1 each PRN DAILY PRN MC SEE COMMENTS Last administered on 11/07/18at 05:19; Start 11/06/18 at 23:45; Stop 11/07/18 at 09:27; Status DC Albuterol/ Ipratropium (Duoneb) 3 ml RTQID NEB Last administered on 11/08/18at 08:03; Start 11/07/18 at 08:00; Stop 11/08/18 at 07:59; Status DC Vancomycin HCl 2 gm/Sodium Chloride 500 ml @ 250 mls/hr 1X ONCE IV Last administered on 11/06/18at 23:55; Start 11/06/18 at 23:45; Stop 11/07/18 at 01:44; Status DC Vancomycin HCl 1.25 gm/Sodium Chloride 250 ml @ 167 mls/hr Q24H IV ; Start 11/07/18 at 23:30; Stop 11/07/18 at 23:30; Status DC Vancomycin HCl (Vancomycin Trough Level) 1 each 1X ONCE MC ; Start 11/08/18 at 23:00; Stop 11/08/18 at 23:01; Status Cancel Guaifenesin (Robitussin Dm) 10 ml PRN Q6HRS PRN PO COUGH; Start 11/07/18 at 09:30 Acetaminophen (Tylenol) 500 mg PRN Q6HRS PRN PO MILD PAIN / TEMP; Start 11/07/18 at 09:30 Ondansetron HCl (Zofran) 4 mg PRN Q6HRS PRN IV NAUSEA/VOMITING; Start 11/07/18 at 09:30 Furosemide (Lasix) 40 mg DAILY IVP Last administered on 11/07/18at 09:49; Start 11/07/18 at 09:30; Stop 11/07/18 at 19:05; Status DC Aspirin (Santos Aspirin) 325 mg DAILY PO Last administered on 11/19/18at 09:24; Start 11/07/18 at 09:30 Losartan Potassium (Cozaar) 50 mg DAILY PO Last administered on 11/08/18at 09:11; Start 11/07/18 at 09:30; Stop 11/08/18 at 12:17; Status DC Metoprolol Tartrate (Lopressor) 50 mg BID PO Last administered on 11/08/18at 09:11; Start 11/07/18 at 09:30; Stop 11/08/18 at 12:17; Status DC Multivitamins (Thera M Plus) 1 tab DAILY PO Last administered on 11/20/18at 08:4 4; Start 11/07/18 at 09:30 Non-Formulary Medication (Acetaminophen (Tylenol Extra Strength)) 1,000 mg PRN Q6HRS PRN PO PAIN; Start 11/07/18 at 09:30; Status UNV Doxepin HCl (SINEquan) 75 mg QHS PO Last administered on 11/19/18at 22:05; Start 11/07/18 at 21:00 Cetirizine HCl (ZyrTEC) 10 mg DAILY PO Last administered on 11/20/18at 08:43; Start 11/07/18 at 09:30 Non-Formulary Medication (Melatonin ) 5 mg HS PO ; Start 11/07/18 at 21:00; Status UNV Levofloxacin (Levaquin) 250 mg DAILY06 PO Last administered on 11/07/18at 09:47; Start 11/07/18 at 10:00; Stop 11/07/18 at 11:29; Status DC Clindamycin Phosphate 50 ml @ 100 mls/hr Q8HRS IV Last administered on 11/08/18at 05:59; Start 11/07/18 at 14:00; Stop 11/08/18 at 11:54; Status DC Multi-Ingred Cream/Lotion/Oil/ Oint (Hydrocerin Cream) 1 alfonso PRN Q1HR PRN TP DRY SKIN / SCALING; Start 11/07/18 at 11:30 Albuterol Sulfate (Ventolin Neb Soln) 2.5 mg 1X ONCE NEB ; Start 11/07/18 at 12:45; Stop 11/07/18 at 12:46; Status DC Methylprednisolone Sodium Succinate (SOLU-Medrol 125MG VIAL) 125 mg 1X ONCE IV Last administered on 11/07/18at 16:00; Start 11/07/18 at 12:45; Stop 11/07/18 at 12:46; Status DC Atorvastatin Calcium (Lipitor) 20 mg QHS PO Last administered on 11/19/18at 22:05; Start 11/07/18 at 21:00 Multivitamins (Thera M Plus) 1 tab DAILY PO ; Start 11/08/18 at 09:00; Stop 11/11/18 at 13:44; Status DC Ascorbic Acid (Vitamin C) 500 mg DAILY PO Last administered on 11/20/18at 08:44; Start 11/08/18 at 09:00 Furosemide (Lasix) 20 mg DAILY IVP Last administered on 11/10/18at 08:56; Start 11/08/18 at 09:00; Stop 11/10/18 at 09:14; Status DC Prednisone (Prednisone) 40 mg DAILY PO Last administered on 11/08/18at 09:11; Start 11/08/18 at 09:00; Stop 11/08/18 at 11:01; Status DC Temazepam (Restoril) 7.5 mg STK-MED ONCE PO ; Start 11/08/18 at 02:21; Stop 11/08/18 at 03:44; Status DC Temazepam (Restoril) 7.5 mg PRN QHS PRN PO INSOMNIA Last administered on 11/17/18at 21:34; Start 11/08/18 at 02:15 Methylprednisolone Sodium Succinate (SOLU-Medrol 40MG VIAL) 40 mg Q8HRS IV ; Start 11/08/18 at 14:00; Stop 11/08/18 at 14:00; Status DC Piperacillin Sod/ Tazobactam Sod (Zosyn Per Pharmacy) 1 each PRN DAILY PRN MC SEE COMMENTS; Start 11/08/18 at 12:00; Stop 11/09/18 at 10:28; Status DC Linezolid (Zyvox) 600 mg BID PO Last administered on 11/14/18at 20:20; Start 11/08/18 at 12:00; Stop 11/15/18 at 08:51; Status DC Piperacillin Sod/ Tazobactam Sod 2.25 gm/Sodium Chloride 50 ml @ 100 mls/hr Q6HRS IV Last administered on 11/09/18at 05:50; Start 11/08/18 at 12:30; Stop 11/09/18 at 10:28; Status DC Losartan Potassium (Cozaar) 100 mg DAILY PO Last administered on 11/19/18 09:24; Start 11/09/18 at 09:00 Methylprednisolone Sodium Succinate (SOLU-Medrol 40MG VIAL) 40 mg BID IV Last administered on 11/08/18at 22:14; Start 11/08/18 at 21:00; Stop 11/09/18 at 10:12; Status DC Clonidine HCl (Catapres) 0.1 mg PRN Q1HR PRN PO HYPERTENSION; Start 11/08/18 at 12:30 Albuterol/ Ipratropium (Duoneb) 3 ml Q4HRS NEB Last administered on 11/15/18 11:50; Start 11/08/18 at 16:00; Stop 11/15/18 at 12:02; Status DC Budesonide (Pulmicort) 0.5 mg RTBID NEB Last administered on 11/20/18 08:55; Start 11/08/18 at 20:00 Furosemide (Lasix) 20 mg 1X ONCE IVP Last administered on 11/08/18 12:51; Start 11/08/18 at 12:30; Stop 11/08/18 at 12:31; Status DC Lactobacillus Rhamnosus (Culturelle) 1 cap BID PO Last administered on 11/20/18 08:43; Start 11/08/18 at 21:00 Diltiazem HCl (Cardizem 24hr Cd) 180 mg DAILY PO Last administered on 11/15/18 09:03; Start 11/08/18 at 13:00; Stop 11/15/18 at 12:21; Status DC Methylprednisolone Sodium Succinate (SOLU-Medrol 40MG VIAL) 60 mg BID IV Last administered on 11/16/18 09:12; Start 11/09/18 at 21:00; Stop 11/16/18 at 12:12; Status DC Fluconazole (Diflucan) 100 mg DAILY PO Last administered on 11/12/18 09:25; Start 11/09/18 at 10:30; Stop 11/12/18 at 14:39; Status DC Amoxicillin/ Clavulanate Potassium (Augmentin 500/ 125mg) 1 tab BID PO Last administered on 11/20/18 08:43; Start 11/09/18 at 21:00 Docusate Sodium (Colace) 100 mg BID PO Last administered on 11/18/18 09:03; Start 11/10/18 at 09:30 Polyethylene Glycol (miraLAX PACKET) 17 gm 1X ONCE PO Last administered on 11/10/18 09:47; Start 11/10/18 at 09:30; Stop 11/10/18 at 09:31; Status DC Polyethylene Glycol (miraLAX PACKET) 17 gm PRN DAILY PRN PO CONSTIPATION 1ST CHOICE; Start 11/10/18 at 09:30 Magnesium Hydroxide (Milk Of Magnesia) 2,400 mg 1X ONCE PO Last administered on 11/10/18 09:47; Start 11/10/18 at 09:30; Stop 11/10/18 at 09:31; Status DC Magnesium Hydroxide (Milk Of Magnesia) 2,400 mg PRN DAILY PRN PO CONSTIPATION 2ND CHOICE; Start 11/10/18 at 09:30 Bisacodyl (Dulcolax Supp) 10 mg PRN DAILY PRN NM CONSTIPATION Last administered on 11/10/18 22:22; Start 11/10/18 at 09:30 Metoprolol Tartrate (Lopressor Vial) 10 mg 1X ONCE IVP Last administered on 11/11/18 09:22; Start 11/11/18 at 09:15; Stop 11/11/18 at 09:16; Status DC Sodium Chloride 500 ml @ 500 mls/hr 1X ONCE IV Last administered on 11/11/18 19:57; Start 11/11/18 at 20:00; Stop 11/11/18 at 20:59; Status DC Metoprolol Tartrate (Lopressor Vial) 2.5 mg PRN Q4HRS PRN IVP TACHYCARDIA > 130 Last administered on 11/18/18 08:58; Start 11/11/18 at 19:45 Diltiazem HCl 125 mg/Dextrose 125 ml @ 5 mls/hr CONT PRN IV SEE I/O RECORD Last administered on 11/13/18 16:00; Start 11/12/18 at 13:00; Stop 11/16/18 at 11:25; Status DC Micafungin Sodium 100 mg/Dextrose 100 ml @ 100 mls/hr Q24H IV Last administered on 11/15/18 15:49; Start 11/12/18 at 15:00; Stop 11/16/18 at 11:26; Status DC Furosemide (Lasix) 20 mg 1X ONCE IVP Last administered on 11/15/18at 12:43; Start 11/15/18 at 12:15; Stop 11/15/18 at 12:16; Status DC Albuterol Sulfate (Ventolin Neb Soln) 2.5 mg PRN Q4HRS PRN NEB SHORTNESS OF BREATH Last administered on 11/16/18at 07:10; Start 11/15/18 at 12:15 Diltiazem HCl (Cardizem 24hr Cd) 240 mg DAILY PO Last administered on 11/20/18at 08:43; Start 11/16/18 at 09:00 Diltiazem HCl (Cardizem) 60 mg 1X ONCE PO Last administered on 11/15/18at 12:42; Start 11/15/18 at 12:30; Stop 11/15/18 at 12:31; Status DC Calcium Carbonate/ Glycine (Tums) 500 mg PRN AFTMEALHC PRN PO INDIGESTION Last administered on 11/15/18at 18:04; Start 11/15/18 at 17:45 Barium Sulfate (Varibar Thin Liquid Apple) 148 gm 1X ONCE PO Last administered on 11/16/18at 11:45; Start 11/16/18 at 11:45; Stop 11/16/18 at 11:46; Status DC Methylprednisolone Sodium Succinate (SOLU-Medrol 40MG VIAL) 30 mg BID IV Last administered on 11/18/18at 09:02; Start 11/16/18 at 21:00; Stop 11/18/18 at 09:35; Status DC Pantoprazole Sodium (Protonix) 40 mg DAILYAC PO Last administered on 11/20/18at 08:43; Start 11/16/18 at 17:00 Midazolam HCl (Versed) 2 mg PRN 1X PRN IV PRIOR TO PROCEDURE; Start 11/17/18 at 10:30; Stop 11/18/18 at 10:29; Status DC Fentanyl Citrate (Fentanyl 2ml Vial) 25 mcg PRN Q5MIN PRN IV X 2 DOSES FOR PAIN; Start 11/17/18 at 10:30; Stop 11/18/18 at 10:29; Status DC Fentanyl Citrate (Fentanyl 2ml Vial) 50 mcg PRN Q5MIN PRN IV X 2 DOSES FOR PAIN; Start 11/17/18 at 10:30; Stop 11/18/18 at 10:29; Status DC Ringer's Solution 1,000 ml @ 125 mls/hr Q8H IV Last administered on 11/17/18at 10:18; Start 11/17/18 at 10:18; Stop 11/17/18 at 14:35; Status DC Lidocaine HCl (Xylocaine-Mpf 1% 2ml Vial) 2 ml 1X PRN PRN ID IV START; Start 11/17/18 at 10:30; Stop 11/18/18 at 10:29; Status DC Midazolam HCl (Versed) 2 mg PRN 1X PRN IV PRIOR TO PROCEDURE; Start 11/17/18 at 10:30; Stop 11/18/18 at 10:29; Status DC Fentanyl Citrate (Fentanyl 2ml Vial) 25 mcg PRN Q5MIN PRN IV X 2 DOSES FOR PAIN; Start 11/17/18 at 10:30; Stop 11/18/18 at 10:29; Status DC Fentanyl Citrate (Fentanyl 2ml Vial) 50 mcg PRN Q5MIN PRN IV X 2 DOSES FOR PAIN; Start 11/17/18 at 10:30; Stop 11/18/18 at 10:29; Status DC Ringer's Solution 1,000 ml @ 125 mls/hr Q8H IV ; Start 11/17/18 at 10:29; Stop 11/17/18 at 14:35; Status DC Lidocaine HCl (Xylocaine-Mpf 1% 2ml Vial) 2 ml 1X PRN PRN ID IV START; Start 11/17/18 at 10:30; Stop 11/18/18 at 10:29; Status DC Propofol 20 ml @ As Directed STK-MED ONCE IV ; Start 11/17/18 at 11:06; Stop 11/17/18 at 11:07; Status DC Lidocaine HCl (Lidocaine Pf 2% Vial) 5 ml STK-MED ONCE .ROUTE ; Start 11/17/18 at 11:06; Stop 11/17/18 at 11:07; Status DC Metoprolol Tartrate (Lopressor) 25 mg Q6HRS PO Last administered on 11/20/18at 06:46; Start 11/18/18 at 18:00; Stop 11/20/18 at 08:48; Status DC Sodium Polystyrene Sulfonate (Kayexalate) 30 gm 1X ONCE PO Last administered on 11/18/18at 21:45; Start 11/18/18 at 19:30; Stop 11/18/18 at 19:31; Status DC Metoprolol Tartrate (Lopressor) 50 mg BID PO ; Start 11/20/18 at 09:00 Active Scripts Active Vitamin C (Ascorbic Acid) 500 Mg Tablet 500 Mg PO DAILY Budesonide 0.5 Mg/2 Ml Ampul.neb 0.5 Mg NEB RTBID Guaifenesin Dm Syrup (Guaifenesin/Dextromethorphan) 5 Ml Syrup 10 Ml PO PRN Q6HRS PRN 7 Days Duoneb 0.5-3(2.5) Mg/3 Ml (Albuterol/Ipratropium) 3 Ml Ampul.neb 3 Ml NEB Q4HRS Atorvastatin Calcium 20 Mg Tablet 20 Mg PO QHS [Fluconazole] 100 MG Tablet 100 Mg PO DAILY 7 Days Amox Tr-K Clv 500-125 Mg Tab (Amoxicillin/Potassium Clav) 1 Each Tablet 1 Tab PO BID 7 Days Reported Thera M Plus Tablet (Multivits,Ca,Minerals/Iron/FA) 1 Each Tablet 1 Each PO DAILY Melatonin 3 Mg Tablet 5 Mg PO HS Claritin (Loratadine) 10 Mg Tablet 1 Tab PO DAILY Tylenol Extra Strength (Acetaminophen) 500 Mg Tablet 1,000 Mg PO PRN Q6HRS PRN Doxepin Hcl 75 Mg Capsule 75 Mg PO DAILY Aspirin 325 Mg Tablet 1 Tab PO DAILY Furosemide 20 Mg Tablet 1 Tab PO DAILY Metoprolol Tartrate 50 Mg Tablet 1 Tab PO BID Vitals/I & O Vital Sign - Last 24 Hours 11/19/18 11/19/18 11/19/18 11/19/18 13:58 15:00 18:00 19:35 Temp 97.6 97.8 97.6 97.8 Pulse 103 93 81 Resp 14 20 B/P (MAP) 104/55 98/45 (62) 84/37 84/37 (53) Pulse Ox 98 96 O2 Delivery Nasal Cannula Nasal Cannula O2 Flow Rate 2.0 2.0 11/19/18 11/19/18 11/19/18 11/19/18 20:00 20:27 23:00 23:55 Temp 97.9 97.9 Pulse 106 106 Resp 22 B/P (MAP) 87/44 (58) 87/44 Pulse Ox 96 95 O2 Delivery Nasal Cannula Nasal Cannula Nasal Cannula O2 Flow Rate 2.0 2.0 2.0 11/20/18 11/20/18 11/20/18 11/20/18 03:25 06:46 07:30 08:00 Temp 97.7 97.7 97.7 97.7 Pulse 68 131 87 Resp 20 14 B/P (MAP) 114/74 (87) 122/74 106/63 (77) Pulse Ox 97 94 O2 Delivery Nasal Cannula Nasal Cannula Nasal Cannula O2 Flow Rate 2.0 2.0 2.0 11/20/18 11/20/18 11/20/18 08:43 08:57 11:00 Temp 98.2 98.2 Pulse 87 101 Resp 16 B/P (MAP) 106/63 82/45 (57) Pulse Ox 93 95 O2 Delivery Nasal Cannula Nasal Cannula O2 Flow Rate 2.0 2.0 Intake and Output 11/19/18 11/19/18 11/20/18 14:59 22:59 06:59 Intake Total 300 ml Output Total 2 ml 2 ml Balance -2 ml -2 ml 300 ml Problem List Problems Medical Problems: (1) A-fib Status: Acute (2) Acute diastolic CHF (congestive heart failure) Status: Acute (3) Acute kidney injury superimposed on CKD Status: Acute (4) Acute on chronic diastolic congestive heart failure Status: Acute (5) Acute respiratory failure Status: Acute (6) Cellulitis of right lower extremity Status: Acute Assessment DU- with stable Hg, contiue with acid suppression as o/p. CPM Disposition plans per primary MARY ROWELL MD Nov 20, 2018 12:49
--- NOTE | 2018-11-20 13:03 | NUR ---
SS following up with discharge planning. Discharge orders received for return to [facility], ; fax [phone]. SS phoned and faxed discharge orders to [facility]. Pt will discharge today and return to [facility] at 1430 via [facility] transport, [id number]. Pt, pt's RN, and pt's family notified.
--- NOTE | 2018-11-20 13:24 | NUR ---
PATIENT IS DISCHARGED TO [facility] AND REPORT GIVEN TO NURSE LEDEZMA
--- NOTE | 2018-11-20 14:57 | NUR ---
PATIENT DISCHARGED BACK TO [facility] PER [facility] TRANSPORTATION PER WHEELCHAIR.
--- NOTE | 2018-11-20 17:06 | PATHOLOGY ---
[facility] Accession Number: [id number] . 01 Material submitted: . stomach - GASTRIC ULCER BIOPSY PYLORIC CHANNEL . 01 Clinical history: . Anemia . 02 Diagnosis: Gastric biopsies, pyloric channel: - Congestion and focal slight chronic inflammation. (JPM:strategic advisor; 11/20/2018) MBR/11/20/2018 . 02 Comment: Sections of the gastric biopsy reveal segments of gastric body and antral/body transition mucosa showing congestion and focal slight chronic inflammation. A properly controlled immunoperoxidase stain for Helicobacter is negative for Helicobacter organisms. There is no evidence of malignancy. (JPM:strategic advisor; 11/20/2018) . Special stain performed: Immunoperoxidase stain for Helicobacter on A1. . 02 Electronically signed: . Richard Hall MD, Pathologist NPI- [id number] . 01 Gross description: . Received in formalin labeled "[place], [place], pyloric channel BX ulcer," are 3 segments of hayes soft tissue measuring 0.9 x 0.6 x 0.2 cm in aggregate dimensions and ranging from 0.3 to 0.6 cm in maximum dimension. The specimen is submitted entirely in cassette A1. (TSD; 11/17/2018) TOB/TOB . 02 Pathologist provided ICD-10: K29.50 . 02 CPT . 864075, B51451 Specimen Comment: A courtesy copy of this report has been sent to Specimen Comment: [phone], , , . Specimen Comment: Report sent to ,DR NARVAEZ,DR CORDERO / DR POSADA Performed at: [address], [place], [place] [id number] MD Ryland Sandoval MD Phone: [phone] Performed at: [address] [id number] MD Richard Hall MD Phone: [phone]
--- NOTE | 2018-11-21 16:49 | DS ---
DATE OF DISCHARGE: 11/20/2018 ADMISSION DIAGNOSIS: Atrial fibrillation flutter. DISCHARGE DIAGNOSES: 1. Resolving atrial fibrillation flutter. 1. Gastrointestinal bleed. PROCEDURES: Esophagogastroduodenoscopy. CONSULTS: GI and Neurology. HOSPITAL COURSE: The patient is a pleasant elderly female, who presented with some dyspnea and was noted to be in AFib flutter. She was admitted. We did serial enzymes, serial EKGs. We consulted Cardiology. We did cardiac monitoring. We were about to discharge and then she developed a little bit of GI bleed with a trigger for a scope. She had a nonbleeding ulcer. Yesterday, she was at her baseline. We examined her. Her heart tones are normal. Her lungs were clear. We discharged to long-term care. ACTIVITY: As tolerated. DIET: Low sodium. MEDICATIONS: Please see the MRAD. TOTAL TIME: 32 minutes. JEREMY NARVAEZ DO DR: ALEXA/julius JOB#: [id number] / [id number]
== END 2018-11-20 15:01 | DRG 871 ==
LOC: ER 22:17 → 6 SOUTH 23:40 → 2 SOUTH 11-12 13:24
PROVIDERS: ADMIT Internal Medicine; ATTEND Internal Medicine
PROC: 0DB68ZX Excision of Stomach, Via Natural or Artificial Opening Endoscopic, Diagnostic (ICD-10-PCS; principal; 2018-11-17 11:00)
DX: A41.9 Sepsis, unspecified organism (principal); J96.01 Acute respiratory failure with hypoxia; G93.41 Metabolic encephalopathy; I50.43 Acute on chronic combined systolic (congestive) and diastolic (congestive) heart failure; K26.4 Chronic or unspecified duodenal ulcer with hemorrhage; I13.0 Hypertensive heart and chronic kidney disease with heart failure and stage 1 through stage 4 chronic kidney disease, or unspecified chronic kidney disease; L03.115 Cellulitis of right lower limb; N17.9 Acute kidney failure, unspecified; D62 Acute posthemorrhagic anemia; I48.92 Unspecified atrial flutter; I69.351 Hemiplegia and hemiparesis following cerebral infarction affecting right dominant side; L03.116 Cellulitis of left lower limb; N18.9 Chronic kidney disease, unspecified; L89.619 Pressure ulcer of right heel, unspecified stage; B35.9 Dermatophytosis, unspecified; C44.90 Unspecified malignant neoplasm of skin, unspecified; E66.9 Obesity, unspecified; E78.5 Hyperlipidemia, unspecified; E87.5 Hyperkalemia; F03.90 Unspecified dementia, unspecified severity, without behavioral disturbance, psychotic disturbance, mood disturbance, and anxiety; F31.9 Bipolar disorder, unspecified; G47.00 Insomnia, unspecified; I25.10 Atherosclerotic heart disease of native coronary artery without angina pectoris; I48.91 Unspecified atrial fibrillation; J98.01 Acute bronchospasm; K21.9 Gastro-esophageal reflux disease without esophagitis; K29.70 Gastritis, unspecified, without bleeding; K59.00 Constipation, unspecified; M81.0 Age-related osteoporosis without current pathological fracture; R13.10 Dysphagia, unspecified; Z96.652 Presence of left artificial knee joint; M19.90 Unspecified osteoarthritis, unspecified site; Z66 Do not resuscitate; Z68.32 Body mass index [BMI] 32.0-32.9, adult; Z74.01 Bed confinement status; Z79.51 Long term (current) use of inhaled steroids; Z79.82 Long term (current) use of aspirin; Z79.899 Other long term (current) drug therapy; Z85.828 Personal history of other malignant neoplasm of skin; Z87.891 Personal history of nicotine dependence; Z91.048 Other nonmedicinal substance allergy status; Z91.81 History of falling; Z95.1 Presence of aortocoronary bypass graft; Z95.5 Presence of coronary angioplasty implant and graft; Z99.3 Dependence on wheelchair; Z87.440 Personal history of urinary (tract) infections
CPT/HCPCS: 36415; 43239; 71045; 74230; 80048; 80053; 80061; 82274; 82565; 82962; 83540; 83550; 83605; 83735; 83880; 84132; 84134; 84443; 84484; 85007; 85025; 85610; 85651; 87040; 87493; 87641; 88305; 88342; 93005; 93306; 94640; 94760; 96365; 96375; J0696; J1940; J2001; J2248; J2543; J2704; J2920; J2930; J3370; J3490; J7040; J7120; J7512; J7613; J7620; J7626; 92526; 92610; 92611; 99285-25